=== PATIENT | male | born 1955 | race Caucasian/White ===

== ENCOUNTER 2023-01-26 10:19 | Outpatient (OUT) | payer OTHER, SELFPAY ==
[2023-01-26 11:04] LABS: Basophils Percent Auto 0.4 % (0.2-2.0); Eosinophils Absolute Auto 0.1 10^3/uL (0.0-0.7); Eosinophils Percent Auto 1.8 % (0.9-7.0); Hematocrit 44.7 % (42.0-54.0); Hemoglobin 13.9 g/dL (14.0-18.0); Immature Granulocytes Abs Auto 0.02 10^3/uL (0.00-0.03); Immature Granulocytes Pct Auto 0.3 % (0.0-0.5); Lymphocytes Absolute Auto 1.5 10^3/uL (1.2-3.8); Lymphocytes Percent Auto 20.4 % (20.5-60.0); Mean Corpuscular HGB Conc 31.1 g/dL (29.9-35.2); Mean Corpuscular Hemoglobin 27.6 pg (25.9-34.0); Mean Corpuscular Volume 88.7 fL (80.0-94.0); Mean Platelet Volume 9.5 fL (9.5-13.5); Monocytes Absolute Auto 0.8 10^3/uL (0.3-0.8); Monocytes Percent Auto 10.5 % (1.7-12.0); Neutrophils Absolute Auto 4.9 10^3/uL (1.4-6.5); Neutrophils Percent Auto 66.6 % (43.0-75.0); Platelet Count 225 10^3/uL (150-450); Red Blood Count 5.04 10^6/uL (4.70-6.10); Red Cell Distribution Width 14.3 % (11.0-15.0); White Blood Count 7.3 10^3/uL (4.0-11.0)
[2023-01-26 11:47] LABS: Alanine Aminotransferase 29 U/L (16-63); Albumin Globulin Ratio 0.9; Albumin Level 3.3 g/dL (3.4-5.0); Alkaline Phosphatase 137 U/L (46-116); Anion Gap 12.9; Aspartate Amino Transferase 18 U/L (15-37); BUN Creatinine Ratio 12.6; Bilirubin Total 0.3 mg/dL (0.2-1.0); Calcium 9.2 mg/dL (8.5-10.1); Carbon Dioxide 30.3 mmol/L (21.0-32.0); Chloride 104 mmol/L (98-107); Chol HDL Ratio 2.9; Cholesterol 149 mg/dL (<=200); Estimated GFR (African America >60 (>=60); Estimated GFR (Non-African Ame >60 (>=60); Globulin 3.8 g/dL; Glucose 95 mg/dL (74-106); HDL Cholesterol 51 mg/dL (40-60); LDL Cholesterol Calculated 86.8 mg/dL; Potassium 4.2 mmol/L (3.5-5.1); Sodium 143 mmol/L (136-145); Total Protein 7.1 g/dL (6.4-8.2); Triglycerides 56 mg/dL (<=150); VLDL CHOLESTEROL 11.2 mg/dL
[2023-01-26 12:02] LABS: Prostate Specific Antigen Scrn 7.54 ng/mL (<=4.00)
== END 2023-01-26 10:20 | disposition home or self-care (01) ==
PROVIDERS: PCP Internal Medicine; Visit Provider Internal Medicine
DX: Z00.00 Encounter for general adult medical examination without abnormal findings (principal); Z12.5 Encounter for screening for malignant neoplasm of prostate
CPT/HCPCS: 36415; 80053; 80061; 85025; G0103

== ENCOUNTER 2023-03-31 09:11 | Outpatient (OUT) | payer OTHER, SELFPAY ==
--- NOTE | 2023-03-31 09:20 | US_ITS ---
The [address] [address] Patient Name: JEANNETTE HUNTLEY MRN: [id number] date: 1955 Sex: M Assigned Patient Location: Current Patient Location: Accession/Order Number: [id number] Exam Date: 03/31/2023 09:25 Report Date: 04/02/2023 07:18 At the request of: MARVA LEPE Procedure: US scrotum EXAM: US scrotum HISTORY: EPIDIDYMITIS N45.1 COMPARISON: None. TECHNIQUE: Siddiqui scale imaging as well as color and duplex Doppler ultrasound examination of the scrotum and its contents were performed. FINDINGS: The testes are normal in size and echotexture without focal abnormality. The right testis measures 4.0 x 2.0 x 2.9 cm. The left testis measures 4.1 x 1.8 x 2.5 cm. Duplex Doppler examination shows normal and symmetric intratesticular blood flow bilaterally. Right epididymis is heterogeneous, mildly enlarged, without discrete hypervascularity.. Simple left epididymal head cyst, 0.6 cm. [No varicocele. No significant hydrocele. Mild right scrotal skin thickening. US/US scrotum IMPRESSION: 1. Findings suggestive of early versus resolving right epididymitis with associated overlying scrotal skin thickening. 2. No evidence for orchitis. Electronically authenticated by: TEMO REYNOLDS Date: 04/02/2023 07:18
== END 2023-03-31 09:12 | disposition home or self-care (01) ==
LOC: US 09:13
PROVIDERS: PCP Internal Medicine; Visit Provider Internal Medicine
DX: N45.1 Epididymitis (principal)
CPT/HCPCS: 76870

== ENCOUNTER 2023-09-28 15:58 | Outpatient (OUT) | payer OTHER, SELFPAY ==
--- NOTE | 2023-09-28 16:06 | US_ITS ---
The [address] [address] Patient Name: JEANNETTE HUNTLEY MRN: [id number] date: 1955 Sex: M Assigned Patient Location: [place] Current Patient Location: Accession/Order Number: [id number] Exam Date: 09/28/2023 16:12 Report Date: 10/01/2023 07:11 At the request of: MARVA LEPE Procedure: US scrotum EXAMINATION: US scrotum HISTORY: swelling of left testicle N50.89 COMPARISON: Ultrasound scrotum 03/23/2023 TECHNIQUE: High-resolution sonographic imaging of the scrotum and contents was performed. FINDINGS: RIGHT: TESTICLE: Homogeneous echotexture. No visible mass. Color Doppler flow is present. Spectral Doppler demonstrates normal arterial waveform and flow, 6/2 cm/s (PSV/EDV), and normal venous wave flow averaging 2 cm/s. EPIDIDYMIS: Small cysts. No increased vascularity. OTHER: None. LEFT: TESTICLE: Homogeneous echotexture. No visible mass. Duplex Doppler demonstrates increased vascularity of the testicle, 15/7 cm/s (PSV/EDV), and normal venous flow averaging 2 cm/s. EPIDIDYMIS: Increased vascularity. OTHER: Numerous thin-walled cystic/tubular structures within left hemiscrotum; dilated tubules/spermatoceles versus multiseptated complex hydrocele. Prominent varicocele. Skin thickening of left hemiscrotum, 6 mm. US/US scrotum IMPRESSION: 1. Left epididymitis and orchitis. 2. Prominent left varicocele and complex hydrocele versus innumerable dilated tubules/developing spermatoceles. Electronically authenticated by: MOHSEN MOSES Date: 10/01/2023 07:11
--- OUTSIDE RECORDS SUMMARY | 2023-09-28 16:06 | XMS_ITS | CCD ---
Author Organization [facility] Care Team Providers Care Bushing And Broach Operator Name Role Phone MIKE NOBLE Primary Care Physician DO Mike Noble Primary Care Provider MD Renato Page Attending Provider Renato Page Unavailable Mike Noble Primary Care Unavailable LueCinthia Admitting Unavailable Lue, Cinthia Velasquez Attending Unavailable eRnato Page Admitting Unavailable Renato Page Attending Unavailable Mike Noble Primary Care Unavailable REAL, DR DURHAM Admitting Unavailable BALL, DR DURHAM Attending Unavailable BALL, DR DURHAM Primary Care Unavailable BALL, DR DURHAM Consulting Unavailable LUE ., CINTHIA Velasquez Admitting Unavailable LUE ., CINTHIA Velasquez Attending Unavailable BALL, DR DURHAM Primary Care Unavailable LUE ., CINTHIA Velasquez Consulting Unavailable REAL, DR DURHAM Admitting Unavailable BALL, DR DURHAM Attending Unavailable BALL, DR DURHAM Primary Care Unavailable BALL, DR DURHAM Consulting Unavailable BALL, DR DURHAM Admitting Unavailable BALL, DR DURHAM Attending Unavailable BALL, DR DURHAM Primary Care Unavailable BALL, DR DURHAM Consulting Unavailable ZIEBER, DR MOHSEN Arce Consulting Unavailable REAL, DR DURHAM Primary Care Unavailable LUE ., CINTHIA Velasquez Admitting Unavailable LUE ., CINTHIA Velasquez Attending Unavailable LUE ., CINTHIA Velasquez Consulting Unavailable Unavailable Primary Care Provider UnavailLLOYD Israel Attending Unavailable SELF Referring Unavailable LLOYD DOYLE Attending Unavailable Mike Noble Unavailable Cinthia Leiva. Attending Unavailable LueCinthia. Referring Unavailable LueCinthia. Attending Unavailable LuCinthia odell. Attending Unavailable Allergies Allergy Classification Reported Allergen(s) Allergy Type Date of Onset Reaction(s) Facility (3 sources) Penicillins; Translations: [penicillins] Drug allergy Swelling (finding) [facility] (6 sources) Shellfish; Translations: [shellfish] Drug allergy 11-14-19 Swelling feature (observable entity), Swelling [facility] (3 sources) Penicillin V Drug Allergy Unknown [facility] Other (1 source) Unable to Assess Drug allergy (disorder) 07-25-19 [facility] Repository (2 sources) Penicillin Drug Allergy Unknown [facility] Repository (1 source) Shellfish Drug allergy (disorder) [facility] Repository (1 source) SHELLFISH CONTAINING PRODUCTS; Translations: [SHELLFISH CONTAINING PRODUCTS] Propensity to adverse reactions to drug (disorder) 11-14-19 [facility] Repository (11 sources) Fish derivative Drug allergy 12-20-19 19 Unknown [facility] Other (11 sources) SHELLFISH/ALL FISH Propensity to adverse reactions Unknown [facility] Other (11 sources) Substance with penicillin structure and antibacterial mechanism of action (substance) Drug allergy 12-20-19 19 Unknown [facility] Other (1 source) patient allergy list reviewed by nurse or physicia Propensity to adverse reactions 12-25-19 Comment:Done [facility] Other Medications Current Medications Medication Drug Class(es) Dates Sig (Normalized) Sig (Original) amLODIPine 5 mg oral tablet (20 sources) Dihydropyridine Calcium Channel Usman Start: 03-30-2021 take 1 tablet by mouth once daily amlodipine 5mg amLODIPine 5mg, 1 (one) Tablet daily # 90, 03/15/2022, Ref. x3. Active oral daily for 90 *Reorder from [facility] for eRx and Interaction Alerts* Mar, Active Comment on above: Take 5 mg by mouth o nce daily. Ascorbic Acid (2 sources) Vitamin C Start: 03-30-2021 Vitamin C Daily, Refills(s) 0 Start Date: 03/30/21 Status: Ordered atorvastatin 10 mg oral tablet (20 sources) HMG-CoA Reductase Inhibitor Start: 03-30-2021 take 1 tablet by mouth once daily in the evening atorvastatin 10mg atorvastatin 10mg, 1 (one) Tablet daily in evening # 90, 04/10/2022, Ref. x1. Active oral daily in evening for 90 *Reorder from [facility] for eRx and Interaction Alerts* Apr, Active Comment on above: Take by mouth. carvedilol 12.5 mg oral tablet (20 sources) alpha-Adrenergic Usman, beta-Adrenergic Usman Start: 03-30-2021 take 1 tablet by mouth twice daily Carvedilol 12.5MG Carvedilol 12.5MG, 1 (one) Tablet two times daily # 180, 12/30/2021, Ref. x3. Active Oral two times daily for 90 *Pick strength-form from [facility] for eRX* Dec, Active Comment on above: Take by mouth. doxycycline hyclate 100 mg oral capsule (2 sources) Tetracycline-class Drug Start: 06-30-2023 take 1 capsule by mouth every twelve hours Doxycycline Hyclate 100 MG 1 capsule Orally Twice a day for 7 days Jun, Active famotidine 40 mg oral tablet (11 sources) Histamine-2 Receptor Antagonist Start: 01-05-2021 take 1 tablet by mouth every twenty-four hours Famotidine 40 MG 1 tablet at bedtime as needed Orally Once a day Jan, Active Ibuprofen (2 sources) Nonsteroidal Anti-inflammatory Drug Start: 03-30-2021 ibuprofen Refills(s) 0 Start Date: 03/30/21 Status: Ordered levoFLOXacin 500 mg oral tablet (7 sources) Quinolone Antimicrobial Start: 03-23-2023 take 1 tablet by mouth every twenty-four hours levoFLOXacin 500 MG 1 tablet Orally Once a day for 10 days Mar, Active Multi Vitamin+ (2 sources) Start: 03-30-2021 Multi Vitamin+ Refill(s) 0 Start Date: 03/30/21 Status: Ordered predniSONE 20 mg oral tablet (4 sources) Start: 06-18-2023 predniSONE 20 MG 1 tablet Orally tid w/ food x 3 days then bid w/ food x 2 days then qd w/ food x 2 days for 7 days Jun, Active 72 hr scopolamine 0.0139 mg/hr transdermal system (2 sources) Anticholinergic Start: 06-30-2023 Scopolamine 1 MG/3DAYS 1 patch to skin behind the ear as needed Transdermal every 72 hours for 6 days Jun, Active tamsulosin hydrochloride 0.4 mg oral capsule (20 sources) alpha-Adrenergic Usman Start: 03-30-2021 take 1 capsule by mouth once daily in the evening tamsulosin 0.4mg tamsulosin 0.4mg, 1 Capsule daily in evening # 90, 04/10/2022, Ref. x3. Active oral daily in evening for 90 *Reorder from [facility] for eRx and Interaction Alerts* Apr, Active Comment on above: Take by mouth. tiZANidine 4 mg oral tablet (4 sources) Central alpha-2 Adrenergic Agonist Start: 06-18-2023 take 0.5-1 tablets by mouth once at bedtime as needed for pain tiZANidine HCl 4 MG 1/2 - 1 tablet Orally q HS PRN back pain for 10 days Jun, Active vitamin B12 (2 sources) Vitamin B12 Start: 03-30-2021 Vitamin B12 Refills(s) 0 Start Date: 03/30/21 Status: Ordered Vitamin D3 (2 sources) Start: 03-30-2021 Vitamin D3 Refills(s) 0 Start Date: 03/30/21 Status: Ordered Completed/Discontinued Medications Medication Drug Class(es) Dates Sig (Normalized) Sig (Original) aspirin 81 mg oral tablet (5 sources) Platelet Aggregation Inhibitor, Nonsteroidal Anti-inflammatory Drug Start: 03-30-2021 aspirin 81 mg cap Take by mouth. 0 03/30/2021 Active Start: 03-30-2021 take 1 mg by mouth e very four hours aspirin 81 mg oral capsule mg cap(s), Oral, q4hr, Refills(s) 0 Start Date: 03/30/21 Status: Ordered Comment on above: Take by mouth. ciprofloxacin 500 mg oral tablet (1 source) Quinolone Antimicrobial Start: 11-27-2022 End: 11-27-2022 ciprofloxacin HCl 500 mg tab(s) (CIPRO) diphenhydrAMINE hydrochloride 25 mg oral capsule (5 sources) Histamine-1 Receptor Antagonist Start: 03-30-2021 diphenhydrAMINE (BENADRYL) 25 mg capsule Take by mouth. 0 03/30/2021 Active Comment on above: Take by mouth. jrzrdyzs-gki-tpocibf fumarate (MULTI VITAMIN) 9 mg iron/15 mL liqd (3 sources) Start: 03-30-2021 zzzejnag-alw-behblvn fumarate (MULTI VITAMIN) 9 mg iron/15 mL liqd Multi Vitamin+ Refill(s) 0 Start Date: 03/30/21 Status: Ordered 0 03/30/2021 Active Comment on above: Multi Vitamin+ Refil l(s) 0 Start Date: 03/30/21 Status: Ordered Problems Active Problems Problem Classification Problem Date Documented Date Episodic/Chronic Abdominal pain (1 source) Epigastric pain; Translations: [Epigastric pain] Episodic Acute bronchitis (3 sources) Acute bronchitis; Translations: [Acute bronchitis due to other specified organisms] Episodic Cardiac dysrhythmias (1 source) Paroxysmal tachycardia; Translations: [Paroxysmal tachycardia, unspecified] Chronic Cardiac dysrhythmias (6 sources) Palpitations; Translations: [Tachycardia] 03-25-2021 Episodic Conditions associated with dizziness or vertigo (1 source) Dizziness and giddiness; Translations: [Dizziness and giddiness] Episodic Disorders of lipid metabolism (16 sources) Familial hypercholesterolemia; Translations: [Familial hypercholesterolemia] Onset: 12-19-2018 03-25-2021 Chronic Esophageal disorders (10 sources) Gastro-esophageal reflux disease with esophagitis; Translations: [Gastroesophageal reflux disease with esophagitis without hemorrhage] Chronic Essential hypertension (15 sources) Essential hypertension; Translations: [Essential (primary) hypertension] 03-25-2021 Chronic Genitourinary congenital anomalies (3 sources) Hypospadias, penile; Translations: [Hypospadias, penile] Onset: 01-23-2022 Chronic Genitourinary symptoms and ill-defined conditions (6 sources) Poor stream of urine; Translations: [Poor urinary stream] Onset: 12-19-2018 Episodic Hyperplasia of prostate (20 sources) Benign prostatic hypertrophy with outflow obstruction; Translations: [Benign prostatic hyperplasia with lower urinary tract symptoms] Onset: 12-23-2018 Chronic Inflammatory conditions of male genital organs (3 sources) Prostatitis; Translations: [Inflammatory disease of prostate, unspecified] Onset: 09-20-2022 07-13-2021 Episodic Nonspecific chest pain (1 source) Chest pain; Translations: [Other chest pain] Episodic Other diseases of bladder and urethra (2 sources) Male urethral stricture; Translations: [Unspecified urethral stricture, male, unspecified site] Onset: 09-20-2022 Episodic Other diseases of bladder and urethra (1 source) Unspecified urethral stricture, male, unspecified site; Translations: [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 urethra, unspecified stricture type] Onset: 11-27-2022 Episodic Other diseases of kidney and ureters (1 source) Urinary tract obstruction; Translations: [Other obstructive and reflux uropathy] Onset: 01-23-2022 Episodic Other diseases of kidney and ureters (1 source) Other obstructive and reflux uropathy; Translations: [BPH with obstruction/lower urinary tract symptoms] Onset: 11-27-2022 Episodic Other diseases of veins and lymphatics (11 sources) Peripheral venous insufficiency; Translations: [Venous insufficiency (chronic) (peripheral)] Episodic Other diseases of veins and lymphatics (2 sources) Venous insufficiency (chronic) (peripheral) Episodic Other disorders of stomach and duodenum (2 sources) Indigestion 03-25-2021 Episodic Other injuries and conditions due to external causes (1 source) Motion sickness; Translations: [Motion sickness, initial encounter] Episodic Other injuries and conditions due to external causes (2 sources) Motion sickness, initial encounter Episodic Other nutritional; endocrine; and metabolic disorders (5 sources) Morbid obesity; Translations: [Morbid (severe) obesity due to excess calories] Onset: 11-13-2022 03-25-2021 Chronic Other nutritional; endocrine; and metabolic disorders (1 source) Morbid (severe) obesity due to excess calories; Translations: [Morbid obesity (HCC)] Onset: 11-13-2022 Chronic Other nutritional; endocrine; and metabolic disorders (1 source) Obesity; Translations: [Obesity, unspecified] Chronic Other nutritional; endocrine; and metabolic disorders (1 source) Body mass index 30+ - obesity; Translations: [Body mass index 36.0-36.9, adult] Onset: 12-24-2018 Chronic Other screening for suspected conditions (not mental disorders or infectious disease) (14 sources) Raised prostate specific antigen; Translations: [Elevated prostate specific antigen [PSA]] Onset: 07-25-2021 03-30-2021 Episodic Spondylosis; intervertebral disc disorders; other back problems (20 sources) Prolapse of lumbar intervertebral disc without radiculopathy; Translations: [Other intervertebral disc displacement, lumbar region] Chronic Spondylosis; intervertebral disc disorders; other back problems (16 sources) Low back pain; Translations: [Low back pain, unspecified back pain laterality, unspecified chronicity, unspecified whether sciatica present] Episodic Unclassified (1 source) Low back pain, unspecified; Translations: [Low back pain, unspecified] Onset: 03-10-2022 Unclassified (1 source) N41.9 - Inflammatory disease of prostate, unspecified; Translations: [N41.9 - Inflammatory disease of prostate, unspecified] Onset: 07-25-2021 Unclassified (3 sources) LOW BACK PAIN, UNSPECIFIED; Translations: [LOW BACK PAIN, UNSPECIFIED] Onset: 02-12-2022 Unclassified (3 sources) CONTACT W/AND (SUSP) EXPOS COVID-19; Translations: [CONTACT W/AND (SUSP) EXPOS COVID-19] Onset: 11-15-2021 Unclassified (1 source) 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); Translations: [Post COVID-19 condition, unspecified] Unclassified (1 source) Encounter for health counseling related to travel; Translations: [Encounter for health counseling related to travel] Unclassified (1 source) Other ventricular tachycardia; Translations: [Other ventricular tachycardia] Past or Other Problems Problem Classification Problem Date Documented Da te Episodic/Chronic Esophageal disorders (2 sources) Esophageal disorders Unclassified (1 source) LOW BACK PAIN, UNSPECIFIED; Translations: [LOW BACK PAIN, UNSPECIFIED] Onset: 02-08-2022 Unclassified (1 source) CONTACT W/AND (SUSP) EXPOS COVID-19; Translations: [CONTACT W/AND (SUSP) EXPOS COVID-19] Onset: 11-12-2021 Unclassified (3 sources) Acute bilateral low back pain without sciatica M54.50 Results Test Name Value Interpretation Reference Range Facil ity Provider Letteron 02-20-2023 Provider Letter February 20, 2023 JEANNETTE HUNTLEY [address] [place] [address] [place] [address] : 1955 Dear Mr. Huntley, We have been trying to reach you with no success regarding a referral we received from Dr Noble. It is important that you return our call upon receiving this letter so that we can get your consultation scheduled. Also, at the time of your call, please provide us with your current demographic and insurance information. Thank you for your prompt attention to this matter. Sincerely, [facility] General Surgery [phone] [facility] Operative Reporton 3 Operative Report [id number]. 00CD:127 [facility] Physician Referralon 023 Physician Referral [id number]. 00CD:127 [facility] CNOVon 11-27-2022 CNOV Office Visit (UROSMN ) JEANNETTE HUNTLEY ([id number]) 1955 M Date Time Provider Department 11/27/22 3:00 PM LLOYD DOYLE UROSUSANA During your visit today, we recorded the following information about you: Dionisio Reardon RN 11/27/2022 3:55 PM Signed Actual procedure/procedure scheduled: Yes Performing provider/scheduled provider: Yes Patient was roomed in: Q9- 14 Safety Associate offered:Patient declines Patient arrived in the room at: 1440 Patient ready for procedure: 1444 The procedure started at ( Time Only): 1525 The procedure ended at: 1528 Was the procedure delayed: Yes: Provider late: Provider with other patient on Q9 The patient left the procedure room at: 1550 Dionisio Reardon RN PRE PROCEDURE ASSESSMENT Procedure Indication: RUG Latex Allergy: No Allergies reviewed and updated. Yes Pre-Procedure Vital Signs: BP: 194/100 Pulse: 88 Heart valve replacement: No Joint replacement: No Back Office UA otained: yes PROCEDURE PREP Patient ID with two(2)identifiers verified by: Dionisio Reardon RN Patient Prep: Betadine Scrub to perineum and placement of Sterile Drape. COMPLETED Anesthetic Given:None Dionisio Reardon RN UNIVERSAL PROTOCOL / SAFETY CHECKLIST Procedure to be performed: RUG Sign in Communication: Completed Time Out: Team Confirms the Correct Patient, Correct Procedure, Correct Site and Site Marking, Correct Position (if applicable). Sign Out Discussion: Completed Dionisio Reardon RN POST PROCEDURE NURSE ASSESSMENT Present along with physician during procedure exam. Dionisio Reardon RN Instruction sheet given and reviewed and patient verbalizes understanding: yes Current pain intensity is 0 on a 0-10 pain scale. Contrast amount used: 25cc omnipaque Dionisio Reardon RN AMBULATORY PATIENT EDUCATION THE FOLLOWING WAS EVALUATED Motivation To Learn: Eager Interested Family/Significant Other Support: None - Unavailable/disintere sted Cognitive Ability: Alert/Oriented Method of Instruction: Written instruction - handouts The Following Influencing Factors Were Barriers To This Education Session: None The Following Physical Limitations Were Barriers To This Education Session: None Instruction Provided To: Patient Appellate Law Clerk Present: not applicable Discipline: Nursing Learning Topic: SURVIVAL SKILLS: Symptom Management Patient Evaluation: Verbalizes understanding: Yes Supplemental Material Given: Written Material Instructed By Dionisio Reardon RN In Department Urology . Lloyd Doyle MD 11/27/2022 5:27 PM Signed PHYSICIAN'S NOTE: Procedure: RUG Epic notes reviewed: yes Interval history:Last seen 11/13/2022 This is a 67 yo man with hx congenital hypospadias, BPH, Dr. Leiva attempted to perform cysto to evaluate for surigcal BPH tx, unable to pass scope. Endorsing OVS, good improvement on flomax. PVR: 97 cc Diagnosis: LUTS Informed consent obtained yes. Discussed RBAPC. The procedure was fully explained to the patient, risks were reviewed. The patient was placed into lateral oblique position, and the glans penis was prepped with betadine. With the penis on stretch, Omnipaque 300 was gently injected into the urethral meatus under radiographic visualization and images were captured. RADIOLOGIC STUDIES RUG:patent urethral meatus, distal urethra with pinpoint narrowing, just <1 cm proximal from meatus. Rest of the urethra appears patent without filling defects. COMPLICATIONS: None RECOMMENDATIONS: Discussed findings with patient. - Recommend 1 stage onlay urethroplasty - dorsal approach - he will consider and LMK- he's retiring soon so wants to time it around that POST PROCEDURE Condition: satisfactory Medications:Cipro 500 mg x 1 MD Lloyd Valdes MD 11/27/2022 5:27 PM Signed Referring Provider: SELF [[id number]] Allergies As of Date: 11/27/2022 Noted Allergy Reaction SHELLFISH CONTAINING PRODUCTS 11/13/2022 7 - Swelling Date Reviewed: 11/27/2022 Reviewed by: Dionisio Reardon RN - Fully Assessed Reason for Visit: Retrograde Urethrogram [376] Primary Visit Diagnosis: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 urethra, unspecified stricture type [N35.919] Other Visit Diagnosis:BPH with obstruction/lower urinary tract symptoms [N40.1, N13.8] Prescriptions as of 11/27/2022 - amLODIPine (NORVASC) 5 mg tablet Take 5 mg by mouth once daily. - aspirin 81 mg cap Take by mouth. - atorvastatin (LIPITOR) 10 mg tablet Take by mouth. - tamsulosin (FLOMAX) 0.4 mg Take by mouth. - diphenhydrAMINE (BENADRYL) 25 mg capsule Take by mouth. - carvedilol (COREG) 12.5 mg tablet Take by mouth. - dojitifm-rmv-ngzwklp fumarate (MULTI VITAMIN) 9 mg iron/15 mL liqd Multi Vitamin+ Refill(s) 0 Start Date: 03/30/21 Status: Ordered Problem List As Of Date 11/27/2022 Noted Resolved Morbid obesity (HCC) [E66.01] 11/13/2022 11/27/2022 Visit Notes: (more content not included)... [facility] Consultation Noteon 11-27-19 Consultation Note [id number] .[id number]:127 [facility] Consultation Note [id number]. [id number]:127 [facility] CNCOon 11-13-2022 CNCO HNO ID: [id number] Author: Lloyd Doyle MD Service: Urology Author Type: Physician Type: Letter Filed: 11/20/2022 8:58 AM Note Text: November 15, 2022 Cinthia Leiva M.D. [address] [place] [address] NAME: JEANNETTE HUNTLEY [facility] NO.: [id number] DATE OF SERVICE: 11/13/[address] 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 He did have a negative MRI and I understand that you wanted to perform a cystoscopy I think to evaluate microscopic hematuria. I plan to do retrograde ureterogram on him soon to evaluate the remainder of his urethra and I have a 12-Hebrew cystoscope which I could perform a cystoscopy if he wanted me to do that. If you have any questions or concerns, please do not hesitate to contact me. Sincerely yours, Lloyd Doyle MD [facility] CNOVon 11-13-2022 CNOV Office Visit (UROLMN ) JEANNETTE HUNTLEY ([id number]) 1955 M Date Time Provider Department 11/13/22 8:30 AM LLOYD DOYLE During your visit today, we recorded the following information about you: Pulse Blood pressure Weight 67/minute 160/92 124.7 kg Lloyd Doyle MD 11/13/2022 10:35 AM Signed [facility] NEW PATIENT HISTORY AND PHYSICAL EXAM PATIENT INFO: Jeannette Huntley 67 year old REFERRING M.D.: SELF HISTORY Jeannette is a 67 y.o. male Home urologist is Dr Leiva with hypospadias, follows him for BPH, elevated PSA, neg prostate MRI, no prior biopsy; LUTS iso congenital hypospadias, no prior repair, noted when they attempted to perform cystoscopy on 01/2022, unable to pass scope. Endorses hesitancy, slow stream, incomplete emptying, spraying stream. Denies intermittent stream, hematuria. Significant improvement in LUTS with flomax, does has issues erectile function while taking so he will take days off. No hx UTI, kidney stones. Referred by his home urologist due to impediment to cystoscopy - patient is not bothered by his symptoms but does worry about increased difficulty accessing his urinary tract for assessment or management of his prostate, potentially needing a brown catheter, etc. PSA 5.7, 09/13/22. Previous PSA 5.2 07/13/21. Denies Fhx prostate ca. Moves bowel regularly, no issues. He is physically active, ran half marathon with his . PMH: HLD, HTN PSH: hiatal hernia repair PVR: 97 cc States that he only occas has OVS MEDICATIONS: Current Outpatient Medications Medication Sig aspirin 81 mg cap Take by mouth. atorvastatin (LIPITOR) 10 mg tablet Take by mouth. tamsulosin (FLOMAX) 0.4 mg Take by mouth. diphenhydrAMINE (BENADRYL) 25 mg capsule Take by mouth. carvedilol (COREG) 12.5 mg tablet Take by mouth. asjwjdlk-rar-ynnvdwk fumarate (MULTI VITAMIN) 9 mg iron/15 mL liqd Multi Vitamin+ Refill(s) 0 Start Date: 03/30/21 Status: Ordered amLODIPine (NORVASC) 5 mg tablet Take 5 mg by mouth once daily. No current facility-administered medications for this visit. MEDICATION ALLERGIES: ALLERGIES Allergen Reactions Shellfish Containin* Swelling No past medical history on file. No past surgical history on file. FAMILY HISTORY: NEGATIVE: No related previous family history. Social History Tobacco Use Smoking status: Never Smokeless tobacco: Never : Force of Stream: slower, spraying NOCTURIA: yes Day Time Frequency: no Hesitancy: yes Intermittency: no Incomplete Emptying: yes Post void Dribbling: yes Urinary Retention Hx: no Double Voiding: no Urgency: Dysuria: no Incontinence history: only post void HISTORY OF FAMILY CANCER:none gross hematuria history: denies Erectile dysfunction: denies, denies chordee UTI Hx: denies STAFF NOTE: This consult was requested by Dr. Cinthia Leiva for an opinion regarding hypospadias, and my final recommendations will be communicated to the requesting health care provider by way of the shared medical record for internal providers or letter via the [employer] for external providers. Edited above to reflect my findings. 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 HERNIAS: None SKIN/LYMPH: No rash, lesions NEURO/PSYCH: No signs of depression, anxiety, or agitation EXTREMITIES: Extremities normal. No deformities, edema, clubbing or skin discoloration. GENITOURINARY: MALE EXAM: there is a distal penile hypo with what appears to be meatal stenosis, but diff to see beyond MEDICAL DECISION MAKING: (A1) IMPRESSION: (Diagnostic Possibilities) New or Established 1) hypospadias with stric, prevented cysto - rec RUG, disc rationale. Can do cysto with 12F scope concurrent if Dr. Leiva wants 2) el PSA neg MRI, being eval by Dr. Leiva (A2) PLAN: (Management Options) NEMO Doyle MD Staff Electronically signed Yulissa Mccann MA 11/13/2022 9:13 AM Signed PATIENT PVR 27mL. Referring Provider: SELF [200] Allergies As of Date: 11/13/2022 Noted Allergy Reaction SHELLFISH CONTAINING PRODUCTS 11/13/2022 7 - Swelling Date Reviewed: 11/13/2022 Reviewed by: Iftikhar Avilez MA - Fully Assessed Reason for Visit: Consult [173] Primary Visit Diagnosis:Penile hypospadias [Q54.1] Other Visit Diagnoses:Elevated prostate specific antigen (P (more content not included)... Normal [facility] URINALYSIS, REFLEX MICROSCOP ICon 11-13-2022 Bilirubin Ql (U) Negative Normal Negative [facility] Comment on above: Order Comment: Speci men Type: URINE SPECIMEN Ordering Facility: [facility] Address: [address] [place] [address] Performed By: #### L [id number] #### [facility] CLIA [id number] [address] [place] [address] [place] Clarity (Unsp spec) Clear Normal Clear [facility] Comment on above: Order Comment: Speci men Type: URINE SPECIMEN Ordering Facility: [facility] Address: [address] Performed By: #### L [id number] #### [facility] CLIA [id number] [address] [place] [address] [place] Color (U) Yellow Normal Yellow [facility] Comment on above: Order Comment: Speci men Type: URINE SPECIMEN Ordering Facility: [facility] Address: [address] Performed By: #### L [id number] #### [facility] CLIA [id number] [address] [place] [address] [place] Epithelial cells LM.HPF (Urine sed) [#/Area] Few Normal [facility] Comment on above: Order Comment: Speci men Type: URINE SPECIMEN Ordering Facility: [facility] Address: [address] [place] [address] Performed By: #### L [id number] #### [facility] CLIA [id number] [address] [place] [address] [place] Glucose Test strip (U) [Mass/Vol] Negative Normal Trace, Negative [facility] Comment on above: Order Comment: Speci men Type: URINE SPECIMEN Ordering Facility: [facility] Address: [address] Performed By: #### L [id number] #### [facility] CLIA [id number] [address] [place] [address] [place] Hemoglobin Ql (U) Negative Normal Negative, Trace Cl [facility] Comment on above: Order Comment: Speci men Type: URINE SPECIMEN Ordering Facility: [facility] Address: [address] [place] [address] Performed By: #### L [id number] #### [facility] CLIA [id number] [address] [place] [address] [place] Ketones Ql (U) Negative Normal Negative, Trace [facility] Comment on above: Order Comment: Speci men Type: URINE SPECIMEN Ordering Facility: [facility] Address: [address] [place], [place] [address] Performed By: #### L [id number] #### [facility] CLIA [id number] [address] [place] [address] [place] Leukocyte esterase Test strip Ql (U) 500 Heather/uL Abnormal Negative, 25 Heather/uL [facility] Comment on above: Order Comment: Speci men Type: URINE SPECIMEN Ordering Facility: [facility] Address: [address] [place], [place] [address] Performed By: #### L [id number] #### [facility] CLIA [id number] [address] [place] [address] [place] Nitrite Ql (U) Negative Normal Negative [facility] Comment on above: Order Comment: Speci men Type: URINE SPECIMEN Ordering Facility: [facility] Address: [address] Performed By: #### L [id number] #### [facility] CLIA [id number] [address] [place] [address] [place] pH (U) 5.5 [pH] Normal 5.0-8.0 [facility] Comment on above: Order Comment: Speci men Type: URINE SPECIMEN Ordering Facility: [facility] Address: [address] [place], [place] [address] Performed By: #### L [id number] #### [facility] CLIA [id number] [address] Protein (U) [Mass/Vol] Negative Normal Trace, Negative [facility] Comment on above: Order Comment: Speci men Type: URINE SPECIMEN Ordering Facility: [facility] Address: [address] [place], [place] [address] Performed By: #### L [id number] #### [facility] CLIA [id number] [address] [place] [address] [place] RBC LM.HPF (Urine sed) [#/Area] 0-3 /HPF Normal 0-3 /HPF [facility] Comment on above: Order Comment: Speci men Type: URINE SPECIMEN Ordering Facility: [facility] Address: [address] [place], [place] [address] Performed By: #### L [id number] #### [facility] CLIA [id number] [address] [place] [address] STATES [facility] Specific gravity (U) [Rel density] 1.022 Normal 1.005-1.030 [facility] Comment on above: Order Comment: Speci men Type: URINE SPECIMEN Ordering Facility: [facility] Address: [address] [place], [place] [address] Performed By: #### L [id number] #### [facility] CLIA [id number] [address] [place] [address] [place] Urobilinogen Ql (U) Negative Normal Negative [facility] Comment on above: Order Comment: Speci men Type: URINE SPECIMEN [facility]ing Facility: [facility] Address: [address] [place], [place] [address] Performed By: #### L [id number] #### [facility] CLIA [id number] [address] [place] [address] [place] WBC LM.HPF (Urine sed) [#/Area] 11-25 /HPF Abnormal 0-5 /HPF [facility] Comment on above: Order Comment: Speci men Type: URINE SPECIMEN [facility]ing Facility: [facility] Address: [address] [place], [place] [address] Performed By: #### L [id number] #### [facility] CLIA [id number] [address] [facility] [id number] [place] [address] [place] Bilirubin Ql (U) Negative Negative [facility] Clarity (Unsp spec) Clear Clear [facility] Color (U) Yellow Yellow [facility] Epithelial cells LM.HPF (Urine sed) [#/Area] Few [facility] Glucose Test strip (U) [Mass/Vol] Negative Trace, Negative [facility] Hemoglobin Ql (U) Negative Negative, Trace Cl [facility] Ketones Ql (U) Negative Negative, Trace [facility] Leukocyte esterase Test strip Ql (U) 500 Heather/uL Abnormal Negative, 25 Heather/uL [facility] Nitrite Ql (U) Negative Negative [facility] pH (U) 5.5 [pH] 5.0 - 8.0 [facility] Protein (U) [Mass/Vol] Negative Trace, Negative [facility] RBC LM.HPF (Urine sed) [#/Area] 0-3 /HPF 0-3 /HPF [facility] Specific gravity (U) [Rel density] 1.022 1.005 - 1.030 [facility] Urobilinogen Ql (U) Negative Negative [facility] WBC LM.HPF (Urine sed) [#/Area] 11-25 /HPF Abnormal 0-5 /HPF [facility] Lab Reportson 09-20-2022 Lab Reports [id number]:127 Normal [facility] Patient Educationon 09-21-19 Patient Education Infectious Disease Prostatitis Prostatitis is swelling or inflammation of the prostate gland, also called the prostate. This gland is about 1.5 inches wide and 1 inch high, and it is involved in making semen. The prostate is located below a man's bladder, in front of the rectum. There are four types of prostatitis: ? Chronic prostatitis (CP), also called chronic pelvic pain syndrome (CPPS). This is the most common type of prostatitis. It is associated with increased muscle tone in the area between the hip bones (pelvic area), around the prostate. This type is also known as a pelvic floor disorder. ? Chronic bacterial prostatitis. This type usually results from an acute bacterial infection in the prostate gland that keeps coming back or has not been treated properly. The symptoms are less severe than those caused by acute bacterial prostatitis, which lasts a shorter time. ? Asymptomatic inflammatory prostatitis. This type does not have symptoms and does not need treatment. This is diagnosed when tests are done for other disorders of the urinary tract or reproductive tract. ? Acute bacterial prostatitis. This type starts quickly and results from an acute bacterial infection in the prostate gland. It is usually associated with a bladder infection, high fever, and chills. This is the least common type of prostatitis. What are the causes? Bacterial prostatitis is caused by an infection from bacteria. Chronic nonbacterial prostatitis may be caused by: ? Factors related to the nervous system. This system includes thebrain, spinal cord, and nerves. ? An autoimmune response. This happens when the body's disease-fighting system attacks healthy tissue in the body by mistake. ? Psychological factors. These have to do with how the mind works. The causes of the other types of prostatitis are usually not known. What are the signs or symptoms? Symptoms of this condition depend on the type of prostatitis you have. Acute bacterial prostatitis Symptoms may include: ? Pain or burning during urination. ? Frequent and sudden urges to urinate. ? Trouble starting to urinate. ? Fever. ? Chills. ? Pain in your muscles or joints, lower back, or lower abdomen. Other types of prostatitis Symptoms may include: ? Sudden urges to urinate, or urinating often. ? Trouble starting to urinate. ? Weak urine stream. ? Dribbling after urination. ? Discharge coming from the penis. ? Pain in the testicles, the penis, or the tip of the penis. ? Pain in the area in front of the rectum and below the scrotum (perineum). ? Pain when ejaculating. How is this diagnosed? This condition may be diagnosed based on: ? A physical and medical exam. ? A digital rectal exam. For this, the health care provider may use a finger to feel the prostate. ? A urine test to check for bacteria. ? A semen sample or blood tests. ? Ultrasound. ? Urodynamic tests to check how your body handles urine. ? Cystoscopy to look inside your bladder or inside the part of your body that drains urine from the bladder (urethra). How is this treated? Treatment for this condition depends on the type of prostatitis. Treatment may involve: ? Medicines to relieve pain or inflammation, or to help relax your muscles. ? Physical therapy. ? Heat therapy. ? Biofeedback. These techniques help you control certain body functions. ? Relaxation exercises. ? Antibiotic medicine, if your condition is caused by bacteria. ? Sitz baths. These warm water baths help to relax your pelvic floor muscles, which helps to relieve pressure on the prostate. Follow these instructions at home: Medicines ? Take hdek-osu-xlevbbg and prescription medicines only as told by your health care provider. ? If you were prescribed an antibiotic medicine, take it as told by your health care provider. Do not stop using the antibiotic even if you start to feel better. Managing pain and swelling ? Take sitz baths as directed by your health care provider. For a sitz bath, sit in warm water that is deep enough to cover your hips and buttocks. ? If directed, apply heat to the affected area as often as told by your health care provider. Use the heat source that your health care provider recommends, such as a moist heat pack or a heating pad. ? Place a towel between your skin and the heat source. ? Leave the heat on for 20?30 minutes. ? Remove the heat if your skin turns bright red. This is especially important if you are unable to feel pain, heat, or cold. You may have a greater risk of getting burned. General instructions ? Do exercises as told by your health care provider, if you were prescribed physical therapy, biofeedback, or relaxation exercises. ? Keep all follow-up visits as told by your health care provider. This is important. Where to find more information ? National Cass of Diabetes and Digestive and Kidney Diseases: (more content not included)... Normal [facility] Urology Office/Clinic Noteon 09-20-2022 Urology Office/Clinic Note Chief Complaint Pt is here for 8 month w/ PSA HPI Staff Jeannette is a 67 y.o. male here for 8 month follow up w/ PSA. Previous Dx: BPH w/ urinary obstruction, elevated PSA, nocturia, prostatitis. S/P cystoscopy done on 01/23/22. Current PSA 5.7 & 31.2% done on 09/13/22. Previous PSA 5.2 & 22.7% done on 07/13/21. Dysuria: denies Incomplete bladder emptying: denies Hematuria: denies Frequency: denies Urgency: denies Nocturia: 1-2x a night Stream: steady stream, mild weakness Leaking: denies Post void dripping: denies Wearing pads/ Depends: denies Urge incontinence: denies Stress incontinence: denies Incontinence without Sensory Awareness: denies Abdominal pain: denies Flank pain: denies Sexual complaints: _ History of Present Illness I have reviewed and verified the staff HPI to be accurate for this encounter. Review of Systems PHQ Score Initial Depression Screen Score: 0 ROS - Provider Constitutional: denies weight loss, denies hot flashes. Eyes: denies eye problems. Gastrointestinal: denies nausea, denies vomiting. Cardiovascular: denies chest pain or angina. Integumentary: no dryness Musculoskeletal: denies musculoskeletal symptoms. ENMT: denies otolaryngeal symptoms. Respiratory: no shortness of breath. Heme/Lymph: denies easy bleeding tendency, denies easy bruising tendency. Psychiatric: no confusion, no anxiety. Genitourinary: see HPI Physical Exam Vitals & Measurements HR: 80(Peripheral) BP: 138/81 HT: 71 in HT: 180 cm WT: 103 kg WT: 226.6 lb BMI: 31.79 General Appearance: alert, no distress, well nourished, well developed male. Genitourinary: Flank Pain: none. Bladder: nonpalpable. Assessment/Plan 1. BPH with urinary obstruction (N40.1: Benign prostatic hyperplasia with lower urinary tract symptoms) Pt. currently taking Tamsulosin 0.4mg QD therapy (PCP prescribes). IPSS 15-weak stream previous IPSS Originally 22 Pt denies any urinary complaints. Likely due to hx prostatitis and urethral stricture per #3,5 -Cont meds, timed voiding, stricture eval at [facility] 2. Elevated PSA (R97.20: Elevated prostate specific antigen [PSA]) MDX result done on 03/30/21 showed 54% chance finding cancer, 26% Timpson 7 or higher ( of note, JAYNE was noted as suspicious on order, but his JAYNE was NOT suspicious) PSA 09/13/2022 - 5.7 and 31.2% 07/13/21 was 5.2 and 22.7% Free 02/14/21 - 5.3 and free 23% (after 3 weeks of ABX course) 01/17/21 - 7.24 MRI prostate w/wo contrast done on 07/25/21 at [facility] impression showed no MRI evidence of prostate malignancy. BPH. 85g volume PSA density 0.067 Discussed PSA trend, potential for malignancy in setting of neg MRI and low PSAD, risks of biopsy. Pt would like to continue monitoring -Cont monitoring PSA in 6 mths 3. Urethral stricture in male (N35.919: Unspecified urethral stricture, male, unspecified site) Seen on Cysto 01/23/2022- Distal penile hypospadias. Pale urethral stricture 8-10Fr, starting < 1 cm proximal to meatus, unable to advance flexible cystoscope. No visible tumors or lesions. Hooded dorsal foreskin intact. Thin ventral penile skin. Recommended referral to tertiary center for hypospadias repair given symptoms of weak stream, pressure at end of stream and spraying. Pt was referred to [facility] but was unable to go due to insurance issues. Insurance cleared however [facility] unable to contact pt due to him being in [place] -Pt will attempt to contact [facility] to be seen. Will resend referral paperwork for Dr Lloyd Doyle -F/u in 3 mths 4. Prostatitis (N41.9: Inflammatory disease of prostate, unspecified) Pt finished ABX therapy Cipro 500mg BID x 6weeks from +UCx. UA negative for infection. 5. Hypospadias (Q54.9: Hypospadias, unspecified) Seen on Cysto 01/23/2022 -Distal penile hypospadias Pt does not think he has had a formal repair as a child, but not sure. -Recommended referral to tertiary center for hypospadias repair given symptoms of weak stream, pressure at end of stream and spraying, see #3 Follow-up With When Contact Information Cali GARCIA, Cinthia Hernandez, URL, URO In 3 months 12/20/2022 EDT [address] [place] [address]- [phone] Additional Instructions: Patient Education Prostatitis I, Desiree Louis , personally scribed for Dr. Leiva on 09/20/2022 10:34:10. . Documentation recorded by the scribe, Desiree Louis, accurately reflects the services(s) I performed and decisions made by me. Authenticated by Dr. Leiva on 09/20/2022 10:40:10. Problem List/Past Medical History Ongoing BPH with urinary obstruction Dyspepsia Elevated PSA Essential hypertension Hyperlipidemia type II Morbid obesity Nocturia Palpitation Prostatitis Tachycardia Historical No qualifying data Procedure/Surgical History Colonoscopy (2017), Hiatal hernia (1999). Medications amLODIPine 5 mg Tab, Oral, Daily aspirin 81 mg oral capsule, Oral, q4hr atorvastatin 10 mg T (more content not included)... Normal [facility] Comment on above: Result Comment: Elec tronically Signed By: Cinthia Leiva MD\.br\Date and Time Signed: 09/20/22 10:40 EDT\.br\Electronically Co-Signed By: Desiree Louis MA\.br\Date and Time Co-Signed: 09/20/22 10:34 EDT PSA, FREE AND TOTAL RATIOon 09-14-2022 % Free PSA 31.2 % Normal [facility] Comment on above: Result Comment: The table below lists the probability of prostate cancer for men with non-suspicious JAYNE results and total PSA between 4 and 10 ng/mL, by patient age (Claudia et al, JULISSA 1998, 279:1542). % Free PSA 50-64 yr 65-75 yr 0.00-10.00% 56% 55% 10.01-15.00% 24% 35% 15.01-20.00% 17% 23% 20.01-25.00% 10% 20% >25.00% 5% 9% Please note: Claudia et al did not make specific recommendations regarding the use of percent free PSA for any other population of men. Performed By: #### P SAFREE #### [facility] [address] [place] [address] Dr. Dov Dunlap Prostate specific Ag [Mass/Vol] 5.7 ng/mL Critically high 0.0-4.0 [facility] Comment on above: Result Comment: Aster MORRISON methodology. . According to the [employer], Serum PSA should decrease and remain at undetectable levels after radical prostatectomy. The AUA defines biochemical recurrence as an initial PSA value 0.2 ng/mL or greater followed by a subsequent confirmatory PSA value 0.2 ng/mL or greater. Values obtained with different assay methods or kits cannot be used interchangeably. Results cannot be interpreted as absolute evidence of the presence or absence of malignant disease. Performed By: #### P SAFREE #### [facility] [address] [place] [address] [address] Dov Dunlap PSA, Free 1.78 ng/mL Normal N/A [facility] Comment on above: Result Comment: Aster MORRISON methodology. Performed By: #### P SAFREE #### [facility] [address] [place] [address] [address] Dov Dunlap Provider Letteron 07-17-2022 Provider Letter July 17, 2022 JEANNETTE HUNTLEY [address] [place] [address] [place] [address] JEANNETTE HUNTLEY 1955 Dear Mr. Huntley, We have been trying to reach you with no success. You have an appointment with Dr. Cinthia Leiva on July 26, 2022 which will need to be rescheduled since she will be out of the office that day. Please contact the office at the number listed below to get this appointment rescheduled at your earliest convenience. Thank you for your prompt attention to this matter. Please call [phone] to reschedule. Sincerely, [facility] [address], [place] [address] [facility] XR lumbar spine 6V w bending on 03-10-2022 XR lumbar spine 6V w bending [facility] [place] [address] [place] [address] XRay Report Signed Patient: Jeannette Huntley MR#: [id number] : 1955 Acct:[id number] Age/Sex: 66 / M ADM Date: 03/10/22 Loc: XD Room: Type: [facility] Attending Dr: Renato Page MD Copies to: Renato Page MD Ordering Provider: Renato Page MD Date of Service: 03/10/22 XR/XR lumbar spine 6V w bending: M54.50 XR lumbar spine 6V w bending 03/10/2022 3:42 PM SIGNS AND SYMPTOMS: Low back pain, fall PROTOCOLS: Frontal, lateral, and flexion-extension views of the lumbar spine COMPARISON: None FINDINGS: There is a dextro convex curvature of the lumbar spine. Flexion and extension views show no pathologic movement. There is no fracture or destructive lesion. The disk spaces are well-preserved. The sacrum and sacroiliac joints are normal. Atherosclerotic changes are noted in the abdominal aorta. XR/XR lumbar spine 6V w bending IMPRESSION: No fracture, subluxation, or pathologic movement. There is a dextro convex curvature of the lumbar spine. Impression dictated by: Zeke Hunt M.D.03/10/2022 6:39 PM Dictation Location: [place] [address] Transcribed By: [facility] 03/10/221838 Dictated By: Zeke Hunt II, MD 03/10/221835 Signed By: 03/10/221838 [facility] MRI LSPINE WO CONon 02-10-20 MRI [facility] WO CON EXAMINATION: MRI [place] WO CON HISTORY: Low back pain COMPARISON: No relevant comparison available. TECHNIQUE: A variety of imaging planes and parameters were utilized for visualization of suspected pathology. FINDINGS: For the purposes of numbering, sagittal T2 image # 8 extends from the T11 vertebral body superiorly to the S3 level inferiorly. PARASPINAL AREA: Normal with no visible mass. BONES: No fracture, pars defect, or osseous lesion. Incidental hemangioma within L5. CORD/CAUDA EQUINA: Normal caliber, contour, and signal intensity. DISC LEVELS: 12-L1: No significant disc/facet abnormality, spinal stenosis, or foraminal stenosis. L1-L2: No significant disc/facet abnormality, spinal stenosis, or foraminal stenosis. L2-L3: No significant disc/facet abnormality, spinal stenosis, or foraminal stenosis. L3-L4: Marked central canal narrowing and mild bilateral foramen narrowing. Mild diffuse bulging with large posterior central extrusion which moves into the left paracentral region and extends to inferior endplate of L4. Mild disc height reduction and mild bilateral degenerative facet arthropathy. L4-L5: Mild central canal and right foramen narrowing. Moderate left foramen narrowing. Mild diffuse disc bulging without height reduction. Mild degenerative facet arthropathy bilaterally. L5-S1: Mild-moderate foramen narrowing bilaterally without significant central canal narrowing. Mild diffuse disc bulging and mild disc height reduction. Mild degenerative facet arthropathy. IMPRESSION: 1. L3-4 large central progress into left paracentral disc extrusion extending to L4 inferior endplate causing marked central canal and mild bilateral foramen narrowing. Electronically authenticated by: MOHSEN MOSES Date: 2022-02-09 06:49 Normal [facility] CBC AUTO DIFFon 01-25-2022 BASO # 0.0 103/ul Normal 0.0-0.1 [facility] Comment on above: Performed By: #### C BC #### [facility] [address] [place] [address] Dr. Dov Dunlap Basophils/100 WBC (Bld) 0.1 % Critically low 0.2-2.0 [facility] Comment on above: Performed By: #### C BC #### [facility] [address] [place] [address] Dr. Dov Dunlap EO # 0.0 103/ul Normal 0.0-0.7 [facility] Comment on above: Performed By: #### C BC #### [facility] [facility] [address] [address] [address] Dov Dunlap Eosinophils/100 WBC (Bld) 0.1 % Critically low 0.9-7.0 [facility] Comment on above: Performed By: #### C BC #### [facility] [address] [place] [address] Dr. Dov Dunlap Erythrocyte distribution width (RBC) [Ratio] 14.6 % Normal 11.0-15.0 [facility] Comment on above: Performed By: #### C BC #### [facility] [address] [place] [address] Dr. Dov Dunlap Hematocrit (Bld) [Volume fraction] 42.5 % Normal 42.0-54.0 [facility] Comment on above: Performed By: #### C BC #### [facility] [address] [place] [address] Dr. Dov Dunlap Hemoglobin (Bld) [Mass/Vol] 13.6 g/dL Critically low 14.0-18.0 [facility] Comment on above: Performed By: #### C BC #### [facility] [address] [place] [address] Dr. Dov Dunlap IG # 0.07 10e3/ul Critically high 0.00-0.03 [facility] Comment on above: Performed By: #### C BC #### [facility] [address] [place] [address] Dr. Dov Dunlap IG % 0.5 % Normal 0.0-0.5 [facility] Comment on above: Performed By: #### C BC #### [facility] [address] [place] [address] Dr. Dov Dunlap LYMPH # 1.9 103/ul Normal 1.2-3.8 [facility] Comment on above: Performed By: #### C BC #### [facility] [address] [place] [address] Dr. Dov Dunlap Lymphocytes/100 WBC (Bld) 13.1 % Critically low 20.5-60.0 [facility] Comment on above: Performed By: #### C BC #### [facility] [address] [place] [address] Dr. Dov Dunlap MANUAL DIFF REQ NO Normal [facility] Comment on above: Performed By: #### C BC #### [facility] [address] [place] [address] Dr. Dov Dunlap MCH (RBC) [Entitic mass] 27.9 pg Normal 25.9-34.0 [facility] Comment on above: Performed By: #### C BC #### [facility] [address] [place] [address] Dr. Dov Dunlap MCHC (RBC) [Mass/Vol] 32.0 g/dL Normal 29.9-35.2 [facility] Comment on above: Performed By: #### C BC #### [facility] [address] [place] [address] Dr. Dov Dunlap MCV (RBC) [Entitic vol] 87.3 fL Normal 80.0-94.0 [facility] Comment on above: Performed By: #### C BC #### [facility] [address] [place] [address] Dr. Dov Dunlap MONO # 0.9 103/ul Critically high 0.3-0.8 [facility] Comment on above: Performed By: #### C BC #### [facility] [address] [place] [address] Dr. Dov Dunlap Monocytes/100 WBC (Bld) 6.1 % Normal 1.7-12.0 [facility] Comment on above: Performed By: #### C BC #### [facility] [address] [place] [address] Dr. Dov Dunlap NEUT # 11.8 103/ul Critically high 1.4-6.5 [facility] Comment on above: Performed By: #### C BC #### [facility] [address] [place] [address] Dr. Dov Dunlap Neutrophils/100 WBC (Bld) 80.1 % Critically high 43.0-75.0 [facility] Comment on above: Performed By: #### C BC #### [facility] [address] [place] [address] Dr. Dov Dunlap Platelet mean volume (Bld) [Entitic vol] 9.3 fL Critically low 9.5-13.5 [facility] Comment on above: Performed By: #### C BC #### [facility] [address] [place] [address] Dr. Dov Dunlap PLT 256 103/ul Normal 150-450 [facility] Comment on above: Performed By: #### C BC #### [facility] [address] [place] [address] Dr. Dov Dunlap RBC 4.87 106/ul Normal 4.70-6.10 [facility] Comment on above: Performed By: #### C BC #### [facility] [address] [address] [address] Dov Dunlap WBC 14.7 103/ul Critically high 4.0-11.0 [facility] Comment on above: Performed By: #### C BC #### [facility] [address] [address] [address] Dov Dunlap LIPID PROFILEon 01-25-2022 CHOL-HDL RATIO NORM SEE BELOW Normal [facility] Comment on above: Result Comment: 3.3 - 4.4 LOW RISK 4.4 - 7.1 AVERAGE RISK 7.1 - 11.0 MODERATE RISK >11.0 HIGH RISK Performed By: #### L IPID, CMP #### [facility] [address] [address] [address] Dov Dunlap Cholesterol [Mass/Vol] 166 mg/dL Normal <=200 [facility] Comment on above: Performed By: #### L IPID, CMP #### [facility] [address] [address] [address] Dov Dunlap Cholesterol in HDL [Mass/Vol] 66 mg/dL Critically high 40-60 [facility] Comment on above: Performed By: #### L IPID, CMP #### [facility] [address] [address] [address] Dov Dunlap Cholesterol in LDL [Mass/Vol] 92.4 mg/dL Normal [facility] Comment on above: Performed By: #### L IPID, CMP #### [facility] [address] [address] [address] Dov Dunlap Cholesterol.total/C holesterol in HDL [Mass ratio] 2.5 {ratio} Normal [facility] Comment on above: Performed By: #### L IPID, CMP #### [facility] [address] [address] [address] Dov Dunlap HDL NORMAL > or = 60 mg/dl - LO W CARDIOVASCULAR RISK <40 mg/dl - HIGH CARDIOVASCULAR RISK Normal [facility] Comment on above: Performed By: #### L IPID, CMP #### [facility] [address] [place] [address] Dr. Dov Dunlap LDL CALC NORMAL SEE BELOW Normal [facility] Comment on above: Result Comment: <100 mg/dl OPTIMAL 100 - 129 mg/dl NEAR OR ABOVE OPTIMAL 130 - 159 mg/dl BORDERLINE HIGH 160 - 189 mg/dl HIGH >190 mg/dl VERY HIGH Performed By: #### L IPID, CMP #### [facility] [address] [place] [address] Dr. Dov Dunlap Triglyceride [Mass/Vol] 38 mg/dL Normal <=150 [facility] Comment on above: Performed By: #### L IPID, CMP #### [facility] [address] [place] [address] Dr. Dov Dunlap VLDL CALC 7.6 mg/dL Normal [facility] Comment on above: Performed By: #### L IPID, CMP #### [facility] [address] [place] [address] Dr. Dov Dunlap PROF 14(COMP METB)on 022 Albumin [Mass/Vol] 3.3 g/dL Critically low 3.4-5.0 [facility] Comment on above: Performed By: #### L IPID, CMP #### [facility] [address] [place] [address] Dr. Dov Dunlap Albumin/Globulin [Mass ratio] 1.0 {ratio} Normal [facility] Comment on above: Performed By: #### L IPID, CMP #### [facility] [address] [place] [address] Dr. Dov Dunlap ALP [Catalytic activity/Vol] 121 U/L Critically high 46-116 [facility] Comment on above: Performed By: #### L IPID, CMP #### [facility] [address] [place] [address] Dr. Dov Dunlap ALT [Catalytic activity/Vol] 40 U/L Normal 16-63 [facility] Comment on above: Performed By: #### L IPID, CMP #### [facility] [address] [place] [address] Dr. Dov Dunlap Anion gap [Moles/Vol] 10.8 mmol/L Normal [facility] Comment on above: Performed By: #### L IPID, CMP #### [facility] [address] [place] [address] Dr. Dov Dunlap AST [Catalytic activity/Vol] 23 U/L Normal 15-37 [facility] Comment on above: Performed By: #### L IPID, CMP #### [facility] [address] [place] [address] Dr. Dov Dunlap Bilirubin [Mass/Vol] 0.4 mg/dL Normal 0.2-1.0 [facility] Comment on above: Performed By: #### L IPID, CMP #### [facility] [address] [place] [address] Dr. Dov Dunlap Calcium [Mass/Vol] 8.8 mg/dL Normal 8.5-10.1 [facility] Comment on above: Performed By: #### L IPID, CMP #### [facility] [address] [place] [address] Dr. Dov Dunlap Chloride [Moles/Vol] 104 mmol/L Normal 98-107 [facility] Comment on above: Performed By: #### L IPID, CMP #### [facility] [address] [place] [address] Dr. Dov Dunlap CO2 [Moles/Vol] 30.3 mmol/L Normal 21.0-32.0 [facility] Comment on above: Performed By: #### L IPID, CMP #### [facility] [address] [place] [address] Dr. Dov Dunlap Creatinine [Mass/Vol] 0.87 mg/dL Normal 0.70-1.30 [facility] Comment on above: Performed By: #### L IPID, CMP #### [facility] [address] [place] [address] Dr. Dov Dunlap EGFR-AF SINGAPOREAN >60 Normal >=60 [facility] Comment on above: Performed By: #### L IPID, CMP #### [facility] [address] [place] [address] Dr. Dov Dunlap EGFR-NON AF SINGAPOREAN >60 Normal >=60 [facility] Comment on above: Performed By: #### L IPID, CMP #### [facility] [address] [place] [address] Dr. Dov Dunlap Globulin (S) [Mass/Vol] 3.4 g/dL Normal [facility] Comment on above: Performed By: #### L IPID, CMP #### [facility] [address] [address] [address] Dov Dunlap Glucose [Mass/Vol] 115 mg/dL Critically high 74-[address] [facility] Comment on above: Performed By: #### L IPID, CMP #### [facility] [address] [place] [address] Dr. Dov Dunlap Potassium [Moles/Vol] 4.1 mmol/L Normal 3.5-5.1 [facility] Comment on above: Performed By: #### L IPID, CMP #### [facility] [address] [place] [address] Dr. Dov Dunlap Protein [Mass/Vol] 6.7 g/dL Normal 6.4-8.[address] [facility] Comment on above: Performed By: #### L IPID, CMP #### [facility] [address] [place] [address] Dr. Dov Dunlap Sodium [Moles/Vol] 141 mmol/L Normal 136-145 [facility] Comment on above: Performed By: #### L IPID, CMP #### [facility] [address] [place] [address] Dr. Dov Dunlap Urea nitrogen [Mass/Vol] 15.0 mg/dL Normal 7.0-18.0 [facility] Comment on above: Performed By: #### L IPID, CMP #### [facility] [address] [place] [address] Dr. Dov Dunlap Urea nitrogen/Creatinine [Mass ratio] 17.2 mg/mg Normal [facility] Comment on above: Performed By: #### L IPID, CMP #### [facility] [address] [place] [address] Dr. Dov Dunlap PSA, FREE AND TOTAL RATIOon 12-28-2021 % Free PSA 25.4 % Normal [facility] Comment on above: Result Comment: The table below lists the probability of prostate cancer for men with non-suspicious JAYNE results and total PSA between 4 and 10 ng/mL, by patient age (Claudia et al, JULISSA 1998, 279:1542). % Free PSA 50-64 yr 65-75 yr 0.00-10.00% 56% 55% 10.01-15.00% 24% 35% 15.01-20.00% 17% 23% 20.01-25.00% 10% 20% >25.00% 5% 9% Please note: Claudia et al did not make specific recommendations regarding the use of percent free PSA for any other population of men. Performed By: #### P SAFREE #### [facility] [address] [place] [address] Dr. Dov Dunlap Prostate specific Ag [Mass/Vol] 5.4 ng/mL Critically high 0.0-4.0 [facility] Comment on above: Result Comment: Roch cass ECLIA methodology. . According to the [employer] [employer], Serum PSA should decrease and remain at undetectable levels after radical prostatectomy. The AUA defines biochemical recurrence as an initial PSA value 0.2 ng/mL or greater followed by a subsequent confirmatory PSA value 0.2 ng/mL or greater. Values obtained with different assay methods or kits cannot be used interchangeably. Results cannot be interpreted as absolute evidence of the presence or absence of malignant disease. Performed By: #### P SAFREE #### [facility] [address] [place] [address] Dr. Dov Dunlap PSA, Free 1.37 ng/mL Normal N/A [facility] Comment on above: Result Comment: Aster odell ECLIA methodology. Performed By: #### P SAFREE #### [facility] [address] [place] [address] Dr. Dov Dunlap [facility]on 11-02 SARS-CoV-2 (COVID-19) RNA GREER+probe Ql (Unsp spec) Not detected Normal NOT DETECTED [facility] Comment on above: Result Comment: This test is not yet approved or cleared by the [place] FDA. When there are no FDA-approved or cleared tests available, and other criteria are met, FDA can make tests available under an emergency access mechanism called an Emergency Use Authorization (EUA). The EUA for this test is supported by the [employer] Person[employer] of Health and Human Service's (HHS's) declaration that circumstances exist to justify the emergency use of in vitro diagnostics for the detection and/or diagnosis of the virus that causes COVID-19. This EUA will remain in effect (meaning this test can be used) for the duration of the COVID-19 declaration justifying emergency of IVDs, unless it is terminated or revoked by FDA (after which the test may no longer be used). When diagnostic testing is negative, the possibility of a false negative should be considered in the context of a patient's recent exposures and the presence of clinical signs and symptoms consistent with SARS-CoV-2. Performed By: #### C [facility] #### [facility] [address] [place] [address] Dr. Dov Dunlap MR prostate wo/w conon 07-26 MR prostate wo/w con [facility] [place] [address] [place] [address] MRI Report Signed Patient: Jeannette Huntley MR#: [id number] : 1955 Acct:[id number] Age/Sex: 66 / M ADM Date: 07/25/21 Loc: Room: Type: [facility] Attending Dr: Cinthia Leiva MD Ordering Provider: Cinthia Leiva MD Date of Service: 07/25/21 MR/MR prostate wo/w con: N41.9, R97.20 Copies to: Cintiha Leiva MD EXAMINATION: MR prostate wo/w con HISTORY: Elevated PSA COMPARISON: NONE TECHNIQUE: Multiparametric imaging of the prostate gland was performed with IV contrast. FINDINGS: Prostate Dimensions: 5.1 x 4.9 x 6.5 cm. Prostate Volume: 85 mL Peripheral Zone: Atrophic and heterogenous and T2 suggestive of prior prostatitis. No focal T2 or ADC map abnormalities identified to suggest prostate malignancy. No suspicious abnormal enhancement. Central/Transitional Zone: BPH changes. No focal T2 or ADC map abnormalities identified to suggest prostate malignancy. No suspicious abnormal enhancement. Seminal Vesicles: Decompressed without focal abnormality. Neurovascular bundles: Unremarkable. Lymphadenopathy: No evidence of lymphadenopathy. Bladder: Diverticulum is present. No focal abnormality. Bowel: The visualized bowel is without acute abnormality. Peritoneal Cavity: Minimal free fluid. Bones: No suspicious bony lesion. MR/MR prostate wo/w con IMPRESSION: 1. No MRI evidence of prostate malignancy. 2. BPH. Impression dictated by: Amado Keane Jr., Howard07/26/2021 1:23 PM Dictation Location: [address] [address] Transcribed By: [facility] 07/26/21 1323 Dictated By: Amado Keane Jr, DO 07/26/21 1307 Signed By: 07/26/21 1323 Normal [facility] ISTAT XRay CREon 07-25-2021 Creatinine [Mass/Vol] 0.9 mg/dL Normal 0.6-1.3 [facility] Comment on above: Result Comment: ER/E SD physician is notified/shown all ISTAT results. Critical values may be confirmed by laboratory testing if deemed necessary by ER attending doctor. Performed By: #### I SCRE #### [address] Point of Care testing , ISTAT GFR ( > 60 Normal [facility] Comment on above: Result Comment: GFR estimated reference range: According to KDOQI guidelines, <60 ml/min/1.73m2 is sufficient to diagnose a patient with chronic kidney disease. PERFORMED BY: [place] [address] PATHOLOGIST HOB GRINDER JONATHON DOVER M.D. Performed By: #### I SCRE #### [address] Point of Care testing , ISTAT GFR (Non- Am > 60 Normal [facility] Comment on above: Performed By: #### I SCRE #### [address] Point of Care testing , Vital Signs Date Time Vital Sign Value Performing Clinician Facility 06-29-2023 14:15-0500 Body height 180.34 cm Mike Ball Other [facility] Other 06-29-2023 14:15-0500 Body mass index (BMI) [Ratio] 37.23 kg/m2 Mike Ball Other [facility] Other 06-29-2023 14:15-0500 Body weight 121.11 kg Mike Ball Other [facility] Other 06-29-2023 14:15-0500 Diastolic blood pressure 84 mm[Hg] Mike Ball Other [facility] Other 06-29-2023 14:15-0500 Systolic blood pressure 135 mm[Hg] Mike Ball Other [facility] Other 01-26-2023 09:30-0400 Body height 180.34 cm Mike Ball Other [facility] Other 01-26-2023 09:30-0400 Body mass index (BMI) [Ratio] 38.43 kg/m2 Mike Ball Other [facility] Other 01-26-2023 09:30-0400 Body weight 125.01 kg Mike Ball Other [facility] Other 01-26-2023 09:30-0400 Diastolic blood pressure 83 mm[Hg] Mike Ball Other [facility] Other 01-26-2023 09:30-0400 Respiratory rate 12 /min Mike Ball Other [facility] Other 01-26-2023 09:30-0400 Systolic blood pressure 135 mm[Hg] Mike Ball Other [facility] Other 09-20-2022 09:54-0400 Blood Pressure Location Cinthia Lue [facility] 09-20-2022 09:54-0400 Diastolic blood pressure 81 mm[Hg] Cinthia Lue [facility] 09-20-2022 09:54-0400 Heart rate 80 /min Cinthia Lue [facility] 09-20-2022 09:54-0400 Systolic blood pressure 138 mm[Hg] Cinthia Lue [facility] 03-16-2022 10:20-0400 Body height 180.34 cm Renato Page Other [facility] Other 03-16-2022 10:20-0400 Body mass index (BMI) [Ratio] 37.65 kg/m2 Renato Page Other [facility] Other 03-16-2022 10:20-0400 Body weight 122.47 kg Renato Page Other [facility] Other Encounters Encounter Date Encounter Type Care Provider Facility Start: 06-29-2023 End: 06-29-2023 ambulatory Mike Noble Other [facility] Other Start: 06-29-2023 Office outpatient vi sit 15 minutes Mike Ball [facility] Start: 06-18-2023 End: 06-18-2023 ambulatory Mike Ball Other [facility] Other Start: 06-18-2023 Office outpatient vi sit 15 minutes Mike Ball [facility] Start: 06-17-2023 End: 06-17-2023 ambulatory Mike Ball Other [facility] Other Start: 06-17-2023 Encounter by Cashier Live Mike Noble [facility] Start: 04-07-2023 End: 04-07-2023 ambulatory Mike Noble Other [facility] Other Start: 04-07-2023 Telephone encounter Mike GALLAGHER [facility] Start: 04-02-2023 End: 04-02-2023 ambulatory Mike Noble Other [facility] Other Start: 04-02-2023 Telephone encounter [facility]HER [facility] Start: 03-27-2023 End: 03-27-2023 ambulatory Mike Noble Other [facility] Other Start: 03-27-2023 Encounter by Cashier Live Mike Noble [facility] Start: 02-12-2023 ambulatory Cinthia Leiva Facility:[facility] Start: 02-06-2023 End: 02-06-2023 ambulatory Mike Noble Other [facility] Other Start: 02-06-2023 Telephone encounter [facility] Start: 01-26-2023 End: 01-26-2023 ambulatory Mike Noble Other [facility] Other Start: 01-26-2023 Encounter for genera l adult medical examination without abnormal findings Mike Noble [facility] Start: 01-26-2023 Periodic preventive med est patient 65yrs& older Mike Noble [facility] Start: 01-04-2023 End: 01-04-2023 ambulatory Mike Noble Other [facility] Other Start: 01-04-2023 Telephone encounter Mike GALLAGHER [facility] Start: 12-06-2022 ambulatory Cinthia Leiva Facility:[facility] Start: 11-27-2022 End: 11-28-2022 ambulatory [facility] Facility:[facility] Start: 11-27-2022 End: 11-27-2022 Patient encounter procedure Lloyd Doyle MD Work Phone: Urology Comment on above: 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, unspecified stricture type (Primary Dx); BPH with obstruction/lower urinary tract symptoms Start: 11-13-2022 End: 11-14-2022 ambulatory Lloyd Doyle MD Work Phone: Urology Start: 11-13-2022 Documentation procedure Lloyd Doyle MD Work Phone: [facility] Start: 11-13-2022 Letter encounter Lloyd Manjarrez Work Phone: Urology Start: 09-20-2022 End: 09-21-2022 ambulatory Cinthia Leiva Facility:[facility] Start: 09-20-2022 End: 09-20-2022 Patient encounter procedure [facility] Start: 09-13-2022 End: 09-14-[address] MIKE NOBLE Facility:[facility] Start: 04-07-2022 End: 04-07-2022 ambulatory Renato Page Other [facility] Other Start: 04-07-2022 Telephone encounter Renato HONG [employer] Start: 03-22-2022 ambulatory Cinthia Leiva Facility:[facility] Start: 03-16-2022 End: 03-16-2022 ambulatory Renato Page Other [facility] Other Start: 03-16-2022 Office outpatient ne w 30 minutes Renato Page [facility] Start: 03-10-2022 End: 03-10-2022 ambulatory Renato Page Facility:[facility] Start: 03-10-2022 End: 03-10-2022 ambulatory DO Mike Noble Work Phone: [facility] Work Phone: Start: 03-10-2022 End: 03-10-2022 Patient encounter procedure DO Mike Noble Work Phone: [facility] [place] Start: 02-08-2022 End: 02-09-[address] MIKE NOBLE Facility:[facility] Start: 01-26-2022 Encounter for genera l adult medical examination without abnormal findings DR MIKE NOBLE [facility] Start: 01-25-2022 End: 01-26-[address] MIKE NOBLE Facility:[facility] Start: 01-25-2022 End: 01-26-2022 Encounter for general adult medical examination without abnormal findings DR MIKE NOBLE Facility:[facility] Start: 01-23-2022 End: 01-23-2022 Patient encounter procedure Cinthia Leiva [facility] Start: 01-22-2022 Adult health examination Gabo Noble Other [facility] Other Start: 12-27-2021 End: 12-28-2021 ambulatory CINTHIA LEIVA . Facility:[facility] Start: 11-12-2021 End: 11-13-[address] MIKE NOBLE Facility:[facility] Start: 07-25-2021 End: 07-25-2021 ambulatory Mike Noble Facility:[facility] Procedures Date Procedure Procedure Detail Performing Clinician Start: 11-13-2022 Urnls dip stick/tabl et reagent auto microscopy Bulk Order Provider Start: 03-10-2022 X-ray of lumbar spin e, six views including bending views DO Mike Noble Work Phone: Start: 06-04-2017 Colonoscopy Cinthia Cali Start: 06-04-1999 Hiatal hernia (disorder) Cinthia Leiva Depression screening Erlin Noble Other Screening for malign ant neoplasm of colon Mike Noble Other Plan of Treatment Date Care Activity Detail Author Start: 02-02-2023 Influenza vaccination INFLUENZA (Sea son Ended) [facility] Start: 06-04-2022 ADVANCE DIRECTIVE DISCUSSION ADVANCE DIRECTIVE DISCUSSION [facility] Start: 06-04-2022 DEPRESSION ASSESSMENT DEPRESSION ASS ESSMENT [facility] Start: 2021 PNEUMOCOCCAL: 65+ (1 - PCV) PNEUMOCOCCAL: 65+ (1 - PCV) [facility] Start: 2011 PROSTATE CANCER SCRE ENING DISCUSSION PROSTATE CANCER SCREENING DISCUSSION [facility] Start: 2006 SHINGRIX VACCINE (1 of 2) SHINGRIX V ACCINE (1 of 2) [facility] Start: 2001 COLOGUARD (FIT-DNA) COLOGUARD (FIT-D NA) [facility] Start: 2001 Colonoscopy COLONOSCOPY [facility] Start: 2001 COLORECTAL CANCER SCREENING COLORECTAL CANCER SCREENING [facility] Start: [address] COLONOGRAPHY [facility] Start: 2001 DIABETES SCREEN DIABETES SCREEN [facility] Start: 2001 FECAL OCCULT BLOOD FECAL OCCULT BLOO D [facility] Start: 2001 SIGMOIDOSCOPY SIGMOIDOSCOPY [facility] Start: 1991 LIPID SCREEN LIPID SCREEN [facility] Start: 1975 Urine microalbumin profile DTAP,TDAP ,TD (1 - Tdap) [facility] Start: 1974 HEPATITIS C SCREENING HEPATITIS C SC REENING [facility] Start: 1955 COVID-19 VACCINE (#1) COVID-19 VACCI NE (#1) [facility] Immunizations Immunization Date Immunization Notes Care Provider Anthony vazquez 01-23-2022 pneumococcal 20-vijaya nt conjugate vaccine Cinthia Leiva [facility] 07-23-2020 zoster vaccine recombinant Cinthia Lue [facility] 07-23-2020 zoster vaccine, live Benjami n Ball Other [employer] Other 04-12-2020 zoster vaccine recombinant Cinthia Lue [facility] 04-12-2020 zoster vaccine, live Benjami n Ball Other [employer] Other 06-18-2017 influenza virus vaccine, split virus (incl. purified surface antigen) Mike Real Other [employer] Other Payers Date Payer Category Payer Private Health Insurance [employer] PPO [id number] 2022-Present [phone] [address] [facility] [place] [address] PPO [id number] 2022 Private Health Insurance [facility] [id number] 2021 Self-pay [id number] 1959 Private Health Insurance [facility] [id number] 1955 Unknown [id number]. 2.593 1956 Unknown [id number] [id number]. 2.593 1956 Unknown [id number] [id number]. 2.593 1956 Unknown [id number] [id number]. 2.593 1955 Unknown [id number] 2.16.840.1.551373.3.579. 2.593 1956 Unknown [id number] [id number]. 2.727 1955 Unknown [id number] [id number]. 2.727 1956 Unknown [id number] 2.16.840.1.669494.3.579. 2.727 Unknown [id number] [id number]. 2.531 Unknown [id number] [id number]. 2.531 Social History Date Type Detail Facility Start: 01-04-2022 End: 11-13-2022 Tobacco smoking status Never smoked tobacco (finding) [facility] Sex Assigned At Male [facility] Start: 1955 Sex Assigned At Male F [facility] Start: 11-13-2022 Tobacco use and exposure Smokeless tobacco non-user [facility] Start: 1955 Sex Assigned At Not on file [facility] Functional Status Date Assessment Result Facility 09-20-2022 Functional Status N/A [facility] Clinical Notes 01-11-2018 to 06-29-2023 Note Date & Type Note Facility 06-29-2023 Evaluation note Encounter Date Diagnosis Assessment Notes Jun, Acute bronchitis due to other specified organisms (ICD-10 - J20.8) Instructed to use Robitussin or Mucinex for cough, saline or Flonase NS for congestion, Tylenol for pain and fever. Jun, Acute bilateral low back pain without sciatica (ICD-10 - M54.50) The patient is instructed to avoid bending, twisting or lifting. They are to use intermittent heat and ice as needed. They may schedule a massage or gentle manipulation. They may safely use Tylenol as needed. Jun, Motion sickness, initial encounter (ICD-10 - T75.3XXA) [employer] Other 01-15-2024 Evaluation note* Encounter Date Diagnosis Assessment Notes Treatment Notes Treatment Clinical Notes Jun, Acute bilateral low back pain without sciatica (ICD-10 - M54.50) The patient is instructed to avoid bending, twisting or lifting. They are to use intermittent heat and ice as needed. They may schedule a massage or gentle manipulation. They may safely use Tylenol as needed. Jun, Lumbar spondylosis (ICD-10 - M47.816) Should stretch daily and avoid abrupt twisting or bending. Avoid lifting > 10 lbs [employer] Other 08-25-2023 Evaluation note* Encounter Date Diagnosis Assessment Notes Treatment Notes Treatment Clinical Notes Jan, Wellness examination (ICD-10 - Z00.00) Healthy diet and exercise. Reviewed age-appropriate preventive testing recommended. Jan, Primary hypertension (ICD-10 - I10) This patient is instructed to consume a healthy, low-fat, low-salt diet. They are also encouraged to continue exercise to achieve/maintain a normal BMI. Jan, Elevated cholesterol (ICD-10 - E78.00) Instructed on diet and exercise with continued statin therapy.Discussed the beneficial effects of lowering cholesterol in reducing the risk for cerebrovascular and cardiovascular disease. Jan, Elevated PSA (ICD-10 - R97.20) Yearly PSA MRI w/o visible nodules Persistently elevated PSA Monitor w/ yearly PSA, refer back to Urology for rising PSA Jan, Nocturia (ICD-10 - R35.1) Jan, Benign prostatic hyperplasia with lower urinary tract symptoms (ICD-10 - N40.1) Symptoms tolerable Jan, Chronic venous insufficiency (ICD-10 - I87.2) Avoid salt and elevate lower extremities, support stockings, inspect legs and feet daily for blisters and ulcerations. Jan, Gastroesophageal reflux disease with esophagitis without hemorrhage (ICD-10 - K21.00) Diet instructions: Smaller portions, avoid eating and laying flat, avoid eating or drinking prior to bedtime. Weight loss. [employer] Other 08-25-2023 Evaluation note* Encounter Date Diagnosis Assessment Notes Treatment Notes Treatment Clinical Notes Jan, Wellness examination (ICD-10 - Z00.00) Healthy diet and exercise. Reviewed age-appropriate preventive testing recommended. Jan, Primary hypertension (ICD-10 - I10) This patient is instructed to consume a healthy, low-fat, low-salt diet. They are also encouraged to continue exercise to achieve/maintain a normal BMI. Jan, Elevated cholesterol (ICD-10 - E78.00) Instructed on diet and exercise with continued statin therapy.Discussed the beneficial effects of lowering cholesterol in reducing the risk for cerebrovascular and cardiovascular disease. Jan, Elevated PSA (ICD-10 - R97.20) Yearly PSA MRI w/o visible nodules Persistently elevated PSA Monitor w/ yearly PSA, refer back to Urology for rising PSA Jan, Nocturia (ICD-10 - R35.1) Jan, Benign prostatic hyperplasia with lower urinary tract symptoms (ICD-10 - N40.1) Symptoms tolerable Jan, Chronic venous insufficiency (ICD-10 - I87.2) Avoid salt and elevate lower extremities, support stockings, inspect legs and feet daily for blisters and ulcerations. Jan, Gastroesophageal reflux disease with esophagitis without hemorrhage (ICD-10 - K21.00) Diet instructions: Smaller portions, avoid eating and laying flat, avoid eating or drinking prior to bedtime. Weight loss. Jan, Screening for colon cancer (ICD-10 - Z12.11) Patient is an asymptomatic, high risk individual being referred for screening colonoscopy His last colonoscopy was 5 years ago. He denies change in appetite, weight or bowel habits. He denies heartburn, dysphagia, abdominal pain, melena or hematochezia. [employer] Other 06-26-2023 NoteHNO ID: [id number] Author: Lloyd Doyle MD Service: ? Author Type: Physician Type: Progress Notes Filed: 11/27/2022 5:27 PM Note Text:[facility]06-26-2023 NoteHNO ID: [id number] Author: Lloyd Doyle MD Service: ? Author Type: Physician Type: Procedures Filed: 11/27/2022 5:27 PM Note Text: PHYSICIAN'S NOTE: Procedure: RUG Epic notes reviewed: yes Interval history:Last seen 11/13/2022 This is a 67 yo man with hx congenital hypospadias, BPH, Dr. Leiva attempted to perform cysto to evaluate for surigcal BPH tx, unable to pass scope. Endorsing OVS, good improvement on flomax. PVR: 97 cc Diagnosis: LUTS Informed consent obtained yes. Discussed RBAPC. The procedure was fully explained to the patient, risks were reviewed. The patient was placed into lateral oblique position, and the glans penis was prepped with betadine. With the penis on stretch, Omnipaque 300 was gently injected into the urethral meatus under radiographic visualization and images were captured. RADIOLOGIC STUDIES RUG:patent urethral meatus, distal urethra with pinpoint narrowing, just <1 cm proximal from meatus. Rest of the urethra appears patent without filling defects. COMPLICATIONS: None RECOMMENDATIONS: Discussed findings with patient. - Recommend 1 stage onlay urethroplasty - dorsal approach - he will consider and LMK- he's retiring soon so wants to time it around that POST PROCEDURE Condition: satisfactory Medications:Cipro 500 mg x [facility] of Present illness Narrative* Lloyd Doyle MD - 11/27/2022 5:25 PM EDT documented in this encounterProm[facility] Procedure note* Lloyd Doyle MD - 11/27/2022 3:34 PM EDTProcedure(s): RETROGRADE URETHROGRAM Pre-Procedure Diagnose(s): Stricture of anterior 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, unspecified stricture type Post-Procedure Diagnose(s): Stricture of anterior 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, unspecified stricture type PHYSICIAN'S NOTE: Procedure: RUG Epic notes reviewed: yes Interval history:Last seen 11/13/2022 This is a 67 yo man with hx congenital hypospadias, BPH, Dr. Leiva attempted to perform cysto to evaluate for surigcal BPH tx, unable to pass scope. Endorsing OVS, good improvement on flomax. PVR: 97 cc Diagnosis: LUTS Informed consent obtained yes. Discussed RBAPC. The procedure was fully explained to the patient, risks were reviewed. The patient was placed into lateral oblique position, and the glans penis was prepped with betadine. With the penis on stretch, Omnipaque 300 was gently injected into the urethral meatus under radiographic visualization and images were captured. RADIOLOGIC STUDIES RUG:patent urethral meatus, distal urethra with pinpoint narrowing, just <1 cm proximal from meatus. Rest of the urethra appears patent without filling defects. COMPLICATIONS: None RECOMMENDATIONS: Discussed findings with patient. - Recommend 1 stage onlay urethroplasty - dorsal approach - he will consider and LMK- he's retiring soon so wants to time it around that POST PROCEDURE Condition: satisfactory Medications:Cipro 500 mg x 1 Lloyd Doyle MD documented in this encounterPromedica [facility]06-[facility] Nurse Note* Dionisio Reardon RN - 11/27/2022 2:41 PM EDT Actual procedure/procedure scheduled: Yes Performing provider/scheduled provider: Yes Patient was roomed in: Q9- 14 Safety Associate offered:Patient declines Patient arrived in the room at: 1440 Patient ready for procedure: 1444 The procedure started at ( Time Only): 1525 The procedure ended at: 1528 Was the procedure delayed: Yes: Provider late: Provider with other patient on Q9 The patient left the procedure room at: 1550 Dionisio Reardon RN PRE PROCEDURE ASSESSMENT Procedure Indication: RUG Latex Allergy: No Allergies reviewed and updated. Yes Pre-Procedure Vital Signs: BP: 194/100 Pulse: 88 Heart valve replacement: No Joint replacement: No Back Office UA otained: yes PROCEDURE PREP Patient ID with two(2)identifiers verified by: Dionisio Reardon RN Patient Prep: Betadine Scrub to perineum and placement of Sterile Drape. COMPLETED Anesthetic Given:None Dionisio Reardon RN UNIVERSAL PROTOCOL / SAFETY CHECKLIST Procedure to be performed: RUG Sign in Communication: Completed Time Out: Team Confirms the Correct Patient, Correct Procedure, Correct Site and Site Marking, Correct Position (if applicable). Sign Out Discussion: Completed Dionisio Reardon RN POST PROCEDURE NURSE ASSESSMENT Present along with physician during procedure exam. Dionisio Reardon RN Instruction sheet given and reviewed and patient verbalizes understanding: yes Current pain intensity is 0 on a 0-10 pain scale. Contrast amount used: 25cc omnipaque Dionisio Reardon RN AMBULATORY PATIENT EDUCATION THE FOLLOWING WAS EVALUATED Motivation To Learn: Eager Interested Family/Significant Other Support: None - Unavailable/disinterested Cognitive Ability: Alert/Oriented Method of Instruction: Written instruction - handouts The Following Influencing Factors Were Barriers To This Education Session: None The Following Physical Limitations Were Barriers To This Education Session: None Instruction Provided To: Patient Appellate Law Clerk Present: not applicable Discipline: Nursing Learning Topic: SURVIVAL SKILLS: Symptom Management Patient Evaluation: Verbalizes understanding: Yes Supplemental Material Given: Written Material Instructed By Dionisio Reardon RN In Department Urology . documented in this encounterPromedica [facility]06-[facility]23 Ancelmo Doyle, Thank you very much for seeing Mr. Jeannette Huntley and proceeding with an evaluation. Unfortunately, we do not have 12Fr cystoscopes available. I appreciate you proceeding with the cystoscopy if you feel it is necessary for your workup. He actually does not have a history of microscopic hematuria. The cystoscopy was to evaluate his prostate and other potential contributors to his voiding symptoms, however the severe stenosis was encountered. Please do not hesitate to let me know if you have any questions or concerns. Warm regards, MD Lloyd Lara MD [facility] [address] [place] [address] Re: JEANNETTE HUNTLEY Date of Visit: 02/23/2021 Dear Lloyd Doyle, Enclosed is the Transition of Care Document related to the stay of JEANNETTE HUNTLEY. This document is confidential and intended solely for the use of the individual or entity to which it is addressed.If you are not the named addressee, please disregard and do not disseminate, distribute or copy this information. If you are not the intended recipient, any disclosure of this information and its contents is strictly prohibited If you have any additional questions regarding this information, please contact: Sincerely,[facility]06-12-2023 History of Past illness Narrative* Problem Noted Date Resolved Date Morbid obesity 11/13/2022 11/27/2022 documented as of this encounter (statuses as of 11/28/2022) [facility]06-12-2023 NotePatient Outreach (UROLMN) JEANNETTE HUNTLEY ([id number]) 1955 M Date Time Provider Department 11/13/22 LLOYD DOYLE During your visit today, we recorded the following information about you: Allergies As of Date: 11/13/2022 Noted Allergy Reaction SHELLFISH CONTAINING PRODUCTS 11/13/2022 7 - Swelling Date Reviewed: 11/13/2022 Reviewed by: Iftikhar Avilez MA - Fully Assessed Visit Diagnosis:Screening for genitourinary condition [Z13.89] Order(s):URINALYSIS, REFLEX MICROSCOPIC [[id number]] Order #: [id number]. #:[id number] Prescriptions as of 11/16/2022 - amLODIPine (NORVASC) 5 mg tablet Take 5 mg by mouth once daily. - aspirin 81 mg cap Take by mouth. - atorvastatin (LIPITOR) 10 mg tablet Take by mouth. - tamsulosin (FLOMAX) 0.4 mg Take by mouth. - diphenhydrAMINE (BENADRYL) 25 mg capsule Take by mouth. - carvedilol (COREG) 12.5 mg tablet Take by mouth. - gcxsliba-gxm-ynkgcuz fumarate (MULTI VITAMIN) 9 mg iron/15 mL liqd Multi Vitamin+ Refill(s) 0 Start Date: 03/30/21 Status: Ordered Problem List As Of Date 11/13/2022 Noted Resolved Morbid obesity (HCC) [E66.01] 11/13/2022 Encounter Status:Closed by Get[employer] MatchalarmUSEClaude on 11/16/22[facility] NoteHNO ID: [id number] Author: Lloyd Doyle MD Service: ? Author Type: Physician Type: Progress Notes Filed: 11/13/2022 10:35 AM Note Text: [facility] NEW PATIENT HISTORY AND PHYSICAL EXAM PATIENT INFO: Jeannette Huntley 67 year old REFERRING M.D.: SELF HISTORY Jeannette is a 67 y.o. male Home urologist is Dr Leiva with hypospadias, follows him for BPH, elevated PSA, neg prostate MRI, no prior biopsy; LUTS iso congenital hypospadias, no prior repair, noted when they attempted to perform cystoscopy on 01/2022, unable to pass scope. Endorses hesitancy, slow stream, incomplete emptying, spraying stream. Denies intermittent stream, hematuria. Significant improvement in LUTS with flomax, does has issues erectile function while taking so he will take days off. No hx UTI, kidney stones. Referred by his home urologist due to impediment to cystoscopy - patient is not bothered by his symptoms but does worry about increased difficulty accessing his urinary tract for assessment or management of his prostate, potentially needing a brown catheter, etc. PSA 5.7, 09/13/22. Previous PSA 5.2 07/13/21. Denies Fhx prostate ca. Moves bowel regularly, no issues. He is physically active, ran half marathon with his . PMH: HLD, HTN PSH: hiatal hernia repair PVR: 97 cc States that he only occas has OVS MEDICATIONS: Current Outpatient Medications Medication Sig aspirin 81 mg cap Take by mouth. atorvastatin (LIPITOR) 10 mg tablet Take by mouth. tamsulosin (FLOMAX) 0.4 mg Take by mouth. diphenhydrAMINE (BENADRYL) 25 mg capsule Take by mouth. carvedilol (COREG) 12.5 mg tablet Take by mouth. zhbnpnvf-nio-bnsujsh fumarate (MULTI VITAMIN) 9 mg iron/15 mL liqd Multi Vitamin+ Refill(s) 0 Start Date: 03/30/21 Status: Ordered amLODIPine (NORVASC) 5 mg tablet Take 5 mg by mouth once daily. No current facility-administered medications for this visit. MEDICATION ALLERGIES: ALLERGIES Allergen Reactions Shellfish Containin* Swelling No past medical history on file. No past surgical history on file. FAMILY HISTORY: NEGATIVE: No related previous family history. Social History Tobacco Use Smoking status: Never Smokeless tobacco: Never : Force of Stream: slower, spraying NOCTURIA: yes Day Time Frequency: no Hesitancy: yes Intermittency: no Incomplete Emptying: yes Post void Dribbling: yes Urinary Retention Hx: no Double Voiding: no Urgency: Dysuria: no Incontinence history: only post void HISTORY OF FAMILY CANCER:none gross hematuria history: denies Erectile dysfunction: denies, denies chordee UTI Hx: denies STAFF NOTE: This consult was requested by Dr. Cinthia Leiva for an opinion regarding hypospadias, and my final recommendations will be communicated to the requesting health care provider by way of the shared medical record for internal providers or letter via the [employer] for external providers. Edited above to reflect my findings. 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 HERNIAS: None SKIN/LYMPH: No rash, lesions NEURO/PSYCH: No signs of depression, anxiety, or agitation EXTREMITIES: Extremities normal. No deformities, edema, clubbing or skin discoloration. GENITOURINARY: MALE EXAM: there is a distal penile hypo with what appears to be meatal stenosis, but diff to see beyond MEDICAL DECISION MAKING: (A1) IMPRESSION: (Diagnostic Possibilities) New or Established 1) hypospadias with stric, prevented cysto - rec RUG, disc rationale. Can do cysto with 12F scope concurrent if Dr. Leiva wants 2) el PSA neg MRI, being eval by Dr. Leiva (A2) PLAN: (Management Options) NEMO Doyle MD Staff Electronically signed[facility] Hospital Discharge instructions Patient Education 09/20/2022 10:19:07 Prostatitis Prostatitis Prostatitis is swelling or inflammation of the prostate gland, also called the prostate. This glandis about 1.5 inches wide and 1 inch high, and it is involved in making semen. The prostate is located below a man's bladder, in front of the rectum. There are four types of prostatitis: Chronic prostatitis (CP), also called chronic pelvic pain syndrome (CPPS). This is the most common type of prostatitis. It is associated with increased muscle tone in the area between the hip bones (pelvic area), around the prostate. This type is also known as a pelvic floor disorder. Chronic bacterial prostatitis. This type usually results from an acute bacterial infection in the prostate gland that keeps coming back or has not been treated properly. The symptoms are less severe than those caused by acute bacterial prostatitis, which lasts a shorter time. Asymptomatic inflammatory prostatitis. This type does not have symptoms and does not need treatment. This is diagnosed when tests are done for other disorders of the urinary tract or reproductive tract. Acute bacterial prostatitis. This type starts quickly and results from an acute bacterial infectionin the prostate gland. It is usually associated with a bladder infection, high fever, and chills. This is the least common type of prostatitis. What are the causes? Bacterial prostatitis is caused by an infection from bacteria. Chronic nonbacterial prostatitis may be caused by: Factors related to the nervous system. This system includes thebrain, spinal cord, and nerves. An autoimmune response. This happens when the body's disease-fighting system attacks healthy tissuein the body by mistake. Psychological factors. These have to do with how the mind works. The causes of the other types of prostatitis are usually not known. What are the signs or symptoms? Symptoms of this condition depend on the type of prostatitis you have. Acute bacterial prostatitis Symptoms may include: Pain or burning during urination. Frequent and sudden urges to urinate. Trouble starting to urinate. Fever. Chills. Pain in your muscles or joints, lower back, or lower abdomen. Other types of prostatitis Symptoms may include: Sudden urges to urinate, or urinating often. Trouble starting to urinate. Weak urine stream. Dribbling after urination. Discharge coming from the penis. Pain in the testicles, the penis, or the tip of the penis. Pain in the area in front of the rectum and below the scrotum (perineum). Pain when ejaculating. How is this diagnosed? This condition may be diagnosed based on: A physical and medical exam. A digital rectal exam. For this, the health care provider may use a finger to feel the prostate. A urine test to check for bacteria. A semen sample or blood tests. Ultrasound. Urodynamic tests to check how your body handles urine. Cystoscopy to look inside your bladder or inside the part of your body that drains urine from the bladder (urethra). How is this treated? Treatment for this condition depends on the type of prostatitis. Treatment may involve: Medicines to relieve pain or inflammation, or to help relax your muscles. Physical therapy. Heat therapy. Biofeedback. These techniques help you control certain body functions. Relaxation exercises. Antibiotic medicine, if your condition is caused by bacteria. Sitz baths. These warm water baths help to relax your pelvic floor muscles, which helps to relieve pressure on the prostate. Follow these instructions at home: Medicines Take teon-gdy-toeglvn and prescription medicines only as told by your health care provider. If you were prescribed an antibiotic medicine, take it as told by your health care provider. Do notstop using the antibiotic even if you start to feel better. Managing pain and swelling Take sitz baths as directed by your health care provider. For a sitz bath, sit in warm water that is deep enough to cover your hips and buttocks. If directed, apply heat to the affected area as often as told by your health care provider. Use theheat source that your health care provider recommends, such as a moist heat pack or a heating pad. ?Place a towel between your skin and the heat source. ?Leave the heat on for 20 30 minutes. ?Remove the heat if your skin turns bright red. This is especially important if you are unable to feel pain, heat, or cold. You may have a greater risk of getting burned. General instructions Do exercises as told by your health care provider, if you were prescribed physical therapy, biofeedback, or relaxation exercises. Keep all follow-up visits as told by your health care provider. This is important. Where to find more information National Cass of Diabetes and Digestive and Kidney Diseases: https://www.niddk.nih.gov Contact a health care provider if: Your symptoms get worse. You have a fever. Get help right away if: You have chills. You feel light-headed or feel like you may faint. You cannot urinate. You have blood or blood clots in your urine. Summary Prostatitis is swelling or inflammation of the prostate gland. Treatment for this condition depends on the type of prostatitis. Take hbca-wns-holkdix and prescription medicines only as told by your health care provider. Get help right away of you have chills, feel light-headed, feel like you may faint, cannot urinate,or have blood or blood clots in your urine. This information is not intended to replace advice given to you by your health care provider. Make sure you discuss any questions you have with your health care provider. Document Revised: 06/25/2020 Document Reviewed: 06/25/2020 [employer] Patient Education 2022 [employer]. 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 This has been independently reviewed. The patient has no spondylolisthesis, has a stable spine. He has a herniated disc at L3 with inferior migration on the left. He is almost completely asymptomatic with no gross deficit. I had a long discussion with him regarding surgery and what it would involve. At this point without symptoms he will continue to proceed with his activity which includes running half marathons. He ran 1 to 2 weeks ago and is doing well. He will let me know if he has any further problems. At this point he is not a surgical option, but if he has any recurrence of symptoms he will call the office and he is to be seen as soon as possible. Mar, Inflammation of left sacroiliac joint (ICD-10 - M46.1) [employer] Other 08-22-2022 Evaluation + Plan noteExtracted from: Title:EU- Clinic Note HOPD Author:Cinthia Leiva MD Date:01/23/22 Impression and Plan Assessment and Plan: Diagnosis: BPH with obstruction/lower urinary tract symptoms (IZR19-GZ N40.1, Discharge, Medical), Distal penile hypospadias (FQH02-JP Q54.1, Discharge, Medical), Nocturia (JOT25-VB R35.1, Billing Diagnosis, Medical), Weak urine stream (COV27-BR R39.12, Discharge, Medical). 66 yo M with history of elevated PSA, improved after prostatitis treatment. MRI prostate negative, JAYNE benign, 85 g volume prostate. Presented today for cystoscopy to evaluate BPH with LUTS persistent after tamsulosin (IPSS 12 from 22). Main issues are weak stream, spraying and nocturia. 1. BPH with LUTS- Emptying well, last PVR 45 mL. Unable to evaluate prostate due to urethral stricture. Improved on tamsulosin except the above. Cont medical management for now 2. Distal penile hypospadias with stricture- main contributor to weak stream and spraying. Unsure of prior repair, although it does not appear so on examination. Do not recommend dilation at this time, recommend referral to tertiary center for hypospadias repair given symptoms of weak stream, pressure at end of stream and spraying. Pt agreeable, will refer to Dr. Lloyd Doyle at [facility] for further evaluation 3. Nocturia - nocturnal polyuria on voiding diary. Pt with snoring, recommend JESUS evaluation. Otherwise, not terribly bothered by it. If JESUS evaluation negative, may consider medical treatment in the future Follow up in 2-3 months. PSA due 07/2022 Future Appointments Appointment Date:03/22/2022 08:00:00 AM Scheduled Provider:Cinthia Leiva MD Location:[facility] Appointment Type:URO Office Visit [facility]08-22-2022 Hospital Discharge instructions Patient Education 01/23/2022 10:50:50 EU - Cystoscopy Discharge Instructions (CUSTOM) Cystoscopy Voiding after the procedure: there may be some pain, burning, urgency, frequency and blood tinged urine following the procedure. These symptoms usually resolve within 2-5 days. Drink the amount of fluid it takes to keep the urine pink to yellow or clear in color. Drinking enough water and fluids will help to ease any discomfort after your procedure. If you are having problems that seem out of the ordinary, please call. If unable to contact your physician and you feel it is an emergency, go to the nearest emergency room or call 911 Diet you may resume your normal diet. Activity you may resume your normal activities Call if you have a fever over 100 degrees. Follow Up Care 01/04/2022 08:54:00 With:Cinthia Leiva Address: [address], [address] [address]- [phone] Business (1) When: Unknown Comments:Call for followup appointment in 2-3 months With:Cinthia Leiva Address:Unknown When: Unknown [facility]08-18-2022 History general Narrative - Reported* Type Description Date Medical History obesity Medical History high cholesterol Surgical History Problem Title : COLO NOSCOPY, SCREENING ([id number]), Problem Status : Active, Surgical History Problem Title : Tonja ia Repair, Problem Comment : [employer] 01/19/2022, Problem Status : Active, Surgical History Problem Title : past surgical history reviewed, Problem Description : past surgical history reviewed, Problem Comment : reviewed - no changes required, Problem Status : Inactive, Surgical History Problem Title : REPA IR, HERNIA, HIATAL, WITH FUNDOPLICATION ([id number]), Problem Status : Active, Surgical History Problem Title : surg ical procedures, hx of, Problem Description : surgical procedures, hx of, Problem Comment : Hiatal Hernia Repair 1999, Problem Status : Inactive, Hospitalization History see surgical hx [employer] Other 08-10-2018 History general Narrative - Reported* Type Description Date Medical History obesity Medical History high cholesterol Surgical History hiatal hernia repair Surgical History colonoscopy 01/11/2018 Hospitalization History see surgical hx [employer] Other Evaluation + Plan note Future Appointments Appointment Date:12/06/2022 08:00:00 AM Scheduled Provider:Cali GARCIA, Cinthia Hernandez Location:[facility] Appointment Type:URO Office Visit Diagnostic Tests Pending * PSA Free & Total 09/20/22 [facility] evaluation noteNo assessment information [facility] Work Phone: Evaluation noteNo InformationNort Guest of a Guest Other Evaluation note* Diagnosis Screening for genitourinary condition Screening for other and unspecified genitourinary condition [facility] this encounter [facility] Diagnosis 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 urethra, unspecified stricture type- Primary BPH with obstruction/lower urinary tract symptoms Hypertrophy of prostate with urinary obstruction and other lower urinary tract symptoms (LUTS) documented in this encounter [facility] general Narrative - Reported* Type Description Date Medical History obesity Medical History high cholesterol Surgical History hiatal hernia repair Hospitalization History see surgical hx [facility] [employer] Other Hospital course Narrative No data available for this section [facility] No data available for this section [facility] ([facility]ative)* Reason Referral for screeni ng colonoscopy Diagnosis 1 Screening for colon cancer (Z12.11) Referral Organization [facility] francisco Referring Provider First Name Mike Referring Provider Last Name Real Referring Provider Specialty Internal Me dicine Referred Organization [facility] Referred Provider Ezra Lala Referred Address [address] [place] [phone] Referred Provider Specialty Surgery Referral Priority Routine General Notes Mr. Huntley is an a symptomatic patient with increased risk for colon cancer. He denies change in appetite, weight or bowel habits. He denies heartburn or dysphagia. He denies abdominal pain, melena or hematochezia. His brother has colon cancer. 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 Referring Provider First Name Renato Referring Provider Last Name Camilo Referring Provider Specialty Neurologica l Surgery Referred Organization Unknown Facility Referred Provider Jr. Badillo William Referred Provider Specialty Pain Medicin e Referral Priority Routine Summary Purpose Family History No Family History Records FoundNo Family History Records FoundNo Family History Records FoundNo Family History Records Found Additional Source Comments Care Team (unrecognized sect ion and content) Team Status: Inactive Member Role Status Dates Mike Noble DO Primary Care Provider Active Renato Page MD Attending Provider Active Team Status: Active Member Role Status Dates Mike Noble DO Primary Care Provider Active Goals (unrecognized section and content) Goals may be documented in a n alternate section REASON FOR VISIT (unrecogniz ed section and content) sinus infection, COVID - Reason Comments Retrograde Urethrogram Specialty Diagnoses / Procedures Referred By Contchika t Referred To Contact Urology / UROLOGY Diagnoses Penile hypospadias RUG per cc chart Procedures NJX RETROGRADE URETHROCSTOGRAPY RUG Self Lloyd Doyle MD [address] [place] [address] Referral ID Status Reason Start Date Expiration Date Visits Re quested Visits Authorized [id number] Closed 11/27/2022 06/03/2023 1 1 (unrecognized sect ion and content) No Status Records FoundNo Status Records FoundNo Status Records FoundNo Status Records Found INFORMATION SOURCE (unrecogn ized section and content) DATE CREATED AUTHOR 03/27/2022 [facility] DATE CREATED AUTHOR AUTHOR'S ORGANIZ ATION 09/18/2022 [facility] DATE CREATED AUTHOR AUTHOR'S ORGANIZ ATION 12/02/2022 [facility] DATE CREATED AUTHOR AUTHOR'S ORGANIZ ATION 02/21/2023 [facility] Source Comments (unrecognize d section and content) In the event this informatio n is protected by the Federal Confidentiality of Alcohol and Drug Abuse Patient Records regulations: The Federal rules restrict any use of the information to criminally investigate or prosecute any alcohol or drug abuse patient.[facility] the event this information is protected by the Federal Confidentiality of Alcohol and Drug Abuse Patient Records regulations: The Federal rules restrict any use of the information to criminally investigate or prosecute any alcohol or drug abuse patient.[facility] FOR RECORDS PERTAINING TO PATIENTS WHO ARE OR HAVE BEEN ENROLLED IN A CHEMICAL DEPENDENCY/SUBSTANCEABUSE PROGRAM, SOME INFORMATION MAY BE OMITTED. This clinical summary was aggregated from multiple sources. Caution should be exercised in using it in the provision of clinical care. This summary normalizes information from multiple sources, and as a consequence, information in this document may materially change the coding, format and clinical context of patient data. In addition, data may be omitted in some cases. CLINICAL DECISIONS SHOULD BE BASED ON THE PRIMARY CLINICAL RECORDS. [facility]. provides no warranty or guarantee of the accuracy or completeness of information in this document.
== END 2023-09-28 15:59 | disposition home or self-care (01) ==
LOC: US 16:00
PROVIDERS: PCP Internal Medicine; Visit Provider Internal Medicine
DX: N50.89 Other specified disorders of the male genital organs (principal); N45.3 Epididymo-orchitis; I86.1 Scrotal varices
CPT/HCPCS: 76870

== ENCOUNTER 2023-10-04 10:20 | Outpatient (OUT) | payer OTHER, SELFPAY ==
--- NOTE | 2023-10-04 10:24 | MM_ITS ---
Patient Name: JEANNETTE HUNTLEY MR#: [id number] : 1955 Exam Date: 10/04/2023 Ordering Doctor: DR Mike Noble D.O. RADIOLOGY REPORT PROCEDURE: MM TOMOSYNTHESIS DIAGNOSTIC BI, 10/04/2023, 10:26 US BREAST RT LIMITED, 10/04/2023, 10:45 COMPARISON: None. INDICATIONS: mass of right breast N63.10 Calculator Name NCI Breast Cancer Risk Assessment Tool 5 Year Breast Cancer Risk Not Applicable. Lifetime Breast Cancer Risk Not Applicable. Personal Breast Cancer No Personal Ovarian Cancer No Treatments None Family Cancers None LOCATION: [facility] BREAST COMPOSITION: There are scattered areas of fibroglandular density. FINDINGS: DIAGNOSTIC CATEGORY 3--PROBABLY BENIGN FINDING. THE FOLLOWING FINDING(S) HAS A HIGH PROBABILITY OF A BENIGN ETIOLOGY: Scattered benign-appearing lymph nodes are present. RIGHT BREAST: Asymmetric increased retroareolar density involving the anterior to mid breast, this persists on spot compression views. Increase in normal-appearing fibroglandular tissue noted by ultrasound . No focal mammographic or ultrasound mass. Findings likely represent gynecomastia. Six-month follow-up is recommended. LEFT BREAST: No significant suspicious finding. RECOMMENDATIONS: SHORT TERM FOLLOW-UP DIAGNOSTIC MAMMOGRAM RIGHT BREAST IN 6 MONTHS. FOLLOW-UP ULTRASOUND RIGHT BREAST IN 12 MONTHS. PLEASE NOTE: A NORMAL MAMMOGRAM DOES NOT EXCLUDE THE POSSIBILITY OF BREAST CANCER. A CLINICALLY SUSPICIOUS PALPABLE LUMP SHOULD BE BIOPSIED. Dictated by: Zachary Wong MD on 10/04/2023 at 11:14 Approved by: Zachary Wong MD on 10/04/2023 at 11:15
--- OUTSIDE RECORDS SUMMARY | 2023-10-04 10:32 | XMS_ITS | CCD ---
Author Organization [facility] Care Team Providers Care Textiles Sales Representative Name Role Phone MIKE NOBLE Primary Care Physician DO Mike Noble Primary Care Provider MD Renato Page Attending Provider Renato Page Unavailable Mike Noble Primary Care Unavailable LueCinthia Admitting Unavailable Lue, Cinthia Velasquez Attending Unavailable Renato Page Admitting Unavailable Renato Page Attending Unavailable [...] Penicillins; Translations: [penicillins] Drug allergy Swelling (finding) [facility] (6 sources) Shellfish; Translations: [shellfish] Drug allergy 11-14-19 Swelling feature (observable entity), Swelling [facility] (3 sources) Penicillin V Drug Allergy Unknown [facility] Other (1 source) Unable to Assess Drug allergy (disorder) 07-25-19 [facility] Repository (2 sources) Penicillin Drug Allergy Unknown [facility] (1 source) Shellfish Drug allergy (disorder) [facility] (1 source) SHELLFISH CONTAINING PRODUCTS; Translations: [SHELLFISH CONTAINING PRODUCTS] Propensity to adverse reactions to drug (disorder) 11-14-19 [facility] Repository (11 sources) Fish derivative Drug allergy 12-20-19 19 Unknown [facility] Other (11 sources) SHELLFISH/ALL FISH Propensity to adverse reactions Unknown [facility] Other (11 sources) Substance with penicillin structure and antibacterial mechanism of action (substance) Drug allergy 12-20-19 19 Unknown [facility] Other (1 source) patient allergy list reviewed by nurse or physicia Propensity to adverse reactions 12-25-19 Comment:Done [facility] Other Medications Current Medications Medication Drug Class(es) Dates Sig (Normalized) Sig (Original) amLODIPine 5 mg oral tablet (20 sources) Dihydropyridine Calcium Channel Usman Start: 03-30-2021 take 1 tablet by mouth once daily amlodipine 5mg amLODIPine 5mg, 1 (one) Tablet daily # 90, 03/15/2022, Ref. x3. Active oral daily for 90 *Reorder from lucierna for eRx and Interaction Alerts* Mar, Active [...] daily in evening for 90 *Reorder from lucierna for eRx and Interaction Alerts* Apr, Active Comment on above: Take by mouth. carvedilol 12.5 mg oral tablet (20 sources) alpha-Adrenergic Usman, beta-Adrenergic Usman Start: 03-30-2021 take 1 tablet by mouth twice daily Carvedilol 12.5MG Carvedilol 12.5MG, 1 (one) Tablet two times daily # 180, 12/30/2021, Ref. x3. Active Oral two times daily for 90 *Pick strength-form from lucierna for eRX* Dec, Active Comment on above: [...] daily in evening for 90 *Reorder from lucierna for eRx and Interaction Alerts* Apr, Active [...] Active Comment on above: Take by mouth. mbepjhmk-dan-tdasbxc fumarate (MULTI VITAMIN) 9 mg iron/15 mL liqd (3 sources) Start: 03-30-2021 fktosepo-wci-iebzpck fumarate (MULTI VITAMIN) 9 mg iron/15 mL [...] Provider Letter February 20, 2023 JEANNETTE HUNTLEY [address] [place] [address] [place] [address] : 1955 Dear Mr. Huntley, We have [...] your prompt attention to this matter. Sincerely, [facility] General Surgery [phone] [facility] Operative Reporton 3 Operative Report [id number]. 00CD:127 Normal [facility] Physician Referralon 023 Physician Referral [id number]. 00CD:127 Normal [facility] CNOVon 11-27-2022 CNOV Office Visit (UROSMN ) JEANNETTE HUNTLEY ([id number]) 1955 M Date Time Provider Department 11/27/22 3:00 PM LLOYD DOYLE UROSUSANA During your visit today, we recorded the following information about you: Dionisio Reardon RN 11/27/2022 3:55 PM Signed Actual procedure/procedure scheduled: Yes Performing provider/scheduled provider: Yes Patient was roomed in: Q9- 14 Out Of School Hours Care Worker offered:Patient declines Patient arrived in the room [...] Education Session: None Instruction Provided To: Patient Residential Treatment Staff Present: not applicable Discipline: Nursing Learning Topic: [...] 12.5 mg tablet Take by mouth. - bblntizn-qhe-ljqzjkm fumarate (MULTI VITAMIN) 9 mg iron/15 mL liqd Multi Vitamin+ Refill(s) 0 Start Date: 03/30/21 Status: Ordered Problem List As Of Date 11/27/2022 Noted Resolved Morbid obesity (HCC) [E66.01] 11/13/2022 11/27/2022 Visit Notes: (more content not included)... Normal [facility] Consultation Noteon 11-27-19 Consultation Note [id number] .[id number]:127 Normal [facility] Consultation Note [id number]. 00CD:127 [facility] CNCOon 11-13-2022 CNCO HNO ID: [id number] Author: Lloyd Doyle MD Service: Urology Author Type: Physician Type: Letter Filed: 11/20/2022 8:58 AM Note Text: November 15, 2022 Cinthia Leiva M.D. [address] [place] [address] NAME: JEANNETTE HUNTLEY [facility] NO.: [id number] DATE OF SERVICE: 11/13/[address] Vicente: [...] of his urethra and I have a 12-Australian cystoscope which I could perform a cystoscopy if he wanted me to do that. If you have any questions or concerns, please do not hesitate to contact me. Sincerely yours, Lloyd Doyle MD Normal [facility] CNOVon 11-13-2022 CNOV Office Visit (UROLMN ) JEANNETTE HUNTLEY ([id number]) 1955 M Date Time Provider Department 11/13/22 8:30 AM LLOYD DOYLE During your visit today, we recorded the following information about you: Pulse Blood pressure Weight 67/minute 160/92 124.7 kg Lloyd Doyle MD 11/13/2022 10:35 AM Signed [facility] NEW PATIENT HISTORY AND PHYSICAL [...] (COREG) 12.5 mg tablet Take by mouth. kiisedng-yim-exkknvm fumarate (MULTI VITAMIN) 9 mg iron/15 mL [...] for internal providers or letter via the [employer] Postal Service for external providers. Edited above [...] antigen (P (more content not included)... Normal [facility] URINALYSIS, REFLEX MICROSCOP ICon 11-13-2022 Bilirubin Ql (U) Negative Normal Negative [facility] Comment on above: Order Comment: Speci men Type: URINE SPECIMEN Ordering Facility: [facility] Address: [address] [place] [address] Performed By: #### L [id number] #### [facility] CLIA [id number] [address] [place] [address] [place] Clarity (Unsp spec) Clear Normal Clear [facility] Comment on above: Order Comment: Speci men Type: URINE SPECIMEN Ordering Facility: [facility] Address: [address] Performed By: #### L [id number] #### [facility] CLIA [id number] [address] [place] [address] [place] Color (U) Yellow Normal Yellow [facility] Comment on above: Order Comment: Speci men Type: URINE SPECIMEN Ordering Facility: [facility] Address: [address] Performed By: #### L [id number] #### [facility] CLIA [id number] [address] [place] [address] [place] Epithelial cells LM.HPF (Urine sed) [#/Area] Few Normal [facility] Comment on above: Order Comment: Speci men Type: URINE SPECIMEN Ordering Facility: [facility] Address: [address] [place] [address] Performed By: #### L [id number] #### [facility] CLIA [id number] [address] [place] [address] [place] Glucose Test strip (U) [Mass/Vol] Negative Normal Trace, Negative [facility] Comment on above: Order Comment: Speci men Type: URINE SPECIMEN Ordering Facility: [facility] Address: [address] Performed By: #### L [id number] #### [facility] CLIA [id number] [address] [place] [address] [place] Hemoglobin Ql (U) Negative Normal Negative, Trace Cl [facility] Comment on above: Order Comment: Speci men Type: URINE SPECIMEN Ordering Facility: [facility] Address: [address] [place] [address] Performed By: #### L [id number] #### [facility] CLIA [id number] [address] [place] [address] [place] Ketones Ql (U) Negative Normal Negative, Trace [facility] Comment on above: Order Comment: Speci men Type: URINE SPECIMEN Ordering Facility: [facility] Address: [address] [place], [place] [address] Performed By: #### L [id number] #### [facility] CLIA [id number] [address] [place] [address] [place] Leukocyte esterase Test strip Ql (U) 500 Ehather/uL Abnormal Negative, 25 Heather/uL [facility] Comment on above: Order Comment: Speci men Type: URINE SPECIMEN Ordering Facility: [facility] Address: [address] [place], [place] [address] Performed By: #### L [id number] #### [facility] CLIA [id number] [address] [place] [address] [place] Nitrite Ql (U) Negative Normal Negative [facility] Comment on above: Order Comment: Speci men Type: URINE SPECIMEN Ordering Facility: [facility] Address: [address] Performed By: #### L [id number] #### [facility] CLIA [id number] [address] [place] [address] [place] pH (U) 5.5 [pH] Normal 5.0-8.[address] [facility] Comment on above: Order Comment: Speci men Type: URINE SPECIMEN Ordering Facility: [facility] Address: [address] [place], [place] [address] Performed By: #### L [id number] #### [facility] CLIA [id number] [address] Protein (U) [Mass/Vol] Negative Normal Trace, Negative [facility] Comment on above: Order Comment: Speci men Type: URINE SPECIMEN Ordering Facility: [facility] Address: [address] [place], [place] [address] Performed By: #### L [id number] #### [facility] CLIA [id number] [address] [place] [address] [place] RBC LM.HPF (Urine sed) [#/Area] 0-3 /HPF Normal 0-3 /HPF [facility] Comment on above: Order Comment: Speci men Type: URINE SPECIMEN Ordering Facility: [facility] Address: [address] [place], [place] [address] Performed By: #### L [id number] #### [facility] CLIA [id number] [address] [place] [address] [facility] Specific gravity (U) [Rel density] 1.022 Normal 1.005-1.[address] [facility] Comment on above: Order Comment: Speci men Type: URINE SPECIMEN Ordering Facility: [facility] Address: [address] [place], [place] [address] Performed By: #### L [id number] #### [facility] CLIA [id number] [address] [place] [address] [place] Urobilinogen Ql (U) Negative Normal Negative [facility] Comment on above: Order Comment: Speci men Type: URINE SPECIMEN Ordering Facility: [facility] Address: [address] [place], [place] [address] Performed By: #### L [id number] #### [facility] CLIA [id number] [address] [place] [address] [place] WBC LM.HPF (Urine sed) [#/Area] 11-25 /HPF Abnormal 0-5 /HPF [facility] Comment on above: Order Comment: Speci men Type: URINE SPECIMEN Ordering Facility: [facility] Address: [address] [place], [place] [address] Performed By: #### L [id number] #### [facility] CLIA [id number] [address] [facility] DESK [id number] [place] [address] [place] Bilirubin Ql (U) Negative Negative [facility] Clarity (Unsp spec) Clear Clear [facility] Color (U) Yellow Yellow [facility] Epithelial cells LM.HPF (Urine sed) [#/Area] Few [facility] Glucose Test strip (U) [Mass/Vol] Negative Trace, Negative [facility] Hemoglobin Ql (U) Negative Negative, Trace Cl [facility] Ketones Ql (U) Negative Negative, Trace [facility] Leukocyte esterase Test strip Ql (U) 500 Heather/uL Abnormal Negative, 25 Heather/uL [facility] Nitrite Ql (U) Negative Negative [facility] pH (U) 5.5 [pH] 5.0 - 8.0 [facility] Protein (U) [Mass/Vol] Negative Trace, Negative [facility] RBC LM.HPF (Urine sed) [#/Area] 0-3 /HPF 0-3 /HPF [facility] Specific gravity (U) [Rel density] 1.022 1.005 - 1.030 [facility] Urobilinogen Ql (U) Negative Negative [facility] WBC LM.HPF (Urine sed) [#/Area] 11-25 /HPF Abnormal 0-5 /HPF [facility] Lab Reportson 09-20-2022 Lab Reports [id number] .[id number]:127 Normal [facility] Patient Educationon 09-21-19 Patient Education Infectious Disease [...] these instructions at home: Medicines ? Take awej-jlh-eoijycv and prescription medicines only as told by [...] Where to find more information ? National [place] of Diabetes and Digestive and Kidney Diseases: (more content not included)... Normal [facility] Urology Office/Clinic Noteon 09-20-2022 Urology Office/Clinic Note [...] 03/30/21 showed 54% chance finding cancer, 26% Brandy 7 or higher ( of note, JAYNE was noted as suspicious on order, but his JAYNE was NOT suspicious) PSA 09/13/2022 - 5.7 and 31.2% 07/13/21 was 5.2 and 22.7% Free 02/14/21 - 5.3 and free 23% (after 3 weeks of ABX course) 01/17/21 - 7.24 MRI prostate w/wo contrast done on 07/25/21 at [facility] impression showed no MRI evidence of prostate [...] 3 months 12/20/2022 EDT [address] [place] [address]- [phone] Additional Instructions: Patient Education Prostatitis I, Desiree [...] mg T (more content not included)... Normal [facility] Comment on above: Result Comment: Elec tronically Signed By: Cinthia Leiva MD\.br\Date and Time Signed: 09/20/22 10:40 EDT\.br\Electronically Co-Signed By: Desiree Louis MA\.br\Date and Time Co-Signed: 09/20/22 10:34 EDT PSA, FREE AND TOTAL RATIOon 09-14-2022 % Free PSA 31.2 % Normal [facility] Comment on above: Result Comment: The table [...] men. Performed By: #### P SAFREE #### [facility] [address] [place] [address] Dr. Dov Dunlap Prostate specific Ag [Mass/Vol] 5.7 ng/mL Critically high 0.0-4.0 [facility] Comment on above: Result Comment: Aster MORRISON methodology. . According to the [place] [employer], Serum PSA should decrease and [...] disease. Performed By: #### P SAFREE #### [facility] [address] [place] [address] [address] Dov Dunlap PSA, Free 1.78 ng/mL Normal N/A [facility] Comment on above: Result Comment: Aster MORRISON methodology. Performed By: #### P SAFREE #### [facility] [address] [place] [address] [address] Dov Dunlap Provider Letteron 07-17-2022 Provider Letter July 17, 2022 JEANNETTE HUNTLEY [address] [place] [address] [place] [address] JEANNETTE HUNTLEY 1955 Dear Mr. Huntley, We [...] prompt attention to this matter. Please call [phone] to reschedule. Sincerely, [facility] [address], [place] [address] [facility] XR lumbar spine 6V w bending on 03-10-2022 XR lumbar spine 6V w bending [facility] [place] [address] [place] [address] XRay Report Signed Patient: Jeannette Huntley MR#: [id number] : 1955 Acct:[id number] Age/Sex: 66 / M ADM Date: 03/10/22 Loc: XD Room: Type: [facility] Attending Dr: Renato Page MD Copies to: [...] Zeke Hunt M.D.03/10/2022 6:39 PM Dictation Location: [place] [address] Transcribed By: [facility] 03/10/221838 Dictated By: Zeke Hunt II, MD 03/10/221835 Signed By: 03/10/221838 [facility] MRI LSPINE WO CONon 02-10-20 MRI [facility] WO CON EXAMINATION: [place] CON HISTORY: Low back pain COMPARISON: [...] MOHSEN MOSES Date: 2022-02-09 06:49 Normal [facility] CBC AUTO DIFFon 01-25-2022 BASO # 0.0 103/ul Normal 0.0-0.1 [facility] Comment on above: Performed By: #### C BC #### [facility] [address] [place] [address] Dr. Dov Dunlap Basophils/100 WBC (Bld) 0.1 % Critically low 0.2-2.0 [facility] Comment on above: Performed By: #### C BC #### [facility] [address] [place] [address] Dr. Dov Dunlap EO # 0.0 103/ul Normal 0.0-0.7 [facility] Comment on above: Performed By: #### C BC #### [facility] [address] [place] [address] [address] Dov Dunlap Eosinophils/100 WBC (Bld) 0.1 % Critically low 0.9-7.0 [facility] Comment on above: Performed By: #### C BC #### [facility] [address] [place] [address] Dr. Dov Dunlap Erythrocyte distribution width (RBC) [Ratio] 14.6 % Normal 11.0-15.0 [facility] Comment on above: Performed By: #### C BC #### [facility] [address] [place] [address] Dr. Dov Dunlap Hematocrit (Bld) [Volume fraction] 42.5 % Normal 42.0-54.0 [facility] Comment on above: Performed By: #### C BC #### [facility] [address] [place] [address] Dr. Dov Dunlap Hemoglobin (Bld) [Mass/Vol] 13.6 g/dL Critically low 14.0-18.0 [facility] Comment on above: Performed By: #### C BC #### [facility] [address] [place] [address] Dr. Dov Dunlap IG # 0.07 10e3/ul Critically high 0.00-0.03 [facility] Comment on above: Performed By: #### C BC #### [facility] [address] [place] [address] Dr. Dov Dunlap IG % 0.5 % Normal 0.0-0.5 [facility] Comment on above: Performed By: #### C BC #### [facility] [address] [place] [address] Dr. Dov Dunlap LYMPH # 1.9 103/ul Normal 1.2-3.8 [facility] Comment on above: Performed By: #### C BC #### [facility] [address] [place] [address] Dr. Dov Dunlap Lymphocytes/100 WBC (Bld) 13.1 % Critically low 20.5-60.0 [facility] Comment on above: Performed By: #### C BC #### [facility] [address] [place] [address] Dr. Dov Dunlap MANUAL DIFF REQ NO Normal [facility] Comment on above: Performed By: #### C BC #### [facility] [address] [place] [address] Dr. Dov Dunlap MCH (RBC) [Entitic mass] 27.9 pg Normal 25.9-34.0 [facility] Comment on above: Performed By: #### C BC #### [facility] [address] [place] [address] Dr. Dov Dunlap MCHC (RBC) [Mass/Vol] 32.0 g/dL Normal 29.9-35.2 [facility] Comment on above: Performed By: #### C BC #### [facility] [address] [place] [address] Dr. Dov Dunlap MCV (RBC) [Entitic vol] 87.3 fL Normal 80.0-94.0 [facility] Comment on above: Performed By: #### C BC #### [facility] [address] [place] [address] Dr. Dov Dunlap MONO # 0.9 103/ul Critically high 0.3-0.8 [facility] Comment on above: Performed By: #### C BC #### [facility] [address] [place] [address] Dr. Dov Dunlap Monocytes/100 WBC (Bld) 6.1 % Normal 1.7-12.0 [facility] Comment on above: Performed By: #### C BC #### [facility] [address] [place] [address] Dr. Dov Dunlap NEUT # 11.8 103/ul Critically high 1.4-6.5 [facility] Comment on above: Performed By: #### C BC #### [facility] [address] [place] [address] Dr. Dov Dunlap Neutrophils/100 WBC (Bld) 80.1 % Critically high 43.0-75.0 [facility] Comment on above: Performed By: #### C BC #### [facility] [address] [place] [address] Dr. Dov Dunlap Platelet mean volume (Bld) [Entitic vol] 9.3 fL Critically low 9.5-13.5 [facility] Comment on above: Performed By: #### C BC #### [facility] [address] [place] [address] Dr. Dov Dunlap PLT 256 103/ul Normal 150-450 [facility] Comment on above: Performed By: #### C BC #### [facility] [address] [place] [address] Dr. Dov Dunlap RBC 4.87 106/ul Normal 4.70-6.10 [facility] Comment on above: Performed By: #### C BC #### [facility] [address] [place] [address] [address] Dov Dunlap WBC 14.7 103/ul Critically high 4.0-11.0 [facility] Comment on above: Performed By: #### C BC #### [facility] [address] [place] [address] [address] Dov Dunlap LIPID PROFILEon 01-25-2022 CHOL-HDL RATIO NORM SEE BELOW Normal [facility] Comment on above: Result Comment: 3.3 - 4.4 LOW RISK 4.4 - 7.1 AVERAGE RISK 7.1 - 11.0 MODERATE RISK >11.0 HIGH RISK Performed By: #### L IPID, CMP #### [facility] [address] [place] [address] [address] Dov Dunlap Cholesterol [Mass/Vol] 166 mg/dL Normal <=200 [facility] Comment on above: Performed By: #### L IPID, CMP #### [facility] [address] [place] [address] [address] Dov Dunlap Cholesterol in HDL [Mass/Vol] 66 mg/dL Critically high 40-60 [facility] Comment on above: Performed By: #### L IPID, CMP #### [facility] [address] [place] [address] [address] Dov Dunlap Cholesterol in LDL [Mass/Vol] 92.4 mg/dL Normal [facility] Comment on above: Performed By: #### L IPID, CMP #### [facility] [address] [place] [address] [address] Dov Dunlap Cholesterol.total/C holesterol in HDL [Mass ratio] 2.5 {ratio} Normal [facility] Comment on above: Performed By: #### L IPID, CMP #### [facility] [address] [place] [address] [address] Dov Dunlap HDL NORMAL > or = 60 mg/dl - LO W CARDIOVASCULAR RISK <40 mg/dl - HIGH CARDIOVASCULAR RISK Normal [facility] Comment on above: Performed By: #### L IPID, CMP #### [facility] [address] [place] [address] Dr. Dov Dunlap LDL CALC NORMAL SEE BELOW Normal [facility] Comment on above: Result Comment: <100 mg/dl OPTIMAL 100 - 129 mg/dl NEAR OR ABOVE OPTIMAL 130 - 159 mg/dl BORDERLINE HIGH 160 - 189 mg/dl HIGH >190 mg/dl VERY HIGH Performed By: #### L IPID, CMP #### [facility] [address] [place] [address] Dr. Dov Dunlap Triglyceride [Mass/Vol] 38 mg/dL Normal <=150 [facility] Comment on above: Performed By: #### L IPID, CMP #### [facility] [address] [place] [address] Dr. Dov Dunlap VLDL CALC 7.6 mg/dL Normal [facility] Comment on above: Performed By: #### L IPID, CMP #### [facility] [address] [place] [address] Dr. Dov Dunlap PROF 14(COMP METB)on 022 Albumin [Mass/Vol] 3.3 g/dL Critically low 3.4-5.0 Th [facility] Comment on above: Performed By: #### L IPID, CMP #### [facility] [address] [place] [address] Dr. Dov Dunlap Albumin/Globulin [Mass ratio] 1.0 {ratio} Normal [facility] Comment on above: Performed By: #### L IPID, CMP #### [facility] [address] [place] [address] Dr. Dov Dunlap ALP [Catalytic activity/Vol] 121 U/L Critically high 46-116 [facility] Comment on above: Performed By: #### L IPID, CMP #### [facility] [address] [place] [address] Dr. Dov Dunlap ALT [Catalytic activity/Vol] 40 U/L Normal 16-63 [facility] Comment on above: Performed By: #### L IPID, CMP #### [facility] [address] [place] [address] Dr. Dov Dunlap Anion gap [Moles/Vol] 10.8 mmol/L Normal [facility] Comment on above: Performed By: #### L IPID, CMP #### [facility] [address] [place] [address] Dr. Dov Dunlap AST [Catalytic activity/Vol] 23 U/L Normal 15-37 [facility] Comment on above: Performed By: #### L IPID, CMP #### [facility] [address] [place] [address] Dr. Dov Dunlap Bilirubin [Mass/Vol] 0.4 mg/dL Normal 0.2-1.0 [facility] Comment on above: Performed By: #### L IPID, CMP #### [facility] [address] [place] [address] Dr. Dov Dunlap Calcium [Mass/Vol] 8.8 mg/dL Normal 8.5-10.1 [facility] Comment on above: Performed By: #### L IPID, CMP #### [facility] [address] [place] [address] Dr. Dov Dunlap Chloride [Moles/Vol] 104 mmol/L Normal 98-107 [facility] Comment on above: Performed By: #### L IPID, CMP #### [facility] [address] [place] [address] Dr. Dov Dunlap CO2 [Moles/Vol] 30.3 mmol/L Normal 21.0-32.0 [facility] Comment on above: Performed By: #### L IPID, CMP #### [facility] [address] [place] [address] Dr. Dov Dunlap Creatinine [Mass/Vol] 0.87 mg/dL Normal 0.70-1.30 [facility] Comment on above: Performed By: #### L IPID, CMP #### [facility] [address] [place] [address] Dr. Dov Dunlap EGFR-AF SYRIAN >60 Normal >=60 [facility] Comment on above: Performed By: #### L IPID, CMP #### [facility] [address] [place] [address] Dr. Dov Dunlap EGFR-NON AF SYRIAN >60 Normal >=60 [facility] Comment on above: Performed By: #### L IPID, CMP #### [facility] [address] [place] [address] Dr. Dov Dunlap Globulin (S) [Mass/Vol] 3.4 g/dL Normal [facility] Comment on above: Performed By: #### L IPID, CMP #### [facility] [address] [place] [address] [address] Dov Dunlap Glucose [Mass/Vol] 115 mg/dL Critically high 74-106 [facility] Comment on above: Performed By: #### L IPID, CMP #### [facility] [address] [place] [address] Dr. Dov Dunlap Potassium [Moles/Vol] 4.1 mmol/L Normal 3.5-5.1 [facility] Comment on above: Performed By: #### L IPID, CMP #### [facility] [address] [place] [address] Dr. Dov Dunlap Protein [Mass/Vol] 6.7 g/dL Normal 6.4-8.2 [facility] Comment on above: Performed By: #### L IPID, CMP #### [facility] [address] [place] [address] Dr. Dov Dunlap Sodium [Moles/Vol] 141 mmol/L Normal 136-145 [facility] Comment on above: Performed By: #### L IPID, CMP #### [facility] [address] [place] [address] Dr. Dov Dunlap Urea nitrogen [Mass/Vol] 15.0 mg/dL Normal 7.0-18.0 [facility] Comment on above: Performed By: #### L IPID, CMP #### [facility] [address] [place] [address] Dr. Dov Dunlap Urea nitrogen/Creatinine [Mass ratio] 17.2 mg/mg Normal [facility] Comment on above: Performed By: #### L IPID, CMP #### [facility] [address] [place] [address] Dr. Dov Dunlap PSA, FREE AND TOTAL RATIOon 12-28-2021 % Free PSA 25.4 % Normal [facility] Comment on above: Result Comment: The table [...] men. Performed By: #### P SAFREE #### [facility] [address] [place] [address] Dr. Dov Dunlap Prostate specific Ag [Mass/Vol] 5.4 ng/mL Critically high 0.0-4.0 [facility] Comment on above: Result Comment: Roch cass ECLIA methodology. . According to the [place] [employer], Serum PSA should decrease and [...] disease. Performed By: #### P SAFREE #### [facility] [address] [place] [address] Dr. Dov Dunlap PSA, Free 1.37 ng/mL Normal N/A [facility] Comment on above: Result Comment: Aster odell ECLIA methodology. Performed By: #### P SAFREE #### [facility] [address] [place] [address] Dr. Dov Dunlap [facility]02 SARS-CoV-2 (COVID-19) RNA GREER+probe Ql (Unsp spec) Not detected Normal NOT DETECTED [facility] Comment on above: Result Comment: This test is not yet approved or cleared by the [place] FDA. When there are no FDA-approved or cleared tests available, and other criteria are met, FDA can make tests available under an emergency access mechanism called an Emergency Use Authorization (EUA). The EUA for this test is supported by the [place] of Health and Human Service's (HHS's) declaration [...] consistent with SARS-CoV-2. Performed By: #### C [facility] #### [facility] [address] [place] [address] Dr. Dov Dunlap MR prostate wo/w conon 07-26 MR prostate wo/w con [facility] [place] [address] [place] [address] MRI Report Signed Patient: Jeannette Huntley MR#: [id number] : 1955 Acct:[id number] Age/Sex: 66 / M ADM Date: 07/25/21 Loc: Room: Type: [facility] Attending Dr: Cinthia Leiva MD Ordering Provider: Cinthia Leiva MD Date of Service: 07/25/21 MR/MR prostate wo/w con: N41.9, R97.20 Copies to: Cinthia Leiva MD EXAMINATION: MR prostate wo/w con [...] Keane Jr., Howard07/26/2021 1:23 PM Dictation Location: [place] [address] Transcribed By: [facility] 07/26/21 1323 Dictated By: Amado Keane Jr, DO 07/26/21 1307 Signed By: 07/26/21 1323 Normal [facility] ISTAT XRay CREon 07-25-2021 Creatinine [Mass/Vol] 0.9 mg/dL Normal 0.6-1.3 [facility] Comment on above: Result Comment: ER/E SD physician is notified/shown all ISTAT results. Critical values may be confirmed by laboratory testing if deemed necessary by ER attending doctor. Performed By: #### I SCRE #### [address] Point of Care testing , ISTAT GFR ( > 60 Normal [facility] Comment on above: Result Comment: GFR estimated reference range: According to KDOQI guidelines, <60 ml/min/1.73m2 is sufficient to diagnose a patient with chronic kidney disease. PERFORMED BY: [place] [address] PATHOLOGIST DEMOLITION ENGINEER JONATHON DOVER M.D. Performed By: #### I SCRE #### [address] Point of Care testing , ISTAT GFR (Non- Am > 60 Normal [facility] Comment on above: Performed By: #### I SCRE #### [address] Point of Care testing , Vital Signs Date Time Vital Sign Value Performing Clinician Facility 06-29-2023 14:15-0500 Body height 180.34 cm Mike Ball Other [facility] Other 06-29-2023 14:15-0500 Body mass index (BMI) [Ratio] 37.23 kg/m2 Mike Ball Other [facility] Other 06-29-2023 14:15-0500 Body weight 121.11 kg Mike Ball Other [facility] Other 06-29-2023 14:15-0500 Diastolic blood pressure 84 mm[Hg] Mike Ball Other [facility] Other 06-29-2023 14:15-0500 Systolic blood pressure 135 mm[Hg] Mike Ball Other [facility] Other 01-26-2023 09:30-0400 Body height 180.34 cm Mike Ball Other [facility] Other 01-26-2023 09:30-0400 Body mass index (BMI) [Ratio] 38.43 kg/m2 Mike Ball Other [facility] Other 01-26-2023 09:30-0400 Body weight 125.01 kg Mike Ball Other [facility] Other 01-26-2023 09:30-0400 Diastolic blood pressure 83 mm[Hg] Mike Ball Other [facility] Other 01-26-2023 09:30-0400 Respiratory rate 12 /min Mike Ball Other [facility] Other 01-26-2023 09:30-0400 Systolic blood pressure 135 mm[Hg] Mike Ball Other [facility] Other 09-20-2022 09:54-0400 Blood Pressure Location Cinthia Lue [facility] 09-20-2022 09:54-0400 Diastolic blood pressure 81 mm[Hg] Cinthia Lue [facility] 09-20-2022 09:54-0400 Heart rate 80 /min Cinthia Lue [facility] 09-20-2022 09:54-0400 Systolic blood pressure 138 mm[Hg] Cinthia Lue [facility] 03-16-2022 10:20-0400 Body height 180.34 cm Renato Page Other [facility] Other 03-16-2022 10:20-0400 Body mass index (BMI) [Ratio] 37.65 kg/m2 Renato Page Other [facility] Other 03-16-2022 10:20-0400 Body weight 122.47 kg Renato Page Other [facility] Other Encounters Encounter Date Encounter Type Care Provider Facility Start: 06-29-2023 End: 06-29-2023 ambulatory Mike Noble Other [facility] Other Start: 06-29-2023 Office outpatient vi sit 15 minutes Mike Ball [facility] Start: 06-18-2023 End: 06-18-2023 ambulatory Mike Ball Other [facility] Other Start: 06-18-2023 Office outpatient vi sit 15 minutes Mike Ball [facility] Start: 06-17-2023 End: 06-17-2023 ambulatory Mike Ball Other [facility] Other Start: 06-17-2023 Encounter by [employer] Mike Noble [facility] Start: 04-07-2023 End: 04-07-2023 ambulatory Mike Noble Other [facility] Other Start: 04-07-2023 Telephone encounter Mike GALLAGHER [facility] Start: 04-02-2023 End: 04-02-2023 ambulatory Mike Noble Other [facility] Other Start: 04-02-2023 Telephone encounter [facility] Start: 03-27-2023 End: 03-27-2023 ambulatory Mike Noble Other [facility] Other Start: 03-27-2023 Encounter by [employer] Mike Noble [facility] Start: 02-12-2023 ambulatory Cinthia Leiva Facility:[facility] [place] [facility] Start: 02-06-2023 End: 02-06-2023 ambulatory Mike Noble Other [facility] Other Start: 02-06-2023 Telephone encounter [facility] Start: 01-26-2023 End: 01-26-2023 ambulatory Mike Noble Other [facility] Other Start: 01-26-2023 Encounter for genera l adult medical examination without abnormal findings Mike Noble [facility] Start: 01-26-2023 Periodic preventive med est patient 65yrs& older Mike Noble [facility] Start: 01-04-2023 End: 01-04-2023 ambulatory Mike Noble Other [facility] Other Start: 01-04-2023 Telephone encounter Mike GALLAGHER [facility] Start: 12-06-2022 ambulatory Cinthia Leiva Facility[facility] Start: 11-27-2022 End: 11-28-2022 ambulatory [facility] Facility:[facility] Start: 11-27-2022 End: 11-27-2022 Patient encounter procedure Lloyd Doyle MD Work Phone: Urology Comment on above: 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 Start: 09-13-2022 End: 09-14-[address] MIKE NOBLE Facility:[facility] Start: 04-07-2022 End: 04-07-2022 ambulatory Renato Page Other [facility] Other Start: 04-07-2022 Telephone encounter Renato HONG [employer] Start: 03-22-2022 ambulatory Cinthia Leiva Facility:[facility] Start: 03-16-2022 End: 03-16-2022 ambulatory Renato Page Other [facility] [employer] Other Start: 03-16-2022 Office outpatient ne w 30 minutes Renato Page [facility] Start: 03-10-2022 End: 03-10-2022 ambulatory Renato Page Facility:[facility] Start: 03-10-2022 End: 03-10-2022 ambulatory DO Mike Noble Work Phone: [facility] Work Phone: Start: 03-10-2022 End: 03-10-2022 Patient encounter procedure DO Mike Noble Work Phone: [facility] [place] Start: 02-08-2022 End: 02-09-[address] MIKE NOBLE Facility:[facility] Start: 01-26-2022 Encounter for genera l adult medical examination without abnormal findings DR MIKE NOBLE [facility] Start: 01-25-2022 End: 01-26-[address] MIKE NOBLE Facility:[facility] Start: 01-25-2022 End: 01-26-2022 Encounter for general adult medical examination without abnormal findings DR MIKE NOBLE Facility:[facility] Start: 01-23-2022 End: 01-23-2022 Patient encounter procedure Cinthia Leiva [facility] Start: 01-22-2022 Adult health examination Gabo Noble Other [facility] Other Start: 12-27-2021 End: 12-28-2021 ambulatory CINTHIA LEIVA . Facility:[facility] Start: 11-12-2021 End: 11-13-[address] MIKE NOBLE Facility:[facility] Start: 07-25-2021 End: 07-25-2021 ambulatory Mike Noble Facility:[facility] Procedures Date Procedure Procedure Detail Performing Clinician [...] Influenza vaccination INFLUENZA (Sea son Ended) [facility] Start: 06-04-2022 ADVANCE DIRECTIVE DISCUSSION ADVANCE DIRECTIVE DISCUSSION [facility] Start: 06-04-2022 DEPRESSION ASSESSMENT DEPRESSION ASS ESSMENT [facility] Start: 2021 PNEUMOCOCCAL: 65+ (1 - PCV) PNEUMOCOCCAL: 65+ (1 - PCV) [facility] Start: 2011 PROSTATE CANCER SCRE ENING DISCUSSION PROSTATE CANCER SCREENING DISCUSSION [facility] Start: 2006 SHINGRIX VACCINE (1 of 2) SHINGRIX V ACCINE (1 of 2) [facility] Start: 2001 COLOGUARD (FIT-DNA) COLOGUARD (FIT-D NA) [facility] Start: 2001 Colonoscopy COLONOSCOPY [facility] Start: 2001 COLORECTAL CANCER SCREENING COLORECTAL CANCER SCREENING [facility] Start: [address] COLONOGRAPHY [facility] Start: 2001 DIABETES SCREEN DIABETES SCREEN [facility] Start: 2001 FECAL OCCULT BLOOD FECAL OCCULT BLOO D [facility] Start: 2001 SIGMOIDOSCOPY SIGMOIDOSCOPY [facility] Start: 1991 LIPID SCREEN LIPID SCREEN [facility] Start: 1975 Urine microalbumin profile DTAP,TDAP ,TD (1 - Tdap) [facility] Start: 1974 HEPATITIS C SCREENING HEPATITIS C SC REENING [facility] Start: 1955 COVID-19 VACCINE (#1) COVID-19 VACCI NE (#1) [facility] Immunizations Immunization Date Immunization Notes Care Provider Anthony vazquez 01-23-2022 pneumococcal 20-vijaya nt conjugate vaccine Cinthia Leiva [facility] 07-23-2020 zoster vaccine recombinant Cinthia Lue [facility] 07-23-2020 zoster vaccine, live Benjami n Ball Other [facility] Other 04-12-2020 zoster vaccine recombinant Cinthia Lue [facility] 04-12-2020 zoster vaccine, live Benjami n Ball Other [facility] Other 06-18-2017 influenza virus vaccine, split virus (incl. purified surface antigen) Mike Real Other [facility] Other Payers Date Payer Category Payer Private Health Insurance [employer] PPO [id number] 2022-Present [phone] [address] [facility] [place] [address] PPO [id number] 2022 Private Health Insurance [facility] [id number] 2021 Self-pay [id number] 1959 Private Health Insurance [facility] [id number] 1955 Unknown [id number]. 2.593 1955 Unknown [id number] [id number]. 2.593 1955 Unknown [id number] [id number]. 2.593 1955 Unknown [id number] [id number]. 2.593 1955 Unknown [id number] 2.16.840.1.874585.3.579. 2.593 1955 Unknown [id number] [id number]. 2.727 1955 Unknown [id number] 2.16.840.1.163376.3.579. 2.727 1955 Unknown [id number] 2.16.840.1.661947.3.579. 2.727 Unknown [id number] 2.16.840.1.298816.3.579. 2.531 Unknown [id number] [id number]. 2.531 Social History Date Type Detail Facility Start: 01-04-2022 End: 11-13-2022 Tobacco smoking status Never smoked tobacco (finding) [facility] Sex Assigned At Male [facility] Start: 1955 Sex Assigned At Male [facility] Start: 11-13-2022 Tobacco use and exposure Smokeless tobacco non-user [facility] Start: 1955 Sex Assigned At Not on file [facility] Functional Status Date Assessment Result Facility 09-20-2022 Functional Status N/A [facility] Clinical Notes 01-11-2018 to 06-29-2023 Note Date [...] Motion sickness, initial encounter (ICD-10 - T75.3XXA) [facility] Other 01-15-2024 Evaluation note* Encounter Date Diagnosis [...] or bending. Avoid lifting > 10 lbs [facility] Other 08-25-2023 Evaluation note* Encounter Date Diagnosis [...] or drinking prior to bedtime. Weight loss. [facility] Other 08-25-2023 Evaluation note* Encounter Date Diagnosis [...] heartburn, dysphagia, abdominal pain, melena or hematochezia. [facility] Other 06-26-2023 NoteHNO ID: [id number] Author: Lloyd Doyle MD Service: ? Author Type: Physician Type: Progress Notes Filed: 11/27/2022 5:27 PM Note Text:[facility]06-26-2023 NoteHNO ID: [id number] Author: Lloyd Doyle MD Service: ? Author [...] satisfactory Medications:Cipro 500 mg x 1 [facility] History of Present illness Narrative* Lloyd Doyle MD - 11/27/2022 5:25 PM EDT documented in [facility] encounter[facility] Procedure note* Lloyd Doyle MD - [...] Lloyd Doyle MD documented in this encounterProm[facility]06-[facility]-2023 Nurse Note* Dionisio Reardon RN - 11/27/2022 2:41 PM EDT Actual procedure/procedure scheduled: Yes Performing provider/scheduled provider: Yes Patient was roomed in: Q9- 14 Out Of School Hours Care Worker offered:Patient declines Patient arrived in the room [...] Education Session: None Instruction Provided To: Patient Residential Treatment Staff Present: not applicable Discipline: Nursing Learning Topic: SURVIVAL SKILLS: Symptom Management Patient Evaluation: Verbalizes understanding: Yes Supplemental Material Given: Written Material Instructed By Dionisio Reardon RN In Department Urology . documented in this encounterPromedica [facility]06-26-2023 Ancelmo Doyle, Thank you very much [...] concerns. Warm regards, MD Lloyd Lara MD [facility] [place] [place] [address] Re: JEANNETTE HUNTLEY Date of Visit: 02/23/2021 [...] additional questions regarding this information, please contact: Sincerely,[facility]06-12-2023 History of Past illness Narrative* Problem Noted Date Resolved Date Morbid obesity 11/13/2022 11/27/2022 documented as of this encounter (statuses as of 11/28/2022) [facility]06-12-2023 NotePatient Outreach (UROLMN) JEANNETTE HUNTLEY ([id number]) 1955 M Date Time Provider Department 11/13/22 LLOYD DOYLE During your visit today, we recorded the following information about you: Allergies As of Date: 11/13/2022 Noted Allergy Reaction SHELLFISH CONTAINING PRODUCTS 11/13/2022 7 - Swelling Date Reviewed: 11/13/2022 Reviewed by: Iftikhar Avilez MA - Fully Assessed Visit Diagnosis:Screening for genitourinary condition [Z13.89] Order(s):URINALYSIS, REFLEX MICROSCOPIC [[id number]] Order #: [id number]. #:[id number] Prescriptions as of 11/16/2022 - amLODIPine (NORVASC) 5 mg tablet Take 5 mg by mouth once daily. - aspirin 81 mg cap Take by mouth. - atorvastatin (LIPITOR) 10 mg tablet Take by mouth. - tamsulosin (FLOMAX) 0.4 mg Take by mouth. - diphenhydrAMINE (BENADRYL) 25 mg capsule Take by mouth. - carvedilol (COREG) 12.5 mg tablet Take by mouth. - glvticmc-hrg-gvqerfs fumarate (MULTI VITAMIN) 9 mg iron/15 mL liqd Multi Vitamin+ Refill(s) 0 Start Date: 03/30/21 Status: Ordered Problem List As Of Date 11/13/2022 Noted Resolved Morbid obesity (HCC) [E66.01] 11/13/2022 Encounter Status:Closed by [employer] (fka [employer])USEClaude on 11/16/22[facility] 11-13-2022 NoteHNO ID: [id number] Author: Lloyd Doyle MD Service: ? Author Type: Physician Type: Progress Notes Filed: 11/13/2022 10:35 AM Note Text: [facility] NEW PATIENT HISTORY AND PHYSICAL [...] (COREG) 12.5 mg tablet Take by mouth. cblcsfcx-yap-kjtpoev fumarate (MULTI VITAMIN) 9 mg iron/15 mL [...] for internal providers or letter via the [employer] Postal Service for external providers. Edited above [...] (Management Options) NEMO Doyle MD Staff Electronically signedMer[facility]04[facility]19[facility] Hospital Discharge instructions Patient Education 09/20/2022 [...] Follow these instructions at home: Medicines Take uvsj-vom-oehlmrn and prescription medicines only as told by [...] important. Where to find more information National [place] of Diabetes and Digestive and Kidney Diseases: [...] depends on the type of prostatitis. Take pkdw-ajf-qixxqgk and prescription medicines only as told by [...] provider. Document Revised: 06/25/2020 Document Reviewed: 06/25/2020 [employer] Patient Education 2022 [employer]. Follow Up Care 04/20/2022 10:13:37 With:Cali GARCIA, Cinthia Hernandez, URL, URO Address: [address], [facility] [place] [phone] When:12/20/[address] 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 66 yo M with [...] will refer to Dr. Lloyd Doyle at [facility] for further evaluation 3. Nocturia - nocturnal polyuria on voiding diary. Pt with snoring, recommend JESUS evaluation. Otherwise, not terribly bothered by it. If JESUS evaluation negative, may consider medical treatment in the future Follow up in 2-3 months. PSA due 07/2022 Future Appointments Appointment Date:03/22/2022 08:00:00 AM Scheduled Provider:Cinthia Leiva MD Location:[facility] Appointment Type:URO Office Visit [facility]08-22-2022 Hospital Discharge instructions Patient Education 01/23/2022 10:50:50 [...] 01/04/2022 08:54:00 With:Cinthia Leiva Address: [place] M[place], [address] [phone] Business (1) When: Unknown Comments:Call for followup appointment in 2-3 months With:Cinthia Leiva Address:Unknown When: Unknown [facility]08-18-2022 History general Narrative - Reported* Type Description Date Medical History obesity Medical History high cholesterol Surgical History Problem Title : COLO NOSCOPY, SCREENING (06879), Problem Status : Active, Surgical History Problem Title : Tonja ia Repair, Problem Comment : [employer] 01/19/2022, Problem Status : Active, Surgical History Problem Title : past surgical history reviewed, Problem Description : past surgical history reviewed, Problem Comment : reviewed - no changes required, Problem Status : Inactive, Surgical History Problem Title : REPA IR, HERNIA, HIATAL, WITH FUNDOPLICATION ([id number]), Problem Status : Active, Surgical History Problem Title : surg ical procedures, hx of, Problem Description : surgical procedures, hx of, Problem Comment : Hiatal Hernia Repair 1999, Problem Status : Inactive, Hospitalization History see surgical hx [facility] Other 08-10-2018 History general Narrative - Reported* Type Description Date Medical History obesity Medical History high cholesterol Surgical History hiatal hernia repair Surgical History colonoscopy 01/11/2018 Hospitalization History see surgical hx [facility] Other Evaluation + Plan note Future Appointments Appointment Date:12/06/2022 08:00:00 AM Scheduled Provider:Cali GARCIA, Cinthia Hernandez Location:[facility] Appointment Type:URO Office Visit Diagnostic Tests Pending * PSA Free & Total 09/20/22 [facility] evaluation noteNo assessment information [facility] Work Phone: Evaluation noteNo InformationNort [employer] Other Evaluation note* Diagnosis Screening for genitourinary condition Screening for other and unspecified genitourinary condition [facility] Diagnosis 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 urethra, unspecified stricture type- Primary BPH with obstruction/lower urinary tract symptoms Hypertrophy of prostate with urinary obstruction and other lower urinary tract symptoms (LUTS) documented in this encounter [facility] general Narrative - Reported* Type Description Date Medical History obesity Medical History high cholesterol Surgical History hiatal hernia repair Hospitalization History see surgical hx [facility] [employer] Other Hospital course Narrative No data available for this section [facility] No data available for this section [facility] (n[facility]ative)* Reason Referral for screeni ng colonoscopy Diagnosis 1 Screening for colon cancer (Z12.11) Referral Organization Pending sale to [facility] Referring Provider First Name Mike Referring Provider Last Name Real Referring Provider Specialty Internal Me dicine Referred Organization [facility] Referred Provider Ezra Lala Referred Address [address] [place] [phone] Referred Provider Specialty Surgery Referral Priority Routine General Notes Mr. Huntley is an a symptomatic patient with increased risk for colon cancer. He denies change in appetite, weight or bowel habits. He denies heartburn or dysphagia. He denies abdominal pain, melena or hematochezia. His brother has colon cancer. 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) Referral Organization [facility] Referring Provider First Name Renato [...] RETROGRADE URETHROCSTOGRAPY RUG Self Lloyd Doyle MD [address] [place] [address] Referral ID Status Reason Start Date Expiration Date Visits Re quested Visits Authorized [id number] Closed 11/27/2022 06/03/2023 1 1 (unrecognized sect ion and content) No Status Records FoundNo Status Records FoundNo Status Records FoundNo Status Records Found INFORMATION SOURCE (unrecogn ized section and content) DATE CREATED AUTHOR 03/27/2022 [facility] DATE CREATED AUTHOR AUTHOR'S ORGANIZ ATION 09/18/2022 [facility] DATE CREATED AUTHOR AUTHOR'S ORGANIZ ATION 12/02/[address] [facility] DATE CREATED AUTHOR AUTHOR'S ORGANIZ ATION 02/21/2023 [facility] Source Comments (unrecognize d section and content) In the event this informatio n is protected by the Federal Confidentiality of Alcohol and Drug Abuse Patient Records regulations: The Federal rules restrict any use of the information to criminally investigate or prosecute any alcohol or drug abuse patient.[facility] the event this information is protected by the Federal Confidentiality of Alcohol and Drug Abuse Patient Records regulations: The Federal rules restrict any use of the information to criminally investigate or prosecute any alcohol or drug abuse patient.[facility] FOR RECORDS PERTAINING TO PATIENTS WHO [...] BE BASED ON THE PRIMARY CLINICAL RECORDS. [facility]. provides no warranty or guarantee of the accuracy or completeness of information in this document.
--- NOTE | 2023-10-04 10:40 | US_ITS ---
Patient Name: JEANNETTE HUNTLEY MR#: [id number] : 1955 Exam Date: 10/04/2023 Ordering Doctor: DR Mike Noble D.O. RADIOLOGY REPORT PROCEDURE: MM TOMOSYNTHESIS DIAGNOSTIC BI, 10/04/2023, 10:26 US BREAST RT LIMITED, 10/04/2023, 10:45 COMPARISON: None. INDICATIONS: mass of right breast N63.10 Calculator Name NCI Breast Cancer Risk Assessment Tool 5 Year Breast Cancer Risk Not Applicable. Lifetime Breast Cancer Risk Not Applicable. Personal Breast Cancer No Personal Ovarian Cancer No Treatments None Family Cancers None LOCATION: [facility] BREAST COMPOSITION: There are scattered areas of fibroglandular density. FINDINGS: DIAGNOSTIC CATEGORY 3--PROBABLY BENIGN FINDING. THE FOLLOWING FINDING(S) HAS A HIGH PROBABILITY OF A BENIGN ETIOLOGY: Scattered benign-appearing lymph nodes are present. RIGHT BREAST: Asymmetric increased retroareolar density involving the anterior to mid breast, this persists on spot compression views. Increase in normal-appearing fibroglandular tissue noted by ultrasound . No focal mammographic or ultrasound mass. Findings likely represent gynecomastia. Six-month follow-up is recommended. LEFT BREAST: No significant suspicious finding. RECOMMENDATIONS: SHORT TERM FOLLOW-UP DIAGNOSTIC MAMMOGRAM RIGHT BREAST IN 6 MONTHS. FOLLOW-UP ULTRASOUND RIGHT BREAST IN 12 MONTHS. PLEASE NOTE: A NORMAL MAMMOGRAM DOES NOT EXCLUDE THE POSSIBILITY OF BREAST CANCER. A CLINICALLY SUSPICIOUS PALPABLE LUMP SHOULD BE BIOPSIED. Dictated by: Zachary Wong MD on 10/04/2023 at 11:14 Approved by: Zachary Wong MD on 10/04/2023 at 11:15
== END 2023-10-04 10:21 | disposition home or self-care (01) ==
LOC: MAMMO 10:20
PROVIDERS: PCP Internal Medicine; Visit Provider Internal Medicine
DX: N63.10 Unspecified lump in the right breast, unspecified quadrant (principal)
CPT/HCPCS: 76642; 77066; G0279

== ENCOUNTER 2023-10-20 11:02 | Outpatient (OUT) | payer OTHER, SELFPAY ==
--- OUTSIDE RECORDS SUMMARY | 2023-10-20 11:09 | XMS_ITS | CCD ---
Author Organization [facility] Care Team Providers Care Admissions Clerk Name Role Phone MIKE NOBLE Primary Care Physician DO Mike Noble Primary Care Provider MD Renato Page Attending Provider [phone] Renato Page Unavailable Mike Noble Primary Care Unavailable Lue, Cinthia Velasquez Admitting Unavailable Lue, Cinthia Velasquez Attending Unavailable Renato Page Admitting Unavailable Renato Page Attending Unavailable Mike Noble Primary Care Unavailable REAL, DR DURHAM Admitting Unavailable BALL, DR DURHAM Attending Unavailable BALL, DR DURHAM Primary Care Unavailable BALL, DR DURHAM Consulting Unavailable LUE ., CINTHIA Velasquez Admitting Unavailable LUE ., CINTHIA Velasquez Attending Unavailable REAL, DR DURHAM Primary Care Unavailable [...] DURHAM Primary Care Unavailable LUE ., CINTHIA M Admitting Unavailable LUE ., CINTHIA M Attending Unavailable LUE ., CINTHIA M Consulting Unavailable Unavailable Primary Care Provider UnavailMike Solorio Unavailable Lue, Cinthia M. Attending Unavailable Lue, Cinthia M. Referring Unavailable Lue, Cinthia M. Attending Unavailable Lue, Cinthia M. Attending Unavailable Unavailable Primary Care Provider UnavailSYD Obando Attending Unavailable LLOYD DOYLE Attending Unavailable SELF Referring Unavailable LLOYD DOYLE Attending Unavailable Mike Noble DO Primary Care Provider Allergies Allergy Classification Reported Allergen(s) Allergy Type Date of Onset Reaction(s) Facility (3 sources) Penicillins; Translations: [penicillins] Drug allergy Swelling (finding) [facility] (9 sources) Shellfish; Translations: [shellfish] Drug allergy 11-14-19 Swelling feature (observable entity), Swelling [facility] (3 sources) Penicillin V Drug Allergy Unknown [employer] Other (1 source) Unable to Assess Drug allergy (disorder) 07-25-19 [facility] Repository (2 sources) Penicillin Drug Allergy Unknown [facility] Repository (1 source) Shellfish Drug allergy (disorder) [facility] Repository (11 sources) Fish derivative Drug allergy 12-20-19 Unknown [employer] Other (11 sources) SHELLFISH/ALL FISH Propensity to adverse reactions Unknown [employer] Other (11 sources) Substance with penicillin structure and antibacterial mechanism of action (substance) Drug allergy 12-20-19 Unknown [employer] Other (1 source) patient allergy list reviewed by nurse or physicia Propensity to adverse reactions 12-25-19 Comment:Done [employer] Other (1 source) SHELLFISH CONTAINING PRODUCTS; Translations: [SHELLFISH CONTAINING PRODUCTS] Propensity to adverse reactions to drug (disorder) 11-14-19 [facility] Repository Medications Current Medications Medication Drug Class(es) Dates Sig (Normalized) Sig (Original) amLODIPine 5 mg oral tablet (20 sources) Dihydropyridine Calcium Channel Usman Start: 03-30-2021 take 1 tablet by mouth once daily amLODIPine (NORVASC) 5 mg tablet Take 5 mg by mouth once daily. 0 09/13/2022 Active Comment on above: Take 5 mg by mouth o nce daily. Ascorbic Acid (2 sources) Vitamin C Start: 03-30-2021 Vitamin C Daily, Refills(s) 0 Start Date: 03/30/21 Status: Ordered aspirin 81 mg oral tablet (8 sources) Platelet Aggregation Inhibitor, Nonsteroidal Anti-inflammatory Drug Start: 03-30-2021 aspirin 81 mg cap Take by mouth. 0 03/30/2021 Active Start: 03-30-2021 take 1 mg by mouth e very four hours aspirin 81 mg oral capsule mg cap(s), Oral, q4hr, Refills(s) 0 Start Date: 03/30/21 Status: Ordered Comment on above: Take by mouth. atorvastatin 10 mg oral tablet (20 sources) HMG-CoA Reductase Inhibitor Start: atorvastatin (LIPITOR) 10 mg tablet Take by mouth. 0 03/30/2021 Active Comment on above: Take by mouth. carvedilol 12.5 mg oral tablet (20 sources) alpha-Adrenergic Usman, beta-Adrenergic Usman Start: carvedilol (COREG) 12.5 mg tablet Take by mouth. 0 03/30/2021 Active Comment on above: Take by mouth. diphenhydrAMINE hydrochloride 25 mg oral capsule (8 sources) Histamine-1 Receptor Antagonist Start: diphenhydrAMINE (BENADRYL) 25 mg capsule Take by mouth. 0 03/30/2021 Active Comment on above: Take by mouth. doxycycline hyclate 100 mg oral capsule (2 sources) Tetracycline-class Drug Start: take 1 capsule by mouth every twelve hours Doxycycline Hyclate 100 MG 1 capsule Orally Twice a day for 7 days Jun, Active famotidine 40 mg oral tablet (11 sources) Histamine-2 Receptor Antagonist Start: take 1 tablet by mouth every twenty-four hours Famotidine 40 MG 1 tablet at bedtime as needed Orally Once a day Jan, Active Ibuprofen (2 sources) Nonsteroidal Anti-inflammatory Drug Start: ibuprofen Refills(s) 0 Start Date: 03/30/21 Status: Ordered levoFLOXacin 500 mg oral tablet (7 sources) Quinolone Antimicrobial Start: take 1 tablet by mouth every twenty-four hours levoFLOXacin 500 MG 1 tablet Orally Once a day for 10 days Mar, Active Multi Vitamin+ (2 sources) Start: Multi Vitamin+ Refill(s) 0 Start Date: 03/30/21 Status: Ordered shjabrxp-nco-ioamuhq fumarate (MULTI VITAMIN) 9 mg iron/15 mL liqd (6 sources) Start: aflvtmse-eml-qgvrchq fumarate (MULTI VITAMIN) 9 mg iron/15 mL liqd Multi Vitamin+ Refill(s) 0 Start Date: 03/30/21 Status: Ordered 0 03/30/2021 Active Comment on above: Multi Vitamin+ Refil l(s) 0 Start Date: 03/30/21 Status: Ordered predniSONE 20 mg oral tablet (4 sources) Start: predniSONE 20 MG 1 tablet Orally tid w/ food x 3 days then bid w/ food x 2 days then qd w/ food x 2 days for 7 days Jun, Active 72 hr scopolamine 0.0139 mg/hr transdermal system (2 sources) Anticholinergic Start: Scopolamine 1 MG/3DAYS 1 patch to skin behind the ear as needed Transdermal every 72 hours for 6 days Jun, Active tamsulosin hydrochloride 0.4 mg oral capsule (20 sources) alpha-Adrenergic Usman Start: tamsulosin (FLOMAX) 0.4 mg Take by mouth. 0 03/30/2021 Active Comment on above: Take by mouth. tiZANidine 4 mg oral tablet (4 sources) Central alpha-2 Adrenergic Agonist Start: take 0.5-1 tablets by mouth once at bedtime as needed for pain tiZANidine HCl 4 MG 1/2 - 1 tablet Orally q HS PRN back pain for 10 days Jun, Active vitamin B12 (2 sources) Vitamin B12 Start: Vitamin B12 Refills(s) 0 Start Date: 03/30/21 Status: Ordered Vitamin D3 (2 sources) Start: Vitamin D3 Refills(s) 0 Start Date: 03/30/21 Status: Ordered Completed/Discontinued Medications Medication Drug Class(es) Dates Sig (Normalized) Sig (Original) ciprofloxacin 500 mg oral tablet (1 source) Quinolone Antimicrobial Start: 11-27-2022 End: 11-27-2022 ciprofloxacin HCl 500 mg tab(s) (CIPRO) Problems Active Problems Problem Classification Problem Date [...] Chronic Inflammatory conditions of male genital organs (5 sources) Prostatitis; Translations: [Inflammatory disease of prostate, unspecified] Onset: 09-20-2022 07-13-2021 Episodic Nonspecific chest pain (1 source) Chest pain; Translations: [Other chest pain] Episodic Other diseases of bladder and urethra (3 sources) Male urethral stricture; Translations: [Unspecified urethral stricture, male, unspecified site] Onset: 09-20-2022 Episodic Other diseases of bladder and urethra (1 source) Unspecified anterior urethral stricture, male; Translations: [Stricture of anterior 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, unspecified stricture type] Onset: 10-12-2023 Episodic Other diseases of kidney and ureters (1 source) Urinary tract obstruction; Translations: [Other obstructive and reflux uropathy] Onset: 01-23-2022 Episodic Other diseases of veins and lymphatics [...] Episodic Other nutritional; endocrine; and metabolic disorders (1 source) Obesity; Translations: [Obesity, unspecified] Chronic Other nutritional; endocrine; and metabolic disorders (1 source) Body mass index 30+ - obesity; Translations: [Body mass index 36.0-36.9, adult] Onset: 12-24-2018 Chronic Other nutritional; endocrine; and metabolic disorders (1 source) Morbid (severe) obesity due to excess calories; Translations: [Morbid obesity (HCC)] Onset: 11-13-2022 Chronic Spondylosis; intervertebral disc disorders; other back [...] Episodic/Chronic Esophageal disorders (2 sources) Esophageal disorders Other diseases of bladder and urethra (1 source) Unspecified urethral stricture, male, unspecified site; Translations: [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 urethra, unspecified stricture type] Onset: 11-27-2022 Episodic Other diseases of kidney and ureters (1 source) Other obstructive and reflux uropathy; Translations: [BPH with obstruction/lower urinary tract symptoms] Onset: 11-27-2022 Episodic Other nutritional; endocrine; and metabolic disorders (8 sources) Morbid obesity; Translations: [Morbid (severe) obesity due to excess calories] Onset: 11-13-2022 Resolved: 11-27-2022 03-25-2021 Chronic Other screening for suspected conditions (not mental disorders or infectious disease) (14 sources) Raised prostate specific antigen; Translations: [Elevated prostate specific antigen [PSA]] Onset: 07-25-2021 03-30-2021 Episodic Unclassified (1 source) LOW BACK PAIN, UNSPECIFIED; Translations: [LOW BACK PAIN, UNSPECIFIED] Onset: 02-08-2022 Unclassified (1 source) CONTACT W/AND (SUSP) EXPOS COVID-19; Translations: [CONTACT W/AND (SUSP) EXPOS COVID-19] Onset: 11-12-2021 Unclassified (3 sources) Acute bilateral low back pain without sciatica M54.50 Results Test Name Value Interpretation Reference Range Facility [facility] 10-12-2023 CNOV Office Visit (UROLMN ) BIBRICARDA WILLIAMSONAN ([id number]) 1955 M Date Time Provider Department 10/12/23 3:15 PM SYD LIVINGSTON UROLMN During your visit today, we recorded the following information about you: Pulse Blood pressure Weight Height 60/minute 143/83 118.4 kg 1.778 m Syd Livingston MD 10/12/2023 4:10 PM Signed HPI Jeannette Huntley is a 68 year old male with a history of hypospadias, BPH last seen on 11/27/22 at time of RUG wherein distal penile urethra with pinpoint stricture who returns today for reevaluation given recent scrotal problems. Since last evaluation notes has had two episodes of epididymo-orchitis to left testis, one in March then more recently last month. Has been treated with 3 abx for this most recent episode, unclear first abx then doxycycline then lastly 10 days of Bactrim which he completed and led to resolution of symptoms. The occasional fever/chills he was having have fully subsided, swelling/pain is also greatly improved. He is curious about the relation of this to his previously known stricture problem. Functionally he has had some frequency but often able to hold a few hours, nocturia x 3-4, no leak. Plan was for a 1 stage dBMG repair. He and his recently completed a [facility] which completes their goal of having performed one in every continent. LABS No results found for: CREAT No results found for: PSA PHYSICAL EXAMINATION GENERAL: no acute distress, well appearing, pleasant RESP: normal work of breathing on room air ABDOMEN: soft, non distended, non tender NEURO/PSYCH: no gross neuromuscular dysfunction EXTREMITIES: no extremity edema GENITOURINARY: Subcoronal pinpoint meatus, slight ridge at proximal glanular plate, redundant dorsal hernandez, unremarkable right testicle, left testicle slightly larger with more firm character post epididymoorchitis, nontender, no hydrocele on exam PVR 65 cc after voiding about 60 cc IMPRESSION Hypospadiac with previously known short penile urethral stricture, now presents with 2 episodes of epididymoorchitis over the past 8 months and tight meatal stenosis in addition to his prior stricture. He is able to impressively empty reasonably, but we discussed that his narrowing is likely directly related to his epididymoorchitis episodes. Would have him reconsider surgical repair. Will reach out to Dr. Doyle to discuss these exam findings and arrange for urethroplasty +/- repeat study -may need a reexamination given change in meatus and consequent surgical options. PLAN - Will reach out to Dr. Doyle for next steps prior to urethroplasty Syd Livingston MD Male Genitourinary Reconstruction AND Prosthetic Surgery Fellow Allergies As of Date: 10/12/2023 Noted Allergy Reaction SHELLFISH CONTAINING PRODUCTS 11/13/2022 7 - Swelling Date Reviewed: 10/12/2023 Reviewed by: Bari Donovan [facility] - Fully Assessed Primary Visit Diagnosis:Stricture of anterior 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, unspecified stricture type [N35.914] Other Visit Diagnosis:Epididymoorc hitis [N45.3] Prescriptions as of 10/12/2023 - amLODIPine (NORVASC) 5 mg tablet Take 5 mg by mouth once daily. - aspirin 81 mg cap Take by mouth. - atorvastatin (LIPITOR) 10 mg tablet Take by mouth. - tamsulosin (FLOMAX) 0.4 mg Take by mouth. - diphenhydrAMINE (BENADRYL) 25 mg capsule Take by mouth. - carvedilol (COREG) 12.5 mg tablet Take by mouth. - dlskfxla-tgq-lkbhzxk fumarate (MULTI VITAMIN) 9 mg iron/15 mL liqd Multi Vitamin+ Refill(s) 0 Start Date: 03/30/21 Status: Ordered Problem List As Of Date 10/12/2023 Noted Resolved Morbid obesity (HCC) [E66.01] 11/13/2022 11/27/2022 Encounter Status:Closed by SYD ILVINGSTON on 10/12/23 Normal [facility] Provider Letteron 02-20-2023 Provider Letter February 20, 2023 JEANNETTE HUNTLEY [address] [place] [address] [place] [address] : 1955 Dear Mr. Huntley, We have [...] your prompt attention to this matter. Sincerely, [facility] General Surgery [phone] [facility] Operative Reporton 3 Operative Report [id number] CD:127 Normal [facility] Physician Referralon 023 Physician Referral [id number] CD:127 Normal [facility] CNOVon 11-27-2022 CNOV Office Visit (UROSMN ) JEANNETTE HUNTLEY ([id number]) 1955 M Date Time Provider Department 11/27/22 3:00 PM LLOYD DOYLE During your visit today, we recorded the following information about you: Dionisio Reardon RN 11/27/2022 3:55 PM Signed Actual procedure/procedure scheduled: Yes Performing provider/scheduled provider: Yes Patient was roomed in: Q9- 14 Electrical Prospector offered:Patient declines Patient arrived in the room [...] Eager Interested Family/Significant Other Support: None - Unavailable/disinteres yecenia Cognitive Ability: Alert/Oriented Method of Instruction: Written instruction - handouts The Following Influencing Factors Were Barriers To This Education Session: None The Following Physical Limitations Were Barriers To This Education Session: None Instruction Provided To: Patient Enrober Present: not applicable Discipline: Nursing Learning Topic: [...] 12.5 mg tablet Take by mouth. - hbxsvluj-nvc-vqxwpmb fumarate (MULTI VITAMIN) 9 mg iron/15 mL liqd Multi Vitamin+ Refill(s) 0 Start Date: 03/30/21 Status: Ordered Problem List As Of Date 11/27/2022 Noted Resolved Morbid obesity (HCC) [E66.01] 11/13/2022 11/27/2022 Visit Notes: (more content not included)... Normal [facility] Consultation Noteon 11-27-19 Consultation Note [id number] 0CD:127 [facility] Consultation Note [id number] CD:127 [facility] CNCOon 11-13-2022 CNCO HNO ID: [id number] Author: Lloyd Doyle MD Service: Urology Author Type: Physician Type: Letter Filed: 11/20/2022 8:58 AM Note Text: November 15, 2022 [address]ia [address]iva M[address]. [address] [place] [address] NAME: JEANNETTE HUNTLEY [facility] NO.: [id number] DATE OF SERVICE: 11/13/[address] Vicente: [...] of his urethra and I have a 12-Uzbek cystoscope which I could perform a cystoscopy if he wanted me to do that. If you have any questions or concerns, please do not hesitate to contact me. Sincerely yours, Lloyd Doyle MD Normal [facility] CNOVon 11-13-2022 CNOV Office Visit (UROLMN ) JEANNETTE HUNTLEY ([id number]) 1955 M Date Time Provider Department 11/13/22 8:30 AM LLOYD DOYLE During your visit today, we recorded the following information about you: Pulse Blood pressure Weight 67/minute 160/92 124.7 kg Lloyd Doyle MD 11/13/2022 10:35 AM Signed [facility] [place] NEW PATIENT HISTORY AND PHYSICAL EXAM PATIENT [...] (COREG) 12.5 mg tablet Take by mouth. cjsbyqkk-jgc-cimvism fumarate (MULTI VITAMIN) 9 mg iron/15 mL [...] for internal providers or letter via the [employer] Postal [employer] for external providers. Edited above [...] (more content not included)... Normal [facility] URINALYSIS, REFLEX MICROSCOP ICon 11-13-2022 Bilirubin Ql (U) Negative Normal Negative [facility] Comment on above: Order Comment: Speci men Type: URINE SPECIMEN Ordering Facility: [facility] Address: [address] [place], [place] [id number] Performed By: #### L [id number] #### [facility] CLIA [id number] [address] [facility] [id number] [place] [address] [place] Clarity (Unsp spec) Clear Normal Clear [facility] Comment on above: Order Comment: Speci men Type: URINE SPECIMEN Ordering Facility: [facility] Address: [address] Performed By: #### L [id number] #### [facility] CLIA [id number] [address] [place] [address] [place] Color (U) Yellow Normal Yellow [facility] Comment on above: Order Comment: Speci men Type: URINE SPECIMEN Ordering Facility: [facility] Address: [address] Performed By: #### L [id number] #### [facility] CLIA [id number] [address] [place] [address] [place] Epithelial cells LM.HPF (Urine sed) [#/Area] Few Normal [facility] Comment on above: Order Comment: Speci men Type: URINE SPECIMEN Ordering Facility: [facility] Address: [address] [place], [place] [id number] Performed By: #### L [id number] #### [facility] CLIA [id number] [address] [place] [address] [place] Glucose Test strip (U) [Mass/Vol] Negative Normal Trace, Negative [facility] Comment on above: Order Comment: Speci men Type: URINE SPECIMEN Ordering Facility: [facility] Address: [address] Performed By: #### L [id number] #### [facility] CLIA [id number] [address] [place] [address] [place] Hemoglobin Ql (U) Negative Normal Negative, Trace [facility] Comment on above: Order Comment: Speci men Type: URINE SPECIMEN Ordering Facility: [facility] Address: [address] Performed By: #### L [id number] #### [facility] CLIA [id number] [address] [place] [address] [place] Ketones Ql (U) Negative Normal Negative, Trace [facility] Comment on above: Order Comment: Speci men Type: URINE SPECIMEN Ordering Facility: [facility] Address: [address] [place], [place] [address] Performed By: #### L [id number] #### [facility] CLIA [id number] [address] [place] [address] [place] Leukocyte esterase Test strip Ql (U) 500 Heather/uL Abnormal Negative, 25 Heather/uL [facility] Comment on above: Order Comment: Speci men Type: URINE SPECIMEN Ordering Facility: [facility] Address: [address] Performed By: #### L [id number] #### [facility] CLIA [id number] [address] [place] [address] [place] Nitrite Ql (U) Negative Normal Negative [facility] Comment on above: Order Comment: Speci men Type: URINE SPECIMEN Ordering Facility: [facility] Address: [address] Performed By: #### L [id number] #### [facility] CLIA [id number] [address] [place] [address] [place] pH (U) 5.5 [pH] Normal 5.0-8.0 [facility] Comment on above: Order Comment: Speci men Type: URINE SPECIMEN Ordering Facility: [facility] Address: [address] [place], [place] [address] Performed By: #### L [id number] #### [facility] CLIA [id number] [address] [place] [address] [place] Protein (U) [Mass/Vol] Negative Normal Trace, Negative [facility] Comment on above: Order Comment: Speci men Type: URINE SPECIMEN Ordering Facility: [facility] Address: [address] [place], [place] [id number] Performed By: #### L [id number] #### [facility] CLIA [id number] [facility] [place] [address] [place] RBC LM.HPF (Urine sed) [#/Area] 0-3 /HPF Normal 0-3 /HPF [facility] Comment on above: Order Comment: Speci men Type: URINE SPECIMEN Ordering Facility: [facility] Address: [address] [place] [address] Performed By: #### L [id number] #### [facility] CLIA [id number] [address] [place] [address] [place] Specific gravity (U) [Rel density] 1.022 Normal 1.005-1.030 [facility] Comment on above: Order Comment: Speci men Type: URINE SPECIMEN Ordering Facility: [facility] Address: [address] [place] [address] Performed By: #### L [id number] #### [facility] CLIA [id number] [address] [place] [address] [place] Urobilinogen Ql (U) Negative Normal Negative [facility] Comment on above: Order Comment: Speci men Type: URINE SPECIMEN Ordering Facility: [facility] Address: [address] [place] [address] Performed By: #### L [id number] #### [facility] CLIA [id number] [address] [place] [address] [place] WBC LM.HPF (Urine sed) [#/Area] 11-25 /HPF Abnormal 0-5 /HPF [facility] Comment on above: Order Comment: Speci men Type: URINE SPECIMEN Ordering Facility: [facility] Address: [address] [place] [address] Performed By: #### L [id number] #### [facility] CLIA [id number] [address] [place] [address] [place] Bilirubin Ql (U) Negative Negative [facility] Clarity (Unsp spec) Clear [facility] Color (U) Yellow Yellow [facility] Epithelial cells LM.HPF (Urine sed) [#/Area] Few [facility] Glucose Test strip (U) [Mass/Vol] Negative Trace, Negative [facility] Hemoglobin Ql (U) Negative Negative, Trace [facility] Ketones Ql (U) Negative Negative, Trace [facility] Leukocyte esterase Test strip Ql (U) 500 Heather/uL Abnormal Negative, 25 Heather/uL [facility] Nitrite Ql (U) Negative Negative [facility] pH (U) 5.5 [pH] 5.0 - 8.0 [facility] Protein (U) [Mass/Vol] Negative Trace, Negative [facility] RBC LM.HPF (Urine sed) [#/Area] 0-3 /HPF 0-3 /HPF [facility] Specific gravity (U) [Rel density] 1.022 1.005 - 1.030 [facility] Urobilinogen Ql (U) Negative Negative [facility] WBC LM.HPF (Urine sed) [#/Area] 11-25 /HPF Abnormal 0-5 /HPF [facility] [facility] 09-20-2022 Lab Reports [id number] Normal [facility] Patient Educationon 09-21-19 Patient Education Infectious [...] these instructions at home: Medicines ? Take [id number] and prescription medicines only as told by [...] Where to find more information ? National [place] of Diabetes and Digestive and Kidney Diseases: (more content not included)... Normal [facility] Urology Office/Clinic Noteon 09-20-2022 Urology [...] (PCP prescribes). IPSS 15-weak stream previous IPSS 12, Originally 22 Pt denies any urinary complaints. Likely due to hx prostatitis and urethral stricture per #3,5 -Cont meds, timed voiding, stricture eval at [facility] 2. Elevated PSA (R97.20: Elevated prostate specific antigen [PSA]) MDX result done on 03/30/21 showed 54% chance finding cancer, 26% [place] 7 or higher ( of note, JAYNE was noted as suspicious on order, but his JAYNE was NOT suspicious) PSA 09/13/2022 - 5.7 and 31.2% 07/13/21 was 5.2 and 22.7% Free 02/14/21 - 5.3 and free 23% (after 3 weeks of ABX course) 01/17/21 - 7.24 MRI prostate w/wo contrast done on 07/25/21 at [facility] impression showed no MRI evidence of prostate [...] URL, URO In 3 months 12/20/2022 EDT [address], [place] [address]- [phone] Additional Instructions: Patient Education Prostatitis I, Desiree [...] Historical No qualifying data Procedure/Surgical History Colonoscopy (2018), Hiatal hernia (2000). Medications amLODIPine 5 mg Tab, Oral, Daily aspirin 81 mg oral capsule, Oral, q4hr atorvastatin 10 mg T (more content not included)... Normal [facility] Comment on above: Result Comment: Elec tronically Signed By: Cinthia Leiva MD\.br\Date and Time Signed: 09/20/22 10:40 EDT\.br\Electronically Co-Signed By: Desiree Louis MA\.br\Date and Time Co-Signed: 09/20/22 10:34 EDT PSA, FREE AND TOTAL RATIOon 09-14-2022 % Free PSA 31.2 % Normal [facility] Comment on above: Result Comment: The [...] men. Performed By: #### P SAFREE #### [facility] [address] [place] [address] Dr. Dov Dunlap Prostate specific Ag [Mass/Vol] 5.7 ng/mL Critically high 0.0-4.0 [facility] Comment on above: Result Comment: Aster MORRISON methodology. . According to the [place], Serum PSA should decrease and [...] disease. Performed By: #### P SAFREE #### [facility] [address] [address] [address] Dov Dunlap PSA, Free 1.78 ng/mL Normal N/A [facility] Comment on above: Result Comment: Aster MORRISON methodology. Performed By: #### P SAFREE #### [facility] [id number] Dov Dunlap Provider Letteron 07-17-2022 Provider Letter July 17, 2022 JEANNETTE HUNTLEY [address] [place] [address] [place] [address] JEANNETTE HUNTLEY 1955 Dear Mr. Huntley, We [...] prompt attention to this matter. Please call [phone] to reschedule. Sincerely, [facility] [address], [address] [id number] [facility] XR lumbar spine 6V w bending on 03-10-2022 XR lumbar spine 6V w bending [facility] Main [address] [address] XRay Report Signed Patient: Jeannette Huntley MR#: [id number] : 1955 Acct:[id number] Age/Sex: 66 / M ADM Date: 03/10/22 Loc: XD Room: Type: [facility] Attending Dr: Renato Page MD [...] Zeke Hunt M.D.03/10/2022 6:39 PM Dictation Location: [place] [address] Transcribed By: [facility] 03/10/221838 Dictated By: Zeke Hunt II, MD 03/10/221835 Signed By: 03/10/221838 [facility] MRI LSPINE WO CONon 02-10-20 MRI LSPINE WO CON EXAMINATION: MRI LSPINE WO CON HISTORY: Low back pain COMPARISON: [...] MOHSEN MOSES Date: 2022-02-09 06:[address] [facility] CBC AUTO DIFFon 01-25-2022 BASO # 0.0 103/ul Normal 0.0-0.[address] [facility] Comment on above: Performed By: #### C BC #### [facility] [address] [address] [address] Dov Dunlap Basophils/100 WBC (Bld) 0.1 % Critically low 0.2-2.[address] [facility] Comment on above: Performed By: #### C BC #### [facility] [address] [address] [address] Dov Dunlap EO # 0.0 103/ul Normal 0.0-0.7 [facility] Comment on above: Performed By: #### C BC #### [facility] [address] [address] [address] Dov Dunlap Eosinophils/100 WBC (Bld) 0.1 % Critically low 0.9-7.0 [facility] Comment on above: Performed By: #### C BC #### [facility] [address] [address] [address] Dov Dunlap Erythrocyte distribution width (RBC) [Ratio] 14.6 % Normal 11.0-15.0 [facility] Comment on above: Performed By: #### C BC #### [facility] [address] [address] [address] Dov Dunlap Hematocrit (Bld) [Volume fraction] 42.5 % Normal 42.0-54.[address] [facility] Comment on above: Performed By: #### C BC #### [facility] [address] [address] [address] Dov Dunlap Hemoglobin (Bld) [Mass/Vol] 13.6 g/dL Critically low 14.0-18.0 [facility] Comment on above: Performed By: #### C BC #### [facility] [address] [place] [address] Dr. Dov Dunlap IG # 0.07 10e3/ul Critically high 0.00-0.03 [facility] Comment on above: Performed By: #### C BC #### [facility] [address] [place] [address] Dr. Dov Dunlap IG % 0.5 % Normal 0.0-0.5 [facility] Comment on above: Performed By: #### C BC #### [facility] [address] [place] [address] Dr. Dov Dunlap LYMPH # 1.9 103/ul Normal 1.2-3.8 [facility] Comment on above: Performed By: #### C BC #### [facility] [address] [place] [address] Dr. Dov Dunlap Lymphocytes/100 WBC (Bld) 13.1 % Critically low 20.5-60.0 [facility] Comment on above: Performed By: #### C BC #### [facility] [address] [place] [address] Dr. Dov Dunlap MANUAL DIFF REQ NO Normal [facility] Comment on above: Performed By: #### C BC #### [facility] [address] [place] [address] Dr. Dov Dunlap MCH (RBC) [Entitic mass] 27.9 pg Normal 25.9-34.0 [facility] Comment on above: Performed By: #### C BC #### [facility] [address] [place] [address] Dr. Dov Dunlap MCHC (RBC) [Mass/Vol] 32.0 g/dL Normal 29.9-35.2 [facility] Comment on above: Performed By: #### C BC #### [facility] [address] [place] [address] Dr. Dov Dunlap MCV (RBC) [Entitic vol] 87.3 fL Normal 80.0-94.0 [facility] Comment on above: Performed By: #### C BC #### [facility] [address] [place] [address] Dr. Dov Dunlap MONO # 0.9 103/ul Critically high 0.3-0.8 [facility] Comment on above: Performed By: #### C BC #### [facility] [address] [address] [address] Dov Dunlap Monocytes/100 WBC (Bld) 6.1 % Normal 1.7-12.0 [facility] Comment on above: Performed By: #### C BC #### [facility] [address] [address] [address] Dov Dunlap NEUT # 11.8 103/ul Critically high 1.4-6.5 [facility] Comment on above: Performed By: #### C BC #### [facility] [address] [place] [address] Dr. Dov Dunlap Neutrophils/100 WBC (Bld) 80.1 % Critically high 43.0-75.0 [facility] Comment on above: Performed By: #### C BC #### [facility] [address] [place] [address] Dr. Dov Dunlap Platelet mean volume (Bld) [Entitic vol] 9.3 fL Critically low 9.5-13.[address] [facility] Comment on above: Performed By: #### C BC #### [facility] [address] [place] [address] Dr. Dov Dunlap PLT 256 103/ul Normal 150-[address] [facility] Comment on above: Performed By: #### C BC #### [facility] [address] [place] [address] Dr. Dov Dunlap RBC 4.87 106/ul Normal 4.70-6.[address] [facility] Comment on above: Performed By: #### C BC #### [facility] [address] [place], [place] [id number] Dr. Dov Dunlap WBC 14.7 103/ul Critically high 4.0-11.0 [facility] Comment on above: Performed By: #### C BC #### [facility] [address] [place] [address] Dr. Dov Dunlap LIPID PROFILEon 01-25-2022 CHOL-HDL RATIO NORM SEE BELOW Normal [facility] Comment on above: Result Comment: 3.3 - 4.4 LOW RISK 4.4 - 7.1 AVERAGE RISK 7.1 - 11.0 MODERATE RISK >11.0 HIGH RISK Performed By: #### L IPID, CMP #### [facility] [address] [address] [address] Dov Dunlap Cholesterol [Mass/Vol] 166 mg/dL Normal <=200 [facility] Comment on above: Performed By: #### L IPID, CMP #### [facility] [address] [address] [address] Dov Dunlap Cholesterol in HDL [Mass/Vol] 66 mg/dL Critically high 40-60 [facility] Comment on above: Performed By: #### L IPID, CMP #### [facility] [address] [address] [address] Dov Dunlap Cholesterol in LDL [Mass/Vol] 92.4 mg/dL Normal [facility] Comment on above: Performed By: #### L IPID, CMP #### [facility] [address] [address] [address] Dov Dunlap Cholesterol.total/C holesterol in HDL [Mass ratio] 2.5 {ratio} Normal [facility] Comment on above: Performed By: #### L IPID, CMP #### [facility] [address] [address] [address] Dov Dunlap HDL NORMAL > or = 60 mg/dl - LO W CARDIOVASCULAR RISK <40 mg/dl - HIGH CARDIOVASCULAR RISK Normal [facility] Comment on above: Performed By: #### L IPID, CMP #### [facility] [address] [address] [address] Dov Dunlap LDL CALC NORMAL SEE BELOW Normal [facility] Comment on above: Result Comment: <100 mg/dl OPTIMAL 100 - 129 mg/dl NEAR OR ABOVE OPTIMAL 130 - 159 mg/dl BORDERLINE HIGH 160 - 189 mg/dl HIGH >190 mg/dl VERY HIGH Performed By: #### L IPID, CMP #### [facility] [address] [address] [address] Dov Dunlap Triglyceride [Mass/Vol] 38 mg/dL Normal <=150 [facility] Comment on above: Performed By: #### L IPID, CMP #### [facility] [address] [place] [address] Dr. Dov Dunlap VLDL CALC 7.6 mg/dL Normal [facility] Comment on above: Performed By: #### L IPID, CMP #### [facility] [address] [place] [address] Dr. Dov Dunlap PROF 14(COMP METB)on 022 Albumin [Mass/Vol] 3.3 g/dL Critically low 3.4-5.0 [facility] Comment on above: Performed By: #### L IPID, CMP #### [facility] [address] [place] [address] Dr. Dov uDnlap Albumin/Globulin [Mass ratio] 1.0 {ratio} Normal [facility] Comment on above: Performed By: #### L IPID, CMP #### [facility] [address] [place] [address] Dr. Dov Dunlap ALP [Catalytic activity/Vol] 121 U/L Critically high 46-116 [facility] Comment on above: Performed By: #### L IPID, CMP #### [facility] [address] [place] [address] Dr. Dov Dunlap ALT [Catalytic activity/Vol] 40 U/L Normal 16-63 [facility] Comment on above: Performed By: #### L IPID, CMP #### [facility] [address] [place] [address] Dr. Dov Dunlap Anion gap [Moles/Vol] 10.8 mmol/L Normal [facility] Comment on above: Performed By: #### L IPID, CMP #### [facility] [address] [place] [address] Dr. Dov Dunlap AST [Catalytic activity/Vol] 23 U/L Normal 15-37 [facility] Comment on above: Performed By: #### L IPID, CMP #### [facility] [address] [place] [address] Dr. Dov Dunlap Bilirubin [Mass/Vol] 0.4 mg/dL Normal 0.2-1.0 [facility] Comment on above: Performed By: #### L IPID, CMP #### [facility] [address] [place] [address] Dr. Dov Dunlap Calcium [Mass/Vol] 8.8 mg/dL Normal 8.5-10.1 [facility] Comment on above: Performed By: #### L IPID, CMP #### [facility] [address] [address] [address] Dov Dunlap Chloride [Moles/Vol] 104 mmol/L Normal 98-[address] [facility] Comment on above: Performed By: #### L IPID, CMP #### [facility] [address] [place] [address] Dr. Dov Dunlap CO2 [Moles/Vol] 30.3 mmol/L Normal 21.0-32.0 [facility] Comment on above: Performed By: #### L IPID, CMP #### [facility] [address] [place] [address] Dr. Dov Dunlap Creatinine [Mass/Vol] 0.87 mg/dL Normal 0.70-1.30 [facility] Comment on above: Performed By: #### L IPID, CMP #### [facility] [address] [place] [address] Dr. Dov Dunlap EGFR-AF GREENLANDIC >60 Normal >=60 [facility] Comment on above: Performed By: #### L IPID, CMP #### [facility] [address] [place] [address] Dr. Dov Dunlap EGFR-NON AF GREEN[place]IC >60 Normal >=60 [facility] Comment on above: Performed By: #### L IPID, CMP #### [facility] [address] [place] [address] Dr. Dov Dunlap Globulin (S) [Mass/Vol] 3.4 g/dL Normal [facility] Comment on above: Performed By: #### L IPID, CMP #### [facility] [address] [place] [address] Dr. Dov Dunlap Glucose [Mass/Vol] 115 mg/dL Critically high 74-106 [facility] Comment on above: Performed By: #### L IPID, CMP #### [facility] [address] [place] [address] Dr. Dov Dunlap Potassium [Moles/Vol] 4.1 mmol/L Normal 3.5-5.1 [facility] Comment on above: Performed By: #### L IPID, CMP #### [facility] [address] [place] [address] Dr. Dov Dunlap Protein [Mass/Vol] 6.7 g/dL Normal 6.4-8.2 [facility] Comment on above: Performed By: #### L IPID, CMP #### [facility] [address] [place] [address] Dr. Dov Dunlap Sodium [Moles/Vol] 141 mmol/L Normal 136-145 [facility] Comment on above: Performed By: #### L IPID, CMP #### [facility] [address] [place] [address] Dr. Dov Dunlap Urea nitrogen [Mass/Vol] 15.0 mg/dL Normal 7.0-18.0 [facility] Comment on above: Performed By: #### L IPID, CMP #### [facility] [address] [place] [address] Dr. Dov Dunlap Urea nitrogen/Creatinine [Mass ratio] 17.2 mg/mg Normal [facility] Comment on above: Performed By: #### L IPID, CMP #### [facility] [address] [place] [address] Dr. Dov Dunlap PSA, FREE AND TOTAL RATIOon 12-28-2021 % Free PSA 25.4 % Normal [facility] Comment on above: Result Comment: The [...] men. Performed By: #### P SAFREE #### [facility] [address] [place] [address] Dr. Dov Dunlap Prostate specific Ag [Mass/Vol] 5.4 ng/mL Critically high 0.0-4.0 [facility] Comment on above: Result Comment: Aster MORRISON methodology. . According to the [place] U[employer] Association, Serum PSA should decrease and [...] disease. Performed By: #### P SAFREE #### [facility] [address] [place] [address] Dr. Dov Dunlap PSA, Free 1.37 ng/mL Normal N/A [facility] Comment on above: Result Comment: Aster MORRISON methodology. Performed By: #### P SAFREE #### [facility] [address] [place] [address] Dr. Dov Dunlap [facility] SARS-CoV-2 (COVID-19) RNA GREER+probe Ql (Unsp spec) Not detected Normal NOT DETECTED [facility] Comment on above: Result Comment: This test is not yet approved or cleared by the [place] FDA. When there are no FDA-approved or cleared tests available, and other criteria are met, FDA can make tests available under an emergency access mechanism called an Emergency Use Authorization (EUA). The EUA for this test is supported by the [place] of Health and Human Service's (HHS's) declaration [...] consistent with SARS-CoV-2. Performed By: #### [facility] #### [facility] [address] [address] [address] Dov Dunlap MR prostate wo/w conon 07-26 MR prostate wo/w con [facility] Main [place] [address] [place] [address] MRI Report Signed Patient: Jeannette Huntley MR#: [id number] : 1955 Acct:[id number] Age/Sex: 66 / M ADM Date: 07/25/21 Loc: Room: Type: [facility] Attending Dr: Cinthia Leiva [...] BPH. Impression dictated by: Amado Keane Jr., D.ORonn07/26/2021 1:23 PM Dictation Location: [place] [address] Transcribed By: [facility] 07/26/21 1323 Dictated By: Amado Keane Jr, DO 07/26/21 1307 Signed By: 07/26/21 1323 Normal [facility] ISTAT XRay CREon 07-25-2021 Creatinine [Mass/Vol] 0.9 mg/dL Normal 0.6-1.3 [facility] Comment on above: Result Comment: ER/E SD physician is notified/shown all ISTAT results. Critical values may be confirmed by laboratory testing if deemed necessary by ER attending doctor. Performed By: #### I SCRE #### [address] Point of Care testing , ISTAT GFR ( > 60 Normal [facility] Comment on above: Result Comment: GFR estimated reference range: According to KDOQI guidelines, <60 ml/min/1.73m2 is sufficient to diagnose a patient with chronic kidney disease. PERFORMED BY: [place] [address] PATHOLOGIST BILINGUAL SPEECH LANGUAGE PATHOLOGIST JONATHON DOVER M.D. Performed By: #### I SCRE #### [facility] [address] [place] [address] Point of Care testing , ISTAT GFR (Non- Am > 60 [facility] Comment on above: Performed By: #### I SCRE #### [facility] [address] [place] [address] Point of Care testing , Vital Signs Date Time Vital Sign Value Performing Clinician Facility 10-12-2023 15: Body height 177.8 cm Syd Livingston MD Work Phone: [facility] 10-12-2023 15: Body mass index (BMI) [Ratio] 37.45 kg/m2 Syd Livingston MD Work Phone: [facility] 10-12-2023 15:040 Body weight 118.4 kg Syd Livingston MD Work Phone: [facility] 10-12-2023 15:06-0400 Diastolic blood pressure 83 mm[Hg] Syd Livingston MD Work Phone: [facility] 10-12-2023 15:06-0400 Heart rate 60 /min Syd Livingston MD Work Phone: [facility] 10-12-2023 15:06-0400 Systolic blood pressure 143 mm[Hg] Syd Livingston MD Work Phone: [facility] 06-29-2023 14:15-0500 Body height 180.34 cm Mike Ball Other [employer] Other 06-29-2023 14:15-0500 Body mass index (BMI) [Ratio] 37.23 kg/m2 Mike Ball Other [employer] Other 06-29-2023 14:15-0500 Body weight 121.11 kg Mike Ball Other [employer] Other 06-29-2023 14:15-0500 Diastolic blood pressure 84 mm[Hg] Mike Ball Other [employer] Other 06-29-2023 14:15-0500 Systolic blood pressure 135 mm[Hg] Mike Ball Other [employer] Other 01-26-2023 09:30-0400 Body height 180.34 cm Mike Ball Other [employer] Other 01-26-2023 09:30-0400 Body mass index (BMI) [Ratio] 38.43 kg/m2 Mike Ball Other [employer] Other 01-26-2023 09:30-0400 Body weight 125.01 kg Mike Ball Other [employer] Other 01-26-2023 09:30-0400 Diastolic blood pressure 83 mm[Hg] Mike Ball Other [facility] [employer] Other 01-26-2023 09:30-0400 Respiratory rate 12 /min Mike Ball Other [employer] Other 01-26-2023 09:30-0400 Systolic blood pressure 135 mm[Hg] Mike Ball Other [place] [employer] Other 09-20-2022 09:54-0400 Blood Pressure Location Cinthia Lue [facility] 09-20-2022 09:54-0400 Diastolic blood pressure 81 mm[Hg] Cinthia Lue [facility] 09-20-2022 09:54-0400 Heart rate 80 /min Cinthia Lue [facility] 09-20-2022 09:54-0400 Systolic blood pressure 138 mm[Hg] Cinthia Lue [facility] 03-16-2022 10:20-0400 Body height 180.34 cm Renato Page Other [facility] [employer] Other 03-16-2022 10:20-0400 Body mass index (BMI) [Ratio] 37.65 kg/m2 Renato Page Other [facility] [employer] Other 03-16-2022 10:20-0400 Body weight 122.47 kg Renato Page Other [employer] Other Encounters Encounter Date Encounter Type Care Provider Facility Start: 10-18-2023 Telephone encounter Delmy grady RN Work Phone: Urology Comment on above: Medical Scientific Liaison - [employer]; Orders Start: 10-16-2023 End: 10-16-2023 ambulatory SYD LIVINGSTON Facility:[facility] Start: 10-12-2023 End: 10-13-2023 ambulatory SYD LIVINGSTON Facility:[facility] Start: 10-12-2023 End: 10-12-2023 Patient encounter procedure Syd Livingston MD Work Phone: Urology Comment on above: 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, unspecified stricture type (Primary Dx); Epididymoorchitis Start: 06-29-2023 End: 06-29-2023 ambulatory Mike Noble Other [employer] Other Start: 06-29-2023 Office outpatient vi sit 15 minutes Mike Noble [facility] Start: 06-18-2023 End: 06-18-2023 ambulatory Mike Noble Other [employer] Other Start: 06-18-2023 Office outpatient vi sit 15 minutes Mike Ball [facility] Start: 06-17-2023 End: 06-17-2023 ambulatory Mike Noble Other [employer] Other Start: 06-17-2023 Encounter by Giving Assistant Mike Noble [facility] Start: 04-07-2023 End: 04-07-2023 ambulatory Mike Noble Other [employer] Other Start: 04-07-2023 Telephone encounter Mike GALLAGHER [facility] Start: 04-02-2023 End: 04-02-2023 ambulatory Mike Noble Other [employer] Other Start: 04-02-2023 Telephone encounter Mike GALLAGHER [facility] Start: 03-27-2023 End: 03-27-2023 ambulatory Mike Real Other [employer] Other Start: 03-27-2023 Encounter by Giving Assistant Mike Noble [facility] Start: 02-12-2023 ambulatory Cinthia Lue Facility:[facility] Start: 02-06-2023 End: 02-06-2023 ambulatory Mike Noble Other [employer] Other Start: 02-06-2023 Telephone encounter Mike GALLAGHER [facility] Start: 01-26-2023 End: 01-26-2023 ambulatory Mike Noble Other [employer] Other Start: 01-26-2023 Encounter for genera l adult medical examination without abnormal findings Mike Noble [facility] Start: 01-26-2023 Periodic preventive med est patient 65yrs& older Mike Noble [facility] Start: 01-04-2023 End: 01-04-2023 ambulatory Mike Noble Other [employer] Other Start: 01-04-2023 Telephone encounter Mike Real ELLIOTT [facility] Start: 12-06-2022 ambulatory Cinthia Leiva [facility] Start: 11-27-2022 End: 11-28-2022 ambulatory LLOYD DOYLE Facility:[facility] Start: 11-27-2022 End: 11-27-2022 Patient encounter procedure Lloyd Doyle MD Work Phone: Urology Comment on above: 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, unspecified stricture type (Primary Dx); BPH with obstruction/lower urinary tract symptoms Start: 11-13-2022 End: 11-14-2022 ambulatory Lloyd Doyle MD Work Phone: Urology Start: 11-13-2022 Documentation procedure Lloyd Doyle MD Work Phone: [facility] Start: 11-13-2022 Letter encounter Lloyd Manjarrez Work Phone: Urology Start: 09-20-2022 End: 09-21-2022 ambulatory Cinthia Leiva Facility:[facility] Start: 09-20-2022 End: 09-20-2022 Patient encounter procedure Cinthia Leiva [facility] Start: 09-13-2022 End: 09-14-[address] MIKE NOBLE Facility:[facility] Start: 04-07-2022 End: 04-07-2022 ambulatory Renato Page Other [employer] Other Start: 04-07-2022 Telephone encounter Renato Page [employer] Start: 03-22-2022 ambulatory Cinthia Leiva Facility:[facility] Start: 03-16-2022 End: 03-16-2022 ambulatory Renato Page Other [employer] Other Start: 03-16-2022 Office outpatient ne w 30 minutes Rneato Page [facility] Start: 03-10-2022 End: 03-10-2022 ambulatory Renato Page Facility:[facility] Start: 03-10-2022 End: 03-10-2022 ambulatory DO Mike Noble Work Phone: [facility] Work Phone: Start: 03-10-2022 End: 03-10-2022 Patient encounter procedure DO Mike Noble Work Phone: [facility] Start: 02-08-2022 End: 02-09-[address] MIKE NOBLE Facility:[facility] Start: 01-26-2022 Encounter for genera l adult medical examination without abnormal findings DR MIKE NOBLE [facility] Start: 01-25-2022 End: 01-26-[address] MIKE NOBLE Facility:[facility] Start: 01-25-2022 End: 01-26-2022 Encounter for general adult medical examination without abnormal findings DR MIKE NOBLE Facility:[facility] Start: 01-23-2022 End: 01-23-2022 Patient encounter procedure Cinthia Leiva [facility] Start: 01-22-2022 Adult health examination Gabo Noble Other [employer] Other Start: 12-27-2021 End: 12-28-2021 ambulatory CINTHIASARABJIT LEIVA . Facility:[facility] Start: 11-12-2021 End: 11-13-[address] MIKE NOBLE Facility: Start: 07-25-2021 End: 07-25-2021 ambulatory Mike Noble Facility:[facility] Procedures Date Procedure Procedure Detail Performing [...] Treatment Date Care Activity Detail Author Start: 04-18-2028 Prostate specific an tigen measurement Prostate Cancer Screening Discussion [facility] Start: 04-18-2026 Diabetes Screening Diabetes Screenin g [facility] Start: 02-03-2024 Influenza vaccination Influenz a Vaccine (Season Ended) [facility] Start: 11-06-2023 End: 11-06-2023 Admission to same day surgery center 11/06/2023 10:01 AM EDT - 11/06/2023 1:38 PM EDT Surgery Admitting [address] [place] [address] Lloyd Doyle MD [address] [place], [place] [id number] URETHROPLASTY ANTERIOR 1-STAGE PROCEDURE, ADULT MALE Admitting Comment on above: URETHROPLASTY ANTERI OR 1-STAGE PROCEDURE, ADULT MALE Start: 11-06-2023 Subsequent hospital visit by physician 11/06/2023 10:01 AM EDT Hospital Encounter Admitting [address] [place] [address] Lloyd Doyle MD [address] [place], [place] [id number] 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 stricture [N99.114] Admitting Comment on above: 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 stricture [N99.114] Start: 11-06-2023 End: 11-06-2023 Urethroplasty 1 stg recnst male anterior urethra URETHROPLASTY ANTERIOR 1-STAGE PROCEDURE, ADULT MALE 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 stricture 11/06/2023 10:01 AM EDT [facility] Start: 11-05-2023 End: 11-05-2023 Anesthesia consultation 11/05/2023 12:40 PM EDT PAT Pre Anesthesia [address] [place] [address] 2, Pacc [address] [place] [address] PRE OP Pre Anesthesia Comment on above: PRE OP Start: 11-05-2023 End: 11-05-2023 Patient encounter procedure Urology Comment on above: PRE OP WOOD ~ 11/05 Start: 06-04-2023 Advance Directive Discussion Advance Directive Discussion [facility] Start: 06-04-2023 Behavioral Health Screening Behavioral Health Screening [facility] Start: 02-02-2023 Covid-19 Vaccine ( season) Covid-19 Vaccine ( season) [facility] Start: 02-02-2023 Influenza vaccination INFLUENZA (Sea son Ended) [facility] Start: 06-04-2022 ADVANCE DIRECTIVE DISCUSSION ADVANCE DIRECTIVE DISCUSSION [facility] Start: 06-04-2022 DEPRESSION ASSESSMENT DEPRESSION ASS ESSMENT [facility] Start: 2021 PNEUMOCOCCAL: 65+ (1 - PCV) PNEUMOCOCCAL: 65+ (1 - PCV) [facility] Start: 2016 RSV Vaccine (1 - 1-d ose 60+ series) RSV Vaccine (1 - 1-dose 60+ series) [facility] Start: 2011 PROSTATE CANCER SCRE ENING DISCUSSION PROSTATE CANCER SCREENING DISCUSSION [facility] Start: 2006 SHINGRIX VACCINE (1 of 2) SHINGRIX V ACCINE (1 of 2) [facility] Start: 2001 COLOGUARD (FIT-DNA) COLOGUARD (FIT-D NA) [facility] Start: 2001 Colonoscopy COLONOSCOPY [facility] Start: 2001 COLORECTAL CANCER SCREENING COLORECTAL CANCER SCREENING [facility] Start: [address] COLONOGRAPHY [facility] Start: 2001 DIABETES SCREEN DIABETES SCREEN [facility] Start: 2001 FECAL OCCULT BLOOD FECAL OCCULT BLOO D [facility] Start: 2001 Screening for malign ant neoplasm of colon [facility] Start: 2001 SIGMOIDOSCOPY SIGMOIDOSCOPY [facility] Start: 1991 Lipid panel Lipid Screening [facility] Start: 1991 LIPID SCREEN LIPID SCREEN [facility] Start: 1975 Urine microalbumin profile [facility] Start: 1974 HEPATITIS C SCREENING HEPATITIS C SC REENING [facility] Start: 1955 COVID-19 VACCINE (#1) COVID-19 VACCI NE (#1) [facility] Immunizations Immunization Date Immunization Notes Care Provider Anthony vazquez 01-23-2022 pneumococcal 20-vijaya nt conjugate vaccine Cinthiasarabjit Leiva [facility] 07-23-2020 zoster vaccine recombinant Cinthia Lue [facility] 07-23-2020 zoster vaccine, live Benjami n Ball Other [employer] Other 04-12-2020 zoster vaccine recombinant Cinthia Lue [facility] 04-12-2020 zoster vaccine, live Benjami n Ball Other [employer] Other 06-18-2017 influenza virus vaccine, split virus (incl. purified surface antigen) Mike Noble Other [employer] Other 06-18-2017 influenza virus vaccine, unspecified formulation Syd Livingston MD Work Phone: [facility] Payers Date Payer Category Payer Private Health Insurance [id number] 2022 Private Health Insurance [facility] [id number] 2021 Self-pay [id number] 1959 Private Health Insurance [facility] [id number] 1955 Unknown [id number] 2.16.84 [id number] 1956 Unknown [id number] 2.16.84 [id number] 1956 Unknown [id number] 2.16.84 [id number] 1956 Unknown [id number] 2.16.84 [id number] 1956 Unknown [id number] 2.16.84 [id number] 1955 Unknown [id number] 2.16.8 [id number] 1956 Unknown [id number] 2.16.8 [id number] 1956 Unknown [id number] 2.16.8 [id number] Unknown [id number] 2.16.8 [id number] Unknown [id number] 2.16.8 [id number] Social History Date Type Detail Facility Start: 01-04-2022 End: 11-13-2022 Tobacco smoking status Never smoked tobacco (finding) [facility] Start: 11-13-2022 End: 10-12-2023 Sex Assigned At Male [facility] Start: 1955 Sex Assigned At Male [facility] Start: 11-13-2022 Tobacco use and exposure Smokeless tobacco non-user [facility] Start: 1955 Sex Assigned At Not on file [facility] Start: 11-13-2022 End: 10-12-2023 History of Social function [facility] National Score (1-100), lower number is lower risk 68 [facility] Functional Status Date Assessment Result Facility 09-20-2022 Functional Status N/A [facility] Clinical Notes 01-11-2018 to 10-18-2023 Telephone Encounter - [facility] Caity Solis - 10/18/2023 5:00 PM EDTTelephone Encounter - [facility] Caity Solis - 10/18/2023 5:00 PM EDT Note Date & Type Note Facility 10-18-2023 Telephone encounter Note Faxed pre op urine culture order to [facility] at [phone]. [facility] 10-18-2023 Miscellaneous Notes Faxed pre op urine culture order to [facility] at [phone]. documented in this encounter [facility] 10-18-2023 Telephone encounter Note Called Jeannette Benitez regarding need for urine culture locally on or about 10/22. Asked him to provide name and phone number of lab and reach out to the office with that information so I can send an order. Number provided. - Patient does not use mychart Delmy Moeller RN [facility] Work Phone: 10-18-2023 Miscellaneous Notes Called Jeanentte Benitez regarding need for urine culture locally on or about 10/22. Asked him to provide name and phone number of lab and reach out to the office with that information so I can send an order. Number provided. - Patient does not use mychart Delmy Moeller RN documented in this encounter [facility] 10-12-2023 Note HNO ID: [id number] Author: SYD LIVINGSTON MD Service: ? Author Type: Fellow Type: Progress Notes Filed: 10/12/2023 16:10 Note Text: HPI Jeannette Huntley is a 68 year old male with a history of hypospadias, BPH last seen on 11/27/22 at time of RUG wherein distal penile urethra with pinpoint stricture who returns today for reevaluation given recent scrotal problems. Since last evaluation notes has had two episodes of epididymo-orchitis to left testis, one in March then more recently last month. Has been treated with 3 abx for this most recent episode, unclear first abx then doxycycline then lastly 10 days of Bactrim which he completed and led to resolution of symptoms. The occasional fever/chills he was having have fully subsided, swelling/pain is also greatly improved. He is curious about the relation of this to his previously known stricture problem. Functionally he has had some frequency but often able to hold a few hours, nocturia x 3-4, no leak. Plan was for a 1 stage dBMG repair. He and his recently completed a half marathon in [place] which completes their goal of having performed one in every continent. LABS No results found for: CREAT No results found for: PSA PHYSICAL EXAMINATION GENERAL: no acute distress, well appearing, pleasant RESP: normal work of breathing on room air ABDOMEN: soft, non distended, non tender NEURO/PSYCH: no gross neuromuscular dysfunction EXTREMITIES: no extremity edema GENITOURINARY: Subcoronal pinpoint meatus, slight ridge at proximal glanular plate, redundant dorsal hernandez, unremarkable right testicle, left testicle slightly larger with more firm character post epididymoorchitis, nontender, no hydrocele on exam PVR 65 cc after voiding about 60 cc IMPRESSION Hypospadiac with previously known short penile urethral stricture, now presents with 2 episodes of epididymoorchitis over the past 8 months and tight meatal stenosis in addition to his prior stricture. He is able to impressively empty reasonably, but we discussed that his narrowing is likely directly related to his epididymoorchitis episodes. Would have him reconsider surgical repair. Will reach out to Dr. Doyle to discuss these exam findings and arrange for urethroplasty +/- repeat study -may need a reexamination given change in meatus and consequent surgical options. PLAN - Will reach out to Dr. Doyle for next steps prior to urethroplasty Syd Livingston MD Male Genitourinary Reconstruction AND Prosthetic Surgery Fellow [facility] 10-12-2023 History of Presen t illness Narrative HPI Jeannette Huntley is a 68 year old male with a history of hypospadias, BPH last seen on 11/27/22 at time of RUG wherein distal penile urethra with pinpoint stricture who returns today for reevaluation given recent scrotal problems. Since last evaluation notes has had two episodes of epididymo-orchitis to left testis, one in March then more recently last month. Has been treated with 3 abx for this most recent episode, unclear first abx then doxycycline then lastly 10 days of Bactrim which he completed and led to resolution of symptoms. The occasional fever/chills he was having have fully subsided, swelling/pain is also greatly improved. He is curious about the relation of this to his previously known stricture problem. Functionally he has had some frequency but often able to hold a few hours, nocturia x 3-4, no leak. Plan was for a 1 stage dBMG repair. He and his recently completed a half marathon in [place] which completes their goal of having performed one in every continent. LABS No results found for: CREAT No results found for: PSA PHYSICAL EXAMINATION GENERAL: no acute distress, well appearing, pleasant RESP: normal work of breathing on room air ABDOMEN: soft, non distended, non tender NEURO/PSYCH: no gross neuromuscular dysfunction EXTREMITIES: no extremity edema GENITOURINARY: Subcoronal pinpoint meatus, slight ridge at proximal glanular plate, redundant dorsal hernandez, unremarkable right testicle, left testicle slightly larger with more firm character post epididymoorchitis, nontender, no hydrocele on exam PVR 65 cc after voiding about 60 cc IMPRESSION Hypospadiac with previously known short penile urethral stricture, now presents with 2 episodes of epididymoorchitis over the past 8 months and tight meatal stenosis in addition to his prior stricture. He is able to impressively empty reasonably, but we discussed that his narrowing is likely directly related to his epididymoorchitis episodes. Would have him reconsider surgical repair. Will reach out to Dr. Doyle to discuss these exam findings and arrange for urethroplasty +/- repeat study -may need a reexamination given change in meatus and consequent surgical options. PLAN - Will reach out to Dr. Doyle for next steps prior to urethroplasty Syd Livingston MD Male Genitourinary Reconstruction & Prosthetic Surgery Fellow documented in this encounter [facility] 06-29-2023 Evaluation note Encounter Date Diagnosis Assessment [...] Motion sickness, initial encounter (ICD-10 - T75.3XXA) [employer] Other 01-15-2024 Evaluation note* Encounter Date Diagnosis [...] or bending. Avoid lifting > 10 lbs [employer] Other 08-25-2023 Evaluation note* Encounter Date Diagnosis [...] or drinking prior to bedtime. Weight loss. [employer] Other 08-25-2023 Evaluation note* Encounter Date Diagnosis [...] heartburn, dysphagia, abdominal pain, melena or hematochezia. [employer] Other 06-26-2023 NoteHNO ID: [id number] Author: Lloyd Doyle MD Service: ? Author Type: Physician Type: Progress Notes Filed: 11/27/2022 5:27 PM Note Text:[facility]06-26-2023 NoteHNO ID: [id number] Author: Lloyd Doyle MD Service: ? Author [...] satisfactory Medications:Cipro 500 mg x 1 [facility] History of Present illness Narrative* Lloyd Doyle MD - 11/27/2022 5:25 PM EDT documented in [facility] encounter[facility] Procedure note* Lloyd Doyle MD - [...] 1 Lloyd Doyle MD documented in this encounterOhio[facility] Nurse Note* Dionisio Reardon RN - 11/27/2022 2:41 PM EDT Actual procedure/procedure scheduled: Yes Performing provider/scheduled provider: Yes Patient was roomed in: Q9- 14 Electrical Prospector offered:Patient declines Patient arrived in the room [...] Education Session: None Instruction Provided To: Patient Enrober Present: not applicable Discipline: Nursing Learning Topic: SURVIVAL SKILLS: Symptom Management Patient Evaluation: Verbalizes understanding: Yes Supplemental Material Given: Written Material Instructed By Dionisio Reardon RN In Department Urology . documented in this encounterOhio[facility]06-[facility]-2023 Ancelmo Doyle, Thank you very much [...] concerns. Warm regards, MD Lloyd Lara MD [facility] [address] [place] [address] Re: JEANNETTE HUNTLEY Date of Visit: 02/23/2021 [...] additional questions regarding this information, please contact: Sincerely,[facility]06-12-2023 History of Past illness Narrative* Problem Noted Date Resolved Date Morbid obesity 11/13/2022 11/27/2022 documented as of this encounter (statuses as of 11/28/2022) [facility]06-12-2023 NotePatient Outreach (UROLMN) TORIJEANNETTE FERNANDEZ ([id number]) 1955 M Date Time Provider Department 11/13/22 LLOYD DOYLE During your visit today, we recorded the following information about you: Allergies As of Date: 11/13/2022 Noted Allergy Reaction [employer] PRODUCTS 11/13/2022 7 - Swelling Date Reviewed: 11/13/2022 Reviewed by: Iftikhar Avilez MA - Fully Assessed Visit Diagnosis:Screening for genitourinary condition [Z13.89] Order(s):URINALYSIS, REFLEX MICROSCOPIC [PED1698] Order #: [id number]. #:[id number] Prescriptions as of 11/16/2022 - amLODIPine (NORVASC) 5 mg tablet Take 5 mg by mouth once daily. - aspirin 81 mg cap Take by mouth. - atorvastatin (LIPITOR) 10 mg tablet Take by mouth. - tamsulosin (FLOMAX) 0.4 mg Take by mouth. - diphenhydrAMINE (BENADRYL) 25 mg capsule Take by mouth. - carvedilol (COREG) 12.5 mg tablet Take by mouth. - icnpbgkq-utb-nyeoncd fumarate (MULTI VITAMIN) 9 mg iron/15 mL liqd Multi Vitamin+ Refill(s) 0 Start Date: 03/30/21 Status: Ordered Problem List As Of Date 11/13/2022 Noted Resolved Morbid obesity (HCC) [E66.01] 11/13/2022 Encounter Status:Closed by MismiR on 11/16/22[facility] 11-13-2022 NoteHNO ID: [id number] Author: Lloyd Doyle MD Service: ? Author Type: Physician Type: Progress Notes Filed: 11/13/2022 10:35 AM Note Text: [facility] NEW PATIENT HISTORY AND PHYSICAL [...] (COREG) 12.5 mg tablet Take by mouth. ffufajcr-vfl-xjcimoq fumarate (MULTI VITAMIN) 9 mg iron/15 mL [...] for internal providers or letter via the [employer] Postal Service for external providers. Edited above [...] hypospadias with stric, prevented cysto - rec NEMO disc rationale. Can do cysto with 12F scope concurrent if Dr. Leiva wants 2) el PSA neg MRI, being eval by Dr. Leiva (A2) PLAN: (Management Options) NEMO Doyle MD Staff Electronically signedMer[facility]04-19-2023 Hospital Discharge instructions Patient Education 09/20/2022 [...] Follow these instructions at home: Medicines Take nkep-bud-mqyxurv and prescription medicines only as told by [...] important. Where to find more information National [place] of Diabetes and Digestive and Kidney Diseases: [...] depends on the type of prostatitis. Take myzv-qxp-ppdslwh and prescription medicines only as told by [...] provider. Document Revised: 06/25/2020 Document Reviewed: 06/25/2020 [employer] Patient Education 2022 [employer]. Follow Up Care 04/20/2022 10:13:37 With:Cinthia Leiva MD, URL, URO Address: [address], [place] [phone] When:12/20/2022 [facility] Evaluation note* Encounter Date Diagnosis Assessment [...] of left sacroiliac joint (ICD-10 - M46.1) [employer] Other 08-22-2022 Evaluation + Plan noteExtracted from: Title:[facility]- Clinic Note HOPD Author:Cinthia Leiva MD Date:01/23/22 Impression and Plan Assessment and Plan: Diagnosis: BPH with obstruction/lower urinary tract symptoms (SOX71-JC N40.1, Discharge, Medical), Distal penile hypospadias ([id number]-QW Q54.1, Discharge, Medical), Nocturia (GZB87-AE R35.1, Billing Diagnosis, Medical), Weak urine stream (BTI89-MP R39.12, Discharge, Medical). 66 yo M with [...] will refer to Dr. Lloyd Doyle at [facility] for further evaluation 3. Nocturia - nocturnal polyuria on voiding diary. Pt with snoring, recommend JESUS evaluation. Otherwise, not terribly bothered by it. If JESUS evaluation negative, may consider medical treatment in the future Follow up in 2-3 months. PSA due 07/2022 Future Appointments Appointment Date:03/22/2022 08:00:00 AM Scheduled Provider:Cinthia Leiva MD Location:[facility] Appointment Type:URO Office Visit [facility]08-22-2022 Hospital Discharge instructions Patient Education 01/23/2022 [...] Care 01/04/2022 08:54:00 With:Cinthia Leiva Address: [address] [address] [phone] Business (1) When: Unknown Comments:Call for followup appointment in 2-3 months With:Cinthia Leiva Address:Unknown When: Unknown [facility]08-18-2022 History general Narrative - Reported* Type Description Date Medical History obesity Medical History high cholesterol Surgical History Problem Title : COLO NOSCOPY, SCREENING ([id number]), Problem Status : Active, Surgical History Problem Title : Tonja ia Repair, Problem Comment : [employer] 01/19/2022, Problem Status : Active, Surgical History Problem Title : past surgical history reviewed, Problem Description : past surgical history reviewed, Problem Comment : reviewed - no changes required, Problem Status : Inactive, Surgical History Problem Title : REPA IR, HERNIA, HIATAL, WITH FUNDOPLICATION ([id number]), Problem Status : Active, Surgical History Problem Title : surg ical procedures, hx of, Problem Description : surgical procedures, hx of, Problem Comment : Hiatal Hernia Repair 1999, Problem Status : Inactive, Hospitalization History see surgical hx [employer] Other 08-10-2018 History general Narrative - Reported* Type Description Date Medical History obesity Medical History high cholesterol Surgical History hiatal hernia repair Surgical History colonoscopy 01/11/2018 Hospitalization History see surgical hx [employer] Other Evaluation + Plan note Future Appointments Appointment Date:12/06/2022 08:00:00 AM Scheduled Provider:Cinthia Leiva MD Location:[facility] Appointment Type:URO Office Visit Diagnostic Tests Pending * PSA Free & Total 09/20/22 [facility] evaluation noteNo assessment information available [facility] Work Phone: Evaluation noteNo InformationNort [employer] Other evaluation note* Diagnosis Screening for genitourinary condition Screening for other and unspecified genitourinary condition [facility]* Diagnosis 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 urethra, unspecified stricture type- Primary BPH with obstruction/lower urinary tract symptoms Hypertrophy of prostate with urinary obstruction and other lower urinary tract symptoms (LUTS) documented [facility] this encounter [facility] Diagnosis Stricture of anterior 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, unspecified stricture type- Primary Epididymoorchitis Orchitis and epididymitis, unspecified documented in this encounter [facility] general Narrative - Reported* Type Description Date Medical History obesity Medical History high cholesterol Surgical History hiatal hernia repair Hospitalization History see surgical hx [facility] [employer] Other Hospital course Narrative No data available for this section [facility] No data available for this section [facility] [facility] Reason Referral for screeni ng colonoscopy Diagnosis 1 Screening for colon cancer (Z12.11) Referral Organization [facility] Referring Provider First Name Mike Referring Provider Last Name Real Referring Provider Specialty Internal Me dicine Referred Organization [facility] Referred Provider Ezra Lala Referred Address [address] [place] [phone] Referred Provider Specialty Surgery Referral Priority Routine General Notes Mr. Huntley is an a symptomatic patient with increased risk for colon cancer. He denies change in appetite, weight or bowel habits. He denies heartburn or dysphagia. He denies abdominal pain, melena or hematochezia. His brother has colon cancer. [facility] [employer] Other Reason for visit NarrativePain Medicine Referral [facility] [employer] Other Chief Complaint and Reason for Visit [...] of left sacroiliac joint (M46.1) Referral Organization [facility] Referring Provider First Name [...] Mike Noble DO Primary Care Provider Active Admissions Clerk Relationship Specialty Start Date End Date Mike Noble [address] [place] [address] PCP - General Internal Medicine 10/16/23 Admissions Clerk Relationship Specialty Start Date End Date Mike NobleDO [address] [place] [address] PCP - General Internal Medicine 10/16/23 Goals (unrecognized section and content) Goals may be documented in a n alternate section REASON FOR VISIT (unrecogniz ed section and content) Reason Comments Retrograde Urethrogram Specialty Diagnoses / Procedures Referred By Christo avila Referred To Contact Urology / UROLOGY Diagnoses Penile hypospadias RUG per cc chart Procedures NJX RETROGRADE URETHROCSTOGRAPY RUG Self Lloyd Doyle MD [address] [place] [address] Referral ID Status Reason Start Date Expiration Date Visits Re quested Visits Authorized [id number] Closed 11/27/2022 06/03/2023 1 1 Reason Comments Medical Scientific Liaison - Other Orders (unrecognized sect ion and content) No Status Records FoundNo Status Records FoundNo Status Records FoundNo Status Records Found INFORMATION SOURCE (unrecogn ized section and content) DATE CREATED AUTHOR 03/27/2022 [facility] DATE CREATED AUTHOR AUTHOR'S ORGANIZ ATION 09/18/2022 [facility] DATE CREATED AUTHOR AUTHOR'S ORGANIZ ATION 02/21/2023 [facility] DATE CREATED AUTHOR AUTHOR'S ORGANIZ ATION 10/17/2023 [facility] Source Comments (unrecognize d section and content) In the event this informatio n is protected by the Federal Confidentiality of Alcohol and Drug Abuse Patient Records regulations: The Federal rules restrict any use of the information to criminally investigate or prosecute any alcohol or drug abuse patient.[facility] the event this information is protected by the Federal Confidentiality of Alcohol and Drug Abuse Patient Records regulations: The Federal rules restrict any use of the information to criminally investigate or prosecute any alcohol or drug abuse patient.[facility] Hospital[facility] the event this information is protected by the Federal Confidentiality of Alcohol and Drug Abuse Patient Records regulations: The Federal rules restrict any use of the information to criminally investigate or prosecute any alcohol or drug abuse patient.[facility] the event this information is protected by the Federal Confidentiality of Alcohol and Drug Abuse Patient Records regulations: The Federal rules restrict any use of the information to criminally investigate or prosecute any alcohol or drug abuse patient.[facility] Hospital[facility] the event this information is protected by the Federal Confidentiality of Alcohol and Drug Abuse Patient Records regulations: The Federal rules restrict any use of the information to criminally investigate or prosecute any alcohol or drug abuse patient.[facility] FOR RECORDS PERTAINING TO PATIENTS WHO [...] BE BASED ON THE PRIMARY CLINICAL RECORDS. [facility] [employer] [facility]. provides no warranty or guarantee of the accuracy or completeness of information in this document.
== END 2023-10-20 11:03 | disposition home or self-care (01) ==
LOC: LAB 11:06
PROVIDERS: PCP Internal Medicine
DX: N99.114 Postprocedural urethral stricture, male, unspecified (principal)
CPT/HCPCS: 87086; 87150; 87186

== ENCOUNTER 2023-11-30 10:27 | Emergency (ER) | payer OTHER, SELFPAY ==
[2023-11-30] VITALS (7 sets, daily range): BP systolic 132–192; BP diastolic 76–110; PULSE 83; TEMP 36.6; O2SAT 98–99; BMI 36.6
--- OUTSIDE RECORDS SUMMARY | 2023-11-30 11:06 | XMS_ITS ---
Patient Summarization (C-CDA 2.1 CCD) Created on: November 30, 2023 Mr. Lei Huntley : 1955 Sex: Male Author Organization Sample organization Care Team Providers Care Executive Chairman Name Role Phone MIKE LEPE Primary Care Physician [phone] DO Mike Lepe Primary Care Provider MD Renato Page Attending Provider [phone] Renato Page Unavailable Mike Lepe Primary Care Unavailable Lue, Cinthia Ron Admitting Unavailable Lue, Cinthia M Attending Unavailable Renato Page Admitting Unavailable Renato Page Attending Unavailable Mike Lepe Primary Care Unavailable ROBERTH, DR DURHAM Admitting Unavailable ROBERTH, DR DURHAM Attending Unavailable BALL, DR DURHAM Primary Care Unavailable BALL, DR DURHAM Consulting Unavailable LUE ., CINTHIA Velasquez Admitting Unavailable LUE ., CINTHIA Velsaquez Attending Unavailable ROBERTH, DR DURHAM Primary Care Unavailable LUE ., CINTHIA Velasquez Consulting Unavailable ROBERTH, DR DURHAM Admitting Unavailable BALL, DR DURHAM Attending Unavailable BALL, DR DURHAM Primary Care Unavailable BALL, DR DURHAM Consulting Unavailable BALL, DR DURHAM Admitting Unavailable BALL, DR DURHAM Attending Unavailable BALL, DR DURHAM Primary Care Unavailable BALL, DR DURHAM Consulting Unavailable ZIEBER, DR MOHSEN Arce Consulting Unavailable ROBERTH, DR DURHAM Primary Care Unavailable LUE ., CINTHIA M Admitting Unavailable LUE ., CINTHIA M Attending Unavailable LUE ., CINTHIA M Consulting Unavailable Unavailable Primary Care Provider UnavailiMke Solorio Unavailable Lue, Cinthia M. Attending Unavailable Lue, Cinthia M. Referring Unavailable Lue, Cinthia M. Attending Unavailable Lue, Cinthia M. Attending Unavailable Unavailable Primary Care Provider Unavailjenn e Mike Lepe DO Primary Care Provider YAIR LAZARO Attending Unavailable LLOYD DOYLE Attending Unavailable LLOYD DOYLE Admitting Unavailable MIKE LEPE Primary Care Unavailable SYD LIVINGSTON Attending Unavailable SELF Referring Unavailable LLOYD DOYLE Attending Unavailable MIKE LEPE Primary Care Unavailable SYD LIVINGSTON Attending Unavailable LLOYD DOYLE Attending Unavailable MIKE LEPE Primary Care Unavailable MIKE LEPE Primary Care Unavailable MIKE LEPE Primary Care Unavailable LLOYD DOYLE Referring Unavailable MIKE LEPE Primary Care Unavailable MIKE LEPE Primary Care Unavailable LLOYD DOYLE Attending Unavailable Allergies Allergy Classification Reported Allergen(s) Allergy Type Date of Onset Reaction(s) Facility Penicillins (antibiotic) (2 sources) Penicillins Drug Allergy 06-04-18 58 Rash, Swelling, Other: See Comments [facility] (10 sources) Penicillins; Translations: [penicillins] Drug allergy 06-04-18 58 Swelling (finding), Rash, Swelling, Other: See Comments [facility] (16 sources) Shellfish; Translations: [shellfish] Drug allergy 11-14-19 23 Swelling feature (observable entity), Swelling [facility] (3 sources) Penicillin V Drug Allergy Unknown [facility] (1 source) Unable to Assess Drug allergy (disorder) 07-25-19 [facility] (2 sources) Penicillin Drug Allergy Unknown [facility] (1 source) Shellfish Drug allergy (disorder) [facility] (11 sources) Fish derivative Drug allergy 12-20-19 19 Unknown [facility] Other (11 sources) SHELLFISH/ALL FISH Propensity to adverse reactions Unknown [facility] Other (11 sources) Substance with penicillin structure and antibacterial mechanism of action (substance) Drug allergy 12-20-19 19 Unknown [facility] Other (1 source) patient allergy list reviewed by nurse or physicia Propensity to adverse reactions 12-25-19 19 Comment:Done [facility] Other (1 source) SHELLFISH CONTAINING PRODUCTS; Translations: [SHELLFISH CONTAINING PRODUCTS] Propensity to adverse reactions to drug (disorder) 11-14-19 23 [facility] (1 source) Fish Drug Allergy 11-02-18 92 Itching, Shortness of Breath, Swelling [facility] Encounters Encounter Date Encounter Type Care Provider Facility Start: 11-29-2023 End: 11-29-2023 Nursing evaluation of patient and report Delmy aRmos RN Work Phone: Urology Comment on above: Screening for genito urinary condition (Primary Dx) Start: 11-24-2023 End: 11-24-2023 Emergency department patient visit YAIR LAZARO [facility] Start: 11-23-2023 End: 11-23-2023 Patient encounter procedure Syd Livingston MD Work Phone: Urology Comment on above: 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, unspecified stricture type (Primary Dx) Start: 11-23-2023 End: 11-23-2023 ambulatory MIKE LEPE Facility:[facility] Start: 11-12-2023 End: 11-12-2023 ambulatory Lloyd Doyle MD Work Phone: Urology Start: 11-12-2023 End: 11-12-2023 Patient encounter procedure Lloyd Doyle MD Work Phone: Urology Comment on above: 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, unspecified stricture type (Primary Dx) Start: 11-06-2023 End: 11-07-2023 ambulatory LLOYD DOYLE Facility:[facility] Start: 11-05-2023 End: 11-05-2023 ambulatory Lloyd Doyle MD Work Phone: Urology Start: 11-05-2023 End: 11-05-2023 Admission to establishment Pacc [facility] 2 Work Phone: Pre Anesthesia Start: 11-05-2023 End: 11-05-2023 Anesthesia consultation Pacc Main 2 Work Phone: Pre Anesthesia Comment on above: Pre-op evaluation (P rimary Dx); Gastroesophageal reflux disease with esophagitis, unspecified whether hemorrhage; Hyperlipidemia type II; Essential (primary) hypertension; Morbid obesity (HCC); Snoring Start: 11-05-2023 End: 11-05-2023 Preprocedural examination done Pacc Main 2 Work Phone: [facility] Start: 11-05-2023 Encounter for other preprocedural examination LLOYD DOYLE [facility] Start: 11-05-2023 End: 11-05-2023 Patient encounter procedure Lloyd Doyle MD Work Phone: Urology Comment on above: Penile hypospadias ( Primary Dx); Morbid obesity (HCC) Start: 10-18-2023 Telephone encounter Delmy grady RN Work Phone: Urology Comment on above: 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; 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 Start: 10-16-2023 End: 10-16-2023 ambulatory LLOYD DOYLE Facility:[facility] Start: 10-12-2023 End: 10-12-2023 Patient encounter procedure Syd Livingston MD Work Phone: Urology Comment on above: 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, unspecified stricture type (Primary Dx); Epididymoorchitis Start: 10-12-2023 End: 10-12-2023 ambulatory SYD LIVINGSTON Facility:[facility] Start: 06-29-2023 End: 06-29-2023 ambulatory Mike Lepe Other [facility] Other Start: 06-29-2023 Office outpatient vi sit 15 minutes Mike Ball [facility] Start: 06-18-2023 End: 06-18-2023 ambulatory Mike Lepe Other [employer] Other Start: 06-18-2023 Office outpatient vi sit 15 minutes Mike Ball [facility] Start: 06-17-2023 End: 06-17-2023 ambulatory Mike Lepe Other [employer] Other Start: 06-17-2023 Encounter by soledad Lepe [facility] Start: 04-07-2023 End: 04-07-2023 ambulatory Mike Roberth Other [employer] Other Start: 04-07-2023 Telephone encounter Mike GALLAGHER [facility] Start: 04-02-2023 End: 04-02-2023 ambulatory Mike Ball Other [employer] Other Start: 04-02-2023 Telephone encounter Mike GALLAGHER [facility] Start: 03-27-2023 End: 03-27-2023 ambulatory Mike Lepe Other [employer] Other Start: 03-27-2023 Encounter by soledad carrillo Mike Lepe [facility] Start: 02-12-2023 ambulatory Cinthia Lue Facility:[facility] Start: 02-06-2023 End: 02-06-2023 ambulatory Mike Lepe Other [employer] Other Start: 02-06-2023 Telephone encounter Mike Lepe [facility] Start: 01-26-2023 End: 01-26-2023 ambulatory Mike Lepe Other [employer] Other Start: 01-26-2023 Encounter for genera l adult medical examination without abnormal findings Mike Lepe [facility] Start: 01-26-2023 Periodic preventive med est patient 65yrs& older Mike Lepe [facility] Start: 01-04-2023 End: 01-04-2023 ambulatory Mike Lepe Other [employer] Other Start: 01-04-2023 Telephone encounter Mike GALLAGHER [facility] Start: 12-06-2022 ambulatory Cinthia M. Lue Facility:[facility] Start: 11-27-2022 End: 11-27-2022 Patient encounter procedure Lloyd Doyle MD Work Phone: Urology Comment on above: 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, unspecified stricture type (Primary Dx); BPH with obstruction/lower urinary tract symptoms Start: 11-27-2022 End: 11-27-2022 ambulatory SELF Facility:[facility] Start: 11-13-2022 ambulatory Lloyd Doyle MD Work Phone: Urology Start: 11-13-2022 Documentation procedure Lloyd Doyle MD Work Phone: [facility] Start: 11-13-2022 Letter encounter Lloyd Manjarrez Work Phone: Urology Start: 09-20-2022 End: 09-21-2022 ambulatory Cinthia Leiva Facility:[facility] Start: 09-20-2022 End: 09-20-2022 Patient encounter procedure Cinthia Leiva [facility] Start: 09-13-2022 End: 09-14-[address] MIKE LEPE Facility:[facility] Start: 04-07-2022 End: 04-07-2022 ambulatory Renato Page Other [employer] Other Start: 04-07-2022 Telephone encounter Renato HONG [employer] Start: 03-22-2022 ambulatory Cinthia Leiva Facility:[facility] Start: 03-16-2022 End: 03-16-2022 ambulatory Renato Page Other [employer] Other Start: 03-16-2022 Office outpatient ne w 30 minutes Renato Page [facility] Start: 03-10-2022 End: 03-10-2022 ambulatory Renato Page Facility:[facility] Start: 03-10-2022 End: 03-10-2022 ambulatory DO Mike Lepe Work Phone: [facility] Work Phone: Start: 03-10-2022 End: 03-10-2022 Patient encounter procedure DO Mike Lepe Work Phone: [facility] Start: 02-08-2022 End: 02-09-[address] MIKE LEPE Facility:[facility] Start: 01-26-2022 Encounter for genera l adult medical examination without abnormal findings DR MIKE LEPE [facility] Start: 01-25-2022 End: 01-26-[address] MIKE LEPE Facility:[facility] Start: 01-25-2022 End: 01-26-2022 Encounter for general adult medical examination without abnormal findings DR MIKE LEPE Facility:[facility] Start: 01-23-2022 End: 01-23-2022 Patient encounter procedure Cinthia Leiva [facility] Start: 01-22-2022 Adult health examination Gabo Lepe Other [employer] Other Start: 12-27-2021 End: 12-28-2021 ambulatory CINTHIA LEIVA . Facility:[facility] Start: 11-12-2021 End: 11-13-[address] MIKE LEPE Facility:[facility] Start: 07-25-2021 End: 07-25-2021 ambulatory Mike Lepe Facility:[facility] Immunizations Immunization Date Immunization Notes Care Provider Fa george 01-23-2022 pneumococcal 20-vijaya nt conjugate vaccine Cinthia Leiva [facility] 07-23-2020 zoster vaccine recombinant Cinthia Leiva [facility] 07-23-2020 zoster vaccine, live Benjami n Ball Other [facility] [employer] Other 04-12-2020 zoster vaccine recombinant Cinthia Leiva [facility] 04-12-2020 zoster vaccine, live Benjami n Ball Other [employer] Other 06-18-2017 influenza virus vaccine, split virus (incl. purified surface antigen) Mike Lepe Other [employer] Other 06-18-2017 influenza virus vaccine, unspecified formulation Syd Livingston MD Work Phone: [facility] Medications Current Medications Medication Drug Class(es) Dates Sig (Normalized) Sig (Original) acetaminophen 500 mg oral tablet (4 sources) Start: 11-07-2023 take 2 tablets by mouth every six hours as needed acetaminophen (TYLENOL EXTRA STRENGTH) 500 mg tablet Take 2 tablets by mouth every 6 hours as needed for pain. 40 tablet 0 11/07/2023 Active amLODIPine 5 mg oral tablet (20 sources) [...] Status: Ordered aspirin 81 mg oral tablet (15 sources) Platelet Aggregation Inhibitor, Nonsteroidal Anti-inflammatory Drug Start: 03-30-2021 aspirin 81 mg cap Take by mouth. 0 03/30/2021 Active Start: 03-30-2021 take 1 mg by mouth e very four hours aspirin 81 mg oral capsule mg cap(s), Oral, q4hr, Refills(s) 0 Start Date: 03/30/21 Status: Ordered Comment on above: Take by mouth. atorvastatin 10 mg oral tablet (20 sources) HMG-CoA Reductase Inhibitor Start: 03-30-20 atorvastatin (LIPITOR) 10 mg tablet Take by mouth. 0 03/30/2021 Active Comment on above: Take by mouth. carvedilol 12.5 mg oral tablet (20 sources) alpha-Adrenergic Usman, beta-Adrenergic Usman Start: 03-30-20 carvedilol (COREG) 12.5 mg tablet Take by mouth. 0 03/30/2021 Active Comment on above: Take by mouth. chlorhexidine gluconate 1.2 mg/ml mouthwash (3 sources) Start: 11-07-19 End: 11-23-19 Chlorhexidine Gluconate (PERIDEX) 0.12 % solution Use 15 mL as instructed two times a day for 7 days. Rinse around mouth for 30 seconds then expectorate 473 mL 0 11/07/2023 11/23/2023 Active diphenhydrAMINE hydrochloride 25 mg oral capsule (15 sources) Histamine-1 Receptor Antagonist Start: 03-30-20 diphenhydrAMINE (BENADRYL) 25 mg capsule Take by mouth. 0 03/30/2021 Active Comment on above: Take by mouth. doxycycline hyclate 100 mg oral capsule (2 sources) Tetracycline-class Drug Start: 06-30-19 take 1 capsule by mouth every twelve hours Doxycycline Hyclate 100 MG 1 capsule Orally Twice a day for 7 days Jun, Active famotidine 40 mg oral tablet (18 sources) Histamine-2 Receptor Antagonist Start: 01-06-20 famotidine (PEPCID) 40 mg tablet Take by mouth every 24 hours. 0 01/05/2021 Active Start: 01-05-2021 take 1 tablet by magalys th every twenty-four hours Famotidine 40 MG 1 tablet at bedtime as needed Orally Once a day Jan, Active ibuprofen 600 mg oral tablet (6 sources) Nonsteroidal Anti-inflammatory Drug Start: 11-07-2023 take 1 tablet by mouth every six hours as needed ibuprofen (MOTRIN) 600 mg tablet Take 1 tablet by mouth every 6 hours as needed for pain. 40 tablet 0 11/07/2023 Active Start: 03-30-2021 ibuprofen Refi lls(s) 0 Start Date: 03/30/21 Status: Ordered levoFLOXacin 750 mg oral tablet (9 sources) Quinolone Antimicrobial Start: 11-07-2023 End: 11-14-2023 take 1 tablet by mouth once daily levoFLOXacin (LEVAQUIN) 750 mg tablet Take 1 tablet by mouth once daily for 7 days. 7 tablet 0 11/07/2023 11/14/2023 Active Start: 03-23-2023 levoFLOXacin ( LEVAQUIN) 500 mg tablet Take by mouth every 24 hours. 0 03/23/2023 Active Start: 03-23-2023 take 1 tablet by magalys th every twenty-four hours levoFLOXacin 500 MG 1 tablet Orally Once a day for 10 days Mar, Active Multi Vitamin+ (2 sources) Start: 03-30-2021 Multi Vitamin+ Refill(s) 0 Start Date: 03/30/21 Status: Ordered oromltjj-rzf-mhulbko fumarate (MULTI VITAMIN) 9 mg iron/15 mL liqd (13 sources) Start: 03-30-2021 knsycrsj-iiw-yes sebastian fumarate (MULTI VITAMIN) 9 mg iron/15 mL liqd Multi Vitamin+ Refill(s) 0 Start Date: 03/30/21 Status: Ordered 0 03/30/2021 Active Comment on above: Multi Vitamin+ Refil l(s) 0 Start Date: 03/30/21 Status: Ordered predniSONE 20 mg oral tablet (5 sources) Start: 06-18-2023 predniSONE (DELTASONE) 20 mg tablet Take by mouth. 0 06/18/2023 Active 72 hr scopolamine 0.0139 mg/hr transdermal system (2 sources) Anticholinergic Start: 06-30-2023 Scopolamine 1 MG/3DAYS 1 patch to skin behind the ear as needed Transdermal every 72 hours for 6 days Jun, Active sulfamethoxazole 800 mg / trimethoprim 160 mg oral tablet (1 source) Dihydrofolate Reductase Inhibitor Antibacterial, Sulfonamide Antimicrobial Start: 11-23-2023 End: 11-26-2023 take 1 tablet by mouth twice daily sulfamethoxazole -trimethoprim (BACTRIM DS) 800-160 mg per tablet Take 1 tablet by mouth two times a day for 3 days. 6 tablet 0 11/23/2023 11/26/2023 Active tamsulosin hydrochloride 0.4 mg oral capsule (20 sources) alpha-Adrenergic Usman Start: 03-30-2021 tamsulosin (FLOMAX) 0.4 mg Take by mouth. 0 03/30/2021 Active Comment on above: Take by mouth. tiZANidine 4 mg oral tablet (4 sources) Central alpha-2 Adrenergic Agonist Start: 06-18-2023 take 0.5-1 tablets by mouth once at bedtime as needed for pain tiZANidine HCl 4 MG 1/2 - 1 tablet Orally q HS PRN back pain for 10 days Jun, Active trospium chloride 20 mg oral tablet (4 sources) Cholinergic Muscarinic Antagonist Start: 11-07-2023 take 1 tablet by mouth every twelve hours as needed trospium (SANCTURA) 20 mg tablet Take 1 tablet by mouth two times a day as needed (bladder spasms). 60 tablet 0 11/07/2023 Active vitamin B12 (2 sources) Vitamin B12 Start: 03-30-2021 Vitamin B12 Refills(s) 0 Start Date: 03/30/21 Status: Ordered Vitamin D3 (2 sources) Start: 03-30-2021 Vitamin D3 Refills(s) 0 Start Date: 03/30/21 Status: Ordered Completed/Discontinued Medications Medication Drug Class(es) Dates Sig (Normalized) Sig (Original) ciprofloxacin 500 mg oral tablet (1 source) Quinolone Antimicrobial Start: 11-27-2022 End: 11-27-2022 ciprofloxacin HCl 500 mg tab(s) (CIPRO) Payers Date Payer Category Payer Private Health Insurance [id number] 2022 Medicare [id number] 2022 Private Health Insurance [facility] [id number] 2021 Self-pay [id number] 1959 Private Health Insurance [facility] [id number] 1955 Unknown [id number] 2.16.84 [id number] 1955 Unknown [id number] 2.16.84 [id number] 1955 Unknown [id number] 2.16.84 [id number] 1955 Unknown [id number] 2.16.84 [id number] 1955 Unknown [id number] 2.16.84 [id number] 1955 Unknown [id number] 2.16.8 [id number] 1955 Unknown [id number] 2.16.8 [id number] 1955 Unknown [id number] 2.16.8 [id number] Unknown [id number] 2.16.8 [id number] Unknown [id number] 2.16.8 [id number] Plan of Treatment Date Care Activity Detail Author Start: 04-18-2028 Prostate specific antigen measurement Prostate Cancer Screening Discussion [facility] Start: 11-23-2026 Diabetes Screening Diabetes Screenin g [facility] Start: 11-06-2026 Diabetes Screening Diabetes Screenin g [facility] Start: 11-04-2026 Diabetes Screening Diabetes Screenin g [facility] Start: 04-18-2026 Diabetes Screening Diabetes Screenin g [facility] Start: 02-03-2024 Influenza vaccination Influenz a Vaccine (Season Ended) [facility] Start: 11-12-2023 End: 11-12-2023 Patient encounter procedure 11/12/2023 11:00 AM EDT Office Visit Urology [address] [id number] Lloyd Doyle MD [address] [place], [place] [id number] Post op Urology Comment on above: Post op Start: 11-06-2023 End: 11-06-2023 Admission to same day surgery center 11/06/2023 2:46 PM EDT - 11/06/2023 6:23 PM EDT Surgery Admitting [address] [place] [address] Lloyd Doyle MD [address] [place], [place] [id number] URETHROPLASTY ANTERIOR 1-STAGE PROCEDURE, ADULT MALE Admitting Comment on above: URETHROPLASTY ANTERI OR 1-STAGE PROCEDURE, ADULT MALE Start: 11-06-2023 Subsequent hospital visit by physician 11/06/2023 2:46 PM EDT Hospital Encounter Admitting [address] [place] [address] Lloyd Doyle MD [address] [place] [address] 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 stricture [N99.114] Admitting Comment on above: 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 stricture [N99.114] Start: 11-06-2023 End: 11-06-2023 Urethroplasty 1 stg recnst male anterior urethra URETHROPLASTY ANTERIOR 1-STAGE PROCEDURE, ADULT MALE 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 stricture 11/06/2023 2:46 PM EDT [facility] Start: 11-06-2023 End: 11-06-2023 Admission to same day surgery center 11/06/2023 10:01 AM EDT - 11/06/2023 1:38 PM EDT Surgery Admitting [address] [place] [address] Lloyd Doyle MD [address] [place], [place] [id number] URETHROPLASTY ANTERIOR 1-STAGE PROCEDURE, ADULT MALE Admitting Comment on above: URETHROPLASTY ANTERI OR 1-STAGE PROCEDURE, ADULT MALE Start: 11-06-2023 Subsequent hospital visit by physician 11/06/2023 10:01 AM EDT Hospital Encounter Admitting [address] [place] [address] Lloyd Doyle MD [address] [place], [place] [id number] 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 stricture [N99.114] Admitting Comment on above: 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 stricture [N99.114] Start: 11-06-2023 End: 11-06-2023 Urethroplasty 1 stg recnst male anterior urethra URETHROPLASTY ANTERIOR 1-STAGE PROCEDURE, ADULT MALE 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 stricture 11/06/2023 10:01 AM EDT [facility] Start: 11-05-2023 End: 11-05-2023 Anesthesia consultation 11/05/2023 12:40 PM EDT PAT Pre Anesthesia [address] [place] [address] 2, [address] [place] [address] PRE OP Pre Anesthesia Comment on above: PRE OP Start: 11-05-2023 End: 11-05-2023 Patient encounter procedure Urology Comment on above: PRE OP VIVEK Irwin 11/05 Start: 06-04-2023 Advance Directive Discussion Advance Directive Discussion [facility] Start: 06-04-2023 Behavioral Health Screening Behavioral Health Screening [facility] Start: 02-02-2023 Covid-19 Vaccine ( season) Covid-19 Vaccine ( season) [facility] Start: 02-02-2023 Influenza vaccination INFLUENZA (Sea son Ended) [facility] Start: 06-04-2022 ADVANCE DIRECTIVE DISCUSSION ADVANCE DIRECTIVE DISCUSSION [facility] Start: 06-04-2022 DEPRESSION ASSESSMENT DEPRESSION ASS ESSMENT [facility] Start: 2021 PNEUMOCOCCAL: 65+ (1 - PCV) PNEUMOCOCCAL: 65+ (1 - PCV) [facility] Start: 2016 RSV Vaccine (1 - 1-d ose 60+ series) RSV Vaccine (1 - 1-dose 60+ series) [facility] Start: 2011 PROSTATE CANCER SCREENING DISCUSSION PROSTATE CANCER SCREENING DISCUSSION [facility] Start: 2006 SHINGRIX VACCINE (1 of 2) SHINGRIX VACCINE (1 of 2) [facility] Start: 2001 COLOGUARD (FIT-DNA) COLOGUARD (FIT-D NA) [facility] Start: 2001 Colonoscopy COLONOSCOPY [facility] Start: 2001 COLORECTAL CANCER SCREENING COLORECTAL CANCER SCREENING [facility] Start: [address] COLONOGRAPHY [facility] Start: 2001 DIABETES SCREEN DIABETES SCREEN [facility] Start: 2001 FECAL OCCULT BLOOD FECAL OCCULT BLOO D [facility] Start: 2001 Screening for malign ant neoplasm of colon [facility] Start: 2001 SIGMOIDOSCOPY SIGMOIDOSCOPY [facility] Start: 1991 Lipid panel Lipid Screening [facility] Start: 1991 LIPID SCREEN LIPID SCREEN [facility] Start: 1975 Urine microalbumin profile [facility] Start: 1974 Annual PCP Team Hospital Pharmacy Technician geno Disease Visit Annual PCP Team Chronic Disease Visit [facility] Start: 1974 BP Controlled (<130/80) BP Controlle d (<130/80) [facility] Start: 1974 HEPATITIS C SCREENING HEPATITIS C SC JUANCARLOS [facility] Start: 1956 COVID-19 VACCINE (#1) COVID-19 VACCI NE (#1) [facility] URINALYSIS, REFLEX MICROSCOPIC URINALYSIS, REFLEX MICROSCOPIC Lab Routine Screening for genitourinary condition Ordered: 11/05/2023 [facility] Work Phone: Comment on above: Ordered: 11/05/2023 URINALYSIS, REFLEX MICROSCOPIC URINALYSIS, REFLEX MICROSCOPIC Lab Routine Screening for genitourinary condition Ordered: 11/12/2023 [facility] Work Phone: Comment on above: Ordered: 11/12/2023 Problems Active Problems Problem Classification Problem Date [...] and giddiness] Episodic Disorders of lipid metabolism (20 sources) Familial hypercholesterolemia; Translations: [Familial hypercholesterolemia] Onset: 12-19-2018 03-25-2021 Chronic Esophageal disorders (18 sources) Gastro-esophageal reflux disease with esophagitis; Translations: [Gastroesophageal reflux disease with esophagitis without hemorrhage] Onset: 11-05-2023 11-05-2023 Chronic Esophageal disorders (3 sources) Esophageal disorders; Translations: [Gastroesophageal reflux disease with esophagitis, unspecified whether hemorrhage] Onset: 11-05-2023 Essential hypertension (20 sources) Essential hypertension; Translations: [Essential (primary) hypertension] Onset: 11-05-2023 03-25-2021 Chronic Genitourinary congenital anomalies (4 sources) Hypospadias, penile; Translations: [Hypospadias, penile] Onset: 01-23-2022 Chronic Genitourinary symptoms and ill-defined conditions (8 sources) Poor stream of urine; Translations: [Poor [...] Episodic Other diseases of bladder and urethra (5 sources) Male urethral stricture; Translations: [Unspecified urethral [...] sources) Motion sickness, initial encounter Episodic Other lower respiratory disease (8 sources) Snoring; Translations: [Snoring] Onset: 11-05-2023 11-05-2023 Episodic Other lower respiratory disease (1 source) Snoring; Translations: [Snoring] Onset: 11-05-2023 Episodic Other nervous system disorders (1 source) Other acute postprocedural pain; Translations: [Postoperative pain] Onset: 11-06-2023 Episodic Other nutritional; endocrine; and metabolic disorders (17 sources) Morbid obesity; Translations: [Morbid (severe) obesity due to excess calories] Onset: 11-13-2022 Resolved: 11-27-2022 03-25-2021 Chronic Other nutritional; endocrine; and metabolic disorders (1 source) Obesity; Translations: [Obesity, unspecified] Chronic Other nutritional; endocrine; and metabolic disorders (1 source) Body mass index 30+ - obesity; Translations: [Body mass index 36.0-36.9, adult] Onset: 12-24-2018 Chronic Other nutritional; endocrine; and metabolic disorders (5 sources) Obese class II; Translations: [Obesity, unspecified] Onset: 11-06-2023 11-06-2023 Chronic Other nutritional; endocrine; and metabolic disorders (1 source) Morbid (severe) obesity due to excess calories; Translations: [Morbid obesity (HCC)] Onset: 11-05-2023 Chronic Other screening for suspected conditions (not mental disorders or infectious disease) (17 sources) Raised prostate specific antigen; Translations: [Elevated [...] Classification Problem Date Documented Da te Episodic/Chronic Other diseases of bladder and urethra (1 source) Unspecified urethral stricture, male, unspecified site; Translations: [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 urethra, unspecified stricture type] Onset: 11-27-2022 Episodic Other diseases of kidney and ureters (1 source) Other obstructive and reflux uropathy; Translations: [BPH with obstruction/lower urinary tract symptoms] Onset: 11-27-2022 Episodic Unclassified (1 source) LOW BACK PAIN, UNSPECIFIED; Translations: [LOW BACK PAIN, UNSPECIFIED] Onset: 02-08-2022 Unclassified (1 source) CONTACT W/AND (SUSP) EXPOS COVID-19; Translations: [CONTACT W/AND (SUSP) EXPOS COVID-19] Onset: 11-12-2021 Unclassified (3 sources) Acute bilateral low back pain without sciatica M54.50 Procedures Date Procedure Procedure Detail Performing Clinician Start: 11-13-2022 Urnls dip stick/tabl et reagent auto microscopy Bulk Order Provider Start: 03-10-2022 X-ray of lumbar spin e, six views including bending views DO Mike Lepe Work Phone: Start: 06-04-2017 Colonoscopy Cinthia Leiva Start: 06-04-1999 Hiatal hernia (disorder) Cinthia Leiva Depression screening Erlin tahir Roberth Other Screening for malign ant neoplasm of colon Mike Lepe Other Results Test Name Value Interpretation Reference Range Facility CBC WITH AUTO DIFFERENTIALon 11-24-2023 Basophils (Bld) [#/Vol] 0.04 10*3/uL Normal 0.00-0.20 [facility] Comment on above: Performed By: #### L [id number] #### [facility] ([facility]) [address] [place] [address] Basophils/100 WBC (Bld) 0.3 % Normal 0.0-1.0 [facility] Comment on above: Performed By: #### L [id number] #### [facility] ([facility]) [address] [place] [address] Eosinophils (Bld) [#/Vol] 0.01 10*3/uL Normal 0.00-0.50 [facility] Comment on above: Performed By: #### L [id number] #### [facility] ([facility]) [address] [place] [address] Eosinophils/100 WBC (Bld) 0.1 % Normal 0.0-6.0 [facility] Comment on above: Performed By: #### L [id number] #### [facility] ([facility]) [address] [place] [address] Erythrocyte distribution width (RBC) [Ratio] 15.6 % High 11.5-15.0 [facility] Comment on above: Performed By: #### L [id number] #### [facility] ([facility]) [address] [place] [address] ERYTHROCYTE MEAN CORPUSCULAR HEMOGLOBIN CONCENTRATION (G/DL) BY AUTOMATED 33.1 g/dL Normal 32.0-35.0 [facility] Comment on above: Performed By: #### L [id number] #### [facility] ([facility]) [address] [place] [address] Hematocrit (Bld) [Volume fraction] 44.7 % Normal 39.0-55.0 [facility] Comment on above: Performed By: #### L [id number] #### [facility] ([facility]) [address] [place] [address] Hemoglobin (Bld) [Mass/Vol] 14.8 g/dL Normal 13.0-17.0 [facility] Comment on above: Performed By: #### L [id number] #### [facility] ([facility]ER) [address] [place] [address] Immature granulocytes (Bld) [#/Vol] 0.07 10*3/uL Normal 0.00-0.20 [facility] Comment on above: Performed By: #### L [id number] #### [facility] ([facility]) [address] [place] [address] Immature granulocytes/100 WBC (Bld) 0.5 % Normal 0.0-1.0 [facility] Comment on above: Performed By: #### L [id number] #### [facility] ([facility]) [address] [place] [address] Lymphocytes (Bld) [#/Vol] 1.12 10*3/uL Low 1.20-4.00 [facility] Comment on above: Performed By: #### L [id number] #### [facility] ([facility]ER) [address] [place] [address] Lymphocytes/100 WBC (Bld) 8.2 % Low 20.0-45.0 [facility] Comment on above: Performed By: #### L [id number] #### [facility] ([facility]) [address] [place] [address] MCH (RBC) [Entitic mass] 28.1 pg Normal 27.0-33.0 [facility] Comment on above: Performed By: #### L [id number] #### [facility] ([facility]) [address] [place] [address] MCV (RBC) [Entitic vol] 85.0 fL Normal 82.0-98.0 [facility] Comment on above: Performed By: #### L [id number] #### [facility] ([facility]) [address] [place] [address] Monocytes (Bld) [#/Vol] 0.73 10*3/uL Normal 0.10-1.00 [facility] Comment on above: Performed By: #### L [id number] #### [facility] ([facility]) [address] [place] [address] Monocytes/100 WBC (Bld) 5.3 % Normal 5.0-12.0 [facility] Comment on above: Performed By: #### L [id number] #### [facility] ([facility]) [address] [place] [address] Neutrophils (Bld) [#/Vol] 11.75 10*3/uL High 1.60-7.60 [facility] Comment on above: Performed By: #### L [id number] #### [facility] ([facility]) [address] [place] [address] Neutrophils/100 WBC (Bld) 85.6 % High 40.0-72.0 [facility] Comment on above: Performed By: #### L [id number] #### [facility] ([facility]) [address] [place] [address] NRBC (PER 100 WBCS) BY AUTOMATED COUNT 0.0 % Normal 0 [facility] Comment on above: Performed By: #### L [id number] #### [facility] ([facility]) [address] [place] [address] PLATELETS (10*3/UL) IN BLOOD AUTOMATED COUNT 306 10*3/uL Normal 150-400 [facility] Comment on above: Performed By: #### L [id number] #### [facility] ([facility]) [address] [place] [address] RBC (Bld) [#/Vol] 5.26 10*6/uL Normal 4.20-5.70 [facility] Comment on above: Performed By: #### L [id number] #### [facility] ([facility]) [address] [place] [address] WBC (Bld) [#/Vol] 13.72 10*3/uL High 4.00-10.60 [facility] Comment on above: Performed By: #### L [id number] #### [facility] ([facility]) [address] [place] [address] COMPREHENSIVE METABOLIC PANE James 11-24-2023 Albumin [Mass/Vol] 4.5 g/dL Normal 3.5-5.7 [facility] Comment on above: Performed By: #### L [id number] #### [facility] ([facility]) [address] [place] [address] ALP [Catalytic activity/Vol] 156 U/L High 34-104 [facility] Comment on above: Performed By: #### L [id number] #### [facility] ([facility]) [address] [place] [address] ALT [Catalytic activity/Vol] 30 U/L Normal 7-52 [facility] Comment on above: Performed By: #### L [id number] #### [facility] ([facility]) [address] [place] [address] Anion gap [Moles/Vol] 14 mmol/L Normal 7-20 [facility] Comment on above: Performed By: #### L [id number] #### [facility] ([facility]) [address] [place] [address] AST [Catalytic activity/Vol] 25 U/L Normal 13-39 [facility] Comment on above: Performed By: #### L [id number] #### [facility] ([facility]) [address] [place] [address] Bilirubin [Mass/Vol] 0.6 mg/dL Normal 0.3-1.0 [facility] Comment on above: Performed By: #### L [id number] #### [facility] ([facility]) [address] [place] [address] Calcium [Mass/Vol] 10.0 mg/dL Normal 8.6-10.3 [facility] Comment on above: Performed By: #### L [id number] #### [facility] ([facility]) [address] [place] [address] Chloride [Moles/Vol] 102 mmol/L Normal 98-107 [facility] Comment on above: Performed By: #### L [id number] #### [facility] ([facility]) [address] [place] [address] CO2 [Moles/Vol] 26 mmol/L Normal 21-31 [facility] Comment on above: Performed By: #### L [id number] #### [facility] ([facility]) [address] [place] [address] Creatinine [Mass/Vol] 1.27 mg/dL Normal 0.70-1.30 [facility] Comment on above: Performed By: #### L [id number] #### [facility] ([facility]) [address] [place] [address] GLOMERULAR FILTRATION RATE ML/MIN/1.73 SQ M.PREDICTED 61.9 mL/min/1.73m*2 Normal >60.0 [facility] Comment on above: Result Comment: The [facility]???s estimated glomerular filtration rate (eGFR) will no longer include consideration of race in its calculation. The National Kid[employer] Foundation???s eGFR Task Force developed new recommendations for the estimation of the glomerular filtration rate in the [place] They recommend immediate implementation of the new equation refit without the race variable in all laboratories because the calculation does not include race. In addition to not including race in the calculation and reporting, it included diversity in its development, and has acceptable performance characteristics and potential consequences that do not disproportionately affect any one group of individuals. Performed By: #### L [id number] #### [facility] ([facility]) [address] [place] [address] Glucose [Mass/Vol] 141 mg/dL High 70-100 [facility] Comment on above: Performed By: #### L [id number] #### [facility] ([facility]) [address] [place] [address] Potassium [Moles/Vol] 3.9 mmol/L Normal 3.5-5.1 [facility] Comment on above: Performed By: #### L [id number] #### [facility] ([facility]) [address] [place] [address] Protein [Mass/Vol] 7.9 g/dL Normal 6.0-8.3 [facility] Comment on above: Performed By: #### L [id number] #### [facility] ([facility]) [address] [place] [address] Sodium [Moles/Vol] 138 mmol/L Normal 136-145 [facility] Comment on above: Performed By: #### L [id number] #### [facility] ([facility]) [address] [place] [address] Urea nitrogen [Mass/Vol] 15 mg/dL Normal 7-25 [facility] Comment on above: Performed By: #### L [id number] #### [facility] ([facility]) [address] [place] [address] UREA NITROGEN/CREATININE (MASS RATIO) IN SER/PLAS 11.8 Normal [facility] Comment on above: Performed By: #### L [id number] #### [facility] ([facility]) [address] [place] [address] EDNURSon 11-24-2023 EDNURS I had a urethra reconstruction 3 wks ago. They removed the catheter yesterday in [facility] [place] and I havent been able to urinate. Normal [facility] EDPROVon 11-24-2023 EDPROV HPI Chief Complaint Patient presents with Urinary Retention HPI 58-year-old male presents emergency department with urinary retention after having a Díaz removed yesterday. Patient went to appointment clinic for urethral reconstruction surgery on 4 there was an indwelling catheter placed for patient states last week he was able to successfully urinate was 2 AM this morning he describes a minor amount of blood in his urine but no blood clots. He called his urology office and was recommended to come to the emergency department and have someone from urology team place his Díaz since the surgery was so recent. Omi Coma Scale Score: 15 Patient History History reviewed. No pertinent past medical history. History reviewed. No pertinent surgical history. No family history on file. Social History Tobacco Use Smoking status: Never Smokeless tobacco: Never Substance Use Topics Alcohol use: Never Drug use: Never Review of Systems Review of Systems Genitourinary: Positive for difficulty urinating. Physical Exam ED Triage Vitals [11/24/23 1457] Temp Heart Rate Resp BP 37 ???C (98.6 ???F) (!) 112 18 (!) 161/107 SpO2 Temp Source Heart Rate Source Patient Position 100 % Temporal -- -- BP Location FiO2 (%) -- -- Physical Exam Vitals and nursing note reviewed. Constitutional: General: He is not in acute distress. Appearance: He is well-developed. HENT: Head: Normocephalic and atraumatic. Eyes: Conjunctiva/sclera: Conjunctivae normal. Cardiovascular: Rate and Rhythm: Normal rate and regular rhythm. Heart sounds: No murmur heard. Pulmonary: Effort: Pulmonary effort is normal. No respiratory distress. Breath sounds: Normal breath sounds. Abdominal: Palpations: Abdomen is soft. Tenderness: There is no abdominal tenderness. Genitourinary: Comments: Surgical changes at the urethra no evidence of obvious infection Musculoskeletal: General: No swelling. Cervical back: Neck supple. Skin: General: Skin is warm and dry. Capillary Refill: Capillary refill takes less than 2 seconds. Neurological: Mental Status: He is alert. Psychiatric: Mood and Affect: Mood normal. Procedures ED Course & MDM ED Course as of 11/24/232149 [facility] Nov 24, 2023 1529 Chart review: SURGERY/PROCEDURE DATE: 11/06/2023 INCISION/PROCEDURE START TIME: 1:52 PM INCISION CLOSE/PROCEDURE END TIME: 4:35 PM SURGEON(S)/PROCEDURALI ST(S) AND DRIVEWAY SEALER(S): Surgeon(s) and Role: * Lloyd Doyle MD - Primary * Sara Paulino MD - Resident - Assisting No Additional Staff SURGERY/PROCEDURE(S): -First stage urethroplasty with buccal mucosa graft -Buccal mucosa graft harvested bilaterally -Cystoscopy -Urethral dilation -Complex díaz catheter placement [LH] 1539 1524 Bladder Scan Bladder Scan Volume (mL): 415 mL [LH] 1559 I spoke to our urology team who is agreeable to coming down to evaluate the patient. [LH] 1624 Urology came down and placed a Díaz. They state from their standpoint that if his laboratory does not look significantly deranged will discharge with follow-up with urology. [LH] 2147 Urology successfully placed a Díaz catheter and labs suggest normal limits. No evidence of UTI. No evidence postsurgical infection. No significant weight. Discussed with patient importance of following up with urology within 1 to 2 weeks and referred him to our urology if he is unable to get in with someone in [place]. I also discussed the importance of returning if he is unable to void his bladder despite the Díaz, passes large blood clots, fevers, chills, nausea, or vomiting. [LH] ED Course User Index [LH] Stas Sosa MD Diagnoses as of 11/24/232149 Urine retention Medical Decision Making I, STAS SOSA MD -(scribe), documented on behalf of Dr. Long att. providers found. Lei Huntley is a 68 y.o. y.o. male presenting to the ED with chief complaint of urinary retention. Pt states he had his díaz taken out yesterday and initially had no issues with urination. Pt began having issues this morning and took his medication for bladder spasms and has not been able to urinate since. Dr. Long att. providers found performed a history and physical examination of the pt and discussed his management with the resident Dr. Hockey. Exam findings as follows: díaz catheter placed, no bleeding or oozing, abd soft non-tender, alert, oriented, no acute distress. Dr. Long att. providers found reviewed the resident's note and agrees with the documented findings and plan of care. ------ RESULTS ----- Labs: Labs Reviewed COMPREHENSIVE METABOLIC PANEL - Abnormal Result Value Sodium 138 Potassium 3.9 Chloride 102 CO2 26 Anion Gap 14 BUN 15 Creatinine 1.27 BUN/Creatinine Ratio 11.8 Glucose 141 (*) Calcium 10.0 AST 25 ALT (SGPT) 30 Alkaline Phosphatase 156 (more content not included)... Normal [facility] URINALYSIS MICROSCOPIC WITH REFLEX CULTUREon 11-24-2023 CASTS IN URINE Present Abnormal None Seen [facility] Comment on above: Performed By: #### L [id number] #### [facility] ([facility]AK[facility]) [address] [place] [address] CRYSTALS IN URINE Normal [facility] Comment on above: Performed By: #### L [id number] #### [facility] ([facility]AKER) [address] [place] [address] HYALINE CASTS /LPF IN URINE SEDIMENT BY MICROSCOPY 7 /LPF High <1 [facility] Comment on above: Performed By: #### L [id number] #### [facility] (BEAKER) [address] [place] [address] MUCUS (#/HPF) IN URINE SEDIMENT Moderate Abnormal None Seen, Occasional, Few [facility] Comment on above: Performed By: #### L [id number] #### [facility] ([facility]) [address] [place] [address] OTHER MICROSCOPIC ELEMENTS Normal [facility] Comment on above: Performed By: #### L [id number] #### [facility] ([facility]) [address] [place] [address] RBC (#/HPF) IN URINE SEDIMENT 21-50 Abnormal None Seen [facility] Comment on above: Performed By: #### L [id number] #### [facility] ([facility]) [address] [place] [address] SQUAMOUS EPITHELIAL CELLS (#/HPF) IN URINE SEDIMENT None Seen Normal None Seen, Occasional [facility] Comment on above: Performed By: #### L [id number] #### [facility] ([facility]) [address] [place] [address] WBC (LEUKOCYTE) (#/HPF) IN URINE SEDIMENT 6-10 Abnormal None Seen [facility] Comment on above: Performed By: #### L [id number] #### [facility] ([facility]) [address] [place] [address] URINALYSIS WITH REFLEX CULTU REon 11-24-2023 BILIRUBIN, TOTAL PRESENCE IN URINE Negative Normal Negative [facility] Comment on above: Performed By: #### L [id number] #### [facility] ([facility]) [address] [place] [address] Clarity (U) Clear Normal Clear [facility] Comment on above: Performed By: #### L [id number] #### [facility] ([facility]) [address] [place] [address] Color (U) Yellow Normal Yellow [facility] Comment on above: Performed By: #### L [id number] #### [facility] ([facility]) [address] [place] [address] Glucose (U) [Mass/Vol] Negative Normal Negative [facility] Comment on above: Performed By: #### L [id number] #### [facility] ([facility]ER) [address] [place] [address] HEMOGLOBIN PRESENCE IN URINE Small Abnormal Negative [facility] Comment on above: Performed By: #### L [id number] #### [facility] ([facility]) [address] [place] [address] Ketones Ql (U) Negative Normal Negative [facility] Comment on above: Performed By: #### L [id number] #### [facility] ([facility]) [address] [place] [address] LEUKOCYTE ESTERASE PRESENCE IN URINE BY TEST STRIP Trace Abnormal Negative [facility] Comment on above: Performed By: #### L [id number] #### [facility] ([facility]) [address] [place] [address] NITRITE PRESENCE IN URINE Negative Normal Negative [facility] Comment on above: Performed By: #### L [id number] #### [facility] ([facility]) [address] [place] [address] pH (U) 5.0 [pH] Normal 5.0-8.0 [facility] Comment on above: Performed By: #### L [id number] #### [facility] ([facility]) [address] [place] [address] Protein (U) [Mass/Vol] 30 mg/dL Abnormal Negative [facility] Comment on above: Performed By: #### L [id number] #### [facility] ([facility]) [address] [place] [address] Specific gravity (U) [Rel density] 1.013 Low 1.015-1.020 [facility] Comment on above: Performed By: #### L [id number] #### [facility] ([facility]) [address] [place] [address] CNOVon 11-23-2023 CNOV Office Visit (UROLMN ) LEI HUNTLEY ([id number]) 1955 M Date Time Provider Department 11/23/23 2:45 PM SYD LIVINGSTON [facility] During your visit today, we recorded the following information about you: Pulse Blood pressure Weight 64/minute 148/81 117 kg Syd Livingston MD 11/23/2023 3:16 PM Signed HPI Lei Huntley is a 68 year old male with a history of BPH, hypospadias, penile urethral stricture, and 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 Since last evaluation notes overall doing well, tolerating catheter fine. He has been applying the Vaseline gauze as instructed daily and spreading the graft. LABS Creatinine Date Value Ref Range Status 11/07/2023 0.99 0.73 - 1.22 mg/dL Final 11/05/2023 1.06 0.73 - 1.22 mg/dL Final No results found for: PSA PHYSICAL EXAMINATION GENERAL: no acute distress, well appearing, pleasant MOUTH: right and left harvest sites healing well/intact RESP: normal work of breathing on room air ABDOMEN: soft, non distended, non tender, no palpable masses, no CVA tenderness NEURO/PSYCH: no gross neuromuscular dysfunction EXTREMITIES: no extremity edema GENITOURINARY: Urethral plate with indentation/groove from the catheter, tissue remains intact/viable. Buccal graft viable/taking well. Small area of fibrinous exudate at edge of right distal buccal graft and glanular epithelium, this was sharply debrided away to healthy tissue. Catheter draining clear yellow urine. Urethra ostomy intact. [id number] performed and PVR 68 cc IMPRESSION S/p 1st stage urethroplasty with BMG and membranous urethral dilation, catheter removed today and emptied appropriately. PLAN -3 days of Bactrim pericath - RV in 2 months with PVR given membranous stricture dilation - continue spreading of graft with vaseline, counseled to massage BMG harvest site Syd Livingston MD Male Genitourinary Reconstruction AND Prosthetic Surgery Fellow Allergies As of Date: 11/23/2023 Noted Allergy Reaction PENICILLINS 06/04/1956 2 - Rash 7 - Swelling 14 - Other: See Comments [employer] 11/13/2022 7 - Swelling Date Reviewed: 11/23/2023 Reviewed by: Claribel Livingston MA - Fully Assessed Reason for Visit: Post-Op Visit [1236] Primary Visit Diagnosis:Stricture of anterior 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, unspecified stricture type [N35.914] Order(s):sulfamethoxaz ole-trimethoprim (BACTRIM DS) 800-160 mg per tabletTake 1 tablet by mouth two times a day for 3 days.Disp: 6 tabletRfl: 0 Prescriptions as of 11/23/2023 - sulfamethoxazole-trime thoprim (BACTRIM DS) 800-160 mg per tablet Take 1 tablet by mouth two times a day for 3 days. - acetaminophen (TYLENOL EXTRA STRENGTH) 500 mg tablet Take 2 tablets by mouth every 6 hours as needed for pain. - ibuprofen (MOTRIN) 600 mg tablet Take 1 tablet by mouth every 6 hours as needed for pain. - Chlorhexidine Gluconate (PERIDEX) 0.12 % solution Use 15 mL as instructed two times a day for 7 days. Rinse around mouth for 30 seconds then expectorate - trospium (SANCTURA) 20 mg tablet Take 1 tablet by mouth two times a day as needed (bladder spasms). - famotidine (PEPCID) 40 mg tablet Take by mouth every 24 hours. - amLODIPine (NORVASC) 5 mg tablet Take 5 mg by mouth once daily. - aspirin 81 mg cap Take by mouth. - atorvastatin (LIPITOR) 10 mg tablet Take by mouth. - tamsulosin (FLOMAX) 0.4 mg Take by mouth. - diphenhydrAMINE (BENADRYL) 25 mg capsule Take by mouth. - carvedilol (COREG) 12.5 mg tablet Take by mouth. - krvocdlx-mkk-wowuiee fumarate (MULTI VITAMIN) 9 mg iron/15 mL liqd Multi Vitamin+ Refill(s) 0 Start Date: 03/30/21 Status: Ordered Problem List As Of Date 11/23/2023 Noted Resolved Morbid obesity (HCC) [E66.01] 11/13/2022 BPH with urinary obstruction [N40.1, N13.8] 11/05/2023 Essential (primary) hypertension [I10] 11/05/2023 Hyperlipidemia type II [E78.01] 11/05/2023 Gastroesophageal reflux disease with esophagiti*11/05/2023 Snoring [R06.83] 11/05/2023 Obesity, Class II, BMI 35-39.9 [E66.9] 11/06/2023 Prescriptions ordered this encounter Disp Refills Start End SULFAMETHOXAZOLE 800 MG-TRIMETHOPRIM* 6 ta* 0 11/23/2023 11/26/2023 Route: ORAL Sig: Take 1 tablet by mouth two times a day for 3 days. Encounter Status:Closed by SYD LIVINGSTON on 11/23/23 [facility] CNOVon 11-12-2023 CNOV Office Visit (UROLMN ) BIBLEI WILLIAMSON ([id number]) 1955 M Date Time Provider Department 11/12/23 11:00 AM LLOYD DOYLE UROFRANCISCO J During your visit today, we recorded the following information about you: Pulse Blood pressure Weight Height 70/minute 122/85 117.4 kg 1.778 m Lloyd Doyle MD 11/12/2023 2:39 PM Signed HPI: Lei Huntley is a 68 year old male with a history of hypospadias, BPH last seen on 11/27/22 at time of RUG wherein distal penile urethra with pinpoint stricture. Interval history: 2 episodes of epididymoorchitis over the past 8 months and tight meatal stenosis in addition to his prior stricture. He is able to impressively empty reasonably, but we discussed that his narrowing is likely directly related to his epididymoorchitis episodes. 11/06/2023, surgery with Dr. Doyle. 1. First stage urethral reconstruction utilizing bilateral oral mucosa graft from the left and right inner cheek, left inner cheek was 6 x 2.5 cm, right inner cheek was 5.5 x 2 cm. 2. Cystourethroscopy with dilation of membranous urethral stricture and placement of a Díaz catheter. Today, here for scheduled follow up. Accompanied by his spouse. Doing well. Mouth is causing discomfort, but still able to work. Using mouth graft site discomfort for a weight loss regimen. Consuming mostly liquids. Taking in Ensure, soups, sherbert. Has an appetite. Bowel function has returned to baseline. No complaints of pain requiring pain medication beyond tylenol and motrin. Oxycodone once. Able to perform activities of daily living without assistance. Taking levaquin 750 mg as directed. Last dose is 11/14/23. PAST MEDICAL HISTORY Diagnosis Date Snoring 11/05/2023 PAST SURGICAL HISTORY Procedure Laterality Date HERNIA REPAIR HX Social History Tobacco Use Smoking status: Never Smokeless tobacco: Never Substance Use Topics Alcohol use: Never Drug use: Never Current Outpatient Medications on File Prior to Visit Medication Sig acetaminophen (TYLENOL EXTRA STRENGTH) 500 mg tablet Take 2 tablets by mouth every 6 hours as needed for pain. ibuprofen (MOTRIN) 600 mg tablet Take 1 tablet by mouth every 6 hours as needed for pain. Chlorhexidine Gluconate (PERIDEX) 0.12 % solution Use 15 mL as instructed two times a day for 7 days. Rinse around mouth for 30 seconds then expectorate levoFLOXacin (LEVAQUIN) 750 mg tablet Take 1 tablet by mouth once daily for 7 days. trospium (SANCTURA) 20 mg tablet Take 1 tablet by mouth two times a day as needed (bladder spasms). famotidine (PEPCID) 40 mg tablet Take by mouth every 24 hours. amLODIPine (NORVASC) 5 mg tablet Take 5 mg by mouth once daily. aspirin 81 mg cap Take by mouth. atorvastatin (LIPITOR) 10 mg tablet Take by mouth. tamsulosin (FLOMAX) 0.4 mg Take by mouth. diphenhydrAMINE (BENADRYL) 25 mg capsule Take by mouth. carvedilol (COREG) 12.5 mg tablet Take by mouth. voqyqrfq-dcf-yqejozd fumarate (MULTI VITAMIN) 9 mg iron/15 mL liqd Multi Vitamin+ Refill(s) 0 Start Date: 03/30/21 Status: Ordered No current facility-administered medications on file prior to visit. ROS: Constitutional: negative Gastrointestinal: negative PHYSICAL EXAM: BP 122/85 (BP Site: Left Arm, BP Position: Sitting, BP Cuff Size: Large Adult) Pulse 70 Ht 177.8 cm (5' 10 ) Wt 117.4 kg (258 lb 14.9 oz) BMI 37.15 kg/m? GENERAL: Wnl nutrition, no deformities, healthy appearing ABDOMEN: Soft, nontender, nondistended, no masses. GENITOURINARY: MALE EXAM: graft taking nicely DATA/OR LABS TO BE REVIEWED: (Simple=1 data point; Complex= 2 or more) No results found for: PSA Creatinine (mg/dL) Date Value 11/07/2023 0.99 11/05/2023 1.06 No results found for: TESTOST A/P: s/p first stage Uplasty. Will return 2 weeks for díaz dc. Instrx provided Will pick second stage surg date for early may, he wants to go to [facility] for thanksgiving.Lloyd Doyle MD Allergies As of Date: 11/12/2023 Noted Allergy Reaction PENICILLINS 06/04/1956 2 - Rash 7 - Swelling 14 - Other: See Comments [employer]ODU[employer] 11/13/2022 7 - Swelling Date Reviewed: 11/12/2023 Reviewed by: Milvia Lal MA - Fully Assessed Reason for Visit: Post Op [174] Primary Visit Diagnosis:Stricture of anterior 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, unspecified stricture type [N35.914] Prescriptions as of 11/12/2023 - acetaminophen (TYLENOL EXTRA STRENGTH) 500 mg tablet Take 2 tablets by mouth every 6 hours as needed for pain. - ibuprofen (MOTRIN) 600 mg tablet Take 1 tablet by mouth every 6 hours as needed for pain. - Chlorhexidine Gluconate (PERIDEX) 0.12 % solution Use 15 mL as instructed two times a day for 7 days. Rinse around mouth for 30 seconds then expectorate - levoFLOXacin (LEVAQUIN) 750 mg tablet Take 1 tablet by mouth once daily for 7 days. - trospium (SANCTURA) 20 mg tablet Take 1 (more content not included)... Normal [facility] Basic metabolic 2000 panelon 11-07-2023 Anion gap [Moles/Vol] 12 mmol/L Normal 8-15 [facility] Comment on above: Order Comment: Speci men Type: BLOOD SPECIMENOrdering Facility: [facility] Address: [address] [place] [address] Performed By: #### 2 4321-2 ####[facility] LABCLIA [id number] [facility] [id number], [place] [address] [place] Calcium [Mass/Vol] 9.2 mg/dL Normal 8.5-10.2 [facility] Comment on above: Order Comment: Speci men Type: BLOOD SPECIMENOrdering Facility: [facility] Address: [address] [place] [address] Performed By: #### 2 4321-2 ####[facility] LABCLIA [id number] [place] [address] [place] Chloride [Moles/Vol] 104 mmol/L Normal 98-107 [facility] Comment on above: Order Comment: Speci men Type: BLOOD SPECIMENOrdering Facility: [facility] Address: [address] [place] [address] Performed By: #### 2 4321-2 ####[facility] LABCLIA [id number] [place] [address] [place] CO2 [Moles/Vol] 22 mmol/L Normal 22-30 [facility] Comment on above: Order Comment: Speci men Type: BLOOD SPECIMENOrdering Facility: [facility] Address: [address] [place] [address] Performed By: #### 2 4321-2 ####[facility] LABCLIA [id number] [place] [address] [place] Creatinine [Mass/Vol] 0.99 mg/dL Normal 0.73-1.22 [facility] Comment on above: Order Comment: Speci men Type: BLOOD SPECIMENOrdering Facility: [facility] Address: [address] [place] [address] Performed By: #### 2 4321-2 ####[facility] LABCLIA [id number] [place] [address] [place] Creatinine and Glomerular filtration rate.predicted panel (S/P/Bld) 83 mL/min/1.73m??? Normal >=60 [facility] Comment on above: Order Comment: Speci men Type: BLOOD SPECIMENOrdering Facility: [facility] Address: [address] [place] [address] Result Comment: Gabby mated Glomerular Filtration Rate (eGFR) is calculated using the 2020 CKD-EPI creatinine equation. This equation utilizes serum creatinine, sex, and age as parameters. The creatinine assay has traceable calibration to isotope dilution-mass spectrometry. Refer to KDIGO guidelines for clinical interpretation. In patients with unstable renal function, e.g. those with acute kidney injury, the eGFR may not accurately reflect actual GFR. Performed By: #### 2 4321-2 ####[facility] LABCLIA [id number] [place] [address] [place] Glucose [Mass/Vol] 141 mg/dL High 74-99 [facility] Comment on above: Order Comment: Martin durán Type: BLOOD SPECIMENOrdering Facility: [facility] Address: [address] [place] [address] Result Comment: The Stateless Diabetes Association (ADA) provides guidance for cutoff values for fasting glucose and random glucose. The ADA defines fasting as no caloric intake for at least 8 hours. Fasting plasma glucose results between 100 to 125 mg/dL indicate increased risk for diabetes (prediabetes). Fasting plasma glucose results greater than or equal to 126 mg/dL meet the criteria for diagnosis of diabetes. In the absence of unequivocal hyperglycemia, results should be confirmed by repeat testing. In a patient with classic symptoms of hyperglycemia or hyperglycemic crisis, random plasma glucose results greater than or equal to 200 mg/dL meet the criteria for diagnosis of diabetes. Reference: Standards of Medical Care in Diabetes 2016, Stateless Diabetes Association. Diabetes Care. 2016.39(Suppl 1). Performed By: #### 2 4321-2 ####[facility] LABCLIA [id number] [place] [address] [place] Potassium [Moles/Vol] 4.3 mmol/L Normal 3.7-5.1 [facility] Comment on above: Order Comment: Martin men Type: BLOOD SPECIMENOrdering Facility: [facility] Address: [address] [place] [address] Performed By: #### 2 4321-2 ####[facility] LABCLIA [id number] [place] [address] [place] Sodium [Moles/Vol] 138 mmol/L Normal 136-144 [facility] Comment on above: Order Comment: Speci men Type: BLOOD SPECIMENOrdering Facility: [facility] Address: [address] [place] [address] Performed By: #### 2 4321-2 ####[facility] LABCLIA [id number] [place] [address] [place] Urea nitrogen [Mass/Vol] 12 mg/dL Normal 9-24 [facility] Comment on above: Order Comment: Speci men Type: BLOOD SPECIMENOrdering Facility: [facility] Address: [address] [place] [address] Performed By: #### 2 4321-2 ####[facility] LABIA [id number] [place] [address] [place] CBC W Auto Differential pane l (Bld)on 11-07-2023 Basophils (Bld) [#/Vol] 10*3/uL Normal <0.11 [facility] Comment on above: Order Comment: Speci men Type: BLOOD SPECIMENOrdering Facility: [facility] Address: [address] [place] [address] Performed By: #### 5 7021-8 ####[facility] LABCLIA [id number] [place] [address] [place] Basophils/100 WBC (Bld) 0.1 % Normal [facility] Comment on above: Order Comment: Speci men Type: BLOOD SPECIMENOrdering Facility: [facility] Address: [address] [place] [address] Performed By: #### 5 7021-8 ####[facility] LABCLIA [id number] [place] [address] [place] Differential cell count method Nom (Bld) Auto Normal [facility] Comment on above: Order Comment: Speci men Type: BLOOD SPECIMENOrdering Facility: [facility] Address: [address] [place] [address] Performed By: #### 5 7021-8 ####[facility] LABCLIA [id number] [place] [address] [place] Eosinophils (Bld) [#/Vol] 10*3/uL Normal <0.46 [facility] Comment on above: Order Comment: Speci men Type: BLOOD SPECIMENOrdering Facility: [facility] Address: [address] [place] [address] Performed By: #### 5 7021-8 ####[facility] LABCLIA [id number] [place] [address] [place] Eosinophils/100 WBC (Bld) 0.0 % Normal [facility] Comment on above: Order Comment: Speci men Type: BLOOD SPECIMENOrdering Facility: [facility] Address: [address] [place] [address] Performed By: #### 5 7021-8 ####[facility] LABCLIA [id number] [place] [address] [place] Erythrocyte distribution width (RBC) [Ratio] 14.8 % Normal 11.5-15.0 [facility] Comment on above: Order Comment: Speci men Type: BLOOD SPECIMENOrdering Facility: [facility] Address: [address] [place] [address] Performed By: #### 5 7021-8 ####[facility] LABCLIA [id number] [place] [address] [place] Hematocrit (Bld) [Volume fraction] 42.3 % Normal 39.0-51.0 [facility] Comment on above: Order Comment: Speci men Type: BLOOD SPECIMENOrdering Facility: [facility] Address: [address] [place] [address] Performed By: #### 5 7021-8 ####[facility] LABCLIA [id number] [place] [address] [place] Hemoglobin (Bld) [Mass/Vol] 13.6 g/dL Normal 13.0-17.0 [facility] Comment on above: Order Comment: Speci men Type: BLOOD SPECIMENOrdering Facility: [facility] Address: [address] [place] [address] Performed By: #### 5 7021-8 ####[facility] LABCLIA [id number] [place] [address] [place] Immature granulocytes (Bld) [#/Vol] 0.09 10*3/uL Normal <0.10 [facility] Comment on above: Order Comment: Speci men Type: BLOOD SPECIMENOrdering Facility: [facility] Address: [address] [place] [address] Performed By: #### 5 7021-8 ####[facility] LABCLIA [id number] [place] [address] [place] Immature granulocytes/100 WBC (Bld) 0.7 % Normal [facility] Comment on above: Order Comment: Speci men Type: BLOOD SPECIMENOrdering Facility: [facility] Address: [address] [place] [address] Performed By: #### 5 7021-8 ####[facility] LABCLIA [id number] [place] [address] [place] Lymphocytes (Bld) [#/Vol] 0.83 10*3/uL Low 1.00-4.00 [facility] Comment on above: Order Comment: Speci men Type: BLOOD SPECIMENOrdering Facility: [facility] Address: [address] [place] [address] Performed By: #### 5 7021-8 ####[facility] LABCLIA [id number] [place] [address] [place] Lymphocytes/100 WBC (Bld) 6.1 % Normal [facility] Comment on above: Order Comment: Speci men Type: BLOOD SPECIMENOrdering Facility: [facility] Address: [address] [place] [address] Performed By: #### 5 7021-8 ####[facility] [id number] [place] [address] [place] MCH (RBC) [Entitic mass] 27.5 pg Normal 26.0-34.0 [facility] Comment on above: Order Comment: Speci men Type: BLOOD SPECIMENOrdering Facility: [facility] Address: [address] [place] [address] Performed By: #### 5 7021-8 ####[facility] [id number] [place] [address] [place] MCHC (RBC) [Mass/Vol] 32.2 g/dL Normal 30.5-36.0 [facility] Comment on above: Order Comment: Speci men Type: BLOOD SPECIMENOrdering Facility: [facility] Address: [address] [place] [address] Performed By: #### 5 7021-8 ####[facility] [id number] [place] [address] [place] MCV (RBC) [Entitic vol] 85.6 fL Normal 80.0-100.0 [facility] Comment on above: Order Comment: Speci men Type: BLOOD SPECIMENOrdering Facility: [facility] Address: [address] [place] [address] Performed By: #### 5 7021-8 ####[facility] LABROCK[facility] [id number] [place] [address] [place] Monocytes (Bld) [#/Vol] 0.46 10*3/uL Normal <0.87 [facility] Comment on above: Order Comment: Speci men Type: BLOOD SPECIMENOrdering Facility: [facility] Address: [address] [place] [address] Performed By: #### 5 7021-8 ####[facility] LABCLIA [id number] [address] [address] [place] Monocytes/100 WBC (Bld) 3.4 % Normal [facility] Comment on above: Order Comment: Speci men Type: BLOOD SPECIMENOrdering Facility: [facility] Address: [address] [place] [address] Performed By: #### 5 7021-8 ####[facility] LABCLIA [id number] [place] [address] [place] Neutrophils (Bld) [#/Vol] 12.16 10*3/uL High 1.45-7.50 [facility] Comment on above: Order Comment: Speci men Type: BLOOD SPECIMENOrdering Facility: [facility] Address: [address] [place] [address] Performed By: #### 5 7021-8 ####[facility] LABCLIA [id number] [place] [address] [place] Neutrophils/100 WBC (Bld) 89.7 % Normal [facility] Comment on above: Order Comment: Speci men Type: BLOOD SPECIMENOrdering Facility: [facility] Address: [address] [place] [address] Performed By: #### 5 7021-8 ####[facility] LABCLIA [id number] [place] [address] [place] Nucleated RBC (Bld) [#/Vol] 10*3/uL Normal <0.01 [facility] Comment on above: Order Comment: Speci men Type: BLOOD SPECIMENOrdering Facility: [facility] Address: [address] [place] [address] Performed By: #### 5 7021-8 ####[facility] LABCLIA [id number] [place] [id number] [place] Nucleated RBC/100 WBC (Bld) [Ratio] 0.0 /100 WBC Normal [facility] Comment on above: Order Comment: Speci men Type: BLOOD SPECIMENOrdering Facility: [facility] Address: [address] [place] [address] Performed By: #### 5 7021-8 ####[facility] LABIA [id number] [place] [address] [place] Platelet mean volume (Bld) [Entitic vol] 9.0 fL Normal 9.0-12.7 [facility] Comment on above: Order Comment: Speci men Type: BLOOD SPECIMENOrdering Facility: [facility] Address: [address] [place] [address] Performed By: #### 5 7021-8 ####[facility] LABIA [id number] [place] [address] [place] Platelets (Bld) [#/Vol] 179 10*3/uL Normal 150-400 [facility] Comment on above: Order Comment: Speci men Type: BLOOD SPECIMENOrdering Facility: [facility] Address: [address] [place] [address] Performed By: #### 5 7021-8 ####[facility] LABIA [id number] [place] [address] [place] RBC (Bld) [#/Vol] 4.94 10*6/uL Normal 4.20-6.00 [facility] Comment on above: Order Comment: Speci men Type: BLOOD SPECIMENOrdering Facility: [facility] Address: [address] [place] [address] Performed By: #### 5 7021-8 ####[facility] LABIA [id number] [place] [address] [place] WBC (Bld) [#/Vol] 13.56 10*3/uL High 3.70-11.00 [facility] Comment on above: Order Comment: Speci men Type: BLOOD SPECIMENOrdering Facility: [facility] Address: [address] [place], [place] [address] Performed By: #### 5 7021-8 ####[facility] LABCLIA [id number] GAYATHRI [id number] [address] [place] NURSING PROGon 11-07-2023 NURSING PROG HNO ID: [id number] Author: DINORAH PURDY RN Service: Nursing Author Type: Registered Nurse Type: Nursing Progress Note Filed: 11/07/2023 01:26 Note Text: 0126-Paged account resolution specialist Urology re:[id number] Rosario did you want us to notify you for SBP above 160?,pt 's current BP is 161/80,better than most previous readings thanks [id number] Normal [facility] ANES POSTPROC EVALon 024 ANES POSTPROC EVAL HNO ID: [id number] Author: TISH DE LEON MD Service: ? 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 Post Anesthesia Patient Status Patient Evaluation: PACU. PACU/ICU Patient Condition: stable. Anticipated Disposition: inpatient floor planned admission. Neurological Status: aware and responsive. Pulmonary Status: breathing comfortably on supplemental oxygen Airway Control: returned to baseline unsupported. Cardiovascular Status: stable. Pain Management: clinically adequate Postoperative Hydration: acceptable. Intraoperative Events: no significant anesthesia events Post Operative Nausea/Vomiting Status: no significant post operative nausea or vomiting Recommendation: continue current plan of care. Anesthesia Observations No Documentation SIGNATURE: Tish De Leon MD PATIENT NAME: Lei Huntley DATE: November 06, 2023 TIME: 6:53 PM CSN: [id number] Normal [facility] ANES PRE-OPon 11-06-2023 ANES PRE-OP HNO ID: [id number] Author: MAYRA PETERSEN MD Service: ? Author Type: Anesthesiologist Type: Anesthesia Preprocedure Evaluation Filed: 11/06/2023 13:20 Note Text: ANESTHESIOLOGY DAY OF SURGERY NOTE : 1955 Procedure Information Anesthesia Start Date/Time: 11/06/23 1314 Procedure: URETHROPLASTY ANTERIOR 1-STAGE PROCEDURE, ADULT MALE (Urethra) Location: [place] [address] [facility] Surgeons: Lloyd Doyle MD Estimated body mass index is 38.31 kg/m? as calculated from the following: Height as of 11/05/23: 177.8 cm (5' 10 ). Weight as of 11/05/23: 121.1 kg (266 lb 15.6 oz). Most recent hematocrit and potassium results: Hematocrit 44.0 11/05/2023 Potassium 4.2 11/05/2023 Relevant Problems CARDIO (+) Essential (primary) hypertension GI (+) Gastroesophageal reflux disease with esophagitis Cardiovascular (+) Hyperlipidemia type II Other (+) Morbid obesity (HCC) I - PHYSICAL EVALUATION AIRWAY Patient intubated: No. Tracheostomy tube not present Mallampati: I. TM distance: >3 FB. Neck ROM: full ROM without neurological symptoms. Mouth opening: adequate. Short neck: no. Thick neck: no II - ANESTHESIA PLAN ASA Score: 3 Anesthetic Plan: general Airway type: ETT The patient is not a current smoker. NPO Status: adequate Beta Usman Monitoring Plan Monitoring plan: standard ASA. Post Procedure Analgesic Plan Postoperative analgesic plan: multimodal analgesia. Informed Consent Anesthetic risks, benefits, alternatives, personnel and consent discussed: yes. Patient / Responsible Green Party agrees to proceed: yes Patient / Surrogate agrees to blood products: Yes Significant changes in the patient condition since the History and Physical, not otherwise documented in primary service progress note: no. Potential Anesthesia issues that may suggest increased risk of complications or contraindication to planned procedure: none. Vitals Value Taken Time BP 171/90 11/06/23 1214 Pulse 72 11/06/23 1214 Resp 16 11/06/23 1214 Temp 36.9 ?C (98.4 ?F) 11/06/23 1214 SpO2 98 % 11/06/23 1214 Facility-Administered Medications as of 11/06/2023 Medication Dose Route Frequency lidocaine (PF) 10 mg/mL (1 %) 1-2 mg injection (XYLOCAINE) 0.1-0.2 mL INTRADERMAL PRN Or lidocaine 1% 0.25 mL subcutaneous j-tip syringe (XYLOCAINE) 0.25 mL SUBCUTANEOUS PRN lactated ringers iv infusion 5-30 mL/hr INTRAVENOUS CONTINUOUS NaCl 0.9% iv flush bag 20 mL INTRAVENOUS PRN piperacillin-tazobacta m iv piggyback 3.375 g in dextrose (iso-osmotic) 50 mL (ZOSYN) 3.375 g INTRAVENOUS Pre-Op Once [COMPLETED] enoxaparin 40 mg injection (LOVENOX) 40 mg SUBCUTANEOUS Pre-Op Once Outpatient Medications as of 11/06/2023 Medication Sig amLODIPine (NORVASC) 5 mg tablet Take 5 mg by mouth once daily. atorvastatin (LIPITOR) 10 mg tablet Take by mouth. tamsulosin (FLOMAX) 0.4 mg Take by mouth. carvedilol (COREG) 12.5 mg tablet Take by mouth. famotidine (PEPCID) 40 mg tablet Take by mouth every 24 hours. aspirin 81 mg cap Take by mouth. diphenhydrAMINE (BENADRYL) 25 mg capsule Take by mouth. nzapojhh-njg-qcnekqm fumarate (MULTI VITAMIN) 9 mg iron/15 mL liqd Multi Vitamin+ Refill(s) 0 Start Date: 03/30/21 Status: Ordered I have interviewed and examined the patient. I have reviewed the medical record and/or the pre-anesthesia evaluation, pertinent labs, and test results. This contains updated information obtained within 48 hours of Surgery/Procedure. SIGNATURE: Mayra Petersen MD PATIENT NAME: Lei Huntley DATE: November 06, 2023 TIME: 1:19 PM CSN: [id number] [facility] BRIEF OP NOTon 11-06-2023 BRIEF OP NOT HNO ID: [id number] Author: SARA PAULINO MD Service: Urology Author Type: Resident Type: Brief Op Note Filed: 11/06/2023 16:40 Note Text: BRIEF OPERATIVE / PROCEDURE NOTE LOG ID: [id number] SURGERY/PROCEDURE DATE: 11/06/2023 INCISION/PROCEDURE START TIME: 1:52 PM INCISION CLOSE/PROCEDURE END TIME: 4:35 PM SURGEON(S)/PROCEDURALI ST(S) AND DRIVEWAY SEALER(S): Surgeon(s) and Role: * Lloyd Doyle MD - Primary * Sara Paulino MD - Resident - Assisting No Additional Staff SURGERY/PROCEDURE(S): -First stage urethroplasty with buccal mucosa graft -Buccal mucosa graft harvested bilaterally -Cystoscopy -Urethral dilation -Complex díaz catheter placement ANESTHESIA: General FINDINGS: -Subcoronal hypospadias with meatal stenosis and proximal penile urethral stricture with severely narrowed urethral plate -Membranous urethral stricture, dilated from 10 Fr to 18 Fr -16 Fr venetie tip díaz catheter placed over a wire after dilation of membranous urethral stricture -Large capacity bladder ESTIMATED BLOOD LOSS: 20 mls SPECIMENS: None COMPLICATIONS: None DRAINS: 16 Fr díaz CLOSURE TECHNIQUE: Primary PRE-OP/PRE-PROCEDURE DIAGNOSIS: Urethral stricture POST-OP/POST-PROCEDURE DIAGNOSIS: Same as Preop SIGNATURE: Sara Paulino MD PATIENT NAME: Lei Huntley DATE: November 06, 2023 TIME: 4:37 PM Normal [facility] OPERATIVE NOon 11-06-2023 OPERATIVE NO HNO ID: [id number] Author: LLOYD DOYLE MD Service: Urology Author Type: Physician Type: Operative Report Filed: 11/13/2023 15:24 Note Text: [facility] - Operative Report [id number] [address] [place] LEI HUNTLEY : 1955 AGE: 68. SEX: M PATIENT TYPE: OP HOSP SVC: URO LOCATION: [id number] ATTENDING PHYSICIAN: Lloyd Doyle M.D. CSN NUMBER: [id number] DATE OF SURGERY/PROCEDURE: 11/06/2023 INCISION/PROCEDURE START TIME: 1352. INCISION CLOSE/PROCEDURE END TIME: 1535. PREOPERATIVE DIAGNOSIS: Hypospadias with distal penile urethral stricture. POSTOPERATIVE DIAGNOSIS: 1. Hypospadias with distal penile urethral stricture approximately 5.5 cm in length. 2. Nearly obliterated membranous urethral stricture. SURGEON: Lloyd Doyle M.D. DRIVEWAY SEALER: Sara Paulino. SURGERY/PROCEDURE: 1. First stage urethral reconstruction utilizing bilateral oral mucosa graft from the left and right inner cheek, left inner cheek was 6 x 2.5 cm, right inner cheek was 5.5 x 2 cm. 2. Cystourethroscopy with dilation of membranous urethral stricture and placement of a Díaz catheter. ANESTHESIA: General LOCATION: Operating Room #21 [facility] OR. OPERATIVE INDICATIONS: This is a 68-year-old man with a history of a distal penile pinpoint stricture with a history of hypospadias that has never been repaired. He had epididymo orchitis. I saw him approximately 1 year ago and offered him reconstruction. He declined at that time, and then after 2 additional infections, he returned and saw my fellow, who recommended reconstruction. DESCRIPTION OF PROCEDURE: The patient was brought to the operating room. He underwent general anesthesia, was positioned in the supine position and prepped and draped in usual sterile fashion. He had a coronal hypospadias with a pinpoint neomeatus and a very narrowed urethral plate with a flat glans distal to that. I opened up his urethra ventrally all the way down through a nearly obliterated stricture in the mid shaft and down to approximately the proximal one-third of his penile urethra. In this location and opened wide caliber to 24-Burkinan. His neourethral plate was quite thin and so he essentially needed replacement of the entire urethral plate with oral mucosa graft. We split the plate down the middle to divide it to create a space for an inlay approximately 1.5 cm wide and then also mobilized subdartos on to which we could place some graft laterally. We then proceeded with the left inner cheek. I harvested the largest defect harvest on the left side. I did this in the usual fashion, placing the retractor, incising around a rectangular 6 x 2.5 cm area infiltrated with lidocaine and epinephrine and then elevated the graft off the underlying buccinator muscle. I closed that graft primarily with 3-0 chromic. We thinned the graft and then I brought it up to the table and I placed it down in the inlay area, sutured in with 4-0 and 5-0 chromic, and then I took an additional piece and did it laterally and secured that in place. It was apparent that we would not have enough width on the plate to reach 3 cm and therefore I made a decision to take a contralateral graft. Importantly, at that time, I performed cystourethroscopy and matured his penile urethrostomy with 4-0 Vicryl. As we performed cystourethroscopy, his penile and bulbar urethra appeared normal. In his distal membranous urethra, there was a web-like near obliteration with just a few pinholes. I was able to pass a wire through the true lumen and then dilate up with judge.me urethral dilators. We scope passed this. His prostatic urethra appeared totally normal and the stricture of the membranous urethra was very thin, but it was very web-like. After we placed the Díaz catheter, we went to the right inner cheek. We placed the retractor and tongue blade and we harvested another piece of graft 5.5 x 2 cm. We did in the same exact fashion for the contralateral graft. I closed the defect up in the mouth. We then brought that piece of graft down and we sutured it into the remaining portion of our first-stage graft bed with 4-0 and 5-0 chromic. Once we were done with that, I took some 3-[address] around from the skin and mucosal edge around the periphery of the near urethral plate. I fashioned a bolster with mineral soaked cotton gauze over the Vaseline gauze. I placed it down and tied down the sutures that I placed over the bolster. At the conclusion of the case, the patient was awakened, extubated, and brought to PACU in fine condition. Please note, I was scrubbed for the entire duration assisted by the resident. ESTIMATED BLOOD LOSS: Total blood loss was estimated at 20 mL. SPECIMENS: None. INCIDENTAL PUNCTURES OR LACERATIONS: None. Lloyd Doyle M.D. RUDDY:[id number] /[id number] : (more content not included)... Normal [facility] Bacteria Ur Culton 4 Bacteria identified Cx Nom (U) ORGANISM ID: 1 10,000 -<50,000 CFU/ml Mixed microbiota No further workup. Mixed microbiota can be due to???urine???contamina tion with skin bacteria at time of collection or presence of a long-term urinary catheter. If a new culture is needed, please consider re-education of the patient on proper midstream collection technique or straight catheterization for???urine???collecti on. Normal [facility] Comment on above: Performed By: #### 6 30-4 ####[facility] LABCL[facility] [id number] [place] [address] [place] CBC panel Auto (Bld)on 11-04 Erythrocyte distribution width (RBC) [Ratio] 15.1 % High 11.5-15.0 [facility] Comment on above: Order Comment: Speci men Type: BLOOD SPECIMENOrdering Facility: [facility] Address: [address] [place] [address] Performed By: #### 5 8410-2 ####[facility] LABIA [id number] [place] [address] [place] Hematocrit (Bld) [Volume fraction] 44.0 % Normal 39.0-51.0 [facility] Comment on above: Order Comment: Speci men Type: BLOOD SPECIMENOrdering Facility: [facility] Address: [address] [place] [address] Performed By: #### 5 8410-2 ####[facility]IA [id number] [place] [address] [place] Hemoglobin (Bld) [Mass/Vol] 13.5 g/dL Normal 13.0-17.0 [facility] Comment on above: Order Comment: Speci men Type: BLOOD SPECIMENOrdering Facility: [facility] Address: [address] [place] [address] Performed By: #### 5 8410-2 ####[facility]IA [id number] [place] [address] [place] MCH (RBC) [Entitic mass] 27.3 pg Normal 26.0-34.0 [facility] Comment on above: Order Comment: Speci men Type: BLOOD SPECIMENOrdering Facility: [facility] Address: [address] [place] [address] Performed By: #### 5 8410-2 ####[facility] [id number] [place] [address] [place] MCHC (RBC) [Mass/Vol] 30.7 g/dL Normal 30.5-36.0 [facility] Comment on above: Order Comment: Speci men Type: BLOOD SPECIMENOrdering Facility: [facility] Address: [address] [place] [address] Performed By: #### 5 8410-2 ####[facility] [id number] [place] [address] [place] MCV (RBC) [Entitic vol] 89.1 fL Normal 80.0-100.0 [facility] Comment on above: Order Comment: Speci men Type: BLOOD SPECIMENOrdering Facility: [facility] Address: [address] [place] [address] Performed By: #### 5 8410-2 ####[facility]IA [id number] [place] [address] [place] Nucleated RBC (Bld) [#/Vol] 10*3/uL Normal <0.01 [facility] Comment on above: Order Comment: Speci men Type: BLOOD SPECIMENOrdering Facility: [facility] Address: [address] [place] [address] Performed By: #### 5 8410-2 ####[facility] [id number] [place] [address] [place] Platelet mean volume (Bld) [Entitic vol] 9.5 fL Normal 9.0-12.7 [facility] Comment on above: Order Comment: Speci men Type: BLOOD SPECIMENOrdering Facility: [facility] Address: [address] [place] [address] Performed By: #### 5 8410-2 ####[facility] [id number] [place] [address] [place] Platelets (Bld) [#/Vol] 217 10*3/uL Normal 150-400 [facility] Comment on above: Order Comment: Speci men Type: BLOOD SPECIMENOrdering Facility: [facility] Address: [address] [place] [address] Performed By: #### 5 8410-2 ####[facility]IA [id number] [place] [address] [place] RBC (Bld) [#/Vol] 4.94 10*6/uL Normal 4.20-6.00 [facility] Comment on above: Order Comment: Speci men Type: BLOOD SPECIMENOrdering Facility: [facility] Address: [address] [place] [address] Performed By: #### 5 8410-2 ####[facility]IA [id number] [place] [address] [place] WBC (Bld) [#/Vol] 10.04 10*3/uL Normal 3.70-11.00 [facility] Comment on above: Order Comment: Speci men Type: BLOOD SPECIMENOrdering Facility: [facility] Address: [address] [place] [address] Performed By: #### 5 8410-2 ####[facility]IA [id number] [place] [address] [place] CNOVon 11-05-2023 CNOV Office Visit (UROLMN ) LEI HUNTLEY ([id number]) 1955 M Date Time Provider Department 11/05/23 11:00 AM LLOYD DOYLE During your visit today, we recorded the following information about you: Pulse Blood pressure Weight 58/minute 160/84 120 kg Lloyd Doyle MD 11/05/2023 1:23 PM Signed HPI: Lei Huntley is a 68 year old male with a history of hypospadias, BPH last seen on 11/27/22 at time of RUG wherein distal penile urethra with pinpoint stricture who returns today for reevaluation given recent scrotal problems. Interval history: Since last evaluation notes has had two [...] few hours, nocturia x 3-4, no leak. Today, here for pre op visit for 11/[address] Doyle. Accompanied by his spouse. Had urine culture testing 2 weeks ago at [facility]. >100,000 escherichia coli. 750 mg levaquin given. Discussed start time of approximately 2:00 pm in the afternoon. Will eat something light for lunch and then clears the rest of the day. No past medical history on file. No past surgical history on file. Social History Tobacco Use Smoking status: Never Smokeless tobacco: Never Current Outpatient Medications on File Prior to Visit Medication Sig famotidine (PEPCID) 40 mg tablet Take by mouth every 24 hours. amLODIPine (NORVASC) 5 mg tablet Take 5 mg by mouth once daily. aspirin 81 mg cap Take by mouth. atorvastatin (LIPITOR) 10 mg tablet Take by mouth. tamsulosin (FLOMAX) 0.4 mg Take by mouth. diphenhydrAMINE (BENADRYL) 25 mg capsule Take by mouth. carvedilol (COREG) 12.5 mg tablet Take by mouth. icoxsrrm-vjl-zrwdbny fumarate (MULTI VITAMIN) 9 mg iron/15 mL liqd Multi Vitamin+ Refill(s) 0 Start Date: 03/30/21 Status: Ordered No current facility-administered medications on file prior to visit. ROS: Constitutional: negative Gastrointestinal: negative PHYSICAL EXAM: BP 160/84 (BP Site: Left Arm, BP Position: Sitting, BP Cuff Size: Regular Adult) Pulse (!) 58 Wt 120 kg (264 lb 8.8 oz) BMI 37.96 kg/m? GENERAL: Wnl nutrition, no deformities, healthy appearing ABDOMEN: Soft, nontender, nondistended, no masses. GENITOURINARY: MALE EXAM: pinpoint coronal hypo w decent sized glans but very flat DATA/OR LABS TO BE REVIEWED: (Simple=1 data point; Complex= 2 or more) No results found for: PSA No results found for: CREAT No results found for: TESTOST A/P: Discussed first stage Uplasty tmw. RBAs and periop expectations discussed. He is agreeable and prefers over penile urethrostomy MD Dangelo Valdes [place], [place] 11/05/2023 11:41 AM Signed Post Void Residual done on patient with 0 cc residual volume remaining. notified. Claribel Livingston MA Allergies As of Date: 11/05/2023 Noted Allergy Reaction PENICILLINS 06/04/1956 2 - Rash 7 - Swelling 14 - Other: See Comments SHELLFISH CONTAINING PRODUCTS 11/13/2022 7 - Swelling Date Reviewed: 11/05/2023 Reviewed by: Rukhsana Epperson APRN.CITY ADMINISTRATOR - Fully Assessed Reason for Visit: Pre-Op Exam [87] Primary Visit Diagnosis:Penile hypospadias [Q54.1] Other Visit Diagnosis:Morbid obesity (HCC) [E66.01] Prescriptions as of 11/05/2023 - famotidine (PEPCID) 40 mg tablet Take by mouth every 24 hours. - amLODIPine (NORVASC) 5 mg tablet Take 5 mg by mouth once daily. - aspirin 81 mg cap Take by mouth. - atorvastatin (LIPITOR) 10 mg tablet Take by mouth. - tamsulosin (FLOMAX) 0.4 mg Take by mouth. - diphenhydrAMINE (BENADRYL) 25 mg capsule Take by mouth. - carvedilol (COREG) 12.5 mg tablet Take by mouth. - wcdmpdwa-jfl-yvciwpt fumarate (MULTI VITAMIN) 9 mg iron/15 mL liqd Multi Vitamin+ Refill(s) 0 Start Date: 03/30/21 Status: Ordered Problem List As Of Date 11/05/2023 Noted Resolved Morbid obesity (HCC) [E66.01] 11/13/2022 BPH with urinary obstruction [N40.1, N13.8] 11/05/2023 Essential (primary) hypertension [I10] 11/05/2023 Hyperlipidemia type II [E78.01] 11/05/2023 Gastroesophageal reflux disease with esophagiti*11/05/2023 Snoring [R06.83] 11/05/2023 Visit Notes: >> Claribel Livingston MA Mon Nov 05, 2023 11:41 AM Status: Signed Post Void Residual done on patient with 0 cc residual volume remaining. MD notified. Claribel Livingston MA Encounter Status:Closed by LLOYD DOYLE on 11/05/23 Normal [facility] Comprehensive metabolic 2000 panelon 11-05-2023 Albumin [Mass/Vol] 3.9 g/dL Normal 3.9-4.9 [facility] Comment on above: Order Comment: Speci men Type: BLOOD SPECIMENOrdering Facility: [facility] Address: [address] [place] [address] Performed By: #### 2 4323-8 ####[facility]CL[facility] [id number] [place] [address] [place] ALP [Catalytic activity/Vol] 121 U/L High 38-113 [facility] Comment on above: Order Comment: Speci men Type: BLOOD SPECIMENOrdering Facility: [facility] Address: [address] [place] [address] Performed By: #### 2 4323-8 ####[facility]IA [id number] [place] [address] [place] ALT [Catalytic activity/Vol] 27 U/L Normal 10-54 [facility] Comment on above: Order Comment: Speci men Type: BLOOD SPECIMENOrdering Facility: [facility] Address: [address] [place] [address] Performed By: #### 2 4323-8 ####[facility] LABCL[facility] [id number] [address] [address] [place] Anion gap [Moles/Vol] 12 mmol/L Normal 9-18 [facility] Comment on above: Order Comment: Speci men Type: BLOOD SPECIMENOrdering Facility: [facility] Address: [address] [place] [address] Performed By: #### 2 4323-8 ####[facility]CL[facility] [id number] [place] [address] [place] AST [Catalytic activity/Vol] 23 U/L Normal 14-40 [facility] Comment on above: Order Comment: Speci men Type: BLOOD SPECIMENOrdering Facility: [facility] Address: [address] [place] [address] Performed By: #### 2 4323-8 ####[facility]CL[facility] [id number] [place] [address] [place] Bilirubin [Mass/Vol] 0.4 mg/dL Normal 0.2-1.3 [facility] Comment on above: Order Comment: Speci men Type: BLOOD SPECIMENOrdering Facility: [facility] Address: [address] [place] [address] Performed By: #### 2 4323-8 ####[facility]CL[facility] [id number] [place] [address] [place] Calcium [Mass/Vol] 9.4 mg/dL Normal 8.5-10.2 [facility] Comment on above: Order Comment: Speci men Type: BLOOD SPECIMENOrdering Facility: [facility] Address: [address] [place] [address] Performed By: #### 2 4323-8 ####[facility]CL[facility] [id number] [place] [address] [place] Chloride [Moles/Vol] 106 mmol/L High 97-105 [facility] Comment on above: Order Comment: Speci men Type: BLOOD SPECIMENOrdering Facility: [facility] Address: [address] [place] [address] Performed By: #### 2 4323-8 ####[facility]CL[facility] [id number] [place] [address] [place] CO2 [Moles/Vol] 26 mmol/L Normal 22-30 [facility] Comment on above: Order Comment: Speci men Type: BLOOD SPECIMENOrdering Facility: [facility] Address: [address] [place] [address] Performed By: #### 2 4323-8 ####[facility]CL[facility] [id number] [place] [address] [place] Creatinine [Mass/Vol] 1.06 mg/dL Normal 0.73-1.22 [facility] Comment on above: Order Comment: Speci men Type: BLOOD SPECIMENOrdering Facility: [facility] Address: [address] [place] [address] Performed By: #### 2 4323-8 ####[facility]IA [id number] [place] [address] [place] Creatinine and Glomerular filtration rate.predicted panel (S/P/Bld) 77 mL/min/1.73m??? Normal >=60 [facility] Comment on above: Order Comment: Speci men Type: BLOOD SPECIMENOrdering Facility: [facility] Address: [address] [place] [address] Result Comment: Gabby mated Glomerular Filtration Rate (eGFR) is calculated using the 2020 CKD-EPI creatinine equation. This equation utilizes serum creatinine, sex, and age as parameters. The creatinine assay has traceable calibration to isotope dilution-mass spectrometry. Refer to KDIGO guidelines for clinical interpretation. In patients with unstable renal function, e.g. those with acute kidney injury, the eGFR may not accurately reflect actual GFR. Performed By: #### 2 4323-8 ####[facility]IA [id number] [place] [address] [place] Glucose [Mass/Vol] 95 mg/dL Normal 74-99 [facility] Comment on above: Order Comment: Martin durán Type: BLOOD SPECIMENOrdering Facility: [facility] Address: [address] [place] [address] Result Comment: The Stateless Diabetes Association (ADA) provides guidance for cutoff values for fasting glucose and random glucose. The ADA defines fasting as no caloric intake for at least 8 hours. Fasting plasma glucose results between 100 to 125 mg/dL indicate increased risk for diabetes (prediabetes). Fasting plasma glucose results greater than or equal to 126 mg/dL meet the criteria for diagnosis of diabetes. In the absence of unequivocal hyperglycemia, results should be confirmed by repeat testing. In a patient with classic symptoms of hyperglycemia or hyperglycemic crisis, random plasma glucose results greater than or equal to 200 mg/dL meet the criteria for diagnosis of diabetes. Reference: Standards of Medical Care in Diabetes 2016, Stateless Diabetes Association. Diabetes Care. 2016.39(Suppl 1). Performed By: #### 2 4323-8 ####[facility] LABIA [id number] [place] [address] [place] Potassium [Moles/Vol] 4.2 mmol/L Normal 3.7-5.1 [facility] Comment on above: Order Comment: Martin durán Type: BLOOD SPECIMENOrdering Facility: [facility] Address: [address] [place] [address] Performed By: #### 2 4323-8 ####[facility]IA [id number] [place] [address] [place] Protein [Mass/Vol] 6.6 g/dL Normal 6.3-8.0 [facility] Comment on above: Order Comment: Martin durán Type: BLOOD SPECIMENOrdering Facility: [facility] Address: [address] [id number] Performed By: #### 2 4323-8 ####[facility] LABCLIA [id number] [place] [id number] [place] Sodium [Moles/Vol] 144 mmol/L Normal 136-144 [facility] Comment on above: Order Comment: Speci men Type: BLOOD SPECIMENOrdering Facility: [facility] Address: [address] [place] [address] Performed By: #### 2 4323-8 ####[facility] LABCLIA [id number] [place] [address] [place] Urea nitrogen [Mass/Vol] 13 mg/dL Normal 9-24 [facility] Comment on above: Order Comment: Speci men Type: BLOOD SPECIMENOrdering Facility: [facility] Address: [address] [place] [address] Performed By: #### 2 4323-8 ####[facility] [id number] [place] [address] [place] HISTORY PHYSICALon HISTORY PHYSICAL HNO ID: [id number] Author: RUKHSANA EPPERSON APRN.CITY ADMINISTRATOR Service: ? Author Type: Nurse Practitioner Type: H&P Filed: 11/05/2023 12:58 Note Text: HISTORY AND PHYSICAL EXAMINATION SERVICE DATE: 11/05/2023 SERVICE TIME: 12:58 PM PRIMARY CARE PHYSICIAN: Mike Lepe DO Assessment Patient has the following medical conditions which may affect sugey-operative course: Gastroesophageal reflux disease with esophagitis Managed with diet States stable and controlled Hyperlipidemia type II Managed with atorvastatin (LIPITOR) Essential (primary) hypertension Managed with carvedilol (COREG) and amLODIPine (NORVASC) BP this visit 139/84 Denies SOB, dizziness, lightheadedness, palpitations, syncope and chest pain Morbid obesity (HCC) Body mass index is 38.31 kg/m?. Snoring BANG score 7 Instructed to follow up PCP for further evaluation Avery Activity Status Index: METS: Walk indoors, such as around the house (1.75 METs) Do light work around the house, such as dusting or washing dishes (2.70 METs) Take care of self; that is eating, dressing, bathing, using the toilet (2.75 METs) Walk a block or two on level ground (2.75 METs) Do moderate work around the house, such as vacuuming, sweeping floors, or carrying in groceries (3.50 METs) Climb a flight of stairs or walk up a hill (5.50 METs) Do heavy work around the house, such as scrubbing floors, lifting or moving heavy furniture (8.00 METs) DASI Score: 26.95 Patient denies any chest pain or undue shortness of breath with the above physical activity. Clinical Frailty Scale: 3. Well, with treated comorbid disease STOP-Bang Score: Snores loudly Often feels tired, fatigued, or sleepy during the daytime Has or is being treated for high blood pressure BMI greater than 35 kg/m2 Patient over 50 years old Has a large neck Male patient Has not been observed to stop breathing or choking/gasping during sleep STOP-Bang Score: 7 [id number] Score: Age: 65-74 Sex: male Hypertension history: Yes [id number] Score: ARISCAT Score: Age: 51-80 Preoperative SpO2: >=96% Preoperative anemia: Yes Duration of surgery: >3 hrs Emergency procedure: No ARISCAT Score: ANESTHESIA FINDINGS: Intubation History: No abnormal airway history Significant Anesthesia Considerations: none Airway History: No abnormal airway history I - PHYSICAL EVALUATION AIRWAY Patient intubated: No. Mallampati: I. TM distance: >3 FB. Neck ROM: full ROM without neurological symptoms. Mouth opening: adequate. Short neck: no. Thick neck: no Staples present: no Lip Bite Test: I DENTAL Dental findings: teeth intact. II - ANESTHESIA PLAN Anesthetic Plan: other Anesthetic plan additional comments: *PACC/TCI - anesthesia choice. Beta Usman Monitoring Plan Post Procedure Analgesic Plan Prepared for Surgery: optimally prepared for surgery, pending [see comment]. DOS review Labs (ordered by surgery) and DOS exam Patient seen in PACC day before surgery CONSULTS: Patient does not require consults for optimization at this time Planned Anesthetic: other anesthesia choice The Following Tests/Procedures Have Been Initiated: No orders of the defined types were placed in this encounter. REASON FOR VISIT: Lei Huntley is a 68 year old male who is scheduled for Procedure(s): URETHROPLASTY ANTERIOR 1-STAGE PROCEDURE, ADULT MALE (N/A) at the request of Lloyd Jauregui MD for consultation. My final recommendation will be communicated back to the requesting physician by way of shared medical record or letter. Subjective The patient has the following: ACTIVE PROBLEM LIST Morbid Obesity (Hcc) Bph With Urinary Obstruction Essential (Primary) Hypertension Hyperlipidemia Type II Gastroesophageal Reflux Disease With Esophagitis Snoring COVID-19 Immunization Status Overdue - Covid-19 Vaccine ( season) Never done No completion, postpone, frequency change, or communication history exists for this topic. Patient reports being not vaccinated against COVID-19. Patient reports a prior COVID-19 infection CHIEF COMPLAINT: Pre-Op Visit HPI: 68 year old male who has 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 stricture seen for PACC. Patient was seen for PACC the day before scheduled procedure. He endorses having urinary frequency urgency, nocturia and stricture. He has a distal penile urethra stricture. History of hypospadias and BPH. Scheduled for URETHROPLASTY ANTERIOR 1-STAGE PROCEDURE, ADULT MALE on 11/06/23. Denies any fever, chills, nausea, vomiting, SOB, dizziness, lightheadedness, palpitations, syncope, chest pain or abdominal pain. He has elected to proceed with the surgical procedure. REVIEW OF SYSTEMS: General: No weight loss, malaise or fevers. 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 No neurological symptoms or problems. Negati (more content not included)... Normal [facility] ([id number]) 1955 M Date Time Provider Department 10/18/23 DELMY RAMOS UROFRANCISCO J During your visit today, we recorded the following information about you: Delmy Ramos RN 10/18/2023 2:34 PM Signed Called Lei Benitez regarding need for urine culture locally on or about 10/22. Asked him to provide name and phone number of lab and reach out to the office with that information so I can send an order. Number provided. - Patient does not use mychart Delmy Ramos RN Allergies As of Date: 10/18/2023 Noted Allergy Reaction SHELLFISH CONTAINING PRODUCTS 11/13/2022 7 - Swelling Date Reviewed: 10/12/2023 Reviewed by: Bari Donovan OCCA - Fully Assessed Reason for Visit: Organ Teacher - Other [3602] Orders [681] Prescriptions as of 10/18/2023 - amLODIPine (NORVASC) 5 mg tablet Take 5 mg by mouth once daily. - aspirin 81 mg cap Take by mouth. - atorvastatin (LIPITOR) 10 mg tablet Take by mouth. - tamsulosin (FLOMAX) 0.4 mg Take by mouth. - diphenhydrAMINE (BENADRYL) 25 mg capsule Take by mouth. - carvedilol (COREG) 12.5 mg tablet Take by mouth. - akoczewn-blb-ziirvgk fumarate (MULTI VITAMIN) 9 mg iron/15 mL liqd Multi Vitamin+ Refill(s) 0 Start Date: 03/30/21 Status: Ordered Problem List As Of Date 10/18/2023 Noted Resolved Morbid obesity (HCC) [E66.01] 11/13/2022 11/27/2022 Encounter Status:Closed by DELMY RAM[facility] on 10/18/23 [facility] ([id number]) 1955 M Date Time Provider Department 10/18/23 LLOYD DOYLE GLQ During your visit today, we recorded the following information about you: [facility] Service Caity Anna 10/18/2023 5:00 PM Signed Faxed pre op urine culture order to [facility] at [phone]. Allergies As of Date: 10/18/2023 Noted Allergy Reaction SHELLFISH CONTAINING PRODUCTS 11/13/2022 7 - Swelling Date Reviewed: 10/12/2023 Reviewed by: Bari Donovan OCCA - Fully Assessed Prescriptions as of 10/18/2023 - amLODIPine (NORVASC) 5 mg tablet Take 5 mg by mouth once daily. - aspirin 81 mg cap Take by mouth. - atorvastatin (LIPITOR) 10 mg tablet Take by mouth. - tamsulosin (FLOMAX) 0.4 mg Take by mouth. - diphenhydrAMINE (BENADRYL) 25 mg capsule Take by mouth. - carvedilol (COREG) 12.5 mg tablet Take by mouth. - bohlkicu-hak-kjffsuc fumarate (MULTI VITAMIN) 9 mg iron/15 mL liqd Multi Vitamin+ Refill(s) 0 Start Date: 03/30/21 Status: Ordered Problem List As Of Date 10/18/2023 Noted Resolved Morbid obesity (HCC) [E66.01] 11/13/2022 11/27/2022 Encounter Status:[facility] CAITY ANNA on 10/18/23 [facility] CNOVon 10-12-2023 CNOV Office Visit (UROLMN ) LEI HUNTLEY ([id number]) 1955 M Date Time Provider Department 10/12/23 3:15 PM SYD LIVINGSTON During your visit today, we recorded the following information about you: Pulse Blood pressure Weight Height 60/minute 143/83 118.4 kg 1.778 m Syd Livingston MD 10/12/2023 4:10 PM Signed HPI Lei Huntley is a 68 year old male [...] his recently completed a half marathon in [facility] which completes their goal of having performed [...] 12.5 mg tablet Take by mouth. - nytdmuct-zyu-msidntf fumarate (MULTI VITAMIN) 9 mg iron/15 mL liqd Multi Vitamin+ Refill(s) 0 Start Date: 03/30/21 Status: Ordered Problem List As Of Date 10/12/2023 Noted Resolved Morbid obesity (HCC) [E66.01] 11/13/2022 11/27/2022 Encounter Status:Closed by SYD LIVINGSTON on 10/12/23 Normal [facility] Provider Letteron 02-20-2023 Provider Letter February 20, 2023 LEI HUNTLEY [address] [place] [address] [place] [address] : 1955 Dear Mr. Huntley, We have been trying to reach you with no success regarding a referral we received from Dr Lepe. It is important that you return our call upon receiving this letter so that we can get your consultation scheduled. Also, at the time of your call, please provide us with your current demographic and insurance information. Thank you for your prompt attention to this matter. Sincerely, [facility] General Surgery [phone] [facility] Operative Reporton 3 Operative Report [id number] CD:127 Normal [facility] Physician Referralon 023 Physician Referral [id number] CD:127 Mahnaz Gomez [facility] CNOVon 11-27-2022 CNOV Office Visit (UROSMN ) TORILEI FERNANDEZ ([id number]) 1955 M Date Time Provider Department 11/27/22 3:00 PM LLOYD DOYEL UROTahir During your visit today, we recorded the following information about you: Dionisio Reardon RN 11/27/2022 3:55 PM Signed Actual procedure/procedure scheduled: Yes Performing provider/scheduled provider: Yes Patient was roomed in: Q9- 14 Turbinated Bone Grinder offered:Patient declines Patient arrived in the room [...] Contrast amount used: 25cc omnipaque Dionisio Reardon 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 - jgyqnrmh-scz-akoscyn fumarate (MULTI VITAMIN) 9 mg iron/15 mL liqd Multi Vitamin+ Refill(s) 0 Start Date: 03/30/21 Status: Ordered Problem List As Of Date 11/27/2022 Noted Resolved Morbid obesity (HCC) [E66.01] 11/13/2022 11/27/2022 Visit Notes: (more content not included)... Normal [facility] Consultation Noteon 11-27-19 Consultation Note [id number] CD:127 Normal [facility] Consultation Note [id number] 0CD:127 Normal [facility] URINALYSIS, REFLEX MICROSCOP ICon 11-13-2022 Bilirubin Ql (U) Negative Negative [facility] Clarity (Unsp spec) Clear Clear [facility] Color (U) Yellow Yellow [facility] Epithelial cells LM.HPF (Urine sed) [#/Area] Few [facility] Glucose Test strip (U) [Mass/Vol] Negative Trace, Negative [facility] Hemoglobin Ql (U) Negative Negative, Trace [facility] Ketones Ql (U) Negative Negative, Trace [facility] Leukocyte esterase Test strip Ql (U) 500 Heather/uL Abnormal Negative, 25 Heather/uL [facility] Nitrite Ql (U) Negative Negative [facility] pH (U) 5.5 [pH] 5.0 - 8.0 [facility] Protein (U) [Mass/Vol] Negative Trace, Negative [facility] RBC LM.HPF (Urine sed) [#/Area] 0-3 /HPF 0-3 /HPF [facility] Specific gravity (U) [Rel density] 1.022 1.005 - 1.030 [facility] Urobilinogen Ql (U) Negative Negative [facility] WBC LM.HPF (Urine sed) [#/Area] 11-25 /HPF Abnormal 0-5 /HPF [facility] Lab Reportson 09-20-2022 Lab Reports [id number] 0CD:127 Normal [facility] Patient Educationon 09-21-19 Patient Education Infectious Disease [...] these instructions at home: Medicines ? Take ihfm-qno-pbnleda and prescription medicines only as told by [...] Where to find more information ? National [place] of Diabetes and Digestive and Kidney Diseases: (more content not included)... Normal [facility] Urology Office/Clinic Noteon 09-20-2022 Urology Office/Clinic Note Chief Complaint Pt is here for 8 month w/ PSA HPI Staff Lei is a 67 y.o. male here for [...] 03/30/21 showed 54% chance finding cancer, 26% Laurel 7 or higher ( of note, JAYNE was noted as suspicious on order, but his JAYNE was NOT suspicious) PSA 09/13/2022 - 5.7 and 31.2% 07/13/21 was 5.2 and 22.7% Free 02/14/21 - 5.3 and free 23% (after 3 weeks of ABX course) 01/17/21 - 7.24 MRI prostate w/wo contrast done on 07/25/21 at [facility] impression showed no MRI evidence of prostate [...] URO In 3 months 12/20/2022 EDT [address], [place] [address]- [phone] Additional Instructions: Patient Education Prostatitis I, Desiree Loius , personally scribed for Dr. Leiva on [...] (more content not included)... Normal [facility] Comment on above: Result Comment: Elec tronically Signed By: Cinthia Leiva MD\.br\Date and Time Signed: 09/20/22 10:40 EDT\.br\Electronically Co-Signed By: Desiree Louis MA\.br\Date and Time Co-Signed: 09/20/22 10:34 EDT PSA, FREE AND TOTAL RATIOon 09-14-2022 % Free PSA 31.2 % Normal [facility] Comment on above: Result Comment: [...] By: #### P SAFREE #### [facility] [address] [place] [address] Dr. Dov Dunlap Prostate specific Ag [Mass/Vol] 5.7 ng/mL Critically high 0.0-4.0 [facility] Comment on above: Result Comment: Roch alexandre ECLIA methodology. . According to the [employer], Serum PSA should decrease and [...] By: #### P SAFREE #### [facility] [address] [place] [address] [address] Dov Dunlap PSA, Free 1.78 ng/mL Normal N/A [facility] Comment on above: Result Comment: Roch e ECLIA methodology. Performed By: #### P SAFREE #### [facility] [address] [place] [address] Dr. Dov Dunlap Provider Letteron 07-17-2022 Provider Letter July 17, 2022 LEI HUNTLEY [address] [place] [address] [place] [address] LEI HUNTLEY 1955 Dear Mr. Huntley, We have [...] prompt attention to this matter. Please call [phone] to reschedule. Sincerely, [facility] [address], [place] [address] [facility] XR lumbar spine 6V w bending on 03-10-2022 XR lumbar spine 6V w bending [facility] [place] [address] [place], [place] [address] XRay Report Signed Patient: Lei Huntley MR#: [id number] : 1955 Acct:[id number] Age/Sex: 66 / M ADM Date: 03/10/22 Loc: XD Room: Type: [facility] Attending Dr: Renato Page MD Copies to: [...] Zeke Hunt M.D.03/10/2022 6:39 PM Dictation Location: [place] [address] Transcribed By: [facility] 03/10/22 4083 Dictated By: Zeke Hunt II, MD 03/10/221835 Signed By: 03/10/221838 [facility] MRI LSKAREN WO CONon 02-10-20 MRI LSKAREN WO CON EXAMINATION: MRI LSKAREN WO CON HISTORY: Low back pain COMPARISON: [...] Date: 2022-02-09 06:49 Normal [facility] CBC AUTO DIFFon 01-25-2022 BASO # 0.0 103/ul Normal 0.0-0.1 [facility] Comment on above: Performed By: #### C BC #### [facility] [address] [address] [address] Dov Dunlap Basophils/100 WBC (Bld) 0.1 % Critically low 0.2-2.0 [facility] Comment on above: Performed By: #### C BC #### [facility] [address] [place] [address] Dr. Dov Dunlap EO # 0.0 103/ul Normal 0.0-0.7 [facility] Comment on above: Performed By: #### C BC #### [facility] [address] [place] [address] Dr. Dov Dunlap Eosinophils/100 WBC (Bld) 0.1 % Critically low 0.9-7.0 [facility] Comment on above: Performed By: #### C BC #### [facility] [address] [place] [address] Dr. Dov Dunlap Erythrocyte distribution width (RBC) [Ratio] 14.6 % Normal 11.0-15.0 [facility] Comment on above: Performed By: #### C BC #### [facility] [address] [place] [address] Dr. Dov Dunlap Hematocrit (Bld) [Volume fraction] 42.5 % Normal 42.0-54.0 [facility] Comment on above: Performed By: #### C BC #### [facility] [address] [place] [address] Dr. Dov Dunlap Hemoglobin (Bld) [Mass/Vol] 13.6 g/dL Critically low 14.0-18.0 [facility] Comment on above: Performed By: #### C BC #### [facility] [address] [place] [address] Dr. Dov Dunlap IG # 0.07 10e3/ul Critically high 0.00-0.03 [facility] Comment on above: Performed By: #### C BC #### [facility] [address] [place] [address] Dr. Dov Dunlap IG % 0.5 % Normal 0.0-0.5 [facility] Comment on above: Performed By: #### C BC #### [facility] [address] [place] [address] Dr. Dov Dunlap LYMPH # 1.9 103/ul Normal 1.2-3.8 [facility] Comment on above: Performed By: #### C BC #### [facility] [address] [address] [address] Dov Dunlap Lymphocytes/100 WBC (Bld) 13.1 % Critically low 20.5-60.0 [facility] Comment on above: Performed By: #### C BC #### [facility] [address] [address] [address] Dov Dunlap MANUAL DIFF REQ NO Normal [facility] Comment on above: Performed By: #### C BC #### [facility] [address] [address] [address] Dov Dunlap MCH (RBC) [Entitic mass] 27.9 pg Normal 25.9-34.0 [facility] Comment on above: Performed By: #### C BC #### [facility] [address] [place] [address] Dr. Dov Dunlap MCHC (RBC) [Mass/Vol] 32.0 g/dL Normal 29.9-35.2 [facility] Comment on above: Performed By: #### C BC #### [facility] [address] [place] [address] Dr. Dov Dunlap MCV (RBC) [Entitic vol] 87.3 fL Normal 80.0-94.0 [facility] Comment on above: Performed By: #### C BC #### [facility] [address] [place] [address] Dr. Dov Dunlap MONO # 0.9 103/ul Critically high 0.3-0.8 [facility] Comment on above: Performed By: #### C BC #### [facility] [address] [place] [address] Dr. Dov Dunlap Monocytes/100 WBC (Bld) 6.1 % Normal 1.7-12.0 [facility] Comment on above: Performed By: #### C BC #### [facility] [address] [place] [address] Dr. Dov Dunlap NEUT # 11.8 103/ul Critically high 1.4-6.5 [facility] Comment on above: Performed By: #### C BC #### [facility] [address] [address] [address] Dov Dunlap Neutrophils/100 WBC (Bld) 80.1 % Critically high 43.0-75.0 [facility] Comment on above: Performed By: #### C BC #### [facility] [address] [address] [address] Dov Dunlap Platelet mean volume (Bld) [Entitic vol] 9.3 fL Critically low 9.5-13.5 [facility] Comment on above: Performed By: #### C BC #### [facility] [address] [address] [address] Dov Dunlap PLT 256 103/ul Normal 150-450 [facility] Comment on above: Performed By: #### C BC #### [facility] [address] [place] [address] Dr. Dov Dunlap RBC 4.87 106/ul Normal 4.70-6.10 [facility] Comment on above: Performed By: #### C BC #### [facility] [address] [address] [address] Dov Dunlap WBC 14.7 103/ul Critically high 4.0-11.0 [facility] Comment on above: Performed By: #### C BC #### [facility] [address] [place] [address] Dr. Dov Dunlap LIPID PROFILEon 01-25-2022 CHOL-HDL RATIO NORM SEE BELOW Normal [facility] Comment on above: Result Comment: 3.3 - 4.4 LOW RISK 4.4 - 7.1 AVERAGE RISK 7.1 - 11.0 MODERATE RISK >11.0 HIGH RISK Performed By: #### L IPID, CMP #### [facility] [address] [address] [address] Dov Dunlap Cholesterol [Mass/Vol] 166 mg/dL Normal <=200 [facility] Comment on above: Performed By: #### L IPID, CMP #### [facility] [address] [address] [address] Dov Dunlap Cholesterol in HDL [Mass/Vol] 66 mg/dL Critically high 40-60 [facility] Comment on above: Performed By: #### L IPID, CMP #### [facility] [address] [address] [address] Dov Dunlap Cholesterol in LDL [Mass/Vol] 92.4 mg/dL Normal [facility] Comment on above: Performed By: #### L IPID, CMP #### [facility] [address] [address] [address] Dov Dunlap Cholesterol.total/C holesterol in HDL [Mass ratio] 2.5 {ratio} Normal [facility] Comment on above: Performed By: #### L IPID, CMP #### [facility] [address] [address] [address] Dov Dunlap HDL NORMAL > or = 60 mg/dl - LO W CARDIOVASCULAR RISK <40 mg/dl - HIGH CARDIOVASCULAR RISK Normal [facility] Comment on above: Performed By: #### L IPID, CMP #### [facility] [address] [place] [address] Dr. Dov Dunlap LDL CALC NORMAL SEE BELOW Normal [facility] Comment on above: Result Comment: <100 mg/dl OPTIMAL 100 - 129 mg/dl NEAR OR ABOVE OPTIMAL 130 - 159 mg/dl BORDERLINE HIGH 160 - 189 mg/dl HIGH >190 mg/dl VERY HIGH Performed By: #### L IPID, CMP #### [facility] [address] [address] [address] Dov Dunlap Triglyceride [Mass/Vol] 38 mg/dL Normal <=150 [facility] Comment on above: Performed By: #### L IPID, CMP #### [facility] [address] [place] [address] Dr. Dov Dunlap VLDL CALC 7.6 mg/dL Normal [facility] Comment on above: Performed By: #### L IPID, CMP #### [facility] [address] [address] [address] Dov Dunlap PROF 14(COMP METB)on 022 Albumin [Mass/Vol] 3.3 g/dL Critically low 3.4-5.0 [facility] Comment on above: Performed By: #### L IPID, CMP #### [facility] [address] [address] [address] Dov Dunlap Albumin/Globulin [Mass ratio] 1.0 {ratio} Normal [facility] Comment on above: Performed By: #### L IPID, CMP #### [facility] [address] [address] [address] Dov Dunlap ALP [Catalytic activity/Vol] 121 U/L Critically high 46-116 [facility] Comment on above: Performed By: #### L IPID, CMP #### [facility] [address] [address] [address] Dov Dunlap ALT [Catalytic activity/Vol] 40 U/L Normal 16-63 [facility] Comment on above: Performed By: #### L IPID, CMP #### [facility] [facility] [address] [address] [address] Dov Dunlap Anion gap [Moles/Vol] 10.8 mmol/L Normal [facility] Comment on above: Performed By: #### L IPID, CMP #### [facility] [address] [address] [address] Dov Dunlap AST [Catalytic activity/Vol] 23 U/L Normal 15-37 [facility] Comment on above: Performed By: #### L IPID, CMP #### [facility] [address] [address] [address] Dov Dunlap Bilirubin [Mass/Vol] 0.4 mg/dL Normal 0.2-1.0 [facility] Comment on above: Performed By: #### L IPID, CMP #### [facility] [address] [address] [address] Dov Dunlap Calcium [Mass/Vol] 8.8 mg/dL Normal 8.5-10.1 [facility] Comment on above: Performed By: #### L IPID, CMP #### [facility] [address] [address] [address] Dov Dunlap Chloride [Moles/Vol] 104 mmol/L Normal 98-107 [facility] Comment on above: Performed By: #### L IPID, CMP #### [facility] [address] [address] [address] Dov Dunlap CO2 [Moles/Vol] 30.3 mmol/L Normal 21.0-32.0 [facility] Comment on above: Performed By: #### L IPID, CMP #### [facility] [address] [address] [address] Dov Dunlap Creatinine [Mass/Vol] 0.87 mg/dL Normal 0.70-1.30 [facility] Comment on above: Performed By: #### L IPID, CMP #### [facility] [address] [address] [address] Dov Dunlap EGFR-AF ITALIAN >60 Normal >=60 [facility] Comment on above: Performed By: #### L IPID, CMP #### [facility] [address] [place] [address] Dr. Dov Dunlap EGFR-NON AF ITALIAN >60 Normal >=60 [facility] Comment on above: Performed By: #### L IPID, CMP #### [facility] [address] [address] [address] Dov Dunlap Globulin (S) [Mass/Vol] 3.4 g/dL Normal [facility] Comment on above: Performed By: #### L IPID, CMP #### [facility] [address] [address] [address] Dov Dunlap Glucose [Mass/Vol] 115 mg/dL Critically high 74-106 [facility] Comment on above: Performed By: #### L IPID, CMP #### [facility] [address] [address] [address] Dov Dunlap Potassium [Moles/Vol] 4.1 mmol/L Normal 3.5-5.1 [facility] Comment on above: Performed By: #### L IPID, CMP #### [facility] [address] [address] [address] Dov Dunlap Protein [Mass/Vol] 6.7 g/dL Normal 6.4-8.2 [facility] Comment on above: Performed By: #### L IPID, CMP #### [facility] [address] [address] [address] Dov Dunlap Sodium [Moles/Vol] 141 mmol/L Normal 136-145 [facility] Comment on above: Performed By: #### L IPID, CMP #### [facility] [address] [address] [address] Dov Dunlap Urea nitrogen [Mass/Vol] 15.0 mg/dL Normal 7.0-18.0 [facility] Comment on above: Performed By: #### L IPID, CMP #### [facility] [address] [address] [address] Dov Dunlap Urea nitrogen/Creatinine [Mass ratio] 17.2 mg/mg Normal [facility] Comment on above: Performed By: #### L IPID, CMP #### [facility] [address] [address] [address] Dov Dunlap PSA, FREE AND TOTAL RATIOon 12-28-2021 % Free PSA 25.4 % Normal [facility] Comment on above: Result Comment: [...] By: #### P SAFREE #### [facility] [address] [address] [address] Dov Dunlap Prostate specific Ag [Mass/Vol] 5.4 ng/mL Critically high 0.0-4.0 [facility] Comment on above: Result Comment: Aster MORRISON methodology. . According to the [employer], Serum PSA should decrease and [...] By: #### P SAFREE #### [facility] [address] [place], [place] [address] Dr. Dov Dunlap PSA, Free 1.37 ng/mL Normal N/A [facility] Comment on above: Result Comment: Aster MORRISON methodology. Performed By: #### P SAFREE #### [facility] [address] [place], [place] [address] Dr. Dov Dunlap Covid-19 PCR ([facility])on 11-02 SARS-CoV-2 (COVID-19) RNA GREER+probe Ql (Unsp spec) Not detected Normal NOT DETECTED [facility] Comment on above: Result Comment: This test is not yet approved or cleared by the [place] FDA. When there are no FDA-approved or cleared tests available, and other criteria are met, FDA can make tests available under an emergency access mechanism called an Emergency Use Authorization (EUA). The EUA for this test is supported by the [employer] of Health and Human Service's (HHS's) declaration [...] consistent with SARS-CoV-2. Performed By: #### C VDTBH #### [facility] [address] [place], [place] [address] Dr. Dov Dunlap MR prostate wo/w conon 07-26 MR prostate wo/w con [facility] [place] [address] MRI Report Signed Patient: Lei Huntley MR#: [id number] : 1955 Acct:[id number] Age/Sex: 66 / M ADM Date: 07/25/21 Loc: MR Room: Type: [facility] Attending Dr: Cinthia Leiva MD Ordering Provider: [...] BPH. Impression dictated by: Amado Keane Jr., D.O.07/26/2021 1:23 PM Dictation Location: [address] [address] Transcribed By: [facility] 07/26/21 1323 Dictated By: Amado Keane Jr, DO 07/26/21 1307 Signed By: 07/26/21 1323 Normal [facility] ISTAT XRay CREon 07-25-2021 Creatinine [Mass/Vol] 0.9 mg/dL Normal 0.6-1.3 [facility] Comment on above: Result Comment: ER/E SD physician is notified/shown all ISTAT results. Critical values may be confirmed by laboratory testing if deemed necessary by ER attending doctor. Performed By: #### I SCRE #### [address] [address] [place] Point of Care testing , ISTAT GFR ( > 60 Normal [facility] Comment on above: Result Comment: GFR estimated reference range: According to KDOQI guidelines, <60 ml/min/1.73m2 is sufficient to diagnose a patient with chronic kidney disease. PERFORMED BY: [place] [address] PATHOLOGIST [employer] JONATHON DOVER M.D. Performed By: #### I SCRE #### [facility] [address] Point of Care testing , ISTAT GFR (Non- Am > 60 Normal [facility] Comment on above: Performed By: #### I SCRE #### [facility] [address] [place] [address] Point of Care testing , Social History Date Type Detail Facility Start: 11-05-2023 End: 11-12-2023 Alcohol intake Lifetime non-drinker (finding) [facility] Start: 11-13-2022 End: 10-12-2023 Sex Assigned At Male [facility] Start: 11-13-2022 End: 10-12-2023 History of Social function [facility] Start: 11-13-2022 Tobacco use and exposure Smokeless tobacco non-user [facility] Start: 01-04-2022 End: 11-13-2022 Tobacco smoking status Never smoked tobacco (finding) [facility] Start: 1955 Sex Assigned At Male [facility] Start: 1955 Sex Assigned At Not on file C [facility] National Score (1-100), lower number is lower risk 68 [facility] Vital Signs Date Time Vital Sign Value Performing Clinician Facility 11-29-2023 10:47-0400 Body mass index (BMI) [Ratio] 36.69 kg/m2 Delmy Ramos RN Work Phone: [facility] 11-29-2023 10:47-0400 Body weight 116 kg Delmy Ramos RN Work Phone: [facility] 11-29-2023 10:47-0400 Diastolic blood pressure 84 mm[Hg] Delmy Ramos RN Work Phone: [facility] 11-29-2023 10:47-0400 Heart rate 60 /min Delmy Ramos RN Work Phone: [facility] 11-29-2023 10:47-0400 Systolic blood pressure 165 mm[Hg] Delmy Ramos RN Work Phone: [facility] 11-23-2023 14:29-0400 Body mass index (BMI) [Ratio] 37.01 kg/m2 Syd Livingston MD Work Phone: [facility] 11-23-2023 14:29-0400 Body weight 117 kg Syd Livingston MD Work Phone: [facility] 11-23-2023 14:29-0400 Diastolic blood pressure 81 mm[Hg] Syd Livingston MD Work Phone: [facility] 11-23-2023 14:29-0400 Heart rate 64 /min Syd Livingston MD Work Phone: [facility] 11-23-2023 14:29-0400 Systolic blood pressure 148 mm[Hg] Syd Livingston MD Work Phone: [facility] 11-12-2023 11:32-0400 Body height 177.8 cm Lloyd Doyle MD Work Phone: [facility] 11-12-2023 11:32-0400 Body mass index (BMI) [Ratio] 37.15 kg/m2 Lloyd Doyle MD Work Phone: [facility] 11-12-2023 11:32-0400 Body weight 117.45 kg Lloyd Doyle MD Work Phone: [facility] 11-12-2023 11:32-0400 Diastolic blood pressure 85 mm[Hg] Lloyd Doyel MD Work Phone: [facility] 11-12-2023 11:32-0400 Heart rate 70 /min Lloyd Doyle MD Work Phone: [facility] 11-12-2023 11:32-0400 Systolic blood pressure 122 mm[Hg] Lloyd Doyle MD Work Phone: [facility] 11-05-2023 12:33-0400 Body height 177.8 cm Pacc 2 Work Phone: [facility] 11-05-2023 12:33-0400 Body mass index (BMI) [Ratio] 38.31 kg/m2 Pacc 2 Work Phone: [facility] 11-05-2023 12:33-0400 Body temperature 97.7 [degF] Pacc 2 Work Phone: [facility] 11-05-2023 12:33-0400 Body weight 121.1 kg Pacc 2 Work Phone: [facility] 11-05-2023 12:33-0400 Diastolic blood pressure 84 mm[Hg] Pacc 2 Work Phone: [facility] 11-05-2023 12:33-0400 Heart rate 79 /min Pacc 2 Work Phone: [facility] 11-05-2023 12:33-0400 SaO2% (BldA) [Mass fraction] 97 % Pacc 2 Work Phone: [facility] 11-05-2023 12:33-0400 Systolic blood pressure 139 mm[Hg] Pacc 2 Work Phone: [facility] 11-05-2023 10:14-0400 Body mass index (BMI) [Ratio] 37.96 kg/m2 Lloyd Doyle MD Work Phone: [facility] 11-05-2023 10:14-0400 Body weight 120 kg Lloyd Doyle MD Work Phone: [facility] 11-05-2023 10:14-0400 Diastolic blood pressure 84 mm[Hg] Lloyd Doyle MD Work Phone: [facility] 11-05-2023 10:14-0400 Heart rate 58 /min Lloyd Doyle MD Work Phone: [facility] 11-05-2023 10:14-0400 Systolic blood pressure 160 mm[Hg] Lloyd Doyle MD Work Phone: [facility] 10-12-2023 15:06-0400 Body height 177.8 cm Syd Livingston MD Work Phone: [facility] 10-12-2023 15:06-0400 Body mass index (BMI) [Ratio] 37.45 kg/m2 Syd Livingston MD Work Phone: [facility] 10-12-2023 15:06-0400 Body weight 118.4 kg Syd Livingston MD Work Phone: [facility] 10-12-2023 15:06-0400 Diastolic blood pressure 83 mm[Hg] Syd Livingston MD Work Phone: [facility] 10-12-2023 15:06-0400 Heart rate 60 /min Syd Livingston MD Work Phone: [facility] 10-12-2023 15:06-0400 Systolic blood pressure 143 mm[Hg] Syd Livingston MD Work Phone: [facility] 06-29-2023 14:15-0500 Body height 180.34 cm Mike Ball Other [employer] Other 06-29-2023 14:15-0500 Body mass index (BMI) [Ratio] 37.23 kg/m2 Mike Ball Other [employer] Other 06-29-2023 14:15-0500 Body weight 121.11 kg Mike Ball Other [employer] Other 06-29-2023 14:15-0500 Diastolic blood pressure 84 mm[Hg] Mike Ball Other [employer] Other 06-29-2023 14:15-0500 Systolic blood pressure 135 mm[Hg] Mike Ball Other [employer] Other 01-26-2023 09:30-0400 Body height 180.34 cm Mike Ball Other [employer] Other 01-26-2023 09:30-0400 Body mass index (BMI) [Ratio] 38.43 kg/m2 Mike Ball Other [employer] Other 01-26-2023 09:30-0400 Body weight 125.01 kg Mike Ball Other [employer] Other 01-26-2023 09:30-0400 Diastolic blood pressure 83 mm[Hg] Mike Ball Other [employer] Other 01-26-2023 09:30-0400 Respiratory rate 12 /min Mike Ball Other [employer] Other 01-26-2023 09:30-0400 Systolic blood pressure 135 mm[Hg] Mike Ball Other [employer] Other 09-20-2022 09:54-0400 Blood Pressure Location Cinthia Lue [facility] 09-20-2022 09:54-0400 Diastolic blood pressure 81 mm[Hg] Cinthia Lue [facility] 09-20-2022 09:54-0400 Heart rate 80 /min Cinthia Lue [facility] 09-20-2022 09:54-0400 Systolic blood pressure 138 mm[Hg] Cinthia Lue [facility] 03-16-2022 10:20-0400 Body height 180.34 cm Renato Page Other [employer] Other 03-16-2022 10:20-0400 Body mass index (BMI) [Ratio] 37.65 kg/m2 Renato Page Other [employer] Other 03-16-2022 10:20-0400 Body weight 122.47 kg Renato Page Other [employer] Other Functional Status Date Assessment Result Facility 09-20-2022 Functional Status N/A [facility] Clinical Notes 01-11-2018 to 11-29-2023 Delmy Ramos RN - 11/29/2023 11:07 AM Syd Aguilera MD - 11/23/2023 2:45 PM Lloyd Becker MD - 11/12/2023 12:02 PM EDTPatient Claribel Wick MA - 11/05/2023 11:41 AM EDT Note Date & Type Note Facility 11-29-2023 History of Presen t illness Narrative HPI: Lei Huntley is a 68 year old male with a history of BPH, hypospadias, penile urethral stricture, 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 Interval history: 11/23/2023, office visit with Dr. Livingston for successful trial of void. Doing well otherwise. 11/24/2023, ED visit for acute urinary retention. Took a trospium thinking he was having bladder spasms with frequency. Went into retention. Díaz replaced in ED with approximately 1L retained. Today, here for trial of void. Accompanied by his spouse. Reports he was impatient because he was not voiding with good stream immediately after catheter removal like he thought he would. States he has had frequency issues for a long time, so this was not new. Thought it was due to the stricture. Denies dysuria, hematuria, fever or chills. Filled bladder with 180cc sterile water until Lei Huntley states the urge to void. Balloon deflated of 10 cc water, and patient able to spontaneously void 50 cc dark urine. PVR 167 cc. Patient voided again with PVR 133 cc without further urge to void. Encouraged patient to eliminate caffeine, soda and ETOH, especially at HS to try to reduce nighttime void. Encouraged regular, daily BM. Will discuss with Dr. Doyle and determine next steps. Would like stage 2 surgery on 05/13. PAST MEDICAL HISTORY Diagnosis Date Snoring 11/05/2023 PAST SURGICAL HISTORY Procedure Laterality Date HERNIA REPAIR HX Social History Tobacco Use Smoking status: Never Smokeless tobacco: Never Substance Use Topics Alcohol use: Never Drug use: Never Current Outpatient Medications on File Prior to Visit Medication Sig levoFLOXacin (LEVAQUIN) 500 mg tablet Take by mouth every 24 hours. predniSONE (DELTASONE) 20 mg tablet Take by mouth. acetaminophen (TYLENOL EXTRA STRENGTH) 500 mg tablet Take 2 tablets by mouth every 6 hours as needed for pain. ibuprofen (MOTRIN) 600 mg tablet Take 1 tablet by mouth every 6 hours as needed for pain. trospium (SANCTURA) 20 mg tablet Take 1 tablet by mouth two times a day as needed (bladder spasms). famotidine (PEPCID) 40 mg tablet Take by mouth every 24 hours. amLODIPine (NORVASC) 5 mg tablet Take 5 mg by mouth once daily. aspirin 81 mg cap Take by mouth. atorvastatin (LIPITOR) 10 mg tablet Take by mouth. tamsulosin (FLOMAX) 0.4 mg Take by mouth. diphenhydrAMINE (BENADRYL) 25 mg capsule Take by mouth. carvedilol (COREG) 12.5 mg tablet Take by mouth. fuqgttfv-maf-itpawwu fumarate (MULTI VITAMIN) 9 mg iron/15 mL liqd Multi Vitamin+ Refill(s) 0 Start Date: 03/30/21 Status: Ordered No current facility-administered medications on file prior to visit. DATA/OR LABS TO BE REVIEWED: (Simple=1 data point; Complex= 2 or more) No results found for: PSA Creatinine (mg/dL) Date Value 11/07/2023 0.99 11/05/2023 1.06 No results found for: TESTOST A/P: (Z13.89) Screening for genitourinary condition (primary encounter diagnosis) Will discuss follow up with Dr. Wood and office will reach out to schedule. Invited patient to call the office with questions or concerns. 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 Since last evaluation notes overall doing well, tolerating catheter fine. He has been applying the Vaseline gauze as instructed daily and spreading the graft. LABS Creatinine Date Value Ref Range Status 11/07/2023 0.99 0.73 - 1.22 mg/dL Final 11/05/2023 1.06 0.73 - 1.22 mg/dL Final No results found for: PSA PHYSICAL EXAMINATION GENERAL: no acute distress, well appearing, pleasant MOUTH: right and left harvest sites healing well/intact RESP: normal work of breathing on room air ABDOMEN: soft, non distended, non tender, no palpable masses, no CVA tenderness NEURO/PSYCH: no gross neuromuscular dysfunction EXTREMITIES: no extremity edema GENITOURINARY: Urethral plate with indentation/groove from the catheter, tissue remains intact/viable. Buccal graft viable/taking well. Small area of fibrinous exudate at edge of right distal buccal graft and glanular epithelium, this was sharply debrided away to healthy tissue. Catheter draining clear yellow urine. Urethra ostomy intact. Uslt-qriu-zfjf performed and PVR 68 cc IMPRESSION S/p 1st stage urethroplasty with BMG and membranous urethral dilation, catheter removed today and emptied appropriately. PLAN -3 days of Bactrim pericath - RV in 2 months with PVR given membranous stricture dilation - continue spreading of graft with vaseline, counseled to massage BMG harvest site Syd Livingston MD Male Genitourinary Reconstruction & Prosthetic Surgery Fellow documented in this encounter [facility] 11-23-2023 Note HNO ID: [id number] Author: SYD LIVINGSTON MD Service: ? 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 Since last evaluation notes overall doing well, tolerating catheter fine. He has been applying the Vaseline gauze as instructed daily and spreading the graft. LABS Creatinine Date Value Ref Range Status 11/07/2023 0.99 0.73 - 1.22 mg/dL Final 11/05/2023 1.06 0.73 - 1.22 mg/dL Final No results found for: PSA PHYSICAL EXAMINATION GENERAL: no acute distress, well appearing, pleasant MOUTH: right and left harvest sites healing well/intact RESP: normal work of breathing on room air ABDOMEN: soft, non distended, non tender, no palpable masses, no CVA tenderness NEURO/PSYCH: no gross neuromuscular dysfunction EXTREMITIES: no extremity edema GENITOURINARY: Urethral plate with indentation/groove from the catheter, tissue remains intact/viable. Buccal graft viable/taking well. Small area of fibrinous exudate at edge of right distal buccal graft and glanular epithelium, this was sharply debrided away to healthy tissue. Catheter draining clear yellow urine. Urethra ostomy intact. Lutr-diio-jvdp performed and PVR 68 cc IMPRESSION S/p 1st stage urethroplasty with BMG and membranous urethral dilation, catheter removed today and emptied appropriately. PLAN -3 days of Bactrim pericath - RV in 2 months with PVR given membranous stricture dilation - continue spreading of graft with vaseline, counseled to massage BMG harvest site Syd Livingston MD Male Genitourinary Reconstruction AND Prosthetic Surgery Fellow [facility] [place] 11-12-2023 Note HNO ID: [id number] Author: LLOYD DOYLE MD Service: ? Author Type: Physician Type: Progress Notes Filed: 11/12/2023 14:39 Note Text: HPI: Lei Huntley is a 68 year old male with a history of hypospadias, BPH last seen on 11/27/22 at time of RUG wherein distal penile urethra with pinpoint stricture. Interval history: 2 episodes of epididymoorchitis over the past 8 months and tight meatal stenosis in addition to his prior stricture. He is able to impressively empty reasonably, but we discussed that his narrowing is likely directly related to his epididymoorchitis episodes. 11/06/2023, surgery with Dr. Doyle. 1. First stage urethral reconstruction utilizing bilateral oral mucosa graft from the left and right inner cheek, left inner cheek was 6 x 2.5 cm, right inner cheek was 5.5 x 2 cm. 2. Cystourethroscopy with dilation of membranous urethral stricture and placement of a Díaz catheter. Today, here for scheduled follow up. Accompanied by his spouse. Doing well. Mouth is causing discomfort, but still able to work. Using mouth graft site discomfort for a weight loss regimen. Consuming mostly liquids. Taking in Ensure, soups, sherbert. Has an appetite. Bowel function has returned to baseline. No complaints of pain requiring pain medication beyond tylenol and motrin. Oxycodone once. Able to perform activities of daily living without assistance. Taking levaquin 750 mg as directed. Last dose is 11/14/23. PAST MEDICAL HISTORY Diagnosis Date Snoring 11/05/2023 PAST SURGICAL HISTORY Procedure Laterality Date HERNIA REPAIR HX Social History Tobacco Use Smoking status: Never Smokeless tobacco: Never Substance Use Topics Alcohol use: Never Drug use: Never Current Outpatient Medications on File Prior to Visit Medication Sig acetaminophen (TYLENOL EXTRA STRENGTH) 500 mg tablet Take 2 tablets by mouth every 6 hours as needed for pain. ibuprofen (MOTRIN) 600 mg tablet Take 1 tablet by mouth every 6 hours as needed for pain. Chlorhexidine Gluconate (PERIDEX) 0.12 % solution Use 15 mL as instructed two times a day for 7 days. Rinse around mouth for 30 seconds then expectorate levoFLOXacin (LEVAQUIN) 750 mg tablet Take 1 tablet by mouth once daily for 7 days. trospium (SANCTURA) 20 mg tablet Take 1 tablet by mouth two times a day as needed (bladder spasms). famotidine (PEPCID) 40 mg tablet Take by mouth every 24 hours. amLODIPine (NORVASC) 5 mg tablet Take 5 mg by mouth once daily. aspirin 81 mg cap Take by mouth. atorvastatin (LIPITOR) 10 mg tablet Take by mouth. tamsulosin (FLOMAX) 0.4 mg Take by mouth. diphenhydrAMINE (BENADRYL) 25 mg capsule Take by mouth. carvedilol (COREG) 12.5 mg tablet Take by mouth. pbrrxgmt-lfa-wotrsfs fumarate (MULTI VITAMIN) 9 mg iron/15 mL liqd Multi Vitamin+ Refill(s) 0 Start Date: 03/30/21 Status: Ordered No current facility-administered medications on file prior to visit. ROS: Constitutional: negative Gastrointestinal: negative PHYSICAL EXAM: BP 122/85 (BP Site: Left Arm, BP Position: Sitting, BP Cuff Size: Large Adult) Pulse 70 Ht 177.8 cm (5' 10 ) Wt 117.4 kg (258 lb 14.9 oz) BMI 37.15 kg/m? GENERAL: Wnl nutrition, no deformities, healthy appearing ABDOMEN: Soft, nontender, nondistended, no masses. GENITOURINARY: MALE EXAM: graft taking nicely DATA/OR LABS TO BE REVIEWED: (Simple=1 data point; Complex= 2 or more) No results found for: PSA Creatinine (mg/dL) Date Value 11/07/2023 0.99 11/05/2023 1.06 No results found for: TESTOST A/P: s/p first stage Uplasty. Will return 2 weeks for kevin puri. Instrx provided Will pick second stage surg date for early may, he wants to go to [place] for thanksgiving.Lloyd Doyle MD [facility] [place] 11-12-2023 History of Presen t illness Narrative HPI: Lei Huntley is a 68 year old male with a history of hypospadias, BPH last seen on 11/27/22 at time of RUG wherein distal penile urethra with pinpoint stricture. Interval history: 2 episodes of epididymoorchitis over the past 8 months and tight meatal stenosis in addition to his prior stricture. He is able to impressively empty reasonably, but we discussed that his narrowing is likely directly related to his epididymoorchitis episodes. 11/06/2023, surgery with Dr. Doyle. 1. First stage urethral reconstruction utilizing bilateral oral mucosa graft from the left and right inner cheek, left inner cheek was 6 x 2.5 cm, right inner cheek was 5.5 x 2 cm. 2. Cystourethroscopy with dilation of membranous urethral stricture and placement of a Díaz catheter. Today, here for scheduled follow up. Accompanied by his spouse. Doing well. Mouth is causing discomfort, but still able to work. Using mouth graft site discomfort for a weight loss regimen. Consuming mostly liquids. Taking in Ensure, soups, sherbert. Has an appetite. Bowel function has returned to baseline. No complaints of pain requiring pain medication beyond tylenol and motrin. Oxycodone once. Able to perform activities of daily living without assistance. Taking levaquin 750 mg as directed. Last dose is 11/14/23. PAST MEDICAL HISTORY Diagnosis Date Snoring 11/05/2023 PAST SURGICAL HISTORY Procedure Laterality Date HERNIA REPAIR HX Social History Tobacco Use Smoking status: Never Smokeless tobacco: Never Substance Use Topics Alcohol use: Never Drug use: Never Current Outpatient Medications on File Prior to Visit Medication Sig acetaminophen (TYLENOL EXTRA STRENGTH) 500 mg tablet Take 2 tablets by mouth every 6 hours as needed for pain. ibuprofen (MOTRIN) 600 mg tablet Take 1 tablet by mouth every 6 hours as needed for pain. Chlorhexidine Gluconate (PERIDEX) 0.12 % solution Use 15 mL as instructed two times a day for 7 days. Rinse around mouth for 30 seconds then expectorate levoFLOXacin (LEVAQUIN) 750 mg tablet Take 1 tablet by mouth once daily for 7 days. trospium (SANCTURA) 20 mg tablet Take 1 tablet by mouth two times a day as needed (bladder spasms). famotidine (PEPCID) 40 mg tablet Take by mouth every 24 hours. amLODIPine (NORVASC) 5 mg tablet Take 5 mg by mouth once daily. aspirin 81 mg cap Take by mouth. atorvastatin (LIPITOR) 10 mg tablet Take by mouth. tamsulosin (FLOMAX) 0.4 mg Take by mouth. diphenhydrAMINE (BENADRYL) 25 mg capsule Take by mouth. carvedilol (COREG) 12.5 mg tablet Take by mouth. ipqcsqji-zpb-ylkwpub fumarate (MULTI VITAMIN) 9 mg iron/15 mL liqd Multi Vitamin+ Refill(s) 0 Start Date: 03/30/21 Status: Ordered No current facility-administered medications on file prior to visit. ROS: Constitutional: negative Gastrointestinal: negative PHYSICAL EXAM: BP 122/85 (BP Site: Left Arm, BP Position: Sitting, BP Cuff Size: Large Adult) Pulse 70 Ht 177.8 cm (5' 10 ) Wt 117.4 kg (258 lb 14.9 oz) BMI 37.15 kg/m GENERAL: Wnl nutrition, no deformities, healthy appearing ABDOMEN: Soft, nontender, nondistended, no masses. GENITOURINARY: MALE EXAM: graft taking nicely DATA/OR LABS TO BE REVIEWED: (Simple=1 data point; Complex= 2 or more) No results found for: PSA Creatinine (mg/dL) Date Value 11/07/2023 0.99 11/05/2023 1.06 No results found for: TESTOST A/P: s/p first stage Uplasty. Will return 2 weeks for kevin puri. Instrx provided Will pick second stage surg date for early may, he wants to go to [facility] for thanksgiving.Lloyd oDyle MD documented in this encounter [facility] 11-12-2023 Note Patient Outreach (UR OLMN) LEI HUNTLEY ([id number]) 1955 M Date Time Provider Department 11/12/23 LLOYD DOYLE During your visit today, we recorded the following information about you: Allergies As of Date: 11/12/2023 Noted Allergy Reaction PENICILLINS 06/04/1956 2 - Rash 7 - Swelling 14 - Other: See Comments SHELLFISH CONTAINING PRODUCTS 11/13/2022 7 - Swelling Date Reviewed: 11/12/2023 Reviewed by: Milvia Lal MA - Fully Assessed Visit Diagnosis:Screening for genitourinary condition [Z13.89] Order(s):URINALYSIS, REFLEX MICROSCOPIC [[id number]] Order #: [id number] Prescriptions as of 11/15/2023 - acetaminophen (TYLENOL EXTRA STRENGTH) 500 mg tablet Take 2 tablets by mouth every 6 hours as needed for pain. - ibuprofen (MOTRIN) 600 mg tablet Take 1 tablet by mouth every 6 hours as needed for pain. - Chlorhexidine Gluconate (PERIDEX) 0.12 % solution Use 15 mL as instructed two times a day for 7 days. Rinse around mouth for 30 seconds then expectorate - trospium (SANCTURA) 20 mg tablet Take 1 tablet by mouth two times a day as needed (bladder spasms). - famotidine (PEPCID) 40 mg tablet Take by mouth every 24 hours. - amLODIPine (NORVASC) 5 mg tablet Take 5 mg by mouth once daily. - aspirin 81 mg cap Take by mouth. - atorvastatin (LIPITOR) 10 mg tablet Take by mouth. - tamsulosin (FLOMAX) 0.4 mg Take by mouth. - diphenhydrAMINE (BENADRYL) 25 mg capsule Take by mouth. - carvedilol (COREG) 12.5 mg tablet Take by mouth. - kgcqwbgh-ijx-yjvghbb fumarate (MULTI VITAMIN) 9 mg iron/15 mL liqd Multi Vitamin+ Refill(s) 0 Start Date: 03/30/21 Status: Ordered Problem List As Of Date 11/12/2023 Noted Resolved Morbid obesity (HCC) [E66.01] 11/13/2022 BPH with urinary obstruction [N40.1, N13.8] 11/05/2023 Essential (primary) hypertension [I10] 11/05/2023 Hyperlipidemia type II [E78.01] 11/05/2023 Gastroesophageal reflux disease with esophagiti*11/05/2023 Snoring [R06.83] 11/05/2023 Obesity, Class II, BMI 35-39.9 [E66.9] 11/06/2023 Encounter Status:Closed by eSNF, DiObexUSER on 11/15/23 [facility] 11-07-2023 Note HNO ID: [id number] Author: CHRISTOPHER MCCANN MD Service: Urology Author Type: Resident Type: Progress Notes Filed: 11/07/2023 08:38 Note Text: [facility] PROGRESS NOTE Name: Lei Huntley Bed: Room/bed info not found Date: 11/07/2023 After Hours [facility] Service Pager: [phone] ASSESSMENT Lei Huntley is a 68 year old male with history of GERD, HLD, HTN, BPH, hypospadias, urethral stricture now 1 Day Post-Op s/p urethroplasty with Dr. Doyle. INTERVAL/SUBJECTIVE -Doing well post op; both buccal and genital pain under control -Vital signs within normal limits, afebrile -Labs at baseline postop; HGB: 13.6 (13.5); Cr: 0.99 (1.06) -Pain: Controlled -N/V: No -1.5L UOP; clear yellow PLAN Neuro - Pain controlled w/ PRN meds CV - Monitor vitals Heme - Daily labs Ppx: Lovenox and SCDs for DVT ppx Resp - Encouraged IS, deep breathing sating well ID - No leukocytosis. Afebrile. Sugey-op Abx levaquin GI - Colace, supp as needed. GIS , Peridex rinse /Renal: Maintain díaz, monitor UOP, ice packs to buccal graft site Dispo/Teaching - DC today after ambulation with bolster, plan to come off on Sunday in clinic Discussed with attending physician Dr Vivek Campa MD Urology PGY2 [facility] [place] For weekend or after hours issues [place] [phone] Active Problems HTN, POA- hoe meds resued HLDm POA- Home meds resumed Urethral stricture, POA- s/p urethroplasty Objective Vital Signs BP 139/69 Pulse 93 Temp 36.9 ?C (98.4 ?F) (Oral) Resp 18 SpO2 94% There is no height or weight on file to calculate BMI. Input and Output Intake/Output Summary (Last 24 hours) at 11/07/2023 0830 Last data filed at 11/07/2023 0649 Gross per 24 hour Intake 3549 ml Output 1545 ml Net 2004 ml Urine output 1.1L UOP Drains None Physical Exam General: Well-appearing, no acute distress, buccal graft sites hemostatic Abdomen: Soft Wound: Incision clean, dry, and intact : bolster in place, hemostatic, urethral díaz, good cap refill Recent Labs 11/07/23 0100 11/05/23 1214 WBC 13.56* 10.04 HB 13.6 13.5 HCT 42.3 44.0 PLT 179 217 NA 138 144 K 4.3 4.2 CHLOR 104 106* CO2 22 26 BUN 12 13 CREAT 0.99 1.06 GLUC 141* 95 Imaging Reviewed [facility] 11-06-2023 Note HNO ID: [id number] Author: DESTINY GORE RN Service: Nursing Author Type: Registered Nurse Type: Progress Notes Filed: 11/06/2023 18:49 Note Text: Admission/Transfer Note PATIENT NAME: Lei Huntley Patient Location: [place] [address] [address] Room: [place] [address] Patient admitted from PACU via bed in stable condition. Actions taken: Patient oriented to room, call light function, prescribed activities, Patient rights, and Quiet at night. The patient has been instructed on the plan of care. Patient belongings with patient. No futher actions taken at this time. Will continue to monitor and check with patient. This note was completed by: Destiny Gore [facility] 11-06-2023 Note HNO ID: [id number] Author: SHIRIN HOANG APRN.CERTIFIED TEACHER ASSISTANT Service: ? 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 care steam conditioner operator Staffing CERTIFIED TEACHER ASSISTANT: Shirin Hoang APRN.CERTIFIED TEACHER ASSISTANT Performed by: CERTIFIED TEACHER ASSISTANT Indications and Patient Condition Indications for airway management: anesthesia Preoxygenated: yes anesthesia circuit Patient position: sniffing Method: asleep Difficult Mask: No Final Airway Details Final airway type: endotracheal airway Final Endotracheal Airway: ETT Cuffed: yes Successful intubation technique: video laryngoscopy Devices used: Hale Endotracheal tube insertion site: oral Blade size: #4 ETT size (mm): 7.5 Measured from: lips Measurement (cm): 23 Placement verified by: capnometry Cormack-Lehane Classification: grade I - full view of glottis Number of attempts at approach: 1 Failed airway: no Unrecognized esophageal intubation: no Airway not difficult SIGNATURE: Shirin Hoang APRN.CERTIFIED TEACHER ASSISTANT PATIENT NAME: Lei Huntley DATE: November 06, 2023 TIME: 1:37 PM CSN: [id number] [facility] 11-06-2023 Note HNO ID: [id number] Author: KEVIN MARTINEZ MD Service: Urology Author Type: Resident Type: Progress Notes Filed: 11/07/2023 01:22 Note Text: [facility] [place] [facility] PROGRESS NOTE Name: Lei Huntley Bed: Room/bed info not found Date: 11/06/2023 After Hours [facility] Service Pager: [phone] ASSESSMENT Lei Huntley is a 68 year old male with history of GERD, HLD, HTN, BPH, hypospadias, urethral stricture now * No surgery date entered * s/p urethroplasty with Dr. Doyle INTERVAL/SUBJECTIVE -Doing well post op -Vital signs within normal limits, afebrile - no post op labs -Pain: Controlled -N/V: No -Díaz draining light peach color urine 1.1L UOP PLAN Neuro - Pain controlled w/ PRN meds CV - Monitor vitals Heme - Daily labs Ppx: Lovenox and SCDs for DVT ppx Resp - Encouraged IS, deep breathing sating well ID - No leukocytosis. Afebrile. Sugey-op Abx levaquin GI - Colace, supp as needed. Regular diet, CLD tonight, GIS ordered for tomorrow, Peridex rinse /Renal: Maintain díaz, monitor UOP, ice packs to buccal graft site Dispo/Teaching - Pending rcovery, anticipate dc tomorrow with venecia, plan to come off on Sunday in clinic Discussed with attending physician Dr Vivek Campa MD [facility] PGY2 [facility] [place] For weekend or after hours issues [place] [phone] Active Problems HTN, POA- hoe meds resued HLDm POA- Home meds resumed Urethral stricture, POA- s/p urethroplasty Objective Vital Signs There were no vitals taken for this visit. There is no height or weight on file to calculate BMI. Input and Output No intake or output data in the 24 hours ending 11/06/23 0815 Urine output 1.1L UOP Drains None Physical Exam General: Well-appearing, no acute distress, buccal graft sites hemostatic Abdomen: Soft Wound: Incision clean, dry, and intact : bolster in place, hemostatic, urethral díaz, good cap refill Recent Labs 11/05/23 1214 WBC 10.04 HB 13.5 HCT 44.0 PLT 217 NA 144 K 4.2 CHLOR 106* CO2 26 BUN 13 CREAT 1.06 GLUC 95 Imaging Reviewed [facility] 11-05-2023 Instructions Rukhsana Epperson APRN.CITY ADMINISTRATOR - 11/05/2023 12:55 PM EDT PATIENT PREOPERATIVE INSTRUCTIONS Lloyd Doyle MD has scheduled you for your procedure at this surgery center: [facility] [place] Scheduling Office: [phone] --[address] [place] [address]. Please read below carefully for your personalized instructions. Dietary Restrictions: - No solid food after midnight. - You may have 12 ounces of clear liquids (water, clear juices such as apple juice or gatorade, carbonated beverages, clear tea, black coffee, jello) until 2 hours before scheduled arrival at facility. Medications: Unless instructed differently below, stay on all of your medications until your surgery. If you start any new medications after today's visit, please contact your surgeon. Pre-Surgery Med Instructions Medication Instructions amLODIPine (NORVASC) 5 mg tablet Take the day of surgery with a small sip of water atorvastatin (LIPITOR) 10 mg tablet Take the day of surgery with a small sip of water tamsulosin (FLOMAX) 0.4 mg Take the day of surgery with a small sip of water diphenhydrAMINE (BENADRYL) 25 mg capsule Do not take the day of surgery carvedilol (COREG) 12.5 mg tablet Take the day of surgery with a small sip of water If you take any medications for erectile dysfunction-Cialis (Tadalafil), Levitra, Staxyn (Vardenafil) Viagra (Sildenenafil please do not take these for 48 hours before surgery. If you start any new medications after today's visit, please contact the surgeon's office. Blood Thinning Medications: - Stop NSAIDS (Ibuprofen, Advil, Aleve, Motrin, Celebrex, Mobic, etc.) 7 days before surgery, as directed by your surgeon. - Stop Aspirin 7 days before surgery, as directed by your surgeon. - Stop Vitamin E, ALL multi-vitamins, herbals and dietary supplements 14 days before surgery. - You may take Tylenol (Acetaminophen) or any of your pain medications that do not contain aspirin or NSAIDS as needed. Important Reminders: - Candy, mints, and tobacco products are NOT permitted the morning of surgery. - Hearing aids, dentures and glasses may be worn the morning of surgery. - NO jewelry, body piercings, makeup, hairpins or contacts are to be worn the day of surgery. If you develop symptoms such as a fever, cold, or flu, or have other changes to your health within TWO DAYS of scheduled surgery or the morning of surgery, please contact the surgery center above. Personal Belongings: -Please have photo ID and insurance cards. -If you do not have a copy of advance directives on file with us, please bring a copy with you on the day of surgery. - Leave ALL valuables and money at home or with family members. For Outpatient Procedures: - YOU MUST HAVE A RESPONSIBLE FIELD HUMAN RESOURCES MANAGER TAKE YOU HOME. A MIXER OPERATOR RAW SALT OR RECORD CHANGER CANNOT BE MADE A RESPONSIBLE FIELD HUMAN RESOURCES MANAGER. - We recommend that a responsible person stays with you overnight to take care of you. - You cannot stay in a hotel alone after outpatient surgery. You will not be permitted to have your surgery, if you do not have someone to take care of you. Arrival Time for Surgery: - To obtain your arrival time for surgery, call your physician's office the day before your surgery. - If your surgery is scheduled for Sunday, call the Sunday before. Your surgeon s high pressure boiler operator will tell you what time to call the office. 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 the day before your surgery. Please be aware that emergency situations arise, which may delay or change your surgical time. If this happens, we will notify you as soon as possible and regret any inconvenience. If you already have an Advance Directive, please fax a copy to [phone] or email to for it to be added to your chart. If you do not have an Advance Directive, you can find the appropriate form and more information at [email or web address]. We recommend that you complete the Advance Directive form found on the website and bring it with you the day of your surgery. It can be witnessed and scanned into your chart that day. Rukhsana Epperson APRN.CNP documented in this encounter [facility] 11-05-2023 History and physical note HISTORY AND PHYSICAL EXAMINATION SERVICE DATE: 11/05/2023 SERVICE TIME: 12:58 PM PRIMARY CARE PHYSICIAN: Mike Lepe, DO Assessment Patient has the following medical conditions which may affect sugey-operative course: Gastroesophageal reflux disease with esophagitis Managed with diet States stable and controlled Hyperlipidemia type II Managed with atorvastatin (LIPITOR) Essential (primary) hypertension Managed with carvedilol (COREG) and amLODIPine (NORVASC) BP this visit 139/84 Denies SOB, dizziness, lightheadedness, palpitations, syncope and chest pain Morbid obesity (HCC) Body mass index is 38.31 kg/m . Snoring BANG score 7 Instructed to follow up PCP for further evaluation Avery Activity Status Index: METS: Walk indoors, such as around the house (1.75 METs) Do light work around the house, such as dusting or washing dishes (2.70 METs) Take care of self; that is eating, dressing, bathing, using the toilet (2.75 METs) Walk a block or two on level ground (2.75 METs) Do moderate work around the house, such as vacuuming, sweeping floors, or carrying in groceries (3.50 METs) Climb a flight of stairs or walk up a hill (5.50 METs) Do heavy work around the house, such as scrubbing floors, lifting or moving heavy furniture (8.00 METs) DASI Score: 26.95 Patient denies any chest pain or undue shortness of breath with the above physical activity. Clinical Frailty Scale: 3. Well, with treated comorbid disease STOP-Bang Score: Snores loudly Often feels tired, fatigued, or sleepy during the daytime Has or is being treated for high blood pressure BMI greater than 35 kg/m^2 Patient over 50 years old Has a large neck Male patient Has not been observed to stop breathing or choking/gasping during sleep STOP-Bang Score: 7 [id number] Score: Age: 65-74 Sex: male Hypertension history: Yes [id number] Score: ARISCAT Score: Age: 51-80 Preoperative SpO2: >=96% Preoperative anemia: Yes Duration of surgery: >3 hrs Emergency procedure: No ARISCAT Score: ANESTHESIA FINDINGS: Intubation History: No abnormal airway history Significant Anesthesia Considerations: none Airway History: No abnormal airway history I - PHYSICAL EVALUATION AIRWAY Patient intubated: No. Mallampati: I. TM distance: >3 FB. Neck ROM: full ROM without neurological symptoms. Mouth opening: adequate. Short neck: no. Thick neck: no Staples present: no Lip Bite Test: I DENTAL Dental findings: teeth intact. II - ANESTHESIA PLAN Anesthetic Plan: other Anesthetic plan additional comments: *PACC/TCI - anesthesia choice. Beta Usman Monitoring Plan Post Procedure Analgesic Plan Prepared for Surgery: optimally prepared for surgery, pending [see comment]. DOS review Labs (ordered by surgery) and DOS exam Patient seen in PACC day before surgery CONSULTS: Patient does not require consults for optimization at this time Planned Anesthetic: other anesthesia choice The Following Tests/Procedures Have Been Initiated: No orders of the defined types were placed in this encounter. REASON FOR VISIT: Lei Huntley is a 68 year old male who is scheduled for Procedure(s): URETHROPLASTY ANTERIOR 1-STAGE PROCEDURE, ADULT MALE (N/A) at the request of Lloyd Jauregui MD for consultation. My final recommendation will be communicated back to the requesting physician by way of shared medical record or letter. Subjective The patient has the following: ACTIVE PROBLEM LIST Morbid Obesity (Hcc) Bph With Urinary Obstruction Essential (Primary) Hypertension Hyperlipidemia Type II Gastroesophageal Reflux Disease With Esophagitis Snoring COVID-19 Immunization Status Overdue - Covid-19 Vaccine ( season) Never done No completion, postpone, frequency change, or communication history exists for this topic. Patient reports being not vaccinated against COVID-19. Patient reports a prior COVID-19 infection CHIEF COMPLAINT: Pre-Op Visit HPI: 68 year old male who has 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 stricture seen for PACC. Patient was seen for PACC the day before scheduled procedure. He endorses having urinary frequency urgency, nocturia and stricture. He has a distal penile urethra stricture. History of hypospadias and BPH. Scheduled for URETHROPLASTY ANTERIOR 1-STAGE PROCEDURE, ADULT MALE on 11/06/23. Denies any fever, chills, nausea, vomiting, SOB, dizziness, lightheadedness, palpitations, syncope, chest pain or abdominal pain. He has elected to proceed with the surgical procedure. REVIEW OF SYSTEMS: General: No weight loss, malaise or fevers. 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 No neurological symptoms or problems. Negative for: seizures, TIA and strokes. Respiratory: Positive for: prior COVID-19 infection. Negative for: asthma, bronchitis, COPD, current cough, dyspnea, home oxygen, orthopnea, pneumonia within 6 weeks, tobacco use, URI < 2 weeks and obstructive sleep apnea. Cardiovascular: Positive for: hyperlipidemia and hypertension Negative for: AICD/PPM, angina, anticoagulation therapy, arrhythmia, CAD, chest pain, CHF, congenital heart defect, DVT/PE, recent CA and murmur/valvular heart disease. GI: Positive for: GERD Negative for: abdominal pain, dysphagia, diverticulitis, hepatitis, liver disease and pancreatitis. : See HPI. Positive for: BPH, frequent urination, nocturia >1 time per night and urgency. Negative for: dysuria, flank pain, hematuria and urinary incontinence. Endocrine: No history of diabetes. Has not taken steroids within the past 30 days. No history of endocrinological symptoms or problems. Hematology: No history of bleeding or clotting disorder. Patient is not taking anti-coagulation or platelet medications. No history of hematological symptoms or problems. Oncology: No history of CA metastasis, chemo within 30 days, or radiotherapy within 90 days. No history of oncological symptoms or problems. Psych: No history of psychiatric symptoms or problems. Musculoskeletal: Negative for joint pain or swelling, back pain or muscle pain. Skin: Negative for lesions, rash and itching. PAST MEDICAL HISTORY Diagnosis Date Snoring 11/05/2023 PAST SURGICAL HISTORY Procedure Laterality Date HERNIA REPAIR HX History reviewed. No pertinent family history. Social History Tobacco Use Smoking status: Never Smokeless tobacco: Never Substance Use Topics Alcohol use: Never Drug use: Never Prior to Admission medications as of 11/05/23 1252 Medication Sig Last Dose Taking amLODIPine (NORVASC) 5 mg tablet Take 5 mg by mouth once daily. Taking Yes atorvastatin (LIPITOR) 10 mg tablet Take by mouth. Taking Yes tamsulosin (FLOMAX) 0.4 mg Take by mouth. Taking Yes diphenhydrAMINE (BENADRYL) 25 mg capsule Take by mouth. Taking Yes carvedilol (COREG) 12.5 mg tablet Take by mouth. Taking Yes famotidine (PEPCID) 40 mg tablet Take by mouth every 24 hours. aspirin 81 mg cap Take by mouth. iocdpsav-eqk-onmwalq fumarate (MULTI VITAMIN) 9 mg iron/15 mL liqd Multi Vitamin+ Refill(s) 0 Start Date: 03/30/21 Status: Ordered No medication comments found. ALLERGIES Allergen Reactions Penicillins Rash, Swelling, Other: See Comments Shellfish Containin* Swelling Objective PHYSICAL EXAM: General: alert and oriented and healthy appearance. Skin: normal color, no rash or lesions. HEENT: pupils equal round and pupils reactive to light. Cardiovascular: regular rate and rhythm, normal S1 and S2, no rub, murmurs, or gallop. Respiratory: normal breath sounds, no wheezes or crackles. No chest wall deformity or tenderness. Abdomen: bowel sounds present and soft. Extremities: no deformity, no edema or tenderness, no joint swelling or clubbing. Neurological: normal cognition and motor skills. Gait normal. No weakness or sensory deficit. PAIN ASSESSMENT: VITALS: BP 139/84 Pulse 79 Temp (Src) 97.7 (Temporal) Ht 5' 10 (1.78m) Wt 266 lb 15.6 oz (121.1kg) SpO2 97% BMI 38.31 kg/(m^2). Diagnostic tests reviewed for today's visit: Lab Value Units Date High Low HB No results within date range. HCT No results within date range. WBC No results within date range. PLT No results within date range. NA No results within date range. K No results within date range. GLUC No results within date range. BUN No results within date range. CREAT No results within date range. PTSEC No results within date range. INR No results within date range. APTT No results within date range. ALT No results within date range. AST No results within date range. TBILI No results within date range. TSH No results within date range. Lab Value Units Date High Low HCGQT No results within date range. UHCG No results within date range. HCG, BODY* No results within date range. Lab Value Units Date High Low ABORHD No results within date range. ABSCREEN No results within date range. No results found for: HBA1C No results found for this or any previous visit (from the past 8760 hour(s)). No results found for this or any previous visit (from the past 41408 hour(s)). Instructions Given to Patient: Instructions located in the after visit summary. Patient given verbal and written preop instructions and voices comprehension and compliance. SIGNATURE: Rukhsana Epperson APRN.CNP PATIENT NAME: Lei Huntley DATE: November 05, 2023 TIME: 12:16 PM PAGER/CONTACT #: [facility] 11-05-2023 History and physical note HISTORY AND PHYSICAL EXAMINATION SERVICE DATE: 11/05/2023 SERVICE TIME: 12:58 PM PRIMARY CARE PHYSICIAN: Mike Lepe, DO Assessment Patient has the following medical conditions which may affect sugey-operative course: Gastroesophageal reflux disease with esophagitis Managed with diet States stable and controlled Hyperlipidemia type II Managed with atorvastatin (LIPITOR) Essential (primary) hypertension Managed with carvedilol (COREG) and amLODIPine (NORVASC) BP this visit 139/84 Denies SOB, dizziness, lightheadedness, palpitations, syncope and chest pain Morbid obesity (HCC) Body mass index is 38.31 kg/m . Snoring BANG score 7 Instructed to follow up PCP for further evaluation Avery Activity Status Index: METS: Walk indoors, such as around the house (1.75 METs) Do light work around the house, such as dusting or washing dishes (2.70 METs) Take care of self; that is eating, dressing, bathing, using the toilet (2.75 METs) Walk a block or two on level ground (2.75 METs) Do moderate work around the house, such as vacuuming, sweeping floors, or carrying in groceries (3.50 METs) Climb a flight of stairs or walk up a hill (5.50 METs) Do heavy work around the house, such as scrubbing floors, lifting or moving heavy furniture (8.00 METs) DASI Score: 26.95 Patient denies any chest pain or undue shortness of breath with the above physical activity. Clinical Frailty Scale: 3. Well, with treated comorbid disease STOP-Bang Score: Snores loudly Often feels tired, fatigued, or sleepy during the daytime Has or is being treated for high blood pressure BMI greater than 35 kg/m^2 Patient over 50 years old Has a large neck Male patient Has not been observed to stop breathing or choking/gasping during sleep STOP-Bang Score: 7 [id number] Score: Age: 65-74 Sex: male Hypertension history: Yes [id number] Score: ARISCAT Score: Age: 51-80 Preoperative SpO2: >=96% Preoperative anemia: Yes Duration of surgery: >3 hrs Emergency procedure: No ARISCAT Score: ANESTHESIA FINDINGS: Intubation History: No abnormal airway history Significant Anesthesia Considerations: none Airway History: No abnormal airway history I - PHYSICAL EVALUATION AIRWAY Patient intubated: No. Mallampati: I. TM distance: >3 FB. Neck ROM: full ROM without neurological symptoms. Mouth opening: adequate. Short neck: no. Thick neck: no Staples present: no Lip Bite Test: I DENTAL Dental findings: teeth intact. II - ANESTHESIA PLAN Anesthetic Plan: other Anesthetic plan additional comments: *PACC/TCI - anesthesia choice. Beta Usman Monitoring Plan Post Procedure Analgesic Plan Prepared for Surgery: optimally prepared for surgery, pending [see comment]. DOS review Labs (ordered by surgery) and DOS exam Patient seen in PACC day before surgery CONSULTS: Patient does not require consults for optimization at this time Planned Anesthetic: other anesthesia choice The Following Tests/Procedures Have Been Initiated: No orders of the defined types were placed in this encounter. REASON FOR VISIT: Lei Huntley is a 68 year old male who is scheduled for Procedure(s): URETHROPLASTY ANTERIOR 1-STAGE PROCEDURE, ADULT MALE (N/A) at the request of Lloyd Jauregui MD for consultation. My final recommendation will be communicated back to the requesting physician by way of shared medical record or letter. Subjective The patient has the following: ACTIVE PROBLEM LIST Morbid Obesity (Hcc) Bph With Urinary Obstruction Essential (Primary) Hypertension Hyperlipidemia Type II Gastroesophageal Reflux Disease With Esophagitis Snoring COVID-19 Immunization Status Overdue - Covid-19 Vaccine ( season) Never done No completion, postpone, frequency change, or communication history exists for this topic. Patient reports being not vaccinated against COVID-19. Patient reports a prior COVID-19 infection CHIEF COMPLAINT: Pre-Op Visit HPI: 68 year old male who has 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 stricture seen for PACC. Patient was seen for PACC the day before scheduled procedure. He endorses having urinary frequency urgency, nocturia and stricture. He has a distal penile urethra stricture. History of hypospadias and BPH. Scheduled for URETHROPLASTY ANTERIOR 1-STAGE PROCEDURE, ADULT MALE on 11/06/23. Denies any fever, chills, nausea, vomiting, SOB, dizziness, lightheadedness, palpitations, syncope, chest pain or abdominal pain. He has elected to proceed with the surgical procedure. REVIEW OF SYSTEMS: General: No weight loss, malaise or fevers. 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 No neurological symptoms or problems. Negative for: seizures, TIA and strokes. Respiratory: Positive for: prior COVID-19 infection. Negative for: asthma, bronchitis, COPD, current cough, dyspnea, home oxygen, orthopnea, pneumonia within 6 weeks, tobacco use, URI < 2 weeks and obstructive sleep apnea. Cardiovascular: Positive for: hyperlipidemia and hypertension Negative for: AICD/PPM, angina, anticoagulation therapy, arrhythmia, CAD, chest pain, CHF, congenital heart defect, DVT/PE, recent CA and murmur/valvular heart disease. GI: Positive for: GERD Negative for: abdominal pain, dysphagia, diverticulitis, hepatitis, liver disease and pancreatitis. : See HPI. Positive for: BPH, frequent urination, nocturia >1 time per night and urgency. Negative for: dysuria, flank pain, hematuria and urinary incontinence. Endocrine: No history of diabetes. Has not taken steroids within the past 30 days. No history of endocrinological symptoms or problems. Hematology: No history of bleeding or clotting disorder. Patient is not taking anti-coagulation or platelet medications. No history of hematological symptoms or problems. Oncology: No history of CA metastasis, chemo within 30 days, or radiotherapy within 90 days. No history of oncological symptoms or problems. Psych: No history of psychiatric symptoms or problems. Musculoskeletal: Negative for joint pain or swelling, back pain or muscle pain. Skin: Negative for lesions, rash and itching. PAST MEDICAL HISTORY Diagnosis Date Snoring 11/05/2023 PAST SURGICAL HISTORY Procedure Laterality Date HERNIA REPAIR HX History reviewed. No pertinent family history. Social History Tobacco Use Smoking status: Never Smokeless tobacco: Never Substance Use Topics Alcohol use: Never Drug use: Never Prior to Admission medications as of 11/05/23 1252 Medication Sig Last Dose Taking amLODIPine (NORVASC) 5 mg tablet Take 5 mg by mouth once daily. Taking Yes atorvastatin (LIPITOR) 10 mg tablet Take by mouth. Taking Yes tamsulosin (FLOMAX) 0.4 mg Take by mouth. Taking Yes diphenhydrAMINE (BENADRYL) 25 mg capsule Take by mouth. Taking Yes carvedilol (COREG) 12.5 mg tablet Take by mouth. Taking Yes famotidine (PEPCID) 40 mg tablet Take by mouth every 24 hours. aspirin 81 mg cap Take by mouth. hofxkqqo-jdj-pmjwkuf fumarate (MULTI VITAMIN) 9 mg iron/15 mL liqd Multi Vitamin+ Refill(s) 0 Start Date: 03/30/21 Status: Ordered No medication comments found. ALLERGIES Allergen Reactions Penicillins Rash, Swelling, Other: See Comments Shellfish Containin* Swelling Objective PHYSICAL EXAM: General: alert and oriented and healthy appearance. Skin: normal color, no rash or lesions. HEENT: pupils equal round and pupils reactive to light. Cardiovascular: regular rate and rhythm, normal S1 and S2, no rub, murmurs, or gallop. Respiratory: normal breath sounds, no wheezes or crackles. No chest wall deformity or tenderness. Abdomen: bowel sounds present and soft. Extremities: no deformity, no edema or tenderness, no joint swelling or clubbing. Neurological: normal cognition and motor skills. Gait normal. No weakness or sensory deficit. PAIN ASSESSMENT: VITALS: BP 139/84 Pulse 79 Temp (Src) 97.7 (Temporal) Ht 5' 10 (1.78m) Wt 266 lb 15.6 oz (121.1kg) SpO2 97% BMI 38.31 kg/(m^2). Diagnostic tests reviewed for today's visit: Lab Value Units Date High Low HB No results within date range. HCT No results within date range. WBC No results within date range. PLT No results within date range. NA No results within date range. K No results within date range. GLUC No results within date range. BUN No results within date range. CREAT No results within date range. PTSEC No results within date range. INR No results within date range. APTT No results within date range. ALT No results within date range. AST No results within date range. TBILI No results within date range. TSH No results within date range. Lab Value Units Date High Low HCGQT No results within date range. UHCG No results within date range. HCG, BODY* No results within date range. Lab Value Units Date High Low ABORHD No results within date range. ABSCREEN No results within date range. No results found for: HBA1C No results found for this or any previous visit (from the past 8760 hour(s)). No results found for this or any previous visit (from the past 17858 hour(s)). Instructions Given to Patient: Instructions located in the after visit summary. Patient given verbal and written preop instructions and voices comprehension and compliance. SIGNATURE: Rukhsana Epperson APRN.CNP PATIENT NAME: Lei Huntley DATE: November 05, 2023 TIME: 12:16 PM PAGER/CONTACT #: documented in this encounter [facility] 11-05-2023 Nurse Note Post Void Residual done on patient with 0 cc residual volume remaining. notified. Claribel Livingston MA [facility] 11-05-2023 Nurse Note Post Void Residual done on patient with 0 cc residual volume remaining. notified. Claribel Livingston MA documented in this encounter [facility] 11-05-2023 Note HNO ID: [id number] Author: LLOYD DOYLE MD Service: ? Author Type: Physician Type: Progress Notes Filed: 11/05/2023 13:23 Note Text: HPI: Lei Huntley is a 68 year old male with a history of hypospadias, BPH last seen on 11/27/22 at time of RUG wherein distal penile urethra with pinpoint stricture who returns today for reevaluation given recent scrotal problems. Interval history: Since last evaluation notes has had two [...] few hours, nocturia x 3-4, no leak. Today, here for pre op visit for 11/[address] Doyle. Accompanied by his spouse. Had urine culture testing 2 weeks ago at [facility]. >100,000 escherichia coli. 750 mg levaquin given. Discussed start time of approximately 2:00 pm in the afternoon. Will eat something light for lunch and then clears the rest of the day. No past medical history on file. No past surgical history on file. Social History Tobacco Use Smoking status: Never Smokeless tobacco: Never Current Outpatient Medications on File Prior to Visit Medication Sig famotidine (PEPCID) 40 mg tablet Take by mouth every 24 hours. amLODIPine (NORVASC) 5 mg tablet Take 5 mg by mouth once daily. aspirin 81 mg cap Take by mouth. atorvastatin (LIPITOR) 10 mg tablet Take by mouth. tamsulosin (FLOMAX) 0.4 mg Take by mouth. diphenhydrAMINE (BENADRYL) 25 mg capsule Take by mouth. carvedilol (COREG) 12.5 mg tablet Take by mouth. sznertpd-laj-opsfobm fumarate (MULTI VITAMIN) 9 mg iron/15 mL liqd Multi Vitamin+ Refill(s) 0 Start Date: 03/30/21 Status: Ordered No current facility-administered medications on file prior to visit. ROS: Constitutional: negative Gastrointestinal: negative PHYSICAL EXAM: BP 160/84 (BP Site: Left Arm, BP Position: Sitting, BP Cuff Size: Regular Adult) Pulse (!) 58 Wt 120 kg (264 lb 8.8 oz) BMI 37.96 kg/m? GENERAL: Wnl nutrition, no deformities, healthy appearing ABDOMEN: Soft, nontender, nondistended, no masses. GENITOURINARY: MALE EXAM: pinpoint coronal hypo w decent sized glans but very flat DATA/OR LABS TO BE REVIEWED: (Simple=1 data point; Complex= 2 or more) No results found for: PSA No results found for: CREAT No results found for: TESTOST A/P: Discussed first stage Uplasty tmw. RBAs and periop expectations discussed. He is agreeable and prefers over penile urethrostomy Lloyd Doyle MD [facility] 11-05-2023 History of Presen t illness Narrative HPI: Lei Huntley is a 68 year old male with a history of hypospadias, BPH last seen on 11/27/22 at time of RUG wherein distal penile urethra with pinpoint stricture who returns today for reevaluation given recent scrotal problems. Interval history: Since last evaluation notes has had two [...] few hours, nocturia x 3-4, no leak. Today, here for pre op visit for 11/[address] Doyle. Accompanied by his spouse. Had urine culture testing 2 weeks ago at [facility]. >100,000 escherichia coli. 750 mg levaquin given. Discussed start time of approximately 2:00 pm in the afternoon. Will eat something light for lunch and then clears the rest of the day. No past medical history on file. No past surgical history on file. Social History Tobacco Use Smoking status: Never Smokeless tobacco: Never Current Outpatient Medications on File Prior to Visit Medication Sig famotidine (PEPCID) 40 mg tablet Take by mouth every 24 hours. amLODIPine (NORVASC) 5 mg tablet Take 5 mg by mouth once daily. aspirin 81 mg cap Take by mouth. atorvastatin (LIPITOR) 10 mg tablet Take by mouth. tamsulosin (FLOMAX) 0.4 mg Take by mouth. diphenhydrAMINE (BENADRYL) 25 mg capsule Take by mouth. carvedilol (COREG) 12.5 mg tablet Take by mouth. kshqvwbp-yjr-deotadu fumarate (MULTI VITAMIN) 9 mg iron/15 mL liqd Multi Vitamin+ Refill(s) 0 Start Date: 03/30/21 Status: Ordered No current facility-administered medications on file prior to visit. ROS: Constitutional: negative Gastrointestinal: negative PHYSICAL EXAM: BP 160/84 (BP Site: Left Arm, BP Position: Sitting, BP Cuff Size: Regular Adult) Pulse (!) 58 Wt 120 kg (264 lb 8.8 oz) BMI 37.96 kg/m GENERAL: Wnl nutrition, no deformities, healthy appearing ABDOMEN: Soft, nontender, nondistended, no masses. GENITOURINARY: MALE EXAM: pinpoint coronal hypo w decent sized glans but very flat DATA/OR LABS TO BE REVIEWED: (Simple=1 data point; Complex= 2 or more) No results found for: PSA No results found for: CREAT No results found for: TESTOST A/P: Discussed first stage Uplasty tmw. RBAs and periop expectations discussed. He is agreeable and prefers over penile urethrostomy Lloyd Doyle MD documented in this encounter [facility] 11-05-2023 Note Patient Outreach (UR OLMN) LEI HUNTLEY ([id number]) 1955 Date Time Provider Department 11/05/23 LLOYD DOYLE During your visit today, we recorded the following information about you: Allergies As of Date: 11/05/2023 Noted Allergy Reaction PENICILLINS 06/04/1956 2 - Rash 7 - Swelling 14 - Other: See Comments SHELL[employer]ING PRODUCTS 11/13/2022 7 - Swelling Date Reviewed: 11/05/2023 Reviewed by: Rukhsana Epperson APRN.CITY ADMINISTRATOR - Fully Assessed Visit Diagnosis:Screening for genitourinary condition [Z13.89] Order(s):URINALYSIS, REFLEX MICROSCOPIC [[id number]] Order #: [id number]. #:[id number] Prescriptions as of 11/08/2023 - acetaminophen (TYLENOL EXTRA STRENGTH) 500 mg tablet Take 2 tablets by mouth every 6 hours as needed for pain. - ibuprofen (MOTRIN) 600 mg tablet Take 1 tablet by mouth every 6 hours as needed for pain. - oxyCODONE IR (ROXICODONE) 5 mg immediate release tablet Take 1 tablet by mouth every 6 hours as needed for pain for up to 2 days. - Chlorhexidine Gluconate (PERIDEX) 0.12 % solution Use 15 mL as instructed two times a day for 7 days. Rinse around mouth for 30 seconds then expectorate - levoFLOXacin (LEVAQUIN) 750 mg tablet Take 1 tablet by mouth once daily for 7 days. - trospium (SANCTURA) 20 mg tablet Take 1 tablet by mouth two times a day as needed (bladder spasms). - famotidine (PEPCID) 40 mg tablet Take by mouth every 24 hours. - amLODIPine (NORVASC) 5 mg tablet Take 5 mg by mouth once daily. - aspirin 81 mg cap Take by mouth. - atorvastatin (LIPITOR) 10 mg tablet Take by mouth. - tamsulosin (FLOMAX) 0.4 mg Take by mouth. - diphenhydrAMINE (BENADRYL) 25 mg capsule Take by mouth. - carvedilol (COREG) 12.5 mg tablet Take by mouth. - sqvlkkfn-dsx-vwcxzvg fumarate (MULTI VITAMIN) 9 mg iron/15 mL liqd Multi Vitamin+ Refill(s) 0 Start Date: 03/30/21 Status: Ordered Problem List As Of Date 11/05/2023 Noted Resolved Morbid obesity (HCC) [E66.01] 11/13/2022 BPH with urinary obstruction [N40.1, N13.8] 11/05/2023 Essential (primary) hypertension [I10] 11/05/2023 Hyperlipidemia type II [E78.01] 11/05/2023 Gastroesophageal reflux disease with esophagiti*11/05/2023 Snoring [R06.83] 11/05/2023 Encounter Status:Closed by eSNFJOLANTA on 11/08/23 [facility] 10-18-2023 Telephone encounter Note Faxed pre op urine culture order to [facility] at [phone]. [facility] 10-18-2023 Miscellaneous Notes Faxed pre op urine culture order to [facility] at [phone]. Electronically signed by [facility] Caity Anna at 10/18/2023 5:00 PM EDT documented in this encounter [facility] 10-18-2023 Telephone encounter Note Called Lei Benitez regarding need for urine culture locally on or about 10/22. Asked him to provide name and phone number of lab and reach out to the office with that information so I can send an order. Number provided. - Patient does not use mychart Delmy Ramos RN [facility] Work Phone: 10-18-2023 Miscellaneous Notes Called Lei Benitez regarding need for urine culture locally on or about 10/22. Asked him to provide name and phone number of lab and reach out to the office with that information so I can send an order. Number provided. - Patient does not use mychart Delmy Ramos RN documented in this encounter [facility] 10-12-2023 History of Presen t illness Narrative HPI Lei Huntley is a 68 year old male [...] his recently [facility] a [facility] which completes their goal of having performed [...] Prosthetic Surgery Fellow documented in this encounter [facility] 10-12-2023 Note HNO ID: [id number] Author: SYD LIVINGSTON MD Service: ? Author Type: Fellow Type: Progress Notes Filed: 10/12/2023 16:10 Note Text: HPI Lei Huntley is a 68 year old male [...] his recently completed a [facility] which completes their goal of having performed [...] Male Genitourinary Reconstruction AND Prosthetic Surgery Fellow [facility] 06-29-2023 Evaluation note Encounter Date Diagnosis Assessment [...] Motion sickness, initial encounter (ICD-10 - T75.3XXA) [employer] Other 01-15-2024 Evaluation note* Encounter Date Diagnosis [...] or bending. Avoid lifting > 10 lbs [facility] Other 08-25-2023 Evaluation note* Encounter Date Diagnosis [...] or drinking prior to bedtime. Weight loss. [facility] Other 08-25-2023 Evaluation note* Encounter Date Diagnosis [...] heartburn, dysphagia, abdominal pain, melena or hematochezia. [facility] Other 06-26-2023 NoteHNO ID: [id number] Author: Lloyd Doyle MD Service: ? Author Type: Physician Type: Progress Notes Filed: 11/27/2022 5:27 PM Note Text:[facility]06-26-2023 History of Present illness Narrative* Lloyd Doyle MD - 11/27/2022 5:25 PM EDT [facility]23 NoteHNO ID: [id number] Author: Lloyd Doyle MD Service: ? Author [...] satisfactory Medications:[facility] 500 mg x [facility]* Lloyd Doyle MD - [...] 1 Lloyd Doyle MD [facility] Note* Dionisio Reardon RN - 11/27/2022 2:41 PM EDT Actual procedure/procedure scheduled: Yes Performing provider/scheduled provider: Yes Patient was roomed in: Q9- 14 Turbinated Bone Grinder offered:Patient declines Patient arrived in the room [...] Education Session: None Instruction Provided To: Patient Transcript Clerk Present: not applicable Discipline: Nursing Learning Topic: SURVIVAL SKILLS: Symptom Management Patient Evaluation: Verbalizes understanding: Yes Supplemental Material Given: Written Material Instructed By Dionisio Reardon RN In Department Urology . [facility] Ancelmo Doyle, Thank you very much for seeing Mr. Lei Huntley and proceeding with an evaluation. Unfortunately, [...] concerns. Warm regards, MD Lloyd Lara MD [facility] [place] [place] [address] Re: LEI HUNTLEY Date of Visit: 02/23/2021 Dear Marilyn Valdes is the Transition of Care Document related to the stay of LEI HUNTLEY. This document is confidential and intended [...] regarding this information, please contact: Sincerely,[facility]06-12-2023 History of Past illness Narrative* Problem Noted Date Resolved Date Morbid obesity 11/13/2022 11/27/2022 documented as of this encounter (statuses as of 11/28/2022) [facility]04-19-2023 Hospital Discharge instructions Patient Education 09/20/2022 [...] Follow these instructions at home: Medicines Take ouub-lht-wtvhcoi and prescription medicines only as told by [...] important. Where to find more information National [place] of Diabetes and Digestive and Kidney Diseases: [...] depends on the type of prostatitis. Take wxdg-wlv-uaqtzev and prescription medicines only as told by [...] provider. Document Revised: 06/25/2020 Document Reviewed: 06/25/2020 [employer] Patient Education 2022 [place]. 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 Date:01/23/22 Impression and Plan Assessment and Plan: Diagnosis: BPH with obstruction/lower urinary tract symptoms (GMK25-PV N40.1, Discharge, Medical), Distal penile hypospadias (HLD86-ZC Q54.1, Discharge, Medical), Nocturia (ILC59-PO R35.1, Billing Diagnosis, Medical), Weak urine stream (BCK19-YP R39.12, Discharge, Medical). 66 yo M with history of elevated PSA, improved after prostatitis treatment. MRI prostate negative, JAYNE benign, 85 g volume prostate. Presented today for cystoscopy to evaluate BPH with LUTS persistent after tamsulosin (IPSS 12 from ). Main issues are weak stream, spraying and [...] will refer to Dr. Lloyd Doyle at [facility] for further evaluation 3. Nocturia - nocturnal polyuria on voiding diary. Pt with snoring, recommend JESUS evaluation. Otherwise, not terribly bothered by it. If JESUS evaluation negative, may consider medical treatment in the future Follow up in 2-3 months. PSA due 07/2022 Future Appointments Appointment Date:03/22/2022 08:00:00 AM Scheduled Provider:Cali GARCIA, Cinthia Hernandez Location:[facility] Appointment Type:URO Office Visit [facility]08-22-2022 Hospital Discharge instructions Patient Education [...] to the nearest emergency room or call 1 Diet you may resume your normal diet. Activity you may resume your normal activities Call if you have a fever over 100 degrees. Follow Up Care 01/04/2022 08:54:00 With:Cinthia Leiva Address: [place] [address] [address]- [phone] Business (1) When: Unknown Comments:Call for followup appointment in 2-3 months With:Cinthia Leiva Address:Unknown When: Unknown [facility]08-18-2022 History general Narrative - Reported* Type Description Date Medical History obesity Medical History high cholesterol Surgical History Problem Title : COLO NOSCOPY, SCREENING ([id number]), Problem Status : Active, Surgical History Problem Title : Tonja ia Repair, Problem Comment : [employer] 01/19/2022, Problem Status : Active, Surgical History Problem Title : past surgical history reviewed, Problem Description : past surgical history reviewed, Problem Comment : reviewed - no changes required, Problem Status : Inactive, Surgical History Problem Title : REPA IR, HERNIA, HIATAL, WITH FUNDOPLICATION ([id number]), Problem Status : Active, Surgical History Problem Title : surg ical procedures, hx of, Problem Description : surgical procedures, hx of, Problem Comment : Hiatal Hernia Repair 1999, Problem Status : Inactive, Hospitalization History see surgical hx [employer] Other 08-10-2018 History general Narrative - Reported* Type Description Date Medical History obesity Medical History high cholesterol Surgical History hiatal hernia repair Surgical History colonoscopy 01/11/2018 Hospitalization History see surgical hx [employer] Other Evaluation + Plan note Future Appointments Appointment Date:12/06/2022 08:00:00 AM Scheduled Provider:Cinthia Leiva MD Location:[facility] Appointment Type:URO Office Visit Diagnostic Tests Pending * PSA Free & Total 09/20/22 [facility] evalauoavl noteNo assessment information available [facility] Work Phone: evaluation noteNo InformationNort [employer] Other evaluation note* Diagnosis Screening for genitourinary condition Screening for other and unspecified genitourinary condition documented in this encounter [facility] note* Diagnosis 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 urethra, unspecified stricture type- Primary BPH with obstruction/lower urinary tract symptoms Hypertrophy of prostate with urinary obstruction and other lower urinary tract symptoms (LUTS) documented in this encounter [facility] note* Diagnosis Stricture of anterior 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, unspecified stricture type- Primary Epididymoorchitis Orchitis and epididymitis, unspecified documented in this encounter [facility] note* Diagnosis Pre-op evaluation- Primary Preoperative examination, unspecified Gastroesophageal reflux disease with esophagitis, unspecified whether hemorrhage Hyperlipidemia type II Pure hypercholesterolemia Essential (primary) hypertension Unspecified essential hypertension Morbid obesity (HCC) Morbid obesity Snoring Other dyspnea and respiratory abnormality 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 * Assessment & Plan Note - Rukhsana Epperson APRN.CNP - 11/05/2023 12:27 PM EDTAssociated Problem(s): Essential (primary) hypertension Managed with carvedilol (COREG) and amLODIPine (NORVASC) BP this visit 139/84 Denies SOB, dizziness, lightheadedness, palpitations, syncope and chest pain * Assessment & Plan Note - Rukhsana Epperson APRN.CNP - 11/05/2023 12:26 PM EDTAssociated Problem(s): Hyperlipidemia type II Managed with atorvastatin (LIPITOR) * Assessment & Plan Note - Rukhsana Epperson APRN.CNP - 11/05/2023 12:25 PM EDTAssociated Problem(s): Gastroesophageal reflux disease with esophagitis Managed with diet States stable and controlled documented in this encounter [facility] note* Diagnosis Penile hypospadias- Primary Hypospadias Morbid obesity (HCC) Morbid obesity documented in this encounter [facility] note* Diagnosis Screening for genitourinary condition Screening for other and unspecified genitourinary condition documented in this encounter [facility] note* Diagnosis Stricture of anterior 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, unspecified stricture type- Primary documented in this encounter [facility] note* Diagnosis Screening for genitourinary condition Screening for other and unspecified genitourinary condition documented in this encounter [facility] note* Diagnosis Screening for genitourinary condition- Primary Screening for other and unspecified genitourinary condition documented in this encounter [facility] general Narrative - Reported* Type Description Date Medical History obesity Medical History high cholesterol Surgical History hiatal hernia repair Hospitalization History see surgical hx [employer] Other Hospital course Narrative No data available for this section [facility] No data available for this section [facility] (narrative)* Reason Referral for screeni ng colonoscopy Diagnosis 1 Screening for colon cancer (Z12.11) Referral Organization [facility] francisco Referring Provider First Name Mike Referring Provider Last Name Roberth Referring Provider Specialty Internal Sd dicine Referred Organization [facility] Referred Provider Ezra Lala Referred Address [address] [place] [phone] Referred Provider Specialty Surgery Referral Priority Routine General Notes Mr. Huntley is an a symptomatic patient with increased risk for colon cancer. He denies change in appetite, weight or bowel habits. He denies heartburn or dysphagia. He denies abdominal pain, melena or hematochezia. His brother has colon cancer. [employer] Other Reason for visit NarrativePain Medicine Referral UpdateNort [employer] Other Chief Complaint and Reason for Visit [...] left sacroiliac joint (M46.1) Referral Organization [facility] urosurgery Referring Provider First Name Renato Referring [...] Status: Inactive Member Role Status Dates Mike Lepe DO Primary Care Provider Active Renato Page MD Attending Provider Active Team Status: Active Member Role Status Dates Mike Lepe DO Primary Care Provider Active Executive Chairman Relationship Specialty Start Date End Date Mike Lepe DO [address] [place] [address] PCP - General Internal Medicine 10/16/23 Executive Chairman Relationship Specialty Start Date End Date Mike Lepe DO [address] [place] [address] PCP - General Internal Medicine 10/16/23 Executive Chairman Relationship Specialty Start Date End Date Mike Lepe DO [address] [place] [address] PCP - General Internal Medicine 10/16/23 Executive Chairman Relationship Specialty Start Date End Date Mike Lepe DO [address] [place] [address] PCP - General Internal Medicine 10/16/23 Executive Chairman Relationship Specialty Start Date End Date Mike Lepe DO [address] [place] [address] PCP - General Internal Medicine 10/16/23 Executive Chairman Relationship Specialty Start Date End Date Mike Lepe [address] [place] [address] PCP - General Internal Medicine 10/16/23 Executive Chairman Relationship Specialty Start Date End Date Mike LepeDO [address] [place] [address] PCP - General Internal Medicine 10/16/23 Executive Chairman Relationship Specialty Start Date End Date Mike Lepe [address] [place] [address] PCP - General Internal Medicine 10/16/23 Goals (unrecognized section and content) Goals may be documented in a n alternate section REASON FOR VISIT (unrecogniz ed section and content) Reason Comments Retrograde Urethrogram Specialty Diagnoses / Procedures Referred By Christo t Referred To Contact Urology / UROLOGY Diagnoses Penile hypospadias RUG per cc chart Procedures NJX RETROGRADE URETHROCSTOGRAPY RUG Self Lloyd Doyle MD [address] [place] [address] Referral ID Status Reason Start Date Expiration Date Visits Re quested Visits Authorized [id number] Closed 11/27/2022 06/03/2023 1 1 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 DATE CREATED AUTHOR AUTHOR'S ORGANIZ ATION 11/27/2023 [facility] DATE CREATED AUTHOR AUTHOR'S ORGANADWOA ATION 11/28/2023 [facility] Source Comments (unrecognize d section and content) In the event this informatio n is protected by the Federal Confidentiality of Alcohol and Drug Abuse Patient Records regulations: The Federal rules restrict any use of the information to criminally investigate or prosecute any alcohol or drug abuse patient.[facility] the event this information is protected by the Federal Confidentiality of Alcohol and Drug Abuse Patient Records regulations: The Federal rules restrict any use of the information to criminally investigate or prosecute any alcohol or drug abuse patient.[facility] Hospital[facility] the event this information is protected by the Federal Confidentiality of Alcohol and Drug Abuse Patient Records regulations: The Federal rules restrict any use of the information to criminally investigate or prosecute any alcohol or drug abuse patient.[facility] HospitalIn the event this information is protected by the Federal Confidentiality of Alcohol and Drug Abuse Patient Records regulations: The Federal rules restrict any use of the information to criminally investigate or prosecute any alcohol or drug abuse patient.[facility] HospitalIn the event this information is protected by the Federal Confidentiality of Alcohol and Drug Abuse Patient Records regulations: The Federal rules restrict any use of the information to criminally investigate or prosecute any alcohol or drug abuse patient.[facility] HospitalIn the event this information is protected by the Federal Confidentiality of Alcohol and Drug Abuse Patient Records regulations: The Federal rules restrict any use of the information to criminally investigate or prosecute any alcohol or drug abuse patient.[facility] HospitalIn the event this information is protected by the Federal Confidentiality of Alcohol and Drug Abuse Patient Records regulations: The Federal rules restrict any use of the information to criminally investigate or prosecute any alcohol or drug abuse patient.[facility] HospitalIn the event this information is protected by the Federal Confidentiality of Alcohol and Drug Abuse Patient Records regulations: The Federal rules restrict any use of the information to criminally investigate or prosecute any alcohol or drug abuse patient.[facility] HospitalIn the event this information is protected by the Federal Confidentiality of Alcohol and Drug Abuse Patient Records regulations: The Federal rules restrict any use of the information to criminally investigate or prosecute any alcohol or drug abuse patient.[facility] HospitalIn the event this information is protected by the Federal Confidentiality of Alcohol and Drug Abuse Patient Records regulations: The Federal rules restrict any use of the information to criminally investigate or prosecute any alcohol or drug abuse patient.[facility] HospitalIn the event this information is protected by the Federal Confidentiality of Alcohol and Drug Abuse Patient Records regulations: The Federal rules restrict any use of the information to criminally investigate or prosecute any alcohol or drug abuse patient.[facility] HospitalIn the event this information is protected by the Federal Confidentiality of Alcohol and Drug Abuse Patient Records regulations: The Federal rules restrict any use of the information to criminally investigate or prosecute any alcohol or drug abuse patient.[facility] FOR RECORDS PERTAINING TO PATIENTS [...] BE BASED ON THE PRIMARY CLINICAL RECORDS. [facility] [employer] [facility]. provides no warranty or guarantee of the accuracy or completeness of information in this document.
[2023-11-30 12:32] LABS: Bilirubin Urine NEGATIVE (NEGATIVE); Blood Urine MODERATE (NEGATIVE); Clarity Urine CLEAR (CLEAR); Color Urine LT. YELLOW (YELLOW); Glucose Urine UA NEGATIVE (NEGATIVE); Ketones Urine NEGATIVE (NEGATIVE); Leukocyte Esterase Urine NEGATIVE (NEGATIVE); Nitrite Urine NEGATIVE (NEGATIVE); Protein Urine NEGATIVE (NEG/TRACE); Urobilinogen Urine 0.2 EU/dL (0.2-1.0); pH Urine 5.5 (5.0-9.0)
[2023-11-30 12:39] LABS: Bacteria Urine TRACE #/HPF (NONE SEEN); Mucus Urine NONE SEEN (NONE SEEN); RBC Urine 20-50 #/HPF (0-2); WBC Urine 0-2 #/HPF (NONE SEEN)
[2023-11-30 12:40] LABS: Cast Seen? NONE SEEN #/LPF (NONE SEEN); Crystals Seen? None Seen #/HPF (None Seen); Squamous Epithelial Cell Urine RARE #/LPF (NONE/RARE)
[2023-11-30 12:41] LABS: Urine Culture Indicated ALREADY ORDERED
--- NOTE | 2023-11-30 20:39 | ED.GENADUL1 ---
HPI HPI - General Adult General Chief complaint: Urogenital-Male Stated complaint: ABDOMINAL PAIN/POST OPERATIVE COMPLICATIONS Time Seen by Provider: 11/30/23 10:41 Source: patient Mode of arrival: walk-in History of Present Illness HPI narrative: Patient is a 68-year-old male who is presenting to the ER with chief complaint of urinary retention. Earlier this month in November, patient had a procedure done at the [facility] where he was having urethral stricture, and he had a procedure to the urethra/penis to help with stricture. The distal third of his penis was filleted open to help with urethral stricture. Patient had a temporary urethral meatus placed at the base of his penis, dorsal aspect, where the scrotum skin starts. Patient did have a Díaz catheter placed after surgery, it was removed 2 weeks ago. Patient was not able to urinate after Díaz with catheter was taken out the first time. A second Díaz catheter was put in last week and it was taken out yesterday at the urology office. Catheter was removed at 12 noon yesterday, patient has not been able to urinate since. Patient is coming into the ER because he cannot urinate this morning. at bedside. All systems are negative except as noted/marked. All systems reviewed and otherwise negative. Nurses note and vital signs reviewed and patient is not hypoxic. General: The patient appears well and in no apparent distress. Patient is resting comfortably on cart. Patient is not toxic, lethargic, or listless Skin: Warm, dry, no pallor noted. There is no rash noted. No petechiae, purpura. Head: Normocephalic, atraumatic Eye: Normal conjunctiva, no drainage, EOMI. PERRL Ears, Nose, Mouth, and Throat: oral mucosa is moist. Nares patent. Mouth without vesicles. Cardiovascular: Regular Rate and Rhythm, no murmur, gallop, rub Respiratory: Patient is in no distress, no accessory muscle use, lungs are clear to auscultation, no wheezing, rales or rhonchi Back: non-tender, no CVA tenderness bilaterally to percussion. No CT LS midline pain GI: no tenderness to palpation, no masses appreciated. No rebound, guarding, or rigidity noted. No distention : Díaz catheter was able to be placed by Cinthia MEDINA to wear the Díaz catheter was yesterday before was removed. She had no significant resistance or stricture or difficulty when placing catheter, see procedure note. Patient does have the dorsal aspect, distal third of his penis filleted open where the urethral has been open. The surgical incisions are clean, dry, intact. No secondary signs of infection. No signs of crepitus, no signs of gas, no secondary signs of cellulitis or foreign years gangrene. Patient is circumcised, 2 descended testicles with no pain to 2 descended testicles. Musculoskeletal: Patient has full range of motion of all of the extremities, no motor, sensory, or focal neurological deficits Neurological: A&O x4, normal speech Psychiatric: Cooperative Related Data Home Medications ?Medication ?Instructions ?Recorded ?Confirmed atorvastatin 10 mg tablet mg 11/30/23 carvedilol 12.5 mg tablet mg 11/30/23 sulfamethoxazole 800 tab 11/30/23 mg-trimethoprim 160 mg tablet tamsulosin 0.4 mg capsule mg PO 11/30/23 Allergies Allergy/AdvReac Type Severity Reaction Status Date / Time Penicillins AdvReac Severe Verified 11/30/23 10:36 shellfish derived AdvReac Unknown Verified 11/30/23 10:36 Opioid HPI Opioid Management Most Recent Opioid Data: No Data to Display Exam Constitutional Vital Signs, click to edit/add: Last Vital Signs Temp 98 F 11/30/23 10:33 Pulse 83 11/30/23 10:33 Resp 18 11/30/23 10:33 BP 152/84 H 11/30/23 11:30 Pulse Ox 98 11/30/23 10:37 O2 Del Method Room Air 11/30/23 10:33 Course Vital Signs Vital signs: Vital Signs Blood Pressure 132/76 11/30/23 08:52 Temperature 98 F 11/30/23 10:33 Pulse Rate 83 11/30/23 10:33 Respiratory Rate 18 11/30/23 10:33 Blood Pressure 152/84 H 11/30/23 11:30 Pulse Oximetry 98 11/30/23 10:37 Oxygen Delivery Method Room Air 11/30/23 10:33 Medical Decision Making MDM Narrative Medical decision making narrative: See Cinthia MEDINA nursing notes, she was able to successfully place the Díaz catheter back in to the bladder. Patient had over 1000 cc of urine that was initially draining, the Díaz catheter was clamped. Patient was educated on using a leg bag and then using the larger Díaz bag at nighttime. Patient will call urology again today to make an appointment next week for follow-up again. Education was done at bedside. No questions at discharge. Lab Data Labs: Lab Results 11/30/23 Range/Units 12:07 Urine Color Lt. yellow (YELLOW) Urine Clarity Clear (CLEAR) Urine pH 5.5 (5.0-9.0) Ur Specific [place] 1.020 (1.005-1.025) Urine Protein Negative (NEG/TRACE) mg/dL Urine Glucose (UA) Negative (NEGATIVE) mg/dL Urine Ketones Negative (NEGATIVE) mg/dL Urine Occult Blood Moderate A (NEGATIVE) Urine Nitrite Negative (NEGATIVE) Urine Bilirubin Negative (NEGATIVE) Urine Urobilinogen 0.2 (0.2-1.0) EU/dL Ur Leukocyte Esterase Negative (NEGATIVE) Urine RBC 20-50 A (0-2) #/HPF Urine WBC 0-2 A (NONE SEEN) #/HPF Ur Squamous Epith Cells Rare (NONE/RARE) #/LPF Urine Crystals None seen (None Seen) #/HPF Urine Bacteria Trace A (NONE SEEN) #/HPF Urine Casts None seen (NONE SEEN) #/LPF Urine Mucus None seen (NONE SEEN) Ur Culture Indicated? Already ordered Urine culture is pending. Patient has been on several antibiotics in the last month.He is currently not on any antibiotic. Discharge Plan Discharge Stand Alone Forms: Portal Instructions Chief Complaint: Urogenital-Male Clinical Impression: Díaz catheter problem Patient Disposition: Home, Self-Care Time of Disposition Decision: 11:47 Condition: Fair Prescriptions / Home Meds: No Action carvedilol 12.5 mg tablet atorvastatin 10 mg tablet sulfamethoxazole-trimethoprim 800-160 mg tablet tamsulosin 0.4 mg capsule PO Print Language: Serbian Instructions: Díaz Catheter Placement and Care (ED) Additional Instructions: Use your leg bag until you follow-up with your urologist at [facility]. Call your urologist to make an appointment for next week. You can use the large bag for drainage at nighttime. Use a leg bag during the day for convenience. Urine culture is pending, if there is a positive urine infection, we will call you in the next [address] you on antibiotic if needed. Antibiotic has not been started at this time secondary to you have been on multiple antibiotics in the past 2 to 3 weeks Referrals: Mike Noble DO [Primary Care Provider] - 1 week Discharge Date/Time: 11/30/23 12:16
== END 2023-11-30 12:16 | disposition home or self-care (01) ==
PROVIDERS: Emergency Provider Emergency Medicine; PCP Internal Medicine
DX: R33.9 Retention of urine, unspecified (principal)
CPT/HCPCS: 51702; 81001; 87086; 99283

== ENCOUNTER 2024-04-29 11:35 | Outpatient (OUT) | payer OTHER, SELFPAY | END 2024-04-29 11:36 | disposition home or self-care (01) | LOC: LAB 11:36 | PROVIDERS: PCP Internal Medicine | DX: Q54.1 Hypospadias, penile (principal); N39.0 Urinary tract infection, site not specified | CPT/HCPCS: 87086; 87150; 87186 ==